=== PATIENT | female | born 1960 | race African-American/Black ===

== ENCOUNTER → 2016-10-26 | Outpatient (CLI) | payer OTHER ==
--- NOTE | 2016-10-26 11:32 | USB ---
Reason for exam: clinical finding. History: Patient is postmenopausal and has history of breast cancer at age 45. Family history of breast cancer in mother at age 60. Benign US biopsy breast VAD RT of the right breast, July 07, 2016. Benign US biopsy breast add'l VAD RT of the right breast, July 07, 2016. Lumpectomy of the right breast, May 2005. Chemotherapy, May 2005. Radiation therapy of the right breast. Took hormonal contraceptives for 2 years beginning at age 15. Took tamoxifen for 5 years beginning at age 45. Indicated problem(s): palpable abnormality in the left breast. Physical Findings: Nurse did not find any significant physical abnormalities on exam. US Breast LT Left breast ultrasound including all four quadrants, the retroareolar region and axilla demonstrates a 1.3 x 1.1 x 1.9cm vascular lymph node at 2 o'clock and a 1.8 x 1.3 x 0.8cm vascular lymph node at the axilla. These results were verbally communicated with the patient and result sheet given to the patient on 10/26/16. ASSESSMENT: Benign, BI-RAD 2 RECOMMENDATION: Routine screening mammogram of both breasts in 9 months. Back on schedule. Manage patient on a clinical basis.
== END | disposition home or self-care (01) ==
LOC: RADUSWWP 09:46
PROVIDERS: ATTEND Surgery
DX: R92.8 Other abnormal and inconclusive findings on diagnostic imaging of breast (principal)

== ENCOUNTER 2016-10-28 07:41 | Emergency (ER) | payer OTHER ==
[2016-10-28] MEDS ORDERED: SODIUM CHLORIDE 0.9% 1,000 ML IV STA ×2 (08:01→09:04)
[2016-10-28] MEDS ORDERED: ACETAMINOPHEN IV (For NPO) 1,000 MG in SALINE 1 100ML.BAG IVPB STA (08:02)
--- NOTE | 2016-10-28 08:05 | ED ---
Abdominal Pain HPI - General Chief Complaint: Abdominal Pain Stated Complaint: LOWER ABDOMEN PAIN Time Seen by Provider: 10/28/16 07:54 Source: patient, RN notes reviewed Mode of arrival: ambulatory Limitations: no limitations - History of Present Illness Initial Comments: This is a 56-year-old female with a history of multiple medical problems who had a lap band removed about 2 weeks ago who states she's had very little stool output since then she's been constipated feels as if her abdomen is getting larger has had decreased oral intake feel he stool she is passing is occasional liquid stool in spite of taking milk of magnesia superior magnesium and other stool softeners. He denies any overt fevers chills or sweats she does states she has 8/10 abdominal pain mostly left upper quadrant she states it tends gets up to 10/10. She currently has no nausea just the pain. She has had some belching. She's had no other surgery besides the lab and she states. There is a family history of diverticulitis with a cousin. MD Complaint: abdominal pain - Related Data Home Medications Medication Instructions Recorded Confirmed Captopril [Capoten] 50 mg PO BID 06/18/14 10/28/16 Hydrochlorothiazide [Hydrodiuril] 12.5 mg PO DAILY PRN 06/18/14 10/28/16 Levothyroxine Sodium [Synthroid] 100 mcg PO DAILY 07/06/15 10/28/16 Topiramate [Topamax] 100 mg PO HS 07/06/15 10/28/16 metFORMIN HCL [Glucophage] 1,000 mg PO TID 07/06/15 10/28/16 Loratadine [Claritin] 10 mg PO DAILY PRN 07/19/15 10/28/16 Albuterol Sulfate [Proair Hfa] 1 puff INHALATION DIRECTED PRN 09/19/16 Simvastatin [Simvastatin] 20 mg PO DAILY 09/22/16 10/28/16 Previous Rx's Medication Instructions Recorded oxyCODONE-APAP 5-325MG [Percocet 1 tab PO Q6HR PRN #15 tab 09/22/16 5-325 mg] Cephalexin [Keflex] 500 mg PO Q6HR #40 cap 10/28/16 Hydrocodone/Acetaminophen [[place] 1 each PO Q6HR PRN #20 tab 10/28/16 5-325] Allergies Allergy/AdvReac Type Severity Reaction Status Date / Time No Known Allergies Allergy Verified 10/28/16 07:51 Review of Systems ROS Statement: Those systems with pertinent positive or pertinent negative responses have been documented in the HPI. ROS Other: All systems not noted in ROS Statement are negative. Past Medical History Past Medical History: Cancer, Diabetes Mellitus, GERD/Reflux, Hyperlipidemia, Hypertension, Osteoarthritis (OA), Thyroid Disorder Additional Past Medical History / Comment(s): heart murmur, hx of breast cancer , gout History of Any Multi-Drug Resistant Organisms: None Reported Past Surgical History: Bariatric Surgery, Breast Surgery, Section, Joint Replacement, Tubal Ligation Additional Past Surgical History / Comment(s): rt breast lumpectomy, lymph nodes removed..saravanan knee replacement, lap band- lap band removal Past Anesthesia/Blood Transfusion Reactions: No Reported Reaction Past Psychological History: No Psychological Hx Reported Additional Psychological History / Comment(s): . Smoking Status: Never smoker Past Alcohol Use History: Occasional Past Drug Use History: None Reported - Past Family History Father Family Medical History: Diabetes Mellitus, Myocardial Infarction ([place]) Additional Family Medical History / Comment(s): father from heart attack Mother Family Medical History: Cancer General Exam - General Exam Comments Initial Comments: This is a well-developed well-nourished awake alert oriented 3 female Limitations: no limitations General appearance: alert, in no apparent distress Head exam: Present: atraumatic, normocephalic, normal inspection Eye exam: Present: normal appearance, PERRL, EOMI. Absent: scleral icterus, conjunctival injection, periorbital swelling ENT exam: Present: mucous membranes dry Neck exam: Present: normal inspection. Absent: tenderness, meningismus, lymphadenopathy Respiratory exam: Present: normal lung sounds bilaterally. Absent: respiratory distress, wheezes, rales, rhonchi, stridor Cardiovascular Exam: Present: normal rhythm, tachycardia, normal heart sounds. Absent: systolic murmur, diastolic murmur, rubs, gallop, clicks GI/Abdominal exam: Present: soft, distended, tenderness (Left upper quadrant tenderness), normal bowel sounds. Absent: guarding, rebound, rigid, bruit, pulsatile mass, hernia Rectal exam: Present: deferred Extremities exam: Present: normal inspection, full ROM, normal capillary refill. Absent: tenderness, pedal edema, joint swelling, calf tenderness Back exam: Present: normal inspection Neurological exam: Present: alert, oriented X3, CN II-XII intact Psychiatric exam: Present: normal affect, normal mood Skin exam: Present: warm, dry, intact, normal color. Absent: rash Course Vital Signs 10/28/16 10/28/16 10/28/16 07:46 09:05 10:34 Temperature 96.9 F L Pulse Rate 101 H 95 96 Respiratory 20 18 18 Rate Blood Pressure 141/97 140/75 137/81 O2 Sat by Pulse 97 99 99 Oximetry - Reevaluation(s) Reevaluation #1: 10/28/16 09:35 X-rays are nonspecific CAT scan the abdomen has been ordered. Reevaluation #2: 10/28/16 09:41 Patient did states she had a large bowel movement does feel somewhat better after the bowel movement. CT is pending Reevaluation #3: 10/28/16 10:45 Scan imaging shows no findings there is some diverticulosis but no diverticulitis there is some evidence of an umbilical hernia patient was not tender over the surgery some evidence of retroperitoneal fluid along the course in the ureters which is nonspecific Medical Decision Making - Medical Decision Making I did discuss the findings with the patient she is feeling improved and does not want to stay in the emergency department longer she will be placed on antibiotics. She is encouraged to increase her oral fluids. - Lab Data Result diagrams: 10/28/16 08:10 10/28/16 08:10 Lab Results 10/28/16 10/28/16 10/28/16 Range/Units 08:10 08:10 08:10 WBC 8.1 (3.8-10.6) k/uL RBC 3.85 (3.80-5.40) m/uL Hgb 11.5 (11.4-16.0) gm/dL Hct 38.6 (34.0-46.0) % MCV 100.3 H (80.0-100.0) fL MCH 29.9 (25.0-35.0) pg MCHC 29.8 L (31.0-37.0) g/dL RDW 15.7 H (11.5-15.5) % Plt Count 274 (150-450) k/uL Neutrophils % 73 % Lymphocytes % 20 % Monocytes % 4 % Eosinophils % 1 % Basophils % 1 % Neutrophils # 5.9 (1.3-7.7) k/uL Lymphocytes # 1.6 (1.0-4.8) k/uL Monocytes # 0.3 (0-1.0) k/uL Eosinophils # 0.1 (0-0.7) k/uL Basophils # 0.1 (0-0.2) k/uL Hypochromasia Slight Macrocytosis Slight PT (9.0-12.0) sec INR (<1.1) APTT (22.0-30.0) sec Sodium 143 (137-145) mmol/L Potassium 3.5 (3.5-5.1) mmol/L Chloride 101 (98-107) mmol/L Carbon Dioxide 31 H (22-30) mmol/L Anion Gap 11 mmol/L BUN 7 (7-17) mg/dL Creatinine 0.90 (0.52-1.04) mg/dL Est GFR (MDRD) Af Amer >60 (>60 ml/min/1.73 sqM) Est GFR (MDRD) Non-Af >60 (>60 ml/min/1.73 sqM) Glucose 207 H (74-99) mg/dL POC Glucose (mg/dL) (75-99) mg/dL POC Glu Pepper Cutter ID Plasma Lactic Acid Nghia (0.7-2.0) mmol/L Calcium 9.0 (8.4-10.2) mg/dL Total Bilirubin 0.4 (0.2-1.3) mg/dL AST 40 H (14-36) U/L ALT 57 H (9-52) U/L Alkaline Phosphatase 157 H (38-126) U/L Total Creatine Kinase 66 (30-135) U/L CK-MB (CK-2) 0.2 (0.0-2.4) ng/mL CK-MB (CK-2) Rel Index 0.3 Troponin I <0.012 (0.000-0.034) ng/mL Total Protein 6.8 (6.3-8.2) g/dL Albumin 3.5 (3.5-5.0) g/dL Amylase 32 (30-110) U/L Lipase 91 (23-300) U/L Urine Color Urine Appearance (Clear) Urine pH (5.0-8.0) Ur Specific [place] (1.001-1.035) Urine Protein (Negative) Urine Glucose (UA) (Negative) Urine Ketones (Negative) Urine Blood (Negative) Urine Nitrate (Negative) Urine Bilirubin (Negative) Urine Urobilinogen (<2.0) mg/dL Ur Leukocyte Esterase (Negative) Urine RBC (0-5) /hpf Urine WBC (0-5) /hpf Urine WBC Clumps (None) /hpf Ur Squamous Epith Cells (0-4) /hpf Urine Bacteria (None) /hpf Urine Mucus (None) /hpf 10/28/16 10/28/16 10/28/16 Range/Units 08:10 08:10 08:15 WBC (3.8-10.6) k/uL RBC (3.80-5.40) m/uL Hgb (11.4-16.0) gm/dL Hct (34.0-46.0) % MCV (80.0-100.0) fL MCH (25.0-35.0) pg MCHC (31.0-37.0) g/dL RDW (11.5-15.5) % Plt Count (150-450) k/uL Neutrophils % % Lymphocytes % % Monocytes % % Eosinophils % % Basophils % % Neutrophils # (1.3-7.7) k/uL Lymphocytes # (1.0-4.8) k/uL Monocytes # (0-1.0) k/uL Eosinophils # (0-0.7) k/uL Basophils # (0-0.2) k/uL Hypochromasia Macrocytosis PT 10.2 (9.0-12.0) sec INR 1.0 (<1.1) APTT 22.5 (22.0-30.0) sec Sodium (137-145) mmol/L Potassium (3.5-5.1) mmol/L Chloride (98-107) mmol/L Carbon Dioxide (22-30) mmol/L Anion Gap mmol/L BUN (7-17) mg/dL Creatinine (0.52-1.04) mg/dL Est GFR (MDRD) Af Amer (>60 ml/min/1.73 sqM) Est GFR (MDRD) Non-Af (>60 ml/min/1.73 sqM) Glucose (74-99) mg/dL POC Glucose (mg/dL) 185 H (75-99) mg/dL POC Glu Pepper Cutter ID Keli Russell Plasma Lactic Acid Nghia 2.7 H* (0.7-2.0) mmol/L Calcium (8.4-10.2) mg/dL Total Bilirubin (0.2-1.3) mg/dL AST (14-36) U/L ALT (9-52) U/L Alkaline Phosphatase (38-126) U/L Total Creatine Kinase (30-135) U/L CK-MB (CK-2) (0.0-2.4) ng/mL CK-MB (CK-2) Rel Index Troponin I (0.000-0.034) ng/mL Total Protein (6.3-8.2) g/dL Albumin (3.5-5.0) g/dL Amylase (30-110) U/L Lipase (23-300) U/L Urine Color Urine Appearance (Clear) Urine pH (5.0-8.0) Ur Specific [place] (1.001-1.035) Urine Protein (Negative) Urine Glucose (UA) (Negative) Urine Ketones (Negative) Urine Blood (Negative) Urine Nitrate (Negative) Urine Bilirubin (Negative) Urine Urobilinogen (<2.0) mg/dL Ur Leukocyte Esterase (Negative) Urine RBC (0-5) /hpf Urine WBC (0-5) /hpf Urine WBC Clumps (None) /hpf Ur Squamous Epith Cells (0-4) /hpf Urine Bacteria (None) /hpf Urine Mucus (None) /hpf 10/28/16 Range/Units 09:35 WBC (3.8-10.6) k/uL RBC (3.80-5.40) m/uL Hgb (11.4-16.0) gm/dL Hct (34.0-46.0) % MCV (80.0-100.0) fL MCH (25.0-35.0) pg MCHC (31.0-37.0) g/dL RDW (11.5-15.5) % Plt Count (150-450) k/uL Neutrophils % % Lymphocytes % % Monocytes % % Eosinophils % % Basophils % % Neutrophils # (1.3-7.7) k/uL Lymphocytes # (1.0-4.8) k/uL Monocytes # (0-1.0) k/uL Eosinophils # (0-0.7) k/uL Basophils # (0-0.2) k/uL Hypochromasia Macrocytosis PT (9.0-12.0) sec INR (<1.1) APTT (22.0-30.0) sec Sodium (137-145) mmol/L Potassium (3.5-5.1) mmol/L Chloride (98-107) mmol/L Carbon Dioxide (22-30) mmol/L Anion Gap mmol/L BUN (7-17) mg/dL Creatinine (0.52-1.04) mg/dL Est GFR (MDRD) Af Amer (>60 ml/min/1.73 sqM) Est GFR (MDRD) Non-Af (>60 ml/min/1.73 sqM) Glucose (74-99) mg/dL POC Glucose (mg/dL) (75-99) mg/dL POC Glu Pepper Cutter ID Plasma Lactic Acid Nghia (0.7-2.0) mmol/L Calcium (8.4-10.2) mg/dL Total Bilirubin (0.2-1.3) mg/dL AST (14-36) U/L ALT (9-52) U/L Alkaline Phosphatase (38-126) U/L Total Creatine Kinase (30-135) U/L CK-MB (CK-2) (0.0-2.4) ng/mL CK-MB (CK-2) Rel Index Troponin I (0.000-0.034) ng/mL Total Protein (6.3-8.2) g/dL Albumin (3.5-5.0) g/dL Amylase (30-110) U/L Lipase (23-300) U/L Urine Color Light Yellow Urine Appearance Clear (Clear) Urine pH 7.5 (5.0-8.0) Ur Specific [place] 1.007 (1.001-1.035) Urine Protein 1+ H (Negative) Urine Glucose (UA) Negative (Negative) Urine Ketones Trace H (Negative) Urine Blood Negative (Negative) Urine Nitrate Negative (Negative) Urine Bilirubin Negative (Negative) Urine Urobilinogen <2.0 (<2.0) mg/dL Ur Leukocyte Esterase Moderate H (Negative) Urine RBC <1 (0-5) /hpf Urine WBC 22 H (0-5) /hpf Urine WBC Clumps Few H (None) /hpf Ur Squamous Epith Cells 2 (0-4) /hpf Urine Bacteria Rare H (None) /hpf Urine Mucus Rare H (None) /hpf - Radiology Data Radiology results: report reviewed (I did review the imaging and report there is nonspecific bowel gas pattern chest x-ray appears be unremarkable.), image reviewed Disposition Clinical Impression: Urinary tract infection, Constipation, Diverticulosis, Abdominal pain Disposition: HOME SELF-CARE Condition: Good Instructions: Urinary Tract Infection in Women (ED), Diverticulosis (ED), Diverticulitis Diet (ED), Abdominal Pain (ED) Additional Instructions: Increase oral fluid consumption Prescriptions: Cephalexin [Keflex] 500 mg PO Q6HR #40 cap Hydrocodone/Acetaminophen [[place] 5-325] 1 each PO Q6HR PRN #20 tab PRN Reason: Pain
[2016-10-28 08:22] LABS: Glucose,Whole Blood 185 mg/dL (75-99)
[2016-10-28 08:22] LABS: Basophils # (A) 0.1 k/uL (0-0.2); Basophils % (A) 1 %; CH 30.9; Eosinophils # (A) 0.1 k/uL (0-0.7); Eosinophils % (A) 1 %; HCT 38.6 % (34.0-46.0); HDW 2.66; HGB 11.5 gm/dL (11.4-16.0); Hypochromasia Slight; Luc # (Auto) 0.12; Luc % (Auto) 2; Lymphocytes # (A) 1.6 k/uL (1.0-4.8); Lymphocytes % (A) 20 %; MCH 29.9 pg (25.0-35.0); MCHC 29.8 g/dL (31.0-37.0); MCV 100.3 fL (80.0-100.0); Macrocytosis Slight; Mean Platelet Volume 8.3; Monocytes # (A) 0.3 k/uL (0-1.0); Monocytes % (A) 4 %; Neutrophils # (A) 5.9 k/uL (1.3-7.7); Neutrophils % (A) 73 %; RBC 3.85 m/uL (3.80-5.40); RDW 15.7 % (11.5-15.5); WBC 8.1 k/uL (3.8-10.6)
[2016-10-28 08:32] LABS: Partial Thromboplastin Time 22.5 sec (22.0-30.0); Prothrombin Time 10.2 sec (9.0-12.0)
[2016-10-28 08:34] LABS: ALT 57 U/L (9-52); AST 40 U/L (14-36); Alkaline Phosphatase 157 U/L (38-126); Amylase 32 U/L (30-110); Anion Gap 11 mmol/L; Blood Urea Nitrogen 7 mg/dL (7-17); Carbon Dioxide 31 mmol/L (22-30); Chloride 101 mmol/L (98-107); Glucose 207 mg/dL (74-99); Non-African American GFR(MDRD) >60 (>60 ml/min/1.73 sqM); Potassium 3.5 mmol/L (3.5-5.1); Sodium 143 mmol/L (137-145); Total Bilirubin 0.4 mg/dL (0.2-1.3); Total Protein 6.8 g/dL (6.3-8.2)
[2016-10-28 08:43] LABS: Creatine Kinase 66 U/L (30-135)
--- NOTE | 2016-10-28 08:53 | XR ---
EXAMINATION TYPE: XR chest 2V DATE OF EXAM: 10/28/2016 8:41 AM COMPARISON: Prior chest x-ray December 21, 2015. Prior chest CT December 22, 2015 HISTORY: Lower chest and upper abdominal pain with diarrhea. TECHNIQUE: Frontal and lateral views of the chest are obtained. FINDINGS: There is no focal air space opacity, pleural effusion, or pneumothorax seen. The cardiac silhouette size is stable and mildly enlarged. The osseous structures are intact. Surgical clips ar e redemonstrated in the right breast. IMPRESSION: Mild cardiomegaly without acute pulmonary process. No significant change from prior.
--- NOTE | 2016-10-28 08:55 | XR ---
EXAMINATION TYPE: XR abdomen 2V DATE OF EXAM: 10/28/2016 8:41 AM CLINICAL HISTORY: Lap band removed in September with upper abdominal pain and watery diarrhea TECHNIQUE: Supine and upright views of the abdomen are obtained COMPARISON: CT chest December 22, 2015 FINDINGS: There is some paucity of small bowel gas. Gas is seen in nondistended colonic loops with so me scattered air-fluid levels. Visualized gas and small bowel loops shows no suspicious dilatation. S urgical sutures epigastric region versus rectum. There is no pneumoperitoneum or suspicious calcifica tion identified. The lung bases are clear and the osseous structures are intact. IMPRESSION: Overall nonspecific favor nonobstructive bowel gas pattern.
[2016-10-28 08:56] LABS: Creatine Kinase MB 0.2 ng/mL (0.0-2.4); Troponin I <0.012 ng/mL (0.000-0.034)
[2016-10-28 09:05] VITALS: RESP 18
[2016-10-28] MEDS ORDERED: RX INFO: IV CONTRAST WAS GIVEN 1 EACH MISC MISCELLANE PRN (09:33)
[2016-10-28 10:03] LABS: Appearance,Urine Clear (Clear); Bacteria,Urine Rare /hpf; Bilirubin,Urine Negative (Negative); Glucose,Urine (UA) Negative (Negative); Ketones,Urine Trace (Negative); Leukocyte Esterase,Urine Moderate (Negative); Mucus,Urine Rare /hpf; Nitrite,Urine Negative (Negative); PH, Urine 7.5 (5.0-8.0); Particle Count 817; Protein,Urine 1+ (Negative); RBC,Urine <1 /hpf (0-5); Specific Gravity,Urine 1.007 (1.001-1.035); Squamous Epithelial Cell,Urine 2 /hpf (0-4); UA Billing (MACRO vs. MICRO) MICRO; Urobilinogen,Urine <2.0 mg/dL (<2.0); WBC,Urine 22 /hpf (0-5)
--- NOTE | 2016-10-28 10:25 | CT ---
EXAMINATION TYPE: CT abdomen pelvis w con DATE OF EXAM: 10/28/2016 10:09 AM COMPARISON: NONE HISTORY: Patient having left sided pain into left lower quadrant. Patient recently had lap band remov ed (Sep 23) and pain started then. CT DLP: 2005.4mGycm Automated Exposure Control for Dose Reduction was Utilized. CONTRAST: CT scan of the abdomen and pelvis is performed without oral but with IV Contrast, patient injected wi th 100 mL of Omnipaque 300. Exam is suboptimal due to IV malfunction. COMPARISON: None. FINDINGS: LUNG BASES: No significant abnormality is appreciated. LIVER/GB: Liver is diffusely low dense consistent with fatty infiltration. PANCREAS: No significant abnormality is seen. SPLEEN: No significant abnormality is seen. ADRENALS: No significant abnormality is seen. KIDNEYS: There is symmetric excretion from both kidneys without evidence of hydronephrosis bilaterall y. There is asymmetric diminished size to right kidney versus left kidney noted. Urinary bladder is p oorly distended midline of the anterior pelvis and is thus suboptimally evaluated. There is some ill- defined fluid in the retroperitoneum along course of the ureters. BOWEL: Surgical clips epigastric region are seen. Evaluation bowel is suboptimal due to lack of enter ic contrast. Stomach is poorly distended and thus suboptimally evaluated. There is no suspicious smal l or large bowel dilatation identified. Fluid-filled right colon raises concern for colitis and/or di arrhea. Diverticula are seen in the sigmoid colon. No acute diverticulitis is present UTERUS/ADNEXA: Uterus is anteverted in shape and within normal limits in size. Scattered pelvic phleb oliths are seen. LYMPH NODES: No greater than 1cm abdominal or pelvic lymph nodes are appreciated. OSSEOUS STRUCTURES: There is multilevel vacuum disc phenomenon and disc space narrowing in the mid to lower lumbar spine. Facet arthropathy contributes to spinal canal stenosis and neural foraminal narr owing at L4-L5 level. Multilevel spurring in the thoracolumbar spine is noted. OTHER: There is moderate sized fat-containing umbilical hernia. Heterogeneous 3.7 cm density left upp er midabdomen anterior abdominal wall likely reflects remnant scar related to place of prior lap band port on axial image 38. Other etiologies such as focal hematoma cannot be excluded on CT image. IMPRESSION: Mild ill-defined retroperitoneal fluid along course of the mid ureters bilaterally is non specific could reflect inflammatory change, urine leak, or infectious process among the possible etio logies.
[2016-10-28 10:35] VITALS: BP 137/81; PULSE 96
[2016-10-28 10:48] VITALS: TEMP 97.4
== END 2016-10-28 10:56 | disposition home or self-care (01) ==
LOC: EC 07:41
DX: N39.0 Urinary tract infection, site not specified (principal); K59.00 Constipation, unspecified; K57.90 Diverticulosis of intestine, part unspecified, without perforation or abscess without bleeding; M10.9 Gout, unspecified; I10 Essential (primary) hypertension; Z79.84 Long term (current) use of oral hypoglycemic drugs; E07.9 Disorder of thyroid, unspecified; K21.9 Gastro-esophageal reflux disease without esophagitis; E78.5 Hyperlipidemia, unspecified; E11.9 Type 2 diabetes mellitus without complications; Z79.899 Other long term (current) drug therapy; Z85.3 Personal history of malignant neoplasm of breast
CPT/HCPCS: 99284; 96361; 96374; 36415; 80053; 82150; 82550; 82553; 83605; 83690; 84484; 85025; 85610; 85730; 81001; 71020; 74020; 74177; Q9967; J0131

== ENCOUNTER → 2017-05-04 | Outpatient (CLI) | payer OTHER ==
--- NOTE | 2017-05-04 10:45 | MM ---
Reason for exam: follow-up at short interval from prior study. Last mammogram was performed 10 months ago. History: Patient is postmenopausal and has history of breast cancer at age 45. Family history of breast cancer in mother at age 60. Benign US biopsy breast VAD RT of the right breast, July 07, 2016. Benign US biopsy breast add'l VAD RT of the right breast, July 07, 2016. Lumpectomy of the right breast, May 2005. Chemotherapy, May 2005. Radiation therapy of the right breast. Took hormonal contraceptives for 2 years beginning at age 15. Took tamoxifen for 5 years beginning at age 45. Physical Findings: Nurse did not find any significant physical abnormalities on exam. MG Diagnostic Mammo RT w CAD CC and MLO view(s) were taken of the right breast. Prior study comparison: July 06, 2016, bilateral MG diagnostic mammo w CAD THALIA. March 17, 2014, bilateral MG diagnostic mammo w CAD THALIA. March 17, 2014, left breast US breast LT. March 19, 2012, CAD bilateral diagnostic mammogram. There are scattered fibroglandular densities. Previous mammotome biopsy in the right breast x 2. Post surgical and post therapy changes in the right breast. Nodular asymmetry far lateral at a middle depth. This was present previously. It appears slightly more prominent but this may be positional. Short interval follow up recommended. These results were verbally communicated with the patient and result sheet given to the patient on 05/04/17. ASSESSMENT: Probably benign, BI-RAD 3 RECOMMENDATION: Follow-up diagnostic mammogram of the right breast in 3 months. Patient will be due for her annual exam of the left breast at that time. (due for annual exam in 3 months) LETY
== END | disposition home or self-care (01) ==
LOC: RADMAMWWP 09:31
PROVIDERS: ATTEND Surgery
DX: R92.8 Other abnormal and inconclusive findings on diagnostic imaging of breast (principal)

== ENCOUNTER → 2017-08-13 | Outpatient (CLI) | payer MEDICARE, OTHER ==
--- NOTE | 2017-08-13 11:11 | MM ---
Reason for exam: additional evaluation requested from prior study. Last mammogram was performed 3 months ago. History: Patient is postmenopausal and has history of breast cancer at age 45. Family history of breast cancer in mother at age 60. Benign US biopsy breast VAD RT of the right breast, July 07, 2016. Benign US biopsy breast add'l VAD RT of the right breast, July 07, 2016. Lumpectomy of the right breast, May 2005. Chemotherapy, May 2005. Radiation therapy of the right breast. Took hormonal contraceptives for 2 years beginning at age 15. Took tamoxifen for 5 years beginning at age 45. Physical Findings: Nurse did not find any significant physical abnormalities on exam. MG Diagnostic Mammo w CAD THALIA Bilateral CC and MLO view(s) were taken. Prior study comparison: May 04, 2017, right breast MG diagnostic mammo RT w CAD. July 06, 2016, bilateral MG diagnostic mammo w CAD THALIA. There are scattered fibroglandular densities. No suspicious abnormality. Post therapy changes in the upper outer quadrant. These results were verbally communicated with the patient and result sheet given to the patient on 08/13/17. ASSESSMENT: Benign, BI-RAD 2 RECOMMENDATION: Routine screening mammogram of both breasts in 1 year.
== END | disposition home or self-care (01) ==
LOC: RADMAMWWP 10:08
PROVIDERS: ATTEND Surgery
DX: R92.8 Other abnormal and inconclusive findings on diagnostic imaging of breast (principal)

== ENCOUNTER 2017-11-05 08:12 | Emergency (ER) | payer MEDICARE, OTHER ==
[2017-11-05] MEDS ORDERED: IPRATROPIUM-ALBUTEROL 3 ML NEB INHALATION STA ×2 (08:44→10:28)
[2017-11-05] MEDS ORDERED: methylPREDNISolone SOD SUCCI 125 MG/2 ML VIAL IM STA (08:44)
--- NOTE | 2017-11-05 08:46 | ED ---
General Adult HPI - General Chief complaint: Upper Respiratory Infection Stated complaint: FLU LIKE SYMPTOMS Time Seen by Provider: 11/05/17 08:41 Source: patient, RN notes reviewed Mode of arrival: wheelchair Limitations: no limitations - History of Present Illness Initial comments: Patient's a 57-year-old female who presents emergency room today with a chief complaint of cough congestion over the last 2 weeks. Patient does admit to spin production. States that she is unsure of the color does not look at it. She does admit that she's been trying breathing treatments at home with little relief the symptoms. States feels it is getting worse. Denies any other complaints or associated symptoms. Patient denies any recent shortness of breath , chest pain, back pain, abdominal pain, nausea or vomiting, numbness or tingling, dysuria or hematuria, constipation or diarrhea, headaches or visual changes, or any other complaints. - Related Data Home Medications Medication Instructions Recorded Confirmed Captopril [Capoten] 50 mg PO BID 06/18/14 11/05/17 Levothyroxine Sodium [Synthroid] 100 mcg PO DAILY 07/06/15 11/05/17 Topiramate [Topamax] 100 mg PO HS 07/06/15 11/05/17 metFORMIN HCL [Glucophage] 500 mg PO TID 07/06/15 11/05/17 Loratadine [Claritin] 10 mg PO DAILY 07/19/15 11/05/17 Albuterol Sulfate [Proair Hfa] 1 puff INHALATION RT-Q4H PRN 09/19/16 11/05/17 Simvastatin [Simvastatin] 20 mg PO DAILY 09/22/16 11/05/17 ALPRAZolam [Xanax] 1 mg PO TID PRN 11/05/17 11/05/17 Bumetanide [Bumex] 1 mg PO DAILY PRN 11/05/17 11/05/17 HYDROcodone/APAP 10-325MG [[place] 1 tab PO Q8H PRN 11/05/17 11/05/17 10-325] Hydrochlorothiazide [Hydrodiuril] 25 mg PO DAILY 11/05/17 11/05/17 Ibuprofen [Motrin] 800 mg PO QID PRN 11/05/17 11/05/17 Omeprazole [PriLOSEC] 20 mg PO DAILY 11/05/17 11/05/17 Phentermine HCl 37.5 mg PO AC-BRKFST 11/05/17 11/05/17 Temazepam [Restoril] 15 mg PO HS PRN 11/05/17 11/05/17 Previous Rx's Medication Instructions Recorded Albuterol Inhaler [Ventolin Hfa 1 - 2 puff INHALATION Q4-6H PRN #1 11/05/17 Inhaler] inhaler Albuterol Nebulized [Ventolin 2.5 mg INHALATION Q4H PRN 10 Days 11/05/17 Nebulized] nebu Azithromycin [Zithromax Z-pack] 0 mg PO DIRECTED #6 tab 11/05/17 predniSONE 40 mg PO DAILY 5 Days tab 11/05/17 Allergies Allergy/AdvReac Type Severity Reaction Status Date / Time No Known Allergies Allergy Verified 11/05/17 08:36 Review of Systems ROS Statement: Those systems with pertinent positive or pertinent negative responses have been documented in the HPI. ROS Other: All systems not noted in ROS Statement are negative. Past Medical History Past Medical History: Cancer, Diabetes Mellitus, GERD/Reflux, Hyperlipidemia, Hypertension, Osteoarthritis (OA), Thyroid Disorder Additional Past Medical History / Comment(s): heart murmur, hx of breast cancer , gout History of Any Multi-Drug Resistant Organisms: None Reported Past Surgical History: Bariatric Surgery, Breast Surgery, Section, Joint Replacement, Tubal Ligation Additional Past Surgical History / Comment(s): rt breast lumpectomy, lymph nodes removed..saravanan knee replacement, lap band Past Anesthesia/Blood Transfusion Reactions: No Reported Reaction Past Psychological History: Anxiety Smoking Status: Never smoker Past Alcohol Use History: Occasional Past Drug Use History: None Reported - Past Family History Father Family Medical History: Diabetes Mellitus, Myocardial Infarction ([place]) Additional Family Medical History / Comment(s): father from heart attack Mother Family Medical History: Cancer General Exam - General Exam Comments Initial Comments: General: The patient is awake and alert, in no distress, and does not appear acutely ill. Eye: Pupils are equal, round and reactive to light, extra-ocular movements are intact. No nystagmus. There is normal conjunctiva bilaterally. No signs of icterus. Ears, nose, mouth and throat: There are moist mucous membranes and no oral lesions. Neck: The neck is supple, there is no tenderness or JVD. Cardiovascular: There is a regular rate and rhythm. No murmur, rub or gallop is appreciated. Respiratory: Bilateral expiratory wheeze. respirations are non-labored, breath sounds are equal. No stridor, rales, or rhonchi. Musculoskeletal: Normal ROM, no tenderness. Strength 5/5. Sensation intact. Pulses equal bilaterally 2+. Neurological: A&O x 3. CN II-XII intact, There are no obvious motor or sensory deficits. Coordination appears grossly intact. Speech is normal. Skin: Skin is warm and dry and no rashes or lesions are noted. Psychiatric: Cooperative, appropriate mood & affect, normal judgment. Limitations: no limitations Course Vital Signs 11/05/17 11/05/17 11/05/17 08:16 09:13 09:20 Temperature 98.7 F Pulse Rate 115 H 108 H 108 H Respiratory 20 Rate Blood Pressure 132/83 O2 Sat by Pulse 98 Oximetry 11/05/17 09:23 Temperature 99.1 F Pulse Rate 102 H Respiratory 16 Rate Blood Pressure 151/89 O2 Sat by Pulse 98 Oximetry Medical Decision Making - Medical Decision Making Patient reexamined at this time shows no signs of distress. Doesn't improvement after breathing treatments. Did have some wheezing in the posterior lung sounds. Chest x-rays reviewed negative. She does move to cough congestion over the last 2 weeks. Patient will be treated for bronchitis placed on azithromycin also steroids. She is diabetic and advised that this will cause some fluctuations of her blood sugar. Patient advised follow family doctor next days return here to the emergency room symptoms increase or for any other concerns. She states understanding and is in agreement. Disposition Clinical Impression: Acute bronchitis Disposition: HOME SELF-CARE Condition: Good Instructions: Acute Bronchitis (ED) Additional Instructions: Please use medication as discussed. Please follow-up with family doctor in the next 2 days of symptoms have not improved. Please return to emergency room if the symptoms increase or worsen or for any other concerns. Prescriptions: Albuterol Inhaler [Ventolin Hfa Inhaler] 1 - 2 puff INHALATION Q4-6H PRN #1 inhaler PRN Reason: Cough Albuterol Nebulized [Ventolin Nebulized] 2.5 mg INHALATION Q4H PRN 10 Days nebu PRN Reason: Cough Azithromycin [Zithromax Z-pack] 0 mg PO DIRECTED #6 tab predniSONE 40 mg PO DAILY 5 Days tab Referrals: Bart Monge MD [Primary Care Provider] - 1-2 days Time of Disposition: 10:14
--- NOTE | 2017-11-05 09:42 | XR ---
EXAMINATION TYPE: XR chest 2V DATE OF EXAM: 11/05/2017 COMPARISON: 10/28/2016 HISTORY: Shortness of breath TECHNIQUE: Frontal and lateral views of the chest are obtained. FINDINGS: Scattered senescent parenchymal changes noted. Hyperinflation compatible with COPD. No evidence for infiltrate. No evidence for atelectasis. Heart size is stable. Mediastinal structures are stable and grossly unremarkable. No evidence for hilar prominence. Degenerative changes dorsal spine. IMPRESSION: 1. No evidence for acute pulmonary disease.
[2017-11-05 11:09] VITALS: BP 131/75; PULSE 102; RESP 18; TEMP 99
== END 2017-11-05 10:55 | disposition home or self-care (01) ==
LOC: EC 08:12
DX: J20.9 Acute bronchitis, unspecified (principal); E78.5 Hyperlipidemia, unspecified; I10 Essential (primary) hypertension; E11.9 Type 2 diabetes mellitus without complications; K21.9 Gastro-esophageal reflux disease without esophagitis; E07.9 Disorder of thyroid, unspecified; Z79.84 Long term (current) use of oral hypoglycemic drugs; Z79.899 Other long term (current) drug therapy; Z85.3 Personal history of malignant neoplasm of breast; Z98.890 Other specified postprocedural states
CPT/HCPCS: 94640 ×2; 71046; 99283; 96372; J2930

== ENCOUNTER → 2019-12-17 | Outpatient (CLI) | payer MEDICARE ==
--- NOTE | 2019-12-17 10:36 | USB ---
Reason for exam: clinical finding. History: Patient is postmenopausal and has history of breast cancer at age 45. Family history of breast cancer in mother at age 60. Benign US biopsy breast VAD RT of the right breast, July 07, 2016. Benign US biopsy breast add'l VAD RT of the right breast, July 07, 2016. Lumpectomy of the right breast, May 2005. Chemotherapy, May 2005. Radiation therapy of the right breast. Took hormonal contraceptives for 2 years beginning at age 15. Took tamoxifen for 5 years beginning at age 45. Indicated problem(s): lump or thickening in the right breast. Physical Findings: Nurse Summary: right lump x 3 weeks palpated by patient (nurse jj). US Breast BILAT Right complete breast ultrasound includes all four quadrants, the retroareolar region and axilla. Finding demonstrates a 0.7 x 0.5 x 0.3cm solid, hypoechoic lesion at 10 o'clock for which a biopsy is recommended. Left complete breast ultrasound includes all four quadrants, the retroareolar region and axilla. Finding demonstrates no cystic or solid lesion seen. These results were verbally communicated with the patient and result sheet given to the patient on 12/17/19. ASSESSMENT: Suspicious, BI-RAD 4 RECOMMENDATION: Ultrasound core biopsy of the right breast. Called Dr. King's office with mammographic findings and has scheduled an appointment for the patient for 01/29/20 at 10:[address] Ervin. Biopsy scheduled for 01/05/20 at 8:00. PRELIMINARY REPORT CALLED AND FAXED TO DR. ERVIN ON 12/17/19.
== END | disposition home or self-care (01) ==
LOC: RADUSWWP 09:17
PROVIDERS: ATTEND Family Medicine
DX: N63.10 Unspecified lump in the right breast, unspecified quadrant (principal); N63.20 Unspecified lump in the left breast, unspecified quadrant

== ENCOUNTER → 2020-01-05 | Day surgery (SDC) | payer MEDICARE ==
[2020-01-05 07:25] VITALS: RESP 16; TEMP 97.7
--- NOTE | 2020-01-05 08:56 | USB ---
EXAMINATION TYPE: US biopsy breast VAD RT, MG diagnostic mammo RT wo CAD DATE OF EXAM: 01/05/2020 CLINICAL HISTORY: N63 breast lump/mass. TECHNIQUE: Ultrasound guided core biopsy of right breast. COMPARISON: Bilateral breast ultrasound dated 12/17/2019 FINDINGS: The procedure of ultrasound guided core biopsy was explained to the patient. Benefits, alternatives, and risks were discussed. An informed consent was then obtained. Preprocedural timeout was performed. The patient was placed in supine positioning for imaging and for the procedure. The overlying skin was prepped and draped in usual sterile fashion. 10 cc of 1% lidocaine was used as anesthetic into the skin and subcutaneous tissue up to a 0.7 x 0.5 x 0.3 cm mass at the 10:00 position in the right breast. Under ultrasound guidance, a 12-gauge vacuum assisted biopsy gun device was used to obtain 5 core samples. Following this, a ribbon-shaped biopsy marker was left at the site of biopsy. Postprocedure mammogram demonstrates appropriate biopsy marker placement. The patient tolerated the procedure well without any immediate complication. The patient was kept in the radiology department for short stay after the procedure and then discharged home in stable condition. IMPRESSION: Successful, uncomplicated ultrasound guided core biopsy of area of a 0.7 x 0.5 x 0.3 cm mass at the 10:00 position in the right breast, full pathology results to follow. Pathology Results: Benign RIGHT BREAST, ULTRASOUND GUIDED CORE BIOPSY: Fibrocystic changes including fibrosis, small cysts, and apocrine metaplasia. Rare microcalcifications are identified. Recommendation Follow up ultrasound of the right breast in months. LETY
[2020-01-05 09:13] VITALS: BP 128/87; PULSE 98
== END ==
LOC: RADMAMWWP 07:07
PROVIDERS: ATTEND Surgery
DX: N60.31 Fibrosclerosis of right breast (principal); N60.81 Other benign mammary dysplasias of right breast; R92.8 Other abnormal and inconclusive findings on diagnostic imaging of breast
CPT/HCPCS: 88305; 77065; 19083; A4648; J2001

== ENCOUNTER → 2020-02-24 | Outpatient (CLI) | payer MEDICARE ==
--- NOTE | 2020-02-24 08:46 | XR ---
EXAMINATION TYPE: XR chest 2V DATE OF EXAM: 02/24/2020 COMPARISON: 11/05/2017 HISTORY: Shortness of breath TECHNIQUE: Frontal and lateral views of the chest are obtained. FINDINGS: Scattered senescent parenchymal changes noted. Hyperinflation compatible with COPD. No evidence for infiltrate. No evidence for atelectasis. Heart size is stable. Mediastinal structures are stable and grossly unremarkable. No evidence for hilar prominence. Degenerative changes dorsal spine. IMPRESSION: 1. No evidence for acute pulmonary disease.
== END | disposition home or self-care (01) ==
LOC: RADXRMAIN 08:04
PROVIDERS: ATTEND Internal Medicine
DX: R04.2 Hemoptysis (principal)
CPT/HCPCS: 71046

== ENCOUNTER 2020-05-22 11:05 | Emergency (ER) | payer MEDICARE ==
[2020-05-22 11:15] VITALS: RESP 18; TEMP 98.6
--- NOTE | 2020-05-22 11:42 | ED ---
Extremity Problem HPI - General Chief complaint: Extremity Problem,Nontraumatic Stated complaint: right arm weakness Time Seen by Provider: 05/22/20 11:21 Source: patient Mode of arrival: wheelchair Limitations: no limitations - History of Present Illness Initial comments: Patient is 60-year-old female presenting to the emergency department with a chief complaint of right arm pain and numbness. Patient states her symptoms began approximately 4 days ago with gradual onset. Patient states the infant was initially began in her wrists of the neck/trap region and have not moved distally to her right elbow. Patient states she developed pain in the right shoulder with decreased range of motion especially with abduction above 90. Patient states she also has a numbing/tingling sensation radiating from the right trap to the right elbow. States she has normal sensation and strength in her forearm and hand. Patient denies headaches, visual changes, weakness in either lower extremities or left arm.. Denies any difficulties with speech or any facial droop. Denies any difficulty walking. Patient does use a cane to ambulate at baseline. Denies prior history of strokes. Denies chest pain shortness of breath. She denies any trauma to the right upper extremity. - Related Data Home Medications Medication Instructions Recorded Confirmed captopriL [Capoten] 50 mg PO BID 06/18/14 01/05/20 Levothyroxine Sodium [Synthroid] 100 mcg PO DAILY 07/06/15 01/05/20 metFORMIN HCL [Glucophage] 1,000 mg PO BID 07/06/15 01/05/20 Simvastatin 20 mg PO DAILY 09/22/16 01/05/20 ALPRAZolam [Xanax] 1 mg PO TID PRN 11/05/17 01/05/20 Omeprazole [PriLOSEC] 20 mg PO DAILY 11/05/17 01/05/20 Allergies Allergy/AdvReac Type Severity Reaction Status Date / Time No Known Allergies Allergy Verified 05/22/20 11:12 Review of Systems ROS Statement: Those systems with pertinent positive or pertinent negative responses have been documented in the HPI. ROS Other: All systems not noted in ROS Statement are negative. Past Medical History Past Medical History: Cancer, Diabetes Mellitus, GERD/Reflux, Hyperlipidemia, Hypertension, Osteoarthritis (OA), Thyroid Disorder Additional Past Medical History / Comment(s): heart murmur. hx of right breast cancer 2004. gout History of Any Multi-Drug Resistant Organisms: None Reported Past Surgical History: Bariatric Surgery, Breast Surgery, Section, Joint Replacement, Tubal Ligation Additional Past Surgical History / Comment(s): rt breast lumpectomy 2004 with chemo and radiation. lymph nodes removed. saravanan knee replacement. lap band Past Anesthesia/Blood Transfusion Reactions: No Reported Reaction Past Psychological History: Anxiety Smoking Status: Never smoker Past Alcohol Use History: Occasional Past Drug Use History: None Reported - Past Family History Father Additional Family Medical History / Comment(s): father from heart attack Mother Family Medical History: Cancer General Exam Limitations: no limitations General appearance: alert, in no apparent distress Head exam: Present: atraumatic, normocephalic, normal inspection Eye exam: Present: normal appearance, PERRL, EOMI Pupils: Present: normal accommodation ENT exam: Present: normal exam, normal oropharynx, mucous membranes moist, TM's normal bilaterally, normal external ear exam Neck exam: Present: normal inspection, tenderness (Mild tenderness along the right paraspinal region and the right trapezius.), full ROM Respiratory exam: Present: normal lung sounds bilaterally. Absent: respiratory distress, wheezes, rales Cardiovascular Exam: Present: regular rate, normal rhythm, normal heart sounds Extremities exam: Present: normal inspection, tenderness (Tenderness along the right trapezius, anterior deltoid.), normal capillary refill, other (+2 ulnar and radial pulses laterally. Sensation intact.). Absent: full ROM (Limited range of motion with abduction in the right upper extremity especially above 90. Positive Bonner. Positive empty can test.), pedal edema, joint swelling, calf tenderness Back exam: Present: normal inspection, full ROM. Absent: tenderness, CVA tenderness (R), CVA tenderness (L) Neurological exam: Present: alert, oriented X3, CN II-XII intact, normal gait Psychiatric exam: Present: normal affect, normal mood Skin exam: Present: warm, dry, intact, normal color Course Vital Signs 05/22/20 05/22/20 11:12 13:28 Temperature 98.6 F Pulse Rate 104 H 103 H Respiratory 18 18 Rate Blood Pressure 124/73 124/80 O2 Sat by Pulse 98 96 Oximetry Medical Decision Making - Medical Decision Making Patient is 60-year-old female presenting to the emergency room with a chief complaint of right arm pain. Exam patient has tenderness along the right trapezius, anterior deltoid. There is history some paresthesias going from the right side of the neck/trapezius region to the elbow. No weakness or paresthesias going to the forearm or hands bilaterally. No lower extremity weakness. Limited range of motion with abduction above 90. Positive empty can and [place]'s test in the right upper extremity. No trauma. X-ray of the cervical spine reveals degenerative disc disease in the lower cervical spine. I suspect her symptoms are secondary to a cervical radiculopathy. Strict return parameters were thoroughly discussed patient was understanding and agreeable. She was advised to follow-up with data integrity specialist. Case discussed with physician. Disposition Clinical Impression: Right cervical radiculopathy, Right arm weakness Disposition: HOME SELF-CARE Condition: Stable Instructions (If sedation given, give patient instructions): Cervical Radiculopathy (ED) Additional Instructions: Follow with her primary care physician. Alternate between Tylenol and Motrin for pain control. Return to emergency department if symptoms worsen. Is patient prescribed a controlled substance at d/c from ED?: No Referrals: Bart Monge MD [Primary Care Provider] - 1-2 days Time of Disposition: 12:44
--- NOTE | 2020-05-22 12:24 | XR ---
EXAMINATION TYPE: XR cervical spine comp DATE OF EXAM: 05/22/2020 CLINICAL HISTORY: pain COMPARISON: NONE TECHNIQUE: Frontal, lateral, oblique, swimmers, and open mouth view of the cervical spine are obtaine d. FINDINGS: The cervical spine is visualized in its entirety from C1 thru the top of T1 level. It is s atisfactory in alignment without evidence of acute fracture or dislocation. The pre-vertebral soft t issue appears within normal limits. Moderate degenerative disc space narrowing at C4-5 C5-6 and C6-7. Ventral spondylosis identified. The C1-C2 articulation is unremarkable on the open mouth view. The oblique images are within normal limits. IMPRESSION: No acute fracture or dislocation is seen in the cervical spine.ICD 10 NO FRACTURE, INITI AL EVALUATION
[2020-05-22] MEDS ORDERED: ACETAMINOPHEN TAB 325 MG TAB PO STA (12:43)
[2020-05-22 13:29] VITALS: BP 124/80; PULSE 103
== END 2020-05-22 13:29 | disposition home or self-care (01) ==
LOC: EC 11:05
DX: M62.81 Muscle weakness (generalized) (principal); M54.12 Radiculopathy, cervical region; E11.9 Type 2 diabetes mellitus without complications; K21.9 Gastro-esophageal reflux disease without esophagitis; E78.5 Hyperlipidemia, unspecified; I10 Essential (primary) hypertension; M19.90 Unspecified osteoarthritis, unspecified site; E07.9 Disorder of thyroid, unspecified; F41.9 Anxiety disorder, unspecified; Z79.890 Hormone replacement therapy; Z79.84 Long term (current) use of oral hypoglycemic drugs; Z96.653 Presence of artificial knee joint, bilateral; Z85.3 Personal history of malignant neoplasm of breast; Z92.21 Personal history of antineoplastic chemotherapy; Z92.3 Personal history of irradiation; Z90.11 Acquired absence of right breast and nipple
CPT/HCPCS: 72050; 99283

== ENCOUNTER → 2020-07-29 | Outpatient (CLI) | payer MEDICARE ==
--- NOTE | 2020-07-29 08:49 | MM ---
Reason for exam: additional evaluation requested from prior study. Last mammogram was performed 7 months ago. History: Patient is postmenopausal and has history of breast cancer at age 45. Family history of breast cancer in mother at age 60. Benign US biopsy breast VAD RT of the right breast, January 05, 2020. Benign US biopsy breast VAD RT of the right breast, July 07, 2016. Benign US biopsy breast add'l VAD RT of the right breast, July 07, 2016. Lumpectomy of the right breast, May 2005. Chemotherapy, May 2005. Radiation therapy of the right breast. Took hormonal contraceptives for 2 years beginning at age 15. Took tamoxifen for 5 years beginning at age 45. Physical Findings: Nurse did not find any significant physical abnormalities on exam. MG Diagnostic Mammo w CAD THALIA Bilateral CC and MLO view(s) were taken. Prior study comparison: January 05, 2020, right breast MG diagnostic mammo RT wo CAD. August 13, 2017, bilateral MG diagnostic mammo w CAD THALIA. There are scattered fibroglandular densities. Previous mammotome biopsy in the right breast. Asymmetric breast tissue greater in the left breast. Post surgical changes in the right breast. These results were verbally communicated with the patient and result sheet given to the patient on 07/29/20. ASSESSMENT: Benign, BI-RAD 2 RECOMMENDATION: Follow-up diagnostic mammogram of both breasts in 1 year.
--- NOTE | 2020-07-29 08:50 | USB ---
Reason for exam: follow-up at short interval from prior study. History: Patient is postmenopausal and has history of breast cancer at age 45. Family history of breast cancer in mother at age 60. Benign US biopsy breast VAD RT of the right breast, January 05, 2020. Benign US biopsy breast VAD RT of the right breast, July 07, 2016. Benign US biopsy breast add'l VAD RT of the right breast, July 07, 2016. Lumpectomy of the right breast, May 2005. Chemotherapy, May 2005. Radiation therapy of the right breast. Took hormonal contraceptives for 2 years beginning at age 15. Took tamoxifen for 5 years beginning at age 45. US Breast Limited RT Right limited breast ultrasound including focal area of concern, retroareolar and axilla demonstrates a 0.6 x 0.7 x 0.3cm solid, hypoechoic lesion at 10 o'clock, previously biopsy. These results were verbally communicated with the patient and result sheet given to the patient on 07/29/20. ASSESSMENT: Benign, BI-RAD 2 RECOMMENDATION: Follow-up diagnostic mammogram of both breasts in 1 year.
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
== END | disposition home or self-care (01) ==
LOC: RADMAMWWP 07:15
PROVIDERS: ATTEND Family Medicine
DX: Z08 Encounter for follow-up examination after completed treatment for malignant neoplasm (principal); M85.842 Other specified disorders of bone density and structure, left hand; Z85.3 Personal history of malignant neoplasm of breast
CPT/HCPCS: 77066

== ENCOUNTER → 2021-01-27 | Outpatient (CLI) | payer MEDICARE, OTHER ==
--- NOTE | 2021-01-28 09:49 | USB ---
Reason for exam: clinical finding. History: Patient is postmenopausal and has history of breast cancer at age 45. Family history of breast cancer in mother at age 60. Benign US biopsy breast VAD RT of the right breast, January 05, 2020. Benign US biopsy breast VAD RT of the right breast, July 07, 2016. Benign US biopsy breast add'l VAD RT of the right breast, July 07, 2016. Lumpectomy of the right breast, May 2005. Chemotherapy, May 2005. Radiation therapy of the right breast. Took hormonal contraceptives for 2 years beginning at age 15. Took tamoxifen for 5 years beginning at age 45. Indicated problem(s): palpable abnormality and lump or thickening in the right breast. Physical Findings: Nurse Summary: 1cm nodule at 11 o'clock, moves (nurse dw). US Breast Limited RT Right limited breast ultrasound including focal area of concern, retroareolar and axilla demonstrates a 6 x 3 x 8mm oval, mixed, hypoechoic lesion at 10 o'clock, stable and a 10 x 10 x 11mm irregular, solid, hypoechoic lesion at 11 o'clock BB, biopsy recommended. These results were verbally communicated with the patient and result sheet given to the patient on 01/27/21. ASSESSMENT: Suspicious, BI-RAD 4 RECOMMENDATION: Ultrasound core biopsy of the right breast. Called Dr. oMnge's office with mammographic findings and has scheduled an appointment for the patient for 03/03/21 at 8:[address] Ervin. Biopsy scheduled for 02/10/21 at 9:30. PRELIMINARY REPORT CALLED AND FAXED TO DR. ERVIN ON 01/28/21.
== END | disposition home or self-care (01) ==
LOC: RADUSWWP 15:00
PROVIDERS: ATTEND Family Medicine
DX: Z78.0 Asymptomatic menopausal state (principal); Z85.3 Personal history of malignant neoplasm of breast

== ENCOUNTER → 2021-02-10 | Day surgery (SDC) | payer MEDICARE, OTHER ==
[2021-02-10 09:50] VITALS: RESP 16
[2021-02-10 11:40] VITALS: BP 124/83; PULSE 105; TEMP 98.1
--- NOTE | 2021-02-10 12:00 | USB ---
EXAMINATION TYPE: US biopsy breast VAD RT, MG diagnostic mammo RT wo CAD DATE OF EXAM: 02/10/2021 CLINICAL HISTORY: N63. Lump/mass. Abnormal ultrasound. History of right-sided breast cancer 2005. TECHNIQUE: Ultrasound guided core biopsy of right breast with clip placement follow-up two-view mammogram. COMPARISON: Prior right breast ultrasound January 27, 2021 and older studies. FINDINGS: The procedure of ultrasound guided core biopsy was explained to the patient. Benefits, alternatives, and risks were discussed. An informed consent was then obtained. The patient was placed in supine positioning for imaging and for the procedure. Preprocedure ultrasound redemonstrates vague irregular avascular roughly 1.0 cm hypoechoic lesion 1:00 position Zone-A right breast. The overlying skin was prepped and draped in usual sterile fashion. Lidocaine lidocaine is used as anesthetic into the skin and subcutaneous tissue up to area of concern in the right breast. Under ultrasound guidance, a vacuum assisted biopsy gun device was used to obtain 2 core samples. Following this, a biopsy clip was left in lesion. The patient tolerated the procedure well without any immediate complication. The patient was kept in the radiology department for short stay after the procedure and then discharged home in stable condition. Post procedure mammogram shows successful deployment of new clip in the right breast anterior upper aspect. IMPRESSION: Successful, uncomplicated ultrasound guided core biopsy of area of concern in the right breast, full pathology results to follow. Low to intermediate index of suspicion noted at time of procedure. Pathology Results: Malignant RIGHT BREAST, ELEVEN O'CLOCK, ULTRASOUND GUIDED CORE BIOPSY: Invasive moderately differentiated ductal carcinoma (Grade 2). See Surgical Pathology Cancer Case Summary. Recommendation Surgical consult of the right breast. LETY
== END ==
LOC: RADUSWWP 09:32
PROVIDERS: ATTEND Surgery
DX: C50.911 Malignant neoplasm of unspecified site of right female breast (principal); Z17.0 Estrogen receptor positive status [ER+]
CPT/HCPCS: 88305; 88342; 88341; 77065; 19083; A4648; J2001

== ENCOUNTER → 2021-02-28 | Outpatient (CLI) | payer MEDICARE, OTHER ==
--- NOTE | 2021-02-28 12:34 | NM ---
EXAMINATION TYPE: NM sentinel node imaging DATE OF EXAM: 02/28/2021 COMPARISON: NONE HISTORY: Abnormal right breast biopsy TECHNIQUE AND FINDINGS: The procedure of sentinel lymph node injection was explained to the patient. The benefits, alternatives, and risks were discussed. An informed consent was then obtained. Overlying skin is cleaned with sterile alcohol. Lidocaine buffered with bicarbonate was used as anes thetic into the skin and subcutaneous tissue surrounding the nipple. Following this, 505 uCi Tc99m T ilmanocept was injected surrounding the outer aspect of the right nipple intradermally. The injection sites were massaged by nuclear process engineer for 10 minutes after injection. T he patient tolerated the procedure well without any immediate complication. The patient was kept in the radiology department for short stay after the procedure and then taken to surgery for surgical pr ocedure what is presumed intraoperative gamma probe will be used for sentinel lymph node detection. IMPRESSION: Right breast radiotracer injection for sentinel node localization as above.
== END | disposition home or self-care (01) ==
LOC: RADNMMAIN 08:02
PROVIDERS: ATTEND Surgery
DX: C50.911 Malignant neoplasm of unspecified site of right female breast (principal)
CPT/HCPCS: 78195; A9520

== ENCOUNTER 2021-04-08 10:24 | Observation (INO) | payer MEDICARE, OTHER ==
[2021-04-07 10:01] VITALS: BMI 46.7
[~2021-04-08 10:24] MED LIST: ACETAMINOPHEN TAB 500 MG TAB PO PRN; DEXAMETHASONE SOD PHOSPHATE 4 MG/ML 1 ML VIAL IV ONE; HEPARIN SODIUM,PORCINE/PF 5,000 UNIT/0.5 ML SYRINGE SQ PRN; HYDROmorphone 0.5 MG/0.5 ML SYRINGE IVP PRN; MIDAZOLAM 2 MG/2 ML VIAL IV PRN; ONDANSETRON 4 MG/2 ML VIAL IVP ONE; Pre Op ABX Message 1 EACH MISC MISCELLANE ONE; SCOPOLAMINE 1.5MG/72HR PATCH TRANSDERM ONE
--- NOTE | 2021-04-08 10:45 | P.HPADDEND ---
H&P Addendum H&P Addendum Date: 04/08/21 since her last visit with the patient in February the patient has decided not to pursue breast reconstruction. She remains interested in right-sided mastectomy only. We will proceed today with right modified radical mastectomy also known as right simple mastectomy with axillary node dissection. Risks previously reviewed. Patient is agreeable.
[2021-04-08] MEDS ORDERED: LACTATED RINGERS 1,000 ML IV ONE (11:21)
[2021-04-08 11:41] LABS: Glucose,Whole Blood 170 mg/dL (75-99)
[2021-04-08] MEDS ORDERED: KETOROLAC 15 MG/ML 1 ML VIAL ONE (14:21)
[2021-04-08] MEDS ORDERED: LIDOCAINE 1% INJ 10MG/ML (20 ML MDV) ONE (14:21)
[2021-04-08] MEDS ORDERED: HYDROmorphone (PF) 1 MG/ML ONE (14:21)
[2021-04-08] MEDS ORDERED: PROPOFOL 10 MG/ML 20 ML VIAL IV ONE (14:21)
[2021-04-08] MEDS ORDERED: METOPROLOL TARTRATE 5 MG/5 ML VIAL IVP ONE (14:21)
[2021-04-08] MEDS ORDERED: fentaNYL (PF) 50 MCG/ML 2 ML AMP ONE (14:21)
[2021-04-08] MEDS ORDERED: MIDAZOLAM 2 MG/2 ML VIAL ONE (14:21)
[2021-04-08] MEDS ORDERED: SUCCINYLCHOLINE CHLORIDE VIAL 200 MG/10 ML VIAL IV ONE (14:21)
[2021-04-08] MEDS ORDERED: SODIUM CHLORIDE 0.9% 100 ML with ceFAZolin 2,000 MG IV ONE ×2 (14:24)
[2021-04-08] MEDS ORDERED: BACITRACIN 50,000 UNIT VIAL TOPICAL ONE (16:20)
[2021-04-08] MEDS ORDERED: NALOXONE 0.4 MG/ML 1 ML VIAL IV PRN (16:38)
[2021-04-08] MEDS ORDERED: ONDANSETRON 4 MG/2 ML VIAL IVP PRN (16:39)
[2021-04-08] MEDS ORDERED: ACETAMINOPHEN TAB 325 MG TAB PO PRN (16:40)
[2021-04-08] MEDS ORDERED: D5-0.45% NACL WITH KCL 20MEQ/L 1,000 ML IV SCH (16:45)
--- NOTE | 2021-04-08 16:48 | P.OP ---
Date of Procedure: 04/08/21 Procedure(s) Performed: PREOPERATIVE DIAGNOSIS: Right breast cancer POSTOPERATIVE DIAGNOSIS: Same PROCEDURE: Left breast modified radical mastectomy SURGEON: Arcadio EBL: 75 mL ANESTHESIA: General COMPLICATIONS: None OPERATIVE PROCEDURE: Patient was placed on the operating room table in the supine position. Using the skin marker the proposed incision sites were drawn out on the chest wall. The superior incision was first created. The incision was elliptical in nature encompassing the nipple areolar complex. Flaps were raised superiorly until the chest wall was reached. The patient had significant scarring superiorly at the 10 to 11 o'clock position. We then reached the axilla. Again scarring was noted from previous radiation and lumpectomy with sentinel lymph node biopsy. I was able to visualize the course of the right subclavian vein. The axillary contents were swept inferiorly from that point. Dissection took place using a clip mathematical sciences professor, electrocautery, sharp dissection, and the LigaSure device. The thoracodorsal nerve was easily identified and spared. The long thoracic nerve likewise was identified and spared. Axillary contents were sent with the mastectomy specimen but separate in the container. There were 2-3 palpable nodes there that were somewhat suspicious. The inferior breast flap was then created. The breast was removed from the chest wall using electrocautery. Multiple vessels were divided using either electrocautery or the clip mathematical sciences professor. The area was irrigated. No bleeding was seen. 2 drains were placed beneath the flaps of the mastectomy incision. The subcutaneous tissues were then closed using 3-0 Vicryl sutures and the skin was closed using skin s taples. Davon were used because of the slightly taut nature of the incision. The drains were sutured in place using 3-0 silk sutures. Sterile dressings were then applied. DISPOSITION: Stable to recovery room
[2021-04-08] MEDS ORDERED: LABETALOL SYRINGE 5 MG/ML IVP ONE (16:51)
[2021-04-08 16:59] LABS: Glucose,Whole Blood 261 mg/dL (75-99)
[2021-04-08] MEDS ORDERED: INSULIN ASPART (NovoLOG) 100 UNIT/ML VIAL SQ ONE (17:00)
[2021-04-08] MEDS: LACTATED RINGERS 1,000 ML IV SCH (17:57)
[2021-04-08] MEDS: HYDROmorphone 1 MG/ML 1 ML SYRINGE IVP PRN (19:31)
[2021-04-08 20:23] LABS: Glucose,Whole Blood 287 mg/dL (75-99)
[2021-04-08] MEDS: FAMOTIDINE 20 MG TAB PO SCH (21:10)
[2021-04-08] MEDS: metFORMIN 500 MG TAB PO SCH (21:10)
[2021-04-08] MEDS: DOCUSATE 100 MG CAP PO SCH (21:10)
[2021-04-08] MEDS: INSULIN ASPART (NovoLOG) 100 UNIT/ML VIAL SQ SCH (21:12)
[2021-04-08] MEDS: SODIUM CHLORIDE 0.9% 1,000 ML IV SCH (21:29)
[2021-04-08] MEDS: ALPRAZolam 1 MG TAB PO PRN (21:37)
[2021-04-08] MEDS ORDERED: INSULIN DETEMIR (LEVEMIR) 100 UNIT/ML SYR SQ SCH (22:15)
[2021-04-08 22:28] LABS: Glucose,Whole Blood 297 mg/dL (75-99)
[2021-04-09] MEDS: HYDROmorphone 1 MG/ML 1 ML SYRINGE IVP PRN ×5 (00:12→23:31)
[2021-04-09] MEDS: HEPARIN SODIUM,PORCINE/PF 5,000 UNIT/0.5 ML SYRINGE SQ SCH ×4 (00:15→23:30)
[2021-04-09] MEDS: LACTATED RINGERS 1,000 ML IV SCH (03:19)
[2021-04-09 03:29] LABS: Glucose,Whole Blood 235 mg/dL (75-99)
--- NOTE | 2021-04-09 06:25 | CONS ---
CONSULTATION DATE OF CONSULTATION: 04/08/2021 I am covering for Dr. Monge. REASON FOR CONSULTATION: Advice regarding diabetes mellitus and other medical issues, requested by Dr. Ervin. HISTORY OF PRESENT ILLNESS: This 61-year-old woman with a past medical history of diabetes mellitus, GERD, hypertension, hyperlipidemia, being followed by Dr. Monge in the outpatient setting, underwent right breast modified radical mastectomy for breast cancer. The patient is slightly drowsy after surgery. The patient was taking Trulicity with excellent control of blood sugars between 140 and 175 at home, according to her. The patient was taking Trulicity on Tuesdays. The blood sugar was found to be elevated 170, 261, 287. Patient closely monitored. There is no history of fever, rigors, chills. No headache, loss of consciousness, seizures. PAST MEDICAL HISTORY: History of diabetes mellitus, GERD, hyperlipidemia hypertension, history of DJD, hypothyroidism, right breast cancer, bariatric surgery. MEDICATIONS: Home medications are Trulicity, Glucophage, Capoten, simvastatin, Prilosec, Synthroid, Xanax. ALLERGIES: None. FAMILY HISTORY: History of breast cancer in the family. SOCIAL HISTORY: No history of smoking. No alcohol intake. REVIEW OF SYSTEMS: ENT: No diminished vision or hearing. CARDIOVASCULAR: No angina. RESPIRATORY: No cough or hemoptysis. GI: No nausea or vomiting. : No dysuria. NERVOUS SYSTEM: No numbness or weakness. ALLERGY/IMMUNOLOGY: No asthma or hayfever. MUSCULOSKELETAL: As mentioned earlier. HEMATOLOGY: As mentioned earlier. ENDOCRINE: As mentioned earlier. CONSTITUTIONAL: As mentioned earlier. DERMATOLOGY: Negative. RHEUMATOLOGY: Negative. PSYCHIATRY: As mentioned earlier. PHYSICAL EXAMINATION: GENERAL: Patient is alert and oriented times three. VITAL SIGNS: Pulse 107, blood pressure 142/82, respirations 18, temperature 97, pulse ox 94% on room air. HEENT: Conjunctivae normal. Oral mucosa moist. NECK: No jugular venous distention. No carotid bruits. No lymph node enlargement. RESPIRATORY: Breath sounds diminished at the bases. No rhonchi, no crackles. HEART: S1 and S2, muffled. ABDOMEN: Soft, no tenderness. No masses palpable. EXTREMITIES: No edema, no swelling. NERVOUS: Higher functions as mentioned earlier. Patient is slightly drowsy. Moves all four limbs. No focal deficits. SKIN: No rashes. JOINTS: No active deforming arthropathy. CHEST: Status post modified radical mastectomy. LABS: Accu-Cheks 172, 261, 287. The preoperative labs are reviewed. Hemoglobin 11.5 and coags are normal. The previous labs available in the computer are within normal limits. ASSESSMENT: 1. Status post right breast modified radical mastectomy for breast cancer. 2. Diabetes mellitus type 2. 3. Gastroesophageal reflux disease. 4. Hypertension. 5. Hyperlipidemia. 6. History of degenerative joint disease. 7. Hypothyroidism. 8. History of bariatric surgery. 9. History of section. 10.History of tubal ligation. 11.History of anxiety. 12.Obesity with body mass index of 50. 13.FULL CODE. RECOMMENDATION AND DISCUSSION: In this 61-year-old woman who presented with multiple medical issues, we will monitor the patient closely. Continue the current management and symptomatic treatment. I recommend resume the home medications and monitor blood sugars closely. I would also recommend to add a small dose of Lantus to better control the blood sugars and monitor blood pressure closely. Prognosis guarded because of multiple complex medical issues. Further recommendations to follow. MMODL / IJN: [id number] /
[2021-04-09 06:46] LABS: Glucose,Whole Blood 246 mg/dL (75-99)
[2021-04-09] MEDS: LEVOTHYROXINE 100 MCG TAB PO SCH (06:48)
[2021-04-09] MEDS: INSULIN ASPART (NovoLOG) 100 UNIT/ML VIAL SQ SCH ×4 (06:50→21:14)
[2021-04-09] MEDS: DOCUSATE 100 MG CAP PO SCH ×2 (08:24→20:33)
[2021-04-09] MEDS: SODIUM CHLORIDE 0.9% 1,000 ML IV SCH (08:24)
[2021-04-09] MEDS: ATORVASTATIN 10 MG TAB PO SCH (08:24)
[2021-04-09] MEDS: FAMOTIDINE 20 MG TAB PO SCH ×2 (08:24→20:33)
[2021-04-09] MEDS: metFORMIN 500 MG TAB PO SCH ×2 (08:24→20:31)
[2021-04-09] MEDS: PANTOPRAZOLE 40 MG TABLET PO SCH (08:24)
[2021-04-09 09:51] LABS: Glucose,Whole Blood 226 mg/dL (75-99)
[2021-04-09 12:48] LABS: Glucose,Whole Blood 222 mg/dL (75-99)
--- NOTE | 2021-04-09 12:51 | P.PN ---
Subjective Progress Note Date: 04/09/21 CHIEF COMPLAINT: Breast cancer HISTORY OF PRESENT ILLNESS: The patient is a 61-year-old female status post right mastectomy for recurrent breast cancer. She reports pulling underneath her right arm pit from her dressing. She reports pain. ROS: No reports of nausea and vomiting. No bowel movements. No fevers or chills. No new chest pain. No productive sputum. Has morbid obesity PHYSICAL EXAM: VITAL SIGNS: Reviewed CONSTITUTIONAL: Well developed and in no acute distress. EYES: Conjuctivae without sclera icterus. Extraocular movements grossly intact. HEAD, EARS, NOSE, THROAT: Moist buccal mucosa. Head is atraumatic, normocephalic. Hears conversational speech. No nasal drainage. NECK: Supple. No thyroidomegaly. RESPIRATORY: Non-labored respirations and equal bilateral excursions. CARDIOVASCULAR: Palpable 2+ radial pulses. Regular rate. Regular rhythm. ABDOMEN: Soft nontender. MUSCULOSKELETAL: No gross deformity of the lower extremities noted. No clubbing. No cyanosis. SKIN: Dressing along right mastectomy site intact. NATALY sanguinous. NEUROLOGIC: Cranial nerves II through XII grossly intact. No focal or lateralizing signs. PSYCH: Appropriate affect. Alert and oriented to person, place and time. ASSESSMENT: 1. Recurrent right breast cancer PLAN: 1. Nursing care with home healthcare described 2. Continue hospitalization for pain management. Objective - Vital Signs Vital signs: Vital Signs Temp 97.8 F 04/09/21 08:23 Pulse 101 H 04/09/21 08:23 Resp 16 04/09/21 08:23 BP 131/81 04/09/21 08:23 Pulse Ox 94 L 04/09/21 08:23 Intake & Output 04/08/21 04/09/21 04/09/21 18:59 06:59 18:59 Intake Total 900 540 Output Total 100 420 60 Balance 800 120 -60 Weight 141.8 kg Intake: IV 900 Oral 540 Output: Drainage 0 20 60 Lower 0 20 Upper 0 0 60 Urine 400 Estimated Blood Loss 100 Other: Voiding Method Toilet - Labs Labs: Abnormal Lab Results - Last 24 Hours (Table) 04/08/21 04/08/21 04/08/21 Range/Units 16:57 20:22 22:26 POC Glucose (mg/dL) 261 H 287 H 297 H (75-99) mg/dL 04/09/21 04/09/21 04/09/21 Range/Units 03:26 06:44 09:49 POC Glucose (mg/dL) 235 H 246 H 226 H (75-99) mg/dL Assessment and Plan (1) Morbid obesity due to excess calories Current Visit: Yes Status: Acute Code(s): E66.01 - MORBID (SEVERE) OBESITY DUE TO EXCESS CALORIES SNOMED Code(s): 253592336 (2) BMI 50.0-59.9, adult Current Visit: Yes Status: Acute Code(s): Z68.43 - BODY MASS INDEX [BMI] 50.0-59.9, ADULT SNOMED Code(s): 577178738 (3) Recurrent adenocarcinoma of right breast Current Visit: Yes Status: Acute Code(s): C50.911 - MALIGNANT NEOPLASM OF UNSP SITE OF RIGHT FEMALE BREAST SNOMED Code(s): 678970820
[2021-04-09] MEDS: ALPRAZolam 1 MG TAB PO PRN ×2 (13:56→21:18)
--- NOTE | 2021-04-09 16:16 | PN ---
PROGRESS NOTE DATE OF SERVICE: 04/09/2021 I am covering for Dr. Monge. INTERVAL HISTORY: This is a 61-year-old woman who underwent a modified radical mastectomy, had elevated blood sugars. No chest pain. No palpitations. No fever. Surgery is following the patient closely. PHYSICAL EXAMINATION: GENERAL: Patient is alert and oriented times three. VITAL SIGNS: Pulse 101, blood pressure 131/81, respirations 16, temperature 97.8, pulse ox 94% on room air. HEENT: Conjunctivae normal. Oral mucosa moist. NECK: No jugular venous distention. No carotid bruits. No lymph node enlargement. RESPIRATORY: Breath sounds diminished at the bases. A few scattered rhonchi and crackles. HEART: S1 and S2, muffled. ABDOMEN: Soft, no tenderness. No masses palpable. EXTREMITIES: No edema, no swelling. NERVOUS: No focal deficits. LABS: Accu-Cheks 226 and 222. ASSESSMENT: 1. Status post right breast modified radical mastectomy for breast cancer. 2. Diabetes mellitus type 2. 3. Gastroesophageal reflux disease. 4. Hypertension. 5. Hyperlipidemia. 6. History of degenerative joint disease. 7. History of hypothyroidism. 8. History of bariatric surgery. 9. History of section. 10.History of tubal ligation. 11.History of anxiety. 12.Obesity with body mass index of 50. 13.FULL CODE. RECOMMENDATION AND DISCUSSION: Recommend to continue current management and continue with symptomatic treatment. Otherwise, I would recommend increase the dose of Lantus to 30 units q.h.s. and we will continue to monitor. Otherwise, the patient may have to be discharged on a short course of Lantus for blood sugar control. We will continue to monitor. Recommend close followup with Dr. Monge in the outpatient setting. MMODL / IJN: [id number] /
[2021-04-09 17:37] LABS: Glucose,Whole Blood 245 mg/dL (75-99)
[2021-04-09 20:32] LABS: Hemoglobin A1C 8.7 % (4.0-6.0)
[2021-04-09] MEDS ORDERED: INSULIN DETEMIR (LEVEMIR) 100 UNIT/ML SYR SQ SCH (21:00)
[2021-04-09 21:09] LABS: Glucose,Whole Blood 266 mg/dL (75-99)
[2021-04-10] MEDS: ALPRAZolam 1 MG TAB PO PRN ×3 (03:10→20:55)
[2021-04-10 06:25] LABS: Glucose,Whole Blood 227 mg/dL (75-99)
[2021-04-10] MEDS: SODIUM CHLORIDE 0.9% 1,000 ML IV SCH ×2 (06:28→12:39)
[2021-04-10] MEDS: INSULIN ASPART (NovoLOG) 100 UNIT/ML VIAL SQ SCH ×6 (06:29→20:55)
[2021-04-10] MEDS: HYDROmorphone 1 MG/ML 1 ML SYRINGE IVP PRN ×2 (06:29→19:55)
[2021-04-10] MEDS: LEVOTHYROXINE 100 MCG TAB PO SCH (06:29)
[2021-04-10] MEDS: LACTATED RINGERS 1,000 ML IV SCH (07:18)
[2021-04-10] MEDS: FAMOTIDINE 20 MG TAB PO SCH ×2 (08:38→20:54)
[2021-04-10] MEDS: HEPARIN SODIUM,PORCINE/PF 5,000 UNIT/0.5 ML SYRINGE SQ SCH ×3 (08:38→23:05)
[2021-04-10] MEDS: DOCUSATE 100 MG CAP PO SCH ×3 (08:39→20:54)
[2021-04-10] MEDS: ATORVASTATIN 10 MG TAB PO SCH (08:39)
[2021-04-10] MEDS: PANTOPRAZOLE 40 MG TABLET PO SCH (08:39)
[2021-04-10] MEDS: metFORMIN 500 MG TAB PO SCH ×2 (08:39→20:54)
[2021-04-10] MEDS: BENZOCAINE/MENTHOL LOZENG 1 EACH LOZENGE MUCOUS MEM PRN ×2 (12:29→21:25)
[2021-04-10 12:33] LABS: Glucose,Whole Blood 214 mg/dL (75-99)
--- NOTE | 2021-04-10 13:16 | XR ---
EXAMINATION TYPE: XR chest 1V portable DATE OF EXAM: 04/10/2021 CLINICAL HISTORY: Difficulty breathing diminished breath sounds. TECHNIQUE: Single AP portable frontal view of the chest is obtained. COMPARISON: Chest x-ray from February 24, 2020 FINDINGS: There is new right-sided pleural drainage catheter. Overlying regina are present. Diminis hed inspiration and background chronic parenchymal change without suspicious focal airspace opacity, pleural effusion, or pneumothorax seen bilaterally. Mild cardiomegaly. Osseous structures are intact. IMPRESSION: No pneumothorax with right-sided pleural drainage catheter. Diminished inspiration and ca rdiomegaly without focal infiltrate.
--- NOTE | 2021-04-10 13:44 | P.PN ---
Subjective Progress Note Date: 04/10/21 CHIEF COMPLAINT: Breast cancer HISTORY OF PRESENT ILLNESS: The patient is a 61-year-old female status post right mastectomy for recurrent breast cancer. Her pain is under better control. Blood sugars remain elevated over 200 to 250s. ROS: No reports of nausea and vomiting. No fevers or chills. No new chest pain. No productive sputum. Has morbid obesity, BMI over 50 PHYSICAL EXAM: VITAL SIGNS: Reviewed CONSTITUTIONAL: Well developed and in no acute distress. EYES: Conjuctivae without sclera icterus. Extraocular movements grossly intact. HEAD, EARS, NOSE, THROAT: Moist buccal mucosa. Head is atraumatic, normocephalic. Hears conversational speech. No nasal drainage. RESPIRATORY: Non-labored respirations and equal bilateral excursions. CARDIOVASCULAR: Palpable 2+ radial pulses. Regular rate. Regular rhythm. ABDOMEN: Soft nontender. MUSCULOSKELETAL: No gross deformity of the lower extremities noted. No clubbing. No cyanosis. SKIN: Dressing changed at bedside. Skin flaps viable. NATALY now serous sanguinous, envelope addresser in color. NEUROLOGIC: Cranial nerves II through XII grossly intact. No focal or lateralizing signs. PSYCH: Appropriate affect. Alert and oriented to person, place and time. LABS: Hemoglobin A1c 8.5. ASSESSMENT: 1. Recurrent right breast cancer PLAN: 1. Per medicine, continue hospitalization for hyperglycemia, poorly controlled diabetes. 2. Dressing changed at bedside with chloraprep. Objective - Vital Signs Vital signs: Vital Signs Temp 98.7 F 04/10/21 08:30 Pulse 102 H 04/10/21 08:30 Resp 18 04/10/21 08:30 BP 119/79 04/10/21 08:30 Pulse Ox 95 04/10/21 08:30 Intake & Output 04/09/21 04/10/21 04/10/21 18:59 06:59 18:59 Intake Total 1905 360 540 Output Total 165 120 20 Balance 1740 240 520 Intake: Intake, IV Titration 825 Amount Sodium Chloride 0.9% 1, 825 000 ml @ 75 mls/hr IV . [id number] AYAKA Rx#:[id number] Oral 1080 360 540 Output: Drainage 165 120 20 Lower 10 20 Upper 165 110 Other: # Voids 2 1 2 # Bowel Movements 1 - Labs Labs: Abnormal Lab Results - Last 24 Hours (Table) 04/09/21 04/09/21 04/09/21 Range/Units 10:28 17:35 21:07 POC Glucose (mg/dL) 245 H 266 H (75-99) mg/dL Hemoglobin A1c 8.7 H (4.0-6.0) % 04/10/21 04/10/21 Range/Units 06:24 12:31 POC Glucose (mg/dL) 227 H 214 H (75-99) mg/dL Hemoglobin A1c (4.0-6.0) % Assessment and Plan (1) Morbid obesity due to excess calories Current Visit: Yes Status: Acute Code(s): E66.01 - MORBID (SEVERE) OBESITY DUE TO EXCESS CALORIES SNOMED Code(s): 882757395 (2) BMI 50.0-59.9, adult Current Visit: Yes Status: Acute Code(s): Z68.43 - BODY MASS INDEX [BMI] 50.0-59.9, ADULT SNOMED Code(s): 240995006 (3) Recurrent adenocarcinoma of right breast Current Visit: Yes Status: Acute Code(s): C50.911 - MALIGNANT NEOPLASM OF UNSP SITE OF RIGHT FEMALE BREAST SNOMED Code(s): 484752855 (4) Hyperglycemia due to diabetes mellitus Current Visit: Yes Status: Acute Code(s): E11.65 - TYPE 2 DIABETES MELLITUS WITH HYPERGLYCEMIA SNOMED Code(s): 803586597
[2021-04-10 17:35] LABS: Glucose,Whole Blood 213 mg/dL (75-99)
--- NOTE | 2021-04-10 18:16 | PN ---
PROGRESS NOTE DATE OF SERVICE: 04/10/2021 I am covering for Dr. Monge. INTERVAL HISTORY: This 60-year-old woman who was admitted after right modified radical mastectomy, also had elevated blood sugars. The patient was started on Lantus insulin yesterday which was increased to 30 units. Despite that blood sugars elevated up to 245, 268, 227, 214. I have recommended increased Lantus and as well as add mealtime minimum 2 units with a plus scale also. Hold insulin if Accu-Cheks less than 120. The patient is being closely monitored. Surgery is also following the patient closely. PAST MEDICAL HISTORY: Reviewed. REVIEW OF SYSTEMS: CARDIOVASCULAR: No angina. RESPIRATORY: As mentioned earlier. GI: As mentioned earlier. : No dysuria. NERVOUS SYSTEM: No numbness or weakness. CURRENT MEDICATIONS: Reviewed include Tylenol, Xanax, Cepacol, Capoten, Colace, insulin. Doses reviewed. Levemir. PHYSICAL EXAMINATION: GENERAL: Patient is alert and oriented times three. VITAL SIGNS: Pulse 102, blood pressure 119/79, respirations 18, temperature 98.7, pulse ox 94% on room air. HEENT: Conjunctivae normal. NECK: No jugular venous distention. No carotid bruits. RESPIRATORY: Breath sounds diminished at the bases. No rhonchi, no crackles. HEART: S1 and S2, muffled. ABDOMEN: Soft, no tenderness. No masses palpable. EXTREMITIES: No edema, no swelling. NERVOUS: No focal deficits. LABS: Accu-Cheks 222, 245, 266, 227, 214. ASSESSMENT: 1. Status post right breast modified radical mastectomy for breast cancer. 2. Diabetes mellitus type 2. 3. Gastroesophageal reflux disease. 4. Hypertension. 5. Hyperlipidemia. 6. History of degenerative joint disease. 7. History of hypothyroidism. 8. History of bariatric surgery. 9. History of section. 10.History of tubal ligation. 11.History of anxiety. 12.Obesity with body mass index of 50. 13.FULL CODE. RECOMMENDATION AND DISCUSSION: Recommend to continue current medications, continue symptomatic treatment. Increase the dose of Lantus and add mealtime dose. Otherwise, continue to monitor. Dr. Monge will follow. The patient might need to go home on adjusted dose of Levemir or Lantus long-acting and short-acting combination for better control of diabetes mellitus because of surgery. We will continue to monitor. Further recommendations to follow. MMODL / IJN: [id number] /
[2021-04-10 19:54] LABS: Glucose,Whole Blood 208 mg/dL (75-99)
[2021-04-10] MEDS ORDERED: INSULIN DETEMIR (LEVEMIR) 100 UNIT/ML SYR SQ SCH (21:00)
[2021-04-10] MEDS: IBUPROFEN 400 MG TAB PO PRN (23:06)
[2021-04-11] MEDS: HYDROmorphone 1 MG/ML 1 ML SYRINGE IVP PRN (00:21)
[2021-04-11] MEDS: BENZOCAINE/MENTHOL LOZENG 1 EACH LOZENGE MUCOUS MEM PRN ×2 (03:59→08:30)
[2021-04-11] MEDS: ALPRAZolam 1 MG TAB PO PRN (05:37)
[2021-04-11] MEDS: LEVOTHYROXINE 100 MCG TAB PO SCH (05:37)
[2021-04-11 06:41] LABS: Glucose,Whole Blood 178 mg/dL (75-99)
[2021-04-11 07:44] LABS: Glucose,Whole Blood 154 mg/dL (75-99)
[2021-04-11] MEDS: HEPARIN SODIUM,PORCINE/PF 5,000 UNIT/0.5 ML SYRINGE SQ SCH (07:50)
[2021-04-11] MEDS: INSULIN ASPART (NovoLOG) 100 UNIT/ML VIAL SQ SCH ×4 (07:50→13:03)
[2021-04-11] MEDS: LACTATED RINGERS 1,000 ML IV SCH (08:09)
[2021-04-11] MEDS: DOCUSATE 100 MG CAP PO SCH (08:18)
[2021-04-11] MEDS: metFORMIN 500 MG TAB PO SCH (08:19)
[2021-04-11] MEDS: PANTOPRAZOLE 40 MG TABLET PO SCH (08:20)
[2021-04-11] MEDS: ATORVASTATIN 10 MG TAB PO SCH (08:20)
[2021-04-11] MEDS: FAMOTIDINE 20 MG TAB PO SCH (08:20)
[2021-04-11] MEDS: IBUPROFEN 400 MG TAB PO PRN (08:25)
[2021-04-11 08:36] VITALS: BP 129/78; PULSE 94; RESP 16; TEMP 98.4
--- NOTE | 2021-04-11 11:39 | P.DS ---
<Nancy Su - Last Filed: 04/11/21 11:36> Providers Expected date of discharge: 04/11/21 Hospital Course: Discharge diagnosis 1. Right breast cancer status post right breast modified radical mastectomy Hospital course This is a 61-year-old female with a known history of recurrent right breast cancer she is status post right breast modified radical mastectomy. She tolerated surgery well. Her pain is controlled. She is tolerating diet. She is up and ambulating. She is afebrile. Her incision is clean dry and intact. Patient is stable for discharge. Please refer to chart for any further details. Physician Animal Assistant note has been reviewed by physician. Signing provider agrees with the documented findings, assessment, and plan of care. Patient Condition at Discharge: Stable Plan - Discharge Summary Discharge Rx Participant: Yes New Discharge Prescriptions: New Ibuprofen [Motrin] 600 mg PO Q8HR PRN #30 tab PRN Reason: Pain No Action captopriL [Capoten] 50 mg PO BID metFORMIN HCL [Glucophage] 1,000 mg PO BID Levothyroxine Sodium [Synthroid] 100 mcg PO QAM Simvastatin 20 mg PO DAILY ALPRAZolam [Xanax] 1 mg PO TID PRN PRN Reason: Anxiety Omeprazole [PriLOSEC] 20 mg PO QAM Dulaglutide [Trulicity] 1.5 mg SQ Q7D Discharge Medication List captopriL [Capoten] 50 mg PO BID 06/18/14 [History] Levothyroxine Sodium [Synthroid] 100 mcg PO QAM 07/06/15 [History] metFORMIN HCL [Glucophage] 1,000 mg PO BID 07/06/15 [History] Simvastatin 20 mg PO DAILY 09/22/16 [History] ALPRAZolam [Xanax] 1 mg PO TID PRN 11/05/17 [History] Omeprazole [PriLOSEC] 20 mg PO QAM 11/05/17 [History] Dulaglutide [Trulicity] 1.5 mg SQ Q7D 04/07/21 [History] Ibuprofen [Motrin] 600 mg PO Q8HR PRN #30 tab 04/11/21 [Rx] Follow up Appointment(s)/Referral(s): Stalin Ervin MD [Medical Doctor] - 04/21/21 11:00 am [facility],Equipment [NON-STAFF] - As Needed (Supplier of 4 wheeled walker) Bart Monge MD [Primary Care Provider] - 1 Week [facility] Visiting Nurse, [NON-STAFF] - 1-2 Days Activity/Diet/Wound Care/Special Instructions: [address] while taking [place] No lifting over 10 pounds You may shower. No soaking or tub baths for 2 weeks Very light activity until you are reevaluated at your follow up appointment with your surgeon Keep a log of NATALY drain output and bring with you to your follow-up appointment Milk/strip drains 2-[address] times a day Call Dr Ervin with any fever, chills, increased pain not covered with pain meds, increased redness or discolored drainage from your incision, sudden increase or concerning drainage from your drains or any concerns., continue to use your incentive spirometery at home Regular consistent carb diet at home. drink fluids. Last received motrin at 0830 Discharge Disposition: HOME WITH HOME HEALTH SERVICES <Alice Victoria - Last Filed: 04/12/21 07:04> Providers Date of admission: 04/09/21 10:42 Attending physician: Stalin Ervin Consults: 04/08/21 16:39 Consult Physician Routine Consulting Provider: Bart Monge Consult Reason/Comments: Medical management Do you want consulting provider notified?: Yes Primary care physician: Bart Monge - Discharge Diagnosis(es) (1) Morbid obesity due to excess calories Status: Acute (2) BMI 50.0-59.9, adult Status: Acute (3) Recurrent adenocarcinoma of right breast Status: Acute (4) Hyperglycemia due to diabetes mellitus Status: Acute Hospital Course: Patient seen and evaluated with above CHIEF COMPLAINT: Breast cancer HISTORY OF PRESENT ILLNESS: The patient is a 61-year-old female status post right mastectomy for recurrent breast cancer. Her pain is well controlled. Blood sugars are now under 200s. ROS: No reports of nausea and vomiting. No fevers or chills. No new chest pain. No productive sputum. Has morbid obesity, BMI over 50 PHYSICAL EXAM: VITAL SIGNS: Reviewed CONSTITUTIONAL: Well developed and in no acute distress. EYES: Conjuctivae without sclera icterus. Extraocular movements grossly intact. HEAD, EARS, NOSE, THROAT: Moist buccal mucosa. Head is atraumatic, normocephalic. Hears conversational speech. No nasal drainage. RESPIRATORY: Non-labored respirations and equal bilateral excursions. CARDIOVASCULAR: Palpable 2+ radial pulses. Regular rate. Regular rhythm. ABDOMEN: Soft nontender. MUSCULOSKELETAL: No gross deformity of the lower extremities noted. No clubbing. No cyanosis. SKIN: NATALY serous sanguinous. Dressing clean dry and intact NEUROLOGIC: Cranial nerves II through XII grossly intact. No focal or lateralizing signs. PSYCH: Appropriate affect. Alert and oriented to person, place and time. LABS: Glucose 185 ASSESSMENT: 1. Recurrent right breast cancer 2. Diabetes mellitus type 2, uncontrolled with hyperglycemia PLAN: 1. Her blood sugars have improved. 2. Patient stable for discharge with follow-up as outpatient 3. Home healthcare arranged
[2021-04-11 12:32] LABS: Glucose,Whole Blood 186 mg/dL (75-99)
== END 2021-04-11 13:50 | disposition home health service (06) ==
LOC: OR 10:24 → 6PED 16:29 → OR 04-09 10:42
PROVIDERS: ADMIT Surgery; ATTEND Surgery
DX: C50.911 Malignant neoplasm of unspecified site of right female breast (principal); E66.01 Morbid (severe) obesity due to excess calories; Z68.43 Body mass index [BMI] 50.0-59.9, adult; E11.65 Type 2 diabetes mellitus with hyperglycemia; E78.5 Hyperlipidemia, unspecified; E03.9 Hypothyroidism, unspecified; I10 Essential (primary) hypertension; K21.9 Gastro-esophageal reflux disease without esophagitis; M19.90 Unspecified osteoarthritis, unspecified site; Z79.4 Long term (current) use of insulin; Z98.51 Tubal ligation status; F41.9 Anxiety disorder, unspecified; Z98.84 Bariatric surgery status
CPT/HCPCS: 19307; 88309; 83036; 71045; G0378 ×3; J2250; J0330; J1100; J2405; J0690; J2001; J3010; J1170 ×4; J1885; J2704; J1644 ×4

== ENCOUNTER 2021-07-25 08:42 | Day surgery (SDC) | payer MEDICARE, OTHER ==
[2021-07-25 09:33] VITALS: RESP 16; TEMP 98.6
[2021-07-25] MEDS ORDERED: ALPRAZolam 0.5 MG TAB PO STA (09:36)
[2021-07-25 11:14] VITALS: BP 125/84; PULSE 88
--- NOTE | 2021-07-25 11:37 | US ---
EXAMINATION TYPE: US guided soft tissue drainage DATE OF EXAM: 07/25/2021 HISTORY: Seroma post right mastectomy FINDINGS: Maximal barrier technique was utilized. The skin overlying a suitable path to the fluid in the right anterior chest wall at the site of the patient's mastectomy was localized with ultrasound and the overlying skin prepped and draped. Lidocaine was used for local anesthesia. A skin yasmany mad e with a scalpel. Access was gained under direct ultrasound guidance to the fluid with a 21-gauge ne edle. Ultrasound was utilized using sterile technique. A 0.018 inch wire was advanced. Access site was dilated and an 8-Surinamese catheter advanced into the seroma serosanguineous fluid returned. Cathet er fixed to the skin. Hemostasis achieved. No immediate complication and the patient remained in st able condition. IMPRESSION: STATUS POST ULTRASOUND GUIDED SEROMA DRAINAGE, THIS PROCEDURE WAS PERFORMED BY THE UNDERS IGNED.
== END 2021-07-25 11:13 | disposition home or self-care (01) ==
LOC: RADPROMAIN 08:42
PROVIDERS: ATTEND Surgery
DX: N64.89 Other specified disorders of breast (principal); Z90.11 Acquired absence of right breast and nipple
CPT/HCPCS: 10030; 76942

== ENCOUNTER → 2021-12-02 | Outpatient (CLI) | payer MEDICARE, OTHER ==
--- NOTE | 2021-12-02 11:10 | MM ---
Reason for exam: additional evaluation requested from prior study. Last mammogram was performed 10 months ago. History: Patient is postmenopausal and has history of breast cancer at age 60. Family history of breast cancer in mother at age 60. Mastectomy of the right breast, April 08, 2021. Malignant US biopsy breast VAD RT of the right breast, February 10, 2021. Benign US biopsy breast VAD RT of the right breast, January 05, 2020. Benign US biopsy breast VAD RT of the right breast, July 07, 2016. Benign US biopsy breast add'l VAD RT of the right breast, July 07, 2016. Lumpectomy of the right breast, May 2005. Chemotherapy, May 2005. Radiation therapy of the right breast. Took hormonal contraceptives for 2 years beginning at age 15. Took tamoxifen for 5 years beginning at age 45. Physical Findings: Nurse did not find any significant physical abnormalities on exam. MG 3D Diag Mammo W/Cad LT CC, MLO, and XCCL view(s) were taken of the left breast. Prior study comparison: July 29, 2020, bilateral MG diagnostic mammo w CAD THALIA. August 13, 2017, bilateral MG diagnostic mammo w CAD THALIA. There are scattered fibroglandular densities. There is chronic nodularity in the left breast. No significant new findings when compared with previous films. These results were verbally communicated with the patient and result sheet given to the patient on 12/02/21. ASSESSMENT: Benign, BI-RAD 2 RECOMMENDATION: Follow-up diagnostic mammogram of the left breast in 1 year.
== END | disposition home or self-care (01) ==
LOC: RADMAMWWP 08:42
PROVIDERS: ATTEND Internal Medicine Hematology & Oncology
DX: R92.8 Other abnormal and inconclusive findings on diagnostic imaging of breast (principal); Z78.0 Asymptomatic menopausal state; Z85.3 Personal history of malignant neoplasm of breast; Z80.3 Family history of malignant neoplasm of breast
CPT/HCPCS: 77065; G0279; 77061

== ENCOUNTER 2022-01-06 11:32 | Observation (INO) | payer MEDICARE, OTHER ==
[2022-01-04 15:44] VITALS: BMI 45.1
[~2022-01-06 11:32] MED LIST changes: -HYDROmorphone 0.5 MG/0.5 ML SYRINGE IVP PRN; -Pre Op ABX Message 1 EACH MISC MISCELLANE ONE; +SCOPOLAMINE 1 MG/72 HR PATCH TRANSDERM ONE; -SCOPOLAMINE 1.5MG/72HR PATCH TRANSDERM ONE; +ceFAZolin 3 GM in SODIUM CHLORIDE 0.9% 100 ML IVPB PRN
[2022-01-06] MEDS: LACTATED RINGERS 1,000 ML IV SCH (12:02)
[2022-01-06 12:33] LABS: Glucose,Whole Blood 156 mg/dL (75-99)
[2022-01-06] MEDS ORDERED: LIDOCAINE 1% INJ 10MG/ML (20 ML MDV) ONE (12:40)
[2022-01-06] MEDS ORDERED: SUCCINYLCHOLINE CHLORIDE 100 MG/5 ML SYR IV ONE (12:40)
[2022-01-06] MEDS ORDERED: PROPOFOL 10 MG/ML 20 ML VIAL IV ONE (12:40)
[2022-01-06] MEDS ORDERED: PHENYLEPHRINE-0.9% NACL SYG 1,000 MCG/10 ML SYRINGE ONE (12:40)
[2022-01-06] MEDS ORDERED: MIDAZOLAM 2 MG/2 ML VIAL ONE (12:40)
[2022-01-06] MEDS ORDERED: fentaNYL (PF) 50 MCG/ML 2 ML AMP ONE (12:40)
[2022-01-06] MEDS ORDERED: NALOXONE 0.4 MG/ML 1 ML VIAL IV PRN (13:16)
[2022-01-06] MEDS ORDERED: ONDANSETRON 4 MG/2 ML VIAL IVP PRN (13:16)
--- NOTE | 2022-01-06 13:23 | P.OP ---
Date of Procedure: 01/06/22 Procedure(s) Performed: PREOPERATIVE DIAGNOSIS: Right chest wall abscess POSTOPERATIVE DIAGNOSIS: Same PROCEDURE: Incision and drainage with debridement right chest wall abscess SURGEON: Arcadio EBL: Minimal ANESTHESIA: General COMPLICATIONS: None OPERATIVE PROCEDURE: Patient placed on the operative table in the supine position. The patient was placed under general anesthesia. An elliptical incision was made around the medial aspect of the mastectomy scar site encompassing the 2 blisters that were present. Entrance into an abscess cavity that contained mostly serous fluid took place. The fluid was cultured. Skin was excised and sent to pathology. The wound bed was inspected. There was a fibrinous peel. Debridement took place in an excisional manner with the tip of a Macanese's forceps down to the level of the subcutaneous tissues and muscle. Bleeding was controlled using electrocautery. Area was irrigated. Wound bed was then packed with iodoform gauze. Sterile dressings applied. DISPOSITION: Stable to recovery room
[2022-01-06] MEDS ORDERED: ONDANSETRON 4 MG/2 ML VIAL IVP ONE (13:34)
[2022-01-06] MEDS: HYDROmorphone 0.5 MG/0.5 ML SYRINGE IVP PRN ×4 (13:36→23:02)
[2022-01-06] MEDS ORDERED: KETOROLAC 15 MG/ML 1 ML VIAL IVP ONE (13:38)
[2022-01-06 14:20] LABS: Glucose,Whole Blood 115 mg/dL (75-99)
[2022-01-06] MEDS ORDERED: LACTATED RINGERS 1,000 ML IV ONE (14:42)
[2022-01-06] MEDS: HEPARIN SODIUM,PORCINE/PF 5,000 UNIT/0.5 ML SYRINGE SQ SCH ×2 (16:50→23:56)
[2022-01-06] MEDS: KETOROLAC 15 MG/ML 1 ML VIAL IVP SCH (19:39)
[2022-01-06] MEDS: DOCUSATE 100 MG CAP PO SCH (19:47)
[2022-01-06] MEDS: FAMOTIDINE 20 MG TAB PO SCH (19:50)
[2022-01-07] MEDS: HYDROmorphone 0.5 MG/0.5 ML SYRINGE IVP PRN ×4 (04:55→22:18)
[2022-01-07 05:28] LABS: Basophils % (A) 0 %; Eosinophils # (A) 0.1 k/uL (0-0.7); Eosinophils % (A) 1 %; HCT 39.4 % (34.0-46.0); HGB 11.5 gm/dL (11.4-16.0); Hypochromasia Moderate; Lymphocytes # (A) 3.1 k/uL (1.0-4.8); Lymphocytes % (A) 43 %; MCH 30.8 pg (25.0-35.0); MCHC 29.3 g/dL (31.0-37.0); MCV 105.2 fL (80.0-100.0); Macrocytosis Moderate; Mean Platelet Volume 8.9; Monocytes # (A) 0.3 k/uL (0-1.0); Monocytes % (A) 4 %; Neutrophils # (A) 3.6 k/uL (1.3-7.7); Neutrophils % (A) 51 %; Platelet Count 208 k/uL (150-450); RBC 3.74 m/uL (3.80-5.40); WBC 7.1 k/uL (3.8-10.6)
[2022-01-07 06:05] LABS: Calcium 8.6 mg/dL (8.4-10.2); Potassium 4.1 mmol/L (3.5-5.1)
[2022-01-07] MEDS: FAMOTIDINE 20 MG TAB PO SCH ×2 (08:07→22:18)
[2022-01-07] MEDS: DOCUSATE 100 MG CAP PO SCH ×2 (08:07→22:36)
[2022-01-07] MEDS: KETOROLAC 15 MG/ML 1 ML VIAL IVP SCH ×4 (08:12→20:05)
[2022-01-07] MEDS: LACTATED RINGERS 1,000 ML IV SCH (09:13)
[2022-01-07] MEDS: HEPARIN SODIUM,PORCINE/PF 5,000 UNIT/0.5 ML SYRINGE SQ SCH ×2 (09:35→16:46)
--- NOTE | 2022-01-07 11:02 | P.PN ---
Progress Note - Text Progress Note Date: 01/07/22 The patient is complaining some chest wall pain related to her debridement site. On exam vital signs are stable. Right chest wall dressing is clean. Patient will continue receive local wound care. She will also continue receive IV antibiotics. We'll plan for discharge next 48 hours.
[2022-01-07] MEDS: metFORMIN 500 MG TAB PO SCH (18:07)
[2022-01-07] MEDS: ATORVASTATIN 20 MG TAB PO SCH (18:07)
--- NOTE | 2022-01-07 21:25 | P.CONS ---
History of Present Illness - Reason for Consult Consult date: 01/07/22 Medical management Requesting physician: Stalin Ervin - Chief Complaint Right chest wall abscess - History of Present Illness Patient is a 61-year-old female with a known history of right breast cancer in 2004 status post mastectomy currently on anastrozole, hypertension, hyperlipidemia, diabetes type 2 [id number]-[id number], osteoarthritis, hypothyroidism, anxiety and recent history of COVID-19 infection September 2021 was admitted to the hospital due to right chest wall abscess. Patient underwent incision and drainage with debridement of the abscess. Patient is currently sitting on the bed. Awake alert and oriented x3. No complaints of shortness breath. Pain at the surgical site is controlled with medications. No nausea vomiting abdominal pain or diarrhea. Denies any dysuria or hematuria. Laboratory data showed WBC 7.1 hemoglobin 11.5 and platelets 208 MCV 105.2 Sodium 135 potassium 4.1 chloride 103 bicarb is 25 BUN 10 and creatinine 0.82 and blood sugar is 169 and calcium level is 8.6. Review of Systems Constitutional: Patient denies any fever or chills . No generalized weakness or weight loss. Abdomen: Patient denied nausea vomiting and diarrhea and abdominal pain. Cardiovascular: Patient denies any chest pain or short of breath no palpitations. Respiratory: patient denied any cough or sputum production. No shortness of breath Neurologic: Patient denied any numbness or tingling headache. Musculoskeletal: Patient denies any complaints of joint swelling or deformity. Skin: Negative Psychiatric: Negative Endocrine: No heat or cold intolerance. No recent weight gain. Genitourinary: No dysuria or hematuria. All other 14 point ROS negative except the above Past Medical History Past Medical History: Cancer, Diabetes Mellitus, GERD/Reflux, Hyperlipidemia, Hypertension, Osteoarthritis (OA), Thyroid Disorder Additional Past Medical History / Comment(s): Hx Asymptomatic Covid 09/23/21. Heart murmur. Hx right breast cancer in 2004. Gout. History of Any Multi-Drug Resistant Organisms: None Reported Past Surgical History: Bariatric Surgery, Breast Surgery, Section, Joint Replacement, Tubal Ligation Additional Past Surgical History / Comment(s): Right breast lumpectomy 2004 with chemo and radiation, lymph nodes removed, bilateral knee replacements, Lap Band. Past Anesthesia/Blood Transfusion Reactions: No Reported Reaction Past Psychological History: Anxiety Additional Psychological History / Comment(s): . Smoking Status: Never smoker Past Alcohol Use History: Occasional Past Drug Use History: None Reported - Past Family History Mother Family Medical History: Cancer Additional Family Medical History / Comment(s): Breast cancer. Medications and Allergies Home Medications Medication Instructions Recorded Confirmed Type captopriL [Capoten] 50 mg PO BID 06/18/14 01/06/22 History Levothyroxine Sodium [Synthroid] 100 mcg PO QAM 07/06/15 01/06/22 History metFORMIN HCL [Glucophage] 1,000 mg PO BID 07/06/15 01/06/22 History Simvastatin 20 mg PO DAILY 09/22/16 01/06/22 History ALPRAZolam [Xanax] 1 mg PO TID PRN 11/05/17 01/06/22 History Omeprazole [PriLOSEC] 20 mg PO QAM 11/05/17 01/06/22 History Anastrozole [Arimidex] 1 mg PO DAILY 01/04/22 01/06/22 History Cholecalciferol [Vitamin D3 (25 50 mcg PO DAILY 01/04/22 01/06/22 History Mcg = 1000 Iu)] Dulaglutide [Trulicity] 4.5 mg SQ TU 01/04/22 01/06/22 History HYDROcodone/APAP 5-325MG [[place] 1 tab PO Q6HR PRN 3 Days #6 tab 01/06/22 Rx 5-325] Allergies Allergy/AdvReac Type Severity Reaction Status Date / Time No Known Allergies Allergy Verified 01/06/22 12:24 Physical Exam Vitals: Vital Signs Temp Pulse Pulse Resp BP Pulse Ox 01/07/22 12:00 97.3 F L 83 18 129/86 99 01/07/22 07:40 98.0 F 88 18 137/87 97 01/07/22 04:00 98.0 F 82 16 132/84 99 01/07/22 00:15 98.2 F 88 16 123/81 01/06/22 19:00 97.4 F L 93 16 126/82 99 01/06/22 16:50 98.2 F 84 16 124/62 98 01/06/22 15:54 97.7 F 93 16 115/76 01/06/22 15:00 98.3 F 88 16 136/82 97 01/06/22 14:30 78 16 140/70 96 01/06/22 14:05 88 16 140/62 97 03/18/22 13:50 84 16 138/64 97 Intake and Output 01/06/22 01/07/22 01/07/22 22:59 06:59 14:59 Intake Total 510 Balance 510 Intake: Intake, IV Titration 210 Amount Lactated Ringers 1,000 ml 160 @ 0 mls/hr IV .[facility] Rx#:[id number] ceFAZolin 3 gm In Sodium 50 Chloride 0.9% 100 ml @ 200 mls/hr IVPB ONCE PRN Rx#:[id number] Oral 300 Other: Voiding Method Toilet # Voids 1 2 1 Weight 128.6 kg PHYSICAL EXAMINATION: Patient is lying in the bed comfortably, no acute distress, awake alert and oriented.. HEENT: Normocephalic. Neck is supple. Pupils reactive. Nostrils clear. Oral cavity is moist. Neck reveals no JVD, carotid bruits, or thyromegaly. CHEST EXAMINATION: Trachea is central. Symmetrical expansion. Lung perez clear to auscultation and percussion. Right chest wall wound is packed and bandaged. CARDIAC: Normal S1, S2 with no gallops. No murmurs ABDOMEN: Soft. Bowel sounds normal. No organomegaly. No abdominal bruits. Extremities: reveal no edema. No clubbing or cyanosis Neurologically awake, alert, oriented x3 with well-coordinated movements. No focal deficits noted Skin: No rash or skin lesions. Psychiatric: Cooperative. Nonsuicidal Musculoskeletal: No joint swelling or deformity. Normal range of motion. Results CBC & Chem 7: 01/07/22 05:09 01/07/22 05:09 Labs: Abnormal Lab Results - Last 24 Hours (Table) 01/06/22 01/07/22 01/07/22 Range/Units 14:18 05:09 05:09 RBC 3.74 L (3.80-5.40) m/uL MCV 105.2 H (80.0-100.0) fL MCHC 29.3 L (31.0-37.0) g/dL Sodium 135 L (137-145) mmol/L Glucose 169 H (74-99) mg/dL POC Glucose (mg/dL) 115 H (75-99) mg/dL Microbiology - Last 24 Hours (Table) 01/06/22 13:05 Gram Stain - Preliminary Breast - Right Wound Culture - Preliminary 01/06/22 13:47 Gram Stain - Preliminary Breast - Right Wound Culture - Preliminary 01/06/22 13:47 Anaerobic Culture - Preliminary Breast - Right 01/06/22 13:05 Anaerobic Culture - Preliminary Breast - Right Assessment and Plan Assessment: Right anterior chest wall abscess status post I&D. Postoperative day 1 History of right breast cancer status postmastectomy and currently Arimidex Hypertension Diabetes type 2 [id number]-[id number] Hyperlipidemia Hypothyroidism Osteoarthritis Anxiety Morbid obesity BMI 45.8 DVT prophylaxis on heparin subcu Plan: Patient is being continued on antibiotics in the form of cefazolin and follow-up wound culture report. Patient will be continued on Metformin and insulin sliding scale as needed. Continue with home blood pressure medications and titrate dose as needed. Continue with pain management and encourage ambulation and incentive spirometry. We will continue to follow closely and further recommendations based on clinical course. Thank you for consulting internal medicine service.
[2022-01-08] MEDS: HEPARIN SODIUM,PORCINE/PF 5,000 UNIT/0.5 ML SYRINGE SQ SCH ×4 (00:17→23:24)
[2022-01-08] MEDS: KETOROLAC 15 MG/ML 1 ML VIAL IVP SCH ×3 (03:39→17:15)
[2022-01-08] MEDS: ALPRAZolam 1 MG TAB PO PRN ×3 (03:59→23:41)
[2022-01-08] MEDS: LEVOTHYROXINE 100 MCG TAB PO SCH (06:42)
[2022-01-08] MEDS: LACTATED RINGERS 1,000 ML IV SCH (08:12)
[2022-01-08] MEDS: FAMOTIDINE 20 MG TAB PO SCH ×2 (08:13→20:10)
[2022-01-08] MEDS: ANASTROZOLE 1 MG TAB PO SCH (08:14)
[2022-01-08] MEDS: metFORMIN 500 MG TAB PO SCH ×2 (08:14→17:17)
[2022-01-08] MEDS: DOCUSATE 100 MG CAP PO SCH ×2 (08:15→20:10)
[2022-01-08] MEDS: CHOLECALCIFEROL 25 MCG (1000 IU) TABLET PO SCH (08:15)
[2022-01-08] MEDS: ATORVASTATIN 20 MG TAB PO SCH (08:15)
[2022-01-08] MEDS: PANTOPRAZOLE 40 MG TABLET PO SCH (08:16)
[2022-01-08] MEDS: HYDROcodone/APAP 5-325MG 1 EACH TAB PO PRN ×3 (08:17→23:22)
--- NOTE | 2022-01-08 10:34 | P.PN ---
Progress Note - Text Progress Note Date: 01/08/22 Patient remained stable. She'll continue receive local wound care to her right chest wall wound.
[2022-01-08] MEDS: HYDROmorphone 0.5 MG/0.5 ML SYRINGE IVP PRN (20:10)
--- NOTE | 2022-01-08 22:25 | P.PN ---
Subjective Progress Note Date: 01/08/22 Patient is a 61-year-old female with a known history of right breast cancer in 2004 status post mastectomy currently on anastrozole, hypertension, hyperlipidemia, diabetes type 2 [id number]-grwfusitw, osteoarthritis, hypothyroidism, anxiety and recent history of COVID-19 infection September 2021 was admitted to the hospital due to right chest wall abscess. Patient underwent incision and drainage with debridement of the abscess. Patient is currently sitting on the bed. Awake alert and oriented x3. No complaints of shortness breath. Pain at the surgical site is controlled with medications. No nausea vomiting abdominal pain or diarrhea. Denies any dysuria or hematuria. Laboratory data showed WBC 7.1 hemoglobin 11.5 and platelets 208 MCV 105.2 Sodium 135 potassium 4.1 chloride 103 bicarb is 25 BUN 10 and creatinine 0.82 and blood sugar is 169 and calcium level is 8.6. 01/08/2022 Patient is currently resting in bed comfortably. Awake alert and oriented x3. No complaints of chest pain. Right chest wall pain is controlled with medications. No fever no chills. No cough or sputum production. No headache or dizziness or lightheadedness. No complaints of nausea vomiting or diarrhea or abdominal pain. Patient is tolerating oral diet. Wound culture report is pending. Patient is being continued on antibiotics in the form of cefazolin. Laboratory data reviewed. Current medications reviewed. Objective - Vital Signs Vital signs: Vital Signs Temp 97.3 F L 01/08/22 08:00 Pulse 84 01/08/22 08:00 Resp 18 01/08/22 08:00 BP 140/95 01/08/22 08:00 Pulse Ox 99 01/08/22 08:00 Intake & Output 01/07/22 01/08/22 01/08/22 18:59 06:59 18:59 Output Total 1 Balance -1 Output: Urine 1 Other: Voiding Method Toilet # Voids 1 3 1 - Exam PHYSICAL EXAMINATION: Patient is lying in the bed comfortably, no acute distress, awake alert and oriented.. HEENT: Normocephalic. Neck is supple. Pupils reactive. Nostrils clear. Oral cavity is moist. Neck reveals no JVD, carotid bruits, or thyromegaly. CHEST EXAMINATION: Trachea is central. Symmetrical expansion. Lung perez clear to auscultation and percussion. Right chest wall wound is packed and bandaged. CARDIAC: Normal S1, S2 with no gallops. No murmurs ABDOMEN: Soft. Bowel sounds normal. No organomegaly. No abdominal bruits. Extremities: reveal no edema. No clubbing or cyanosis Neurologically awake, alert, oriented x3 with well-coordinated movements. No focal deficits noted Skin: No rash or skin lesions. Psychiatric: Cooperative. Nonsuicidal Musculoskeletal: No joint swelling or deformity. Normal range of motion. - Labs CBC & Chem 7: 01/07/22 05:09 01/07/22 05:09 Labs: Microbiology - Last 24 Hours (Table) 01/06/22 13:05 Gram Stain - Final Breast - Right Wound Culture - Final 01/06/22 13:47 Gram Stain - Final Breast - Right Wound Culture - Final Assessment and Plan Assessment: Right anterior chest wall abscess status post I&D. Postoperative day 2 History of right breast cancer status postmastectomy and currently Arimidex Hypertension Diabetes type 2 fsp-xbeyrch-sxmchcmqu Hyperlipidemia Hypothyroidism Osteoarthritis Anxiety Morbid obesity BMI 45.8 DVT prophylaxis on heparin subcu Plan: Patient is being continued on antibiotics in the form of cefazolin and follow-up wound culture report. Patient will be continued on Metformin and insulin sliding scale as needed. Continue with home blood pressure medications and titrate dose as needed. Continue with pain management and encourage ambulation and incentive spirometry. We will continue to follow closely and further recommendations based on clinical course.
[2022-01-08 23:50] VITALS: RESP 16
[2022-01-09] MEDS: HYDROcodone/APAP 5-325MG 1 EACH TAB PO PRN ×3 (03:15→12:05)
[2022-01-09] MEDS: LEVOTHYROXINE 100 MCG TAB PO SCH (06:50)
[2022-01-09 08:25] LABS: Glucose,Whole Blood 126 mg/dL (75-99)
[2022-01-09] MEDS: DOCUSATE 100 MG CAP PO SCH (08:25)
[2022-01-09] MEDS: HEPARIN SODIUM,PORCINE/PF 5,000 UNIT/0.5 ML SYRINGE SQ SCH (08:25)
[2022-01-09] MEDS: ANASTROZOLE 1 MG TAB PO SCH (08:25)
[2022-01-09] MEDS: FAMOTIDINE 20 MG TAB PO SCH (08:25)
[2022-01-09] MEDS: PANTOPRAZOLE 40 MG TABLET PO SCH (08:25)
[2022-01-09] MEDS: metFORMIN 500 MG TAB PO SCH (08:25)
[2022-01-09] MEDS: ATORVASTATIN 20 MG TAB PO SCH (08:25)
[2022-01-09] MEDS: LACTATED RINGERS 1,000 ML IV SCH (08:32)
[2022-01-09] MEDS: CHOLECALCIFEROL 25 MCG (1000 IU) TABLET PO SCH (08:35)
[2022-01-09 09:07] VITALS: BP 144/92; PULSE 91; TEMP 97.3
--- NOTE | 2022-01-09 11:14 | P.DS ---
Providers Date of admission: 01/09/22 08:18 Expected date of discharge: 01/09/22 Attending physician: Stalin Ervin Consults: 01/06/22 13:16 Consult Physician Routine Consulting Provider: Bart Monge Consult Reason/Comments: Medical management Do you want consulting provider notified?: Yes 01/07/22 10:32 Consult Physician Stat Consulting Provider: Bart Monge Consult Reason/Comments: per surgical physician. Do you want consulting provider notified?: Yes Primary care physician: Bart Monge Hospital Course: Discharge diagnosis: Right chest wall abscess status post incision and drainage with debridement Hospital course: This 61-year-old -[place] female who had presented for a right chest wall abscess incision and debridement for infected seroma status post right mastectomy site. She is postop day #3. She has been on IV Kefzol. Her pain has been well managed. Incision with dressing clean dry and intact. Incision is packed with iodoform, no surrounding redness. She has been afebrile. 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 Based on total visit time, I have performed more than 50% of the visit. As above: Patient doing well today. Pain is improved. Dressings removed. She was showering earlier today. February discharge. Continue local wound care with wet-to-dry Kerlix lightly moistened with saline daily. Follow-up 2 weeks. Patient Condition at Discharge: Stable Plan - Discharge Summary Discharge Rx Participant: Yes New Discharge Prescriptions: New HYDROcodone/APAP 5-325MG [[place] 5-325] 1 tab PO Q6HR PRN 3 Days #6 tab PRN Reason: Analgesia Continue captopriL [Capoten] 50 mg PO BID metFORMIN HCL [Glucophage] 1,000 mg PO BID Levothyroxine Sodium [Synthroid] 100 mcg PO QAM Simvastatin 20 mg PO DAILY ALPRAZolam [Xanax] 1 mg PO TID PRN PRN Reason: Anxiety Omeprazole [PriLOSEC] 20 mg PO QAM Cholecalciferol [Vitamin D3 (25 Mcg = 1000 Iu)] 50 mcg PO DAILY Anastrozole [Arimidex] 1 mg PO DAILY Dulaglutide [Trulicity] 4.5 mg SQ TU Discharge Medication List captopriL [Capoten] 50 mg PO BID 06/18/14 [History] Levothyroxine Sodium [Synthroid] 100 mcg PO QAM 07/06/15 [History] metFORMIN HCL [Glucophage] 1,000 mg PO BID 07/06/15 [History] Simvastatin 20 mg PO DAILY 09/22/16 [History] ALPRAZolam [Xanax] 1 mg PO TID PRN 11/05/17 [History] Omeprazole [PriLOSEC] 20 mg PO QAM 11/05/17 [History] Anastrozole [Arimidex] 1 mg PO DAILY 01/04/22 [History] Cholecalciferol [Vitamin D3 (25 Mcg = 1000 Iu)] 50 mcg PO DAILY 01/04/22 [History] Dulaglutide [Trulicity] 4.5 mg SQ TU 01/04/22 [History] HYDROcodone/APAP 5-325MG [[place] 5-325] 1 tab PO Q6HR PRN 3 Days #6 tab 01/06/22 [Rx] Follow up Appointment(s)/Referral(s): Stalin Ervin MD [Medical Doctor] - 01/12/22 9:00 am [facility], [NON-STAFF] - 1-2 Days Activity/Diet/Wound Care/Special Instructions: Daily wet-to-dry dressing change. Patient may shower no tub bathing or soaking. No heavy lifting greater than 5 pounds. Finish any oral antibiotics previously prescribed Discharge Disposition: HOME WITH HOME HEALTH SERVICES
--- NOTE | 2022-02-08 18:32 | CDI ---
Outpatient Documentation Clarification Form Date: 02/08/22 CDS/Wrapper Operator Name: Karrie Talley Phone: If you have question, contact Radha Vital, Magnetic Resonance Imaging Coordinator at [phone] M-F 8:30 am to 6pm. Patient Name: Usha Multani Admit Date: 01/06/22 Discharge Date: 01/09/22 ATTENTION: HIM Coding Staff appreciate your assistance in clarifying documentation. Please respond to the clarification below the line at the bottom and electronically sign. HIM Coding staff will review the response and follow-up if needed. Please note: Queries are made part of the Legal Health Record. If you have any questions, please contact the author of this message via ITS or call the Magnetic Resonance Imaging Coordinator. Dear Dr Ervin, In order to capture the correct procedure code for this account, please clarify the following via addendum to the discharge summary. Please clarify the total surface area that was debrided down to the muscle. I appreciate your time! Thank you! Karrie Talley, [facility]INGFIELDAshwini
== END 2022-01-09 13:15 | disposition home health service (06) ==
LOC: OR 11:32 → 4FBP 13:22 → OR 23:51 → INTOOBSV 01-09 08:18 → OBSVTOIN 01-09 08:18 → UNDODISIN 01-09 13:15
PROVIDERS: ADMIT Surgery; ATTEND Surgery
PROC: 0JB60ZZ Excision of Chest Subcutaneous Tissue and Fascia, Open Approach (ICD-10-PCS; principal; 2022-01-06 13:00)
DX: M96.843 Postprocedural seroma of a musculoskeletal structure following other procedure (principal); L02.213 Cutaneous abscess of chest wall; Z68.42 Body mass index [BMI] 45.0-49.9, adult; E03.9 Hypothyroidism, unspecified; E11.9 Type 2 diabetes mellitus without complications; E78.5 Hyperlipidemia, unspecified; I10 Essential (primary) hypertension; M19.90 Unspecified osteoarthritis, unspecified site; F41.9 Anxiety disorder, unspecified; M10.9 Gout, unspecified; E66.01 Morbid (severe) obesity due to excess calories; Y83.9 Surgical procedure, unspecified as the cause of abnormal reaction of the patient, or of later complication, without mention of misadventure at the time of the procedure; Z98.84 Bariatric surgery status; Z86.16 Personal history of COVID-19; Z85.3 Personal history of malignant neoplasm of breast; Z90.11 Acquired absence of right breast and nipple; Z98.51 Tubal ligation status; Z92.3 Personal history of irradiation; Z98.891 History of uterine scar from previous surgery; Z92.21 Personal history of antineoplastic chemotherapy; Z79.84 Long term (current) use of oral hypoglycemic drugs; Z79.811 Long term (current) use of aromatase inhibitors; Z79.890 Hormone replacement therapy; Z79.899 Other long term (current) drug therapy; Z80.3 Family history of malignant neoplasm of breast; Z98.890 Other specified postprocedural states; Z83.3 Family history of diabetes mellitus; Z82.49 Family history of ischemic heart disease and other diseases of the circulatory system
CPT/HCPCS: 11043; 11046; 88305; 80048; 85025; 87070; 87205; 87075; G0378 ×3; J2250; J0690 ×4; J2405; J2001; J3010; S0170 ×2; J1885 ×3; J2370; J0330; J2704; J1170 ×3; J1644 ×4

== ENCOUNTER → 2022-04-14 | Outpatient (CLI) | payer MEDICARE, OTHER ==
--- NOTE | 2022-04-14 10:04 | USB ---
Reason for Exam: Clinical finding. Patient History: Menarche at age 13. First Full-Term at age 19. Postmenopausal. Breast cancer, age 60. Hormonal Contraceptives for 2 years from age 15 until age 17. Tamoxifen for 5 years from age 45 until age 50. 04/08/2021, Mastectomy on the Right side. 05/2005, Lumpectomy on the Right side. 02/10/2021, Malignant Core Biopsy on the right side. 01/05/2020, Benign Core Biopsy on the right side. 07/07/2016, Benign Core Biopsy on the right side. 07/07/2016, Benign Core Biopsy on the right side. 05/2005, Chemotherapy. Radiation Therapy, right. Mother had breast cancer, age 60. Technique: Method: Whole Breast Handheld. Prior Study Comparison: 07/29/2020 Bilateral Diagnostic Mammogram, [facility]. 02/10/2021 Right Diagnostic Mammogram, [facility]. 12/02/2021 Left Diagnostic Mammogram, [facility]. Findings: At the left 1:00 position there is a mass seen with the fatty hilum which is felt to reflect a lymph node measuring 1.2 x 0.6 cm. This was present on mammography dating back 2006. No suspicious masses evident at this time. Overall Assessment: Benign, BI-RAD 2 Management: Diagnostic Mammogram of the left breast in 8 months. A clinical breast exam by your physician is recommended on an annual basis and results should be correlated with mammographic findings. Electronically signed and approved by: Juan Estevez M.D. Radiologis
== END | disposition home or self-care (01) ==
LOC: RADUSWWP 09:26
PROVIDERS: ATTEND Surgery
DX: R92.8 Other abnormal and inconclusive findings on diagnostic imaging of breast (principal); Z78.0 Asymptomatic menopausal state; Z80.3 Family history of malignant neoplasm of breast

== ENCOUNTER 2022-08-18 10:57 | Emergency (ER) | payer MEDICARE, OTHER ==
[2022-08-18 11:02] VITALS: BP 134/84; PULSE 96; RESP 16; TEMP 98.1
[2022-08-18] MEDS ORDERED: ORPHENADRINE 30 MG/ML 2 ML VIAL IM STA (11:22)
[2022-08-18] MEDS ORDERED: HYDROcodone/APAP 5-325MG 1 EACH TAB PO STA (11:22)
--- NOTE | 2022-08-18 11:27 | ED ---
Fall HPI - General Chief Complaint: Fall Stated Complaint: Fall,head and back pain Time Seen by Provider: 08/18/22 11:18 Source: patient, RN notes reviewed, old records reviewed Mode of arrival: wheelchair - History of Present Illness Initial Comments: This is a obese 62-year-old female that presents to the emergency room ambulatory with a cane complaining of slipping on the mat in the bathtub yesterday falling backward hurting her back and hitting the back of her head. No loss of consciousness. States complaining of head pain and right sided thoracic and lumbar back pain MD Complaint: fall -: days(s) (1) Fall From: standing, other (slipped in tub) When Fall Occurred: 24 hours [employer] Fall Witnessed: no Place Fall Occurred: home Loss of Consciousness: none Prolonged Down Time?: no Symptoms Prior to Fall: none Location: head, back Severity scale (1-10): 10 - Related Data Home Medications Medication Instructions Recorded Confirmed captopriL [Capoten] 50 mg PO BID 06/18/14 01/06/22 Levothyroxine Sodium [Synthroid] 100 mcg PO QAM 07/06/15 01/06/22 metFORMIN HCL [Glucophage] 1,000 mg PO BID 07/06/15 01/06/22 Simvastatin 20 mg PO DAILY 09/22/16 01/06/22 ALPRAZolam [Xanax] 1 mg PO TID PRN 11/05/17 01/06/22 Omeprazole [PriLOSEC] 20 mg PO QAM 11/05/17 01/06/22 Anastrozole [Arimidex] 1 mg PO DAILY 01/04/22 01/06/22 Cholecalciferol [Vitamin D3 (25 50 mcg PO DAILY 01/04/22 01/06/22 Mcg = 1000 Iu)] Dulaglutide [Trulicity] 4.5 mg SQ TU 01/04/22 01/06/22 Previous Rx's Medication Instructions Recorded HYDROcodone/APAP 5-325MG [Lorraine 1 tab PO Q6HR PRN 3 Days #6 tab 01/06/22 5-325] Cyclobenzaprine [Flexeril] 10 mg PO TID PRN #15 tab 08/18/22 Allergies Allergy/AdvReac Type Severity Reaction Status Date / Time No Known Allergies Allergy Verified 08/18/22 11:02 Review of Systems ROS Statement: Those systems with pertinent positive or pertinent negative responses have been documented in the HPI. ROS Other: All systems not noted in ROS Statement are negative. Past Medical History Past Medical History: Cancer, Diabetes Mellitus, GERD/Reflux, Hyperlipidemia, Hypertension, Osteoarthritis (OA), Thyroid Disorder Additional Past Medical History / Comment(s): Hx Asymptomatic Covid 09/23/21. Heart murmur. Hx right breast cancer in 2004. Gout. History of Any Multi-Drug Resistant Organisms: None Reported Past Surgical History: Bariatric Surgery, Breast Surgery, Section, J oint Replacement, Tubal Ligation Additional Past Surgical History / Comment(s): Right breast lumpectomy 2004 with chemo and radiation, lymph nodes removed, bilateral knee replacements, Lap Band. Past Anesthesia/Blood Transfusion Reactions: No Reported Reaction Past Psychological History: Anxiety Smoking Status: Never smoker Past Alcohol Use History: Occasional Past Drug Use History: None Reported - Past Family History Mother Family Medical History: Cancer Additional Family Medical History / Comment(s): Breast cancer. General Exam Limitations: no limitations General appearance: alert, in no apparent distress Head exam: Present: normocephalic, normal inspection Expanded Head exam: Absent: laceration, abrasion, contusion, hematoma Eye exam: Absent: conjunctival injection, periorbital swelling Neck exam: Present: full ROM. Absent: tenderness, meningismus Respiratory exam: Absent: respiratory distress, accessory muscle use Cardiovascular Exam: Present: regular rate Back exam: Present: tenderness, paraspinal tenderness (Right thoracic and lumbar). Absent: CVA tenderness (R), CVA tenderness (L), vertebral tenderness, rash noted Neurological exam: Present: alert, oriented X3, other (Antalgic with a cane) Psychiatric exam: Present: normal affect, normal mood Skin exam: Present: warm, dry. Absent: cyanosis, diaphoretic Course Vital Signs 08/18/22 10:59 Temperature 98.1 F Pulse Rate 96 Respiratory 16 Rate Blood Pressure 134/84 O2 Sat by Pulse 98 Oximetry Medical Decision Making - Medical Decision Making 62-year-old obese female presents ambulatory with cane complaining of a fall in her bathtub yesterday hitting her head and back. Increase right sided back pain today. CT brain shows age-related chronic small vessel ischemic change without acute intracranial process. CT C-spine shows normal alignment. No evidence of acute cervical fracture or subluxation. X-ray of the thoracic spine shows no fracture, satisfactory alignment with vertebral body height preserved. Moderate multilevel degenerative disc space narrowing and spondylosis. X-ray of the lumbar spine shows no acute fracture, moderate multilevel disc degeneration with grade 1 anterolisthesis of L4-L5 No bruising or lacerations noted. She is ambulatory. No bowel or bladder incontinence. No loss of consciousness. Vital signs stable. She was given Lorraine and Norflex in the emergency room. She'll be discharged home to follow up with her primary care doctor next week. Flexeril, Tylenol and/or Motrin as needed for any pain or discomfort. Increase her fluid intake. She states that she does live with her daughter. She is agreeable to this plan of care. Case discussed with Dr. Bolden. Disposition Clinical Impression: Fall, Musculoskeletal back pain Disposition: HOME SELF-CARE Condition: Good Instructions (If sedation given, give patient instructions): Musculoskeletal Pain (ED), Back Pain (ED), Fall Prevention (ED) Additional Instructions: Tylenol and Motrin as needed for pain. Do not take Motrin longer than 7 days. Take the Flexeril as prescribed for a muscle relaxer. Do not drink alcohol or operate heavy machinery when taking this medication. Follow-up with your primary care doctor next week Prescriptions: Cyclobenzaprine [Flexeril] 10 mg PO TID PRN #15 tab PRN Reason: Muscle Spasm Is patient prescribed a controlled substance at d/c from ED?: No Referrals: Bart Monge MD [Primary Care Provider] - 1-2 days Time of Disposition: 12:49
--- NOTE | 2022-08-18 12:21 | CT ---
EXAMINATION TYPE: CT brain harsha omer DATE OF EXAM: 08/18/2022 COMPARISON: none HISTORY: Fall CT DLP: 1558.[address] of the brain was performed. The ventricles, basal cisterns and sulci overlying the cerebral convexities demonstrate enlargement. There is no evidence for intracranial hemorrhage or sulcal effacement. There is decreased attenuatio n about the periventricular white matter and deep white matter of both cerebral hemispheres, compatib le with chronic small vessel ischemia. No mass effects are seen. If symptoms persist consider MRI. Osseous calvarium is intact. IMPRESSION: 1. Age related atrophic and chronic small vessel ischemic change without acute intracranial process seen at this time. CT Cervical Spine: Unenhanced CT of the cervical spine was performed with bone and soft tissue window settings submitted . Coronal and sagittal reconstruction is obtained. There is normal alignment and prevertebral soft tissues. No evidence for acute cervical fracture . S cattered degenerative disc disease and spondylosis. Biapical scarring. IMPRESSION: 1. No evidence for acute fracture or subluxation of the cervical spine.
--- NOTE | 2022-08-18 12:31 | XR ---
EXAMINATION TYPE: XR thoracic spine 2V DATE OF EXAM: 08/18/2022 CLINICAL HISTORY: pain TECHNIQUE: Frontal, lateral, and swimmer's view of thoracic spine are obtained. COMPARISON: None. FINDINGS: Thoracic spine show satisfactory alignment without evidence of acute fracture or dislocatio n. Vertebral body heights are preserved. Moderate multilevel degenerative disc space narrowing and s pondylosis. Visualized ribs are unremarkable. IMPRESSION: No acute fracture or dislocation is seen in the thoracic spine. ICD 10 NO FRACTURE, INIT IAL EVALUATION
--- NOTE | 2022-08-18 12:32 | XR ---
EXAMINATION TYPE: XR lumbar spine 2 or 3V DATE OF EXAM: 08/18/2022 12:27 PM INDICATION: Patient age:Female; 62 years old; Reason for study: fall in tub; PHH. COMPARISON: None TECHNIQUE: Frontal, lateral and coned in L5-S1 lateral views of the spine. FINDINGS: No evidence of any acute osseous pathology. No evidence of loss of vertebral body height i s seen. There is there is grade 1 anterolisthesis of L4 and L5. Mild scattered disc space narrowing. Multilevel marginal osteophyte formation throughout the visualized spine. There is facet joint arthro tomeka throughout the spine. Scattered at least mild neural foraminal stenosis. IMPRESSION: 1. No acute fracture. 2. Moderate multilevel disc degeneration. 3. Grade 1 anterolisthesis of L4 and L5.
== END 2022-08-18 13:13 | disposition home or self-care (01) ==
LOC: EC 10:57
DX: M79.18 Myalgia, other site (principal); I10 Essential (primary) hypertension; E11.9 Type 2 diabetes mellitus without complications; K21.9 Gastro-esophageal reflux disease without esophagitis; E78.5 Hyperlipidemia, unspecified; M19.90 Unspecified osteoarthritis, unspecified site; F41.9 Anxiety disorder, unspecified; E03.9 Hypothyroidism, unspecified; Z79.83 Long term (current) use of bisphosphonates; Z79.84 Long term (current) use of oral hypoglycemic drugs; Z79.890 Hormone replacement therapy; Z79.899 Other long term (current) drug therapy; W19.XXXA Unspecified fall, initial encounter
CPT/HCPCS: 72070; 72100; 72125; 70450; 99284; 96372; J2360

== ENCOUNTER → 2022-11-20 | Outpatient (CLI) | payer MEDICARE, OTHER ==
--- NOTE | 2022-11-20 11:17 | BD ---
EXAMINATION TYPE: Axial Bone Density DATE OF EXAM: 11/20/2022 COMPARISON: FIRST DEXA AT [facility] CLINICAL HISTORY: 62 years year old Female. ICD-10 CODE: C50.411 Breast Ca Height: 64.5 IN Weight: 275LB FRAX RISK QUESTIONS: History of Fracture in Adulthood: YES Secondary Osteoporosis: 2. Hyperthyroidism: PT UNSURE RISK FACTORS HISTORY OF: Active: NO Postmenopausal woman: YES Poor Health: FAIR MEDICATIONS: Thyroid Medications: Which medication: PT UNSURE How Long: SINCE 2013, NOT CURRENTLY TAKING Additional Medications: BP MED, METFORMIN, TRULICITY, VITAMIN D, ANESTROZOLE Additional History: RT BREAST CA WITH MASTECTOMY EXAM MEASUREMENTS: Bone mineral densitometry was performed using the [facility]. Bone mineral density as measured about the Lumbar spine is: ----- L1-L4(G/cm2): 1.273 T Score Values are as follows: ----- L1: 0.4 ----- L2: 0.0 ----- L3: 0.9 ----- L4: 1.8 ----- L1-L4: 0.8 FIRST DEXA AT [facility] Bone mineral density about the R hip (g/cm2): 1.018 Bone mineral density about the L hip (g/cm2): 1.075 T Score values are as follows: -----R Neck: -1.3 -----L Neck: -0.6 -----R Total: 0.1 -----L Total: 0.5 FRAX%s: The graph provided illustrates a 5.2% chance for a major osteoporotic fx and a 0.4% chance fo r the hips probability for fx in 10 years time. IMPRESSION: Osteopenia (T Score between -2.5 and -1). There is slightly increased risk of fracture and the patient may be considered for treatment. Re-Screen 2-5 years. NOTE: T-SCORE=SD OF THE YOUNG ADULT MEAN.
== END | disposition home or self-care (01) ==
LOC: RADBDWWP 07:57
PROVIDERS: ATTEND Internal Medicine Hematology & Oncology
DX: C50.411 Malignant neoplasm of upper-outer quadrant of right female breast (principal); Z03.89 Encounter for observation for other suspected diseases and conditions ruled out; M85.851 Other specified disorders of bone density and structure, right thigh; Z78.0 Asymptomatic menopausal state
CPT/HCPCS: 77080

== ENCOUNTER → 2023-01-03 | Outpatient (CLI) | payer MEDICARE, OTHER ==
--- NOTE | 2023-01-03 15:16 | USB ---
Reason for Exam: Clinical finding. Patient History: Menarche at age 13. First Full-Term at age 19. Postmenopausal. Breast cancer, right, age 60. Hormonal Contraceptives for 2 years from age 15 until age 17. Tamoxifen for 5 years from age 45 until age 50. 12/13/2022, Benign US biopsy breast VAD LT on the left side. 04/08/2021, Mastectomy on the Right side. 05/2005, Lumpectomy on the Right side. 02/10/2021, Malignant Core Biopsy on the right side. 01/05/2020, Benign Core Biopsy on the right side. 07/07/2016, Benign Core Biopsy on the right side. 07/07/2016, Benign Core Biopsy on the right side. 05/2005, Chemotherapy. Radiation Therapy, right. Mother had breast cancer, age 60. Prior Study Comparison: 12/02/2021 Left Diagnostic Mammogram, [facility]. 12/04/2022 Left MG 3D diag mammo w/cad LT, [facility]. 12/13/2022 Left MG diagnostic mammo LT wo CAD., [facility]. Findings: The axilla of the right breast was scanned. Targeted ultrasound right axilla at the patient's palpable site. This is located just below the patient's scar. Some prominent fatty tissue is noted at the patient directed palpable site. No suspicious solid or cystic lesion. A couple benign-appearing nonenlarged lymph nodes are noted in the right axilla. One of these may contain a biopsy/surgical clip. Overall Assessment: Benign, BI-RAD 2 Management: Diagnostic Mammogram of the left breast in 5 months. Postbiopsy follow-up mammogram. Patient should continue monthly self breast exams. Further clinical management of patient's palpable area in the right axilla. Results were given to the patient verbally at the time of exam. Electronically signed and approved by: Catalina Boyer M.D. Radiologist
== END | disposition home or self-care (01) ==
LOC: RADUSWWP 14:02
PROVIDERS: ATTEND Surgery
DX: N63.10 Unspecified lump in the right breast, unspecified quadrant (principal); Z78.0 Asymptomatic menopausal state; Z80.3 Family history of malignant neoplasm of breast

== ENCOUNTER 2023-01-26 11:55 | Emergency (ER) | payer MEDICARE, OTHER ==
[2023-01-26 12:13] VITALS: TEMP 97.8
[2023-01-26] MEDS ORDERED: HYDROmorphone 0.5 MG/0.5 ML SYRINGE IVP STA (12:52)
[2023-01-26 13:20] LABS: Anisocytosis Slight; Basophils % (A) 0 %; Eosinophils # (A) 0.1 k/uL (0-0.7); Eosinophils % (A) 2 %; HCT 34.2 % (34.0-46.0); HGB 10.6 gm/dL (11.4-16.0); Lymphocytes # (A) 3.2 k/uL (1.0-4.8); Lymphocytes % (A) 41 %; MCH 30.5 pg (25.0-35.0); MCHC 30.9 g/dL (31.0-37.0); MCV 98.7 fL (80.0-100.0); Macrocytosis Slight; Mean Platelet Volume 9.2; Monocytes # (A) 0.4 k/uL (0-1.0); Monocytes % (A) 5 %; Neutrophils # (A) 3.9 k/uL (1.3-7.7); Neutrophils % (A) 50 %; Platelet Count 107 k/uL (150-450); RBC 3.47 m/uL (3.80-5.40); RDW 16.8 % (11.5-15.5); WBC 7.8 k/uL (3.8-10.6)
[2023-01-26 13:28] LABS: Appearance,Urine Clear (Clear); Bilirubin,Urine Negative (Negative); Blood,Urine Negative (Negative); Color,Urine Light Yellow; Glucose,Urine (UA) Negative (Negative); Ketones,Urine Negative (Negative); Leukocyte Esterase,Urine Negative (Negative); Nitrite,Urine Negative (Negative); PH, Urine 6.5 (5.0-8.0); Protein,Urine Negative (Negative); Specific Gravity,Urine 1.003 (1.001-1.035); Urobilinogen,Urine <2.0 mg/dL (<2.0)
--- NOTE | 2023-01-26 13:36 | XR ---
EXAMINATION TYPE: XR chest 2V DATE OF EXAM: 01/26/2023 COMPARISON: 04/10/2021 TECHNIQUE: PA and lateral views submitted. HISTORY: Shortness of breath FINDINGS: Basilar subsegmental changes noted. there is no pneumothorax, pleural effusion, or focal pneumonia. Heart size normal and no overt failure. Osseous structures demonstrate hypertrophic and degenerative changes of the spine. Surgical clips in the right axilla. Arthropathy of the shoulders. Heart size pr ominent. IMPRESSION: 1. Basilar subsegmental atelectasis favored over pneumonia correlate clinically..
[2023-01-26 13:37] LABS: ALT 25 U/L (4-34); AST 59 U/L (14-36); African American GFR (CKD) >90 (>60 ml/min/1.73 sqM); Albumin 2.8 g/dL (3.5-5.0); Alkaline Phosphatase 165 U/L (38-126); Anion Gap 10 mmol/L; Blood Urea Nitrogen 5 mg/dL (7-17); Carbon Dioxide 30 mmol/L (22-30); Chloride 101 mmol/L (98-107); Glucose 95 mg/dL (74-99); Lipase 121 U/L (23-300); Non-African American GFR(CKD) 82 (>60 ml/min/1.73 sqM); Potassium 3.6 mmol/L (3.5-5.1); Sodium 141 mmol/L (137-145); Total Bilirubin 1.4 mg/dL (0.2-1.3); Total Protein 8.1 g/dL (6.3-8.2)
[2023-01-26 13:44] LABS: INR 1.3 (<1.2); Partial Thromboplastin Time 25.7 sec (22.0-30.0); Prothrombin Time 13.2 sec (9.0-12.0)
[2023-01-26] MEDS ORDERED: SODIUM CHLORIDE 0.9% 2,000 ML IV STA (14:11)
--- NOTE | 2023-01-26 14:21 | CT ---
EXAMINATION TYPE: CT chest angio for PE DATE OF EXAM: 01/26/2023 COMPARISON: NONE HISTORY: Elevated d-dimer. Shortness of breath. CT DLP: 663.4 mGycm. Automated Exposure Control for Dose Reduction was Utilized. CONTRAST: CTA scan of the thorax is performed with IV Contrast, patient injected with 100ml mL of Isovue 370, p ulmonary embolism protocol. MIP Images are created on CT scanner and reviewed. FINDINGS: LUNGS: Low lung volumes are present. There is mild bibasilar linear scarring and/or atelectasis. No p leural effusion or pneumothorax seen bilaterally. MEDIASTINUM: There is a suboptimal study but no convincing CT evidence for acute pulmonary embolism. Satisfactory enhancement of the thoracic aorta without aneurysm or dissection. There is bovine type a rch which is normal variant. Mild cardiomegaly. No pericardial effusion. OTHER: Right breast is surgically absent with calcifications in the remnant skin and surgical clips t owards the right axilla. Please refer to same day CT abdomen and pelvis report for complete details o n the upper abdomen. Underlying scoliosis. IMPRESSION: No CT evidence for acute pulmonary embolism. Low lung volumes without suspicious acute pu lmonary process.
--- NOTE | 2023-01-26 14:25 | CT ---
EXAMINATION TYPE: CT abdomen pelvis w con DATE OF EXAM: 01/26/2023 HISTORY: Elevated d-dimer and abdominal pain. CT DLP: 2700mGycm Automated Exposure Control for Dose Reduction was Utilized. CONTRAST: CT scan of the abdomen and pelvis is performed without oral but with IV Contrast, patient injected wi th 100ml mL of Isovue 370. COMPARISON: Prior CT abdomen and pelvis October 28, 2016. FINDINGS: LUNG BASES: Please refer to same day CTA chest report for complete details on the lung bases LIVER/GB: Liver is somewhat small in size with lobulated contour suggesting cirrhosis. Surrounding as cites. PANCREAS: No significant abnormality is seen. SPLEEN: Surrounding ascites. ADRENALS: No significant abnormality is seen. KIDNEYS: No significant abnormality is seen. BOWEL: Stomach poorly distended and is thus suboptimally evaluated. No suspicious small or large paty l dilatation. UTERUS/ADNEXA: Anteverted uterus with tiny calcified fibroids. LYMPH NODES: No greater than 1cm abdominal or pelvic lymph nodes are appreciated. OSSEOUS STRUCTURES: Multilevel vacuum disc phenomenon and disc space narrowing in the lumbar spine. M ultilevel spurring in the thoracolumbar spine. OTHER: Small to moderate amount of intra-abdominal intraperitoneal ascites. Moderate diffuse soft tis kierra anasarca greatest over the pelvis IMPRESSION: There is new [id number] amount of intraperitoneal ascites and moderate diffuse sof t tissue anasarca. Correlate for possible underlying cirrhosis. No bowel obstruction.
[2023-01-26] MEDS ORDERED: CALCIUM CARBONATE 500 MG CHEWABLE PO STA (14:53)
[2023-01-26] MEDS ORDERED: FUROSEMIDE 10 MG/ML 4 ML VIAL IV STA (14:54)
[2023-01-26] MEDS ORDERED: CALCIUM CHLORIDE 100 MG/ML 10 ML SYRINGE IVP STA (15:04)
[2023-01-26] MEDS ORDERED: DILTIAZEM DRIP BOLUS FROM BAG 1 MG SOLN IV ONE (15:44)
[2023-01-26] MEDS ORDERED: DILTIAZEM 125 MG in SODIUM CHLORIDE 0.9% 100 ML IV SCH (15:45)
--- NOTE | 2023-01-26 15:49 | ED ---
GI Bleed HPI - General Source: patient Mode of arrival: ambulatory Limitations: no limitations <Maddie Dumont - Last Filed: 01/26/23 17:06> <Jamison Gillespie - Last Filed: 01/26/23 18:38> - General Chief complaint: GI Bleed Stated complaint: leg swelling, stomach pain Time Seen by Provider: 01/26/23 12:31 - History of Present Illness Initial comments: Patient is a 62-year-old female who presents to the emergency department with a chief complaint of abdominal pain and blood in stool. It started last night. Patient reports an aching in her lower abdomen on both sides. She also reports 2 episodes of blood in stool which she describes as bright red streaking throughout the stool. She does not use of blood thinners. She denies history of GI bleed. She denies fever, chills, nausea, vomiting, diarrhea, burning with urination, blood in the urine, vaginal bleeding. vaginal discharge. Patient fe els that her abdomen is distended. She also feels short of breath. She denies chest pain, weakness, cough. No cold-like symptoms. Patient has history of breast cancer in 2004. Patient relapsed in 2020 with right mastectomy. Her oncologist is Dr. Dumont. Patient is currently on Arimidex. She is not undergoing chemotherapy and radiation. (Maddie Dumont) - Related Data Home Medications Medication Instructions Recorded Confirmed Levothyroxine Sodium [Synthroid] 100 mcg PO DAILY 07/06/15 01/26/23 ALPRAZolam [Xanax] 1 mg PO TID 11/05/17 01/26/23 Anastrozole [Arimidex] 1 mg PO DAILY 01/04/22 01/26/23 Cholecalciferol [Vitamin D3 (25 50 mcg PO DAILY 01/04/22 01/26/23 Mcg = 1000 Iu)] Dulaglutide [Trulicity] 4.5 mg SQ MO 01/04/22 01/26/23 Amitriptyline HCl [Elavil] 25 mg PO BID 12/06/22 01/26/23 Furosemide [Lasix] 40 mg PO BID 12/06/22 01/26/23 Pantoprazole [Protonix] 40 mg PO DAILY 12/06/22 01/26/23 Colchicine 0.6 mg PO BID 01/26/23 01/26/23 HYDROcodone/APAP 10-325MG [Rueter 1 tab PO Q5H PRN 01/26/23 01/26/23 10-325] Loratadine 10 mg PO DAILY 01/26/23 01/26/23 Spironolactone 50 mg PO DAILY 01/26/23 01/26/23 allopurinoL [Zyloprim] 300 mg PO DAILY 01/26/23 01/26/23 captopriL [Capoten] 50 mg PO BID 01/26/23 01/26/23 metFORMIN HCL [Glucophage] 500 mg PO BID 01/26/23 01/26/23 Allergies Allergy/AdvReac Type Severity Reaction Status Date / Time pineapple Allergy Rash on Verified 01/26/23 14:28 mouth Review of Systems ROS Other: All systems not noted in ROS Statement are negative. <Maddie Dumont - Last Filed: 01/26/23 17:06> ROS Other: All systems not noted in ROS Statement are negative. <Jamison Gillespie - Last Filed: 01/26/23 18:38> ROS Statement: Those systems with pertinent positive or pertinent negative responses have been documented in the HPI. Past Medical History Past Medical History: Cancer, Diabetes Mellitus, GERD/Reflux, Hyperlipidemia, Hypertension, Osteoarthritis (OA), Thyroid Disorder Additional Past Medical History / Comment(s): Hx Asymptomatic Covid 09/23/21. Heart murmur. Hx right breast cancer in 2004. Gout. History of Any Multi-Drug Resistant Organisms: None Reported Past Surgical History: Bariatric Surgery, Breast Surgery, Section, Joint Replacement, Tubal Ligation Additional Past Surgical History / Comment(s): Right breast lumpectomy 2004 with chemo and radiation, lymph nodes removed, bilateral knee replacements, Lap Band. Past Anesthesia/Blood Transfusion Reactions: No Reported Reaction Past Psychological History: Anxiety Smoking Status: Never smoker Past Alcohol Use History: Occasional Past Drug Use History: None Reported - Past Family History Mother Family Medical History: Cancer Additional Family Medical History / Comment(s): Breast cancer. <Maddie Dumont - Last Filed: 01/26/23 17:06> General Exam Limitations: no limitations General appearance: alert, in no apparent distress Head exam: Present: atraumatic, normocephalic, normal inspection Eye exam: Present: normal appearance, PERRL, EOMI. Absent: scleral icterus, conjunctival injection, periorbital swelling Respiratory exam: Present: normal lung sounds bilaterally. Absent: respiratory distress, wheezes, rales, rhonchi, stridor Cardiovascular Exam: Present: regular rate, normal rhythm, normal heart sounds. Absent: systolic murmur, diastolic murmur, rubs, gallop, clicks GI/Abdominal exam: Present: soft, distended (moderate), normal bowel sounds. Absent: tenderness, guarding, rebound, rigid Extremities exam: Present: normal inspection, full ROM, normal capillary refill, pedal edema (non pitting ) Neurological exam: Present: alert, oriented X3, CN II-XII intact Psychiatric exam: Present: normal affect Skin exam: Present: warm, dry, intact, normal color. Absent: rash <Maddie Dumont - Last Filed: 01/26/23 17:06> Course <Jamison Gillespie - Last Filed: 01/26/23 18:38> Vital Signs 01/26/23 01/26/23 01/26/23 12:11 13:46 14:30 Temperature 97.8 F Pulse Rate 96 107 H Respiratory 18 18 19 Rate Blood Pressure 130/83 140/90 140/90 O2 Sat by Pulse 97 98 100 Oximetry 01/26/23 01/26/23 01/26/23 15:00 15:56 16:18 Temperature Pulse Rate 105 H 165 H 105 H Respiratory 20 18 Rate Blood Pressure 138/90 151/94 O2 Sat by Pulse 96 97 Oximetry 01/26/23 01/26/23 17:00 18:26 Temperature Pulse Rate 106 H 105 H Respiratory 18 18 Rate Blood Pressure 146/94 140/78 O2 Sat by Pulse 99 100 Oximetry - Reevaluation(s) Reevaluation #1: 01/26/23 1539 EKG: SVT rate of 164, QRS duration 95, QTC 374 Repeat EKG after adenosine at 1611 showing sinus tachycardia with a rate of 109 low voltage, narrow QRS at 77, QTC [address] segment elevation. (Jamison Gillespie) Reevaluation #2: 01/26/23 She developed SVT while the emergency department and was converted with adenosine 6 mg without issue. (Jamison Gillespie) Procedures - [place] Protocol (Time Out) Nurse: Chitra Aden <Maddie Dumont - Last Filed: 01/26/23 17:06> Medical Decision Making - Lab Data Result diagrams: 01/26/23 12:34 01/26/23 12:34 <Maddie Dumont - Last Filed: 01/26/23 17:06> - Lab Data Result diagrams: 01/26/23 12:34 01/26/23 12:34 <Jamison Gillespie [place] - Last Filed: 01/26/23 18:38> - Medical Decision Making EKG taken at 15:39, interpreted by me SVT Ventricular rate 164, QRS duration 95, QTC 374 Was pt. sent in by a medical professional or institution (, [facility], CUSTOMER SOLUTIONS REPRESENTATIVE, urgent care, hospital, or residential...) When possible be specific @ -[No] Did you speak to anyone other than the patient for history (EMS, parent, family, police, friend...)? What history was obtained from this source @ -[No] Did you review nursing and triage notes (agree or disagree)? Why? @ -[I reviewed and agree with nursing and triage notes] Were old charts reviewed (outside hosp., previous admission, EMS record, old EKG, old radiological studies, urgent care reports/EKG's, residential records)? Report findings @ -[No old charts were reviewed] Differential Diagnosis (chest pain, altered mental status, abdominal pain women, abdominal pain men, vaginal bleeding, weakness, fever, dyspnea, syncope, headache, dizziness, GI bleed, back pain, seizure, CVA, palpatations, mental health)? @ -[not applicable] EKG interpreted by me (3pts min.). @ -[As above] X-rays interpreted by me (1pt min.). @ -[None done] CT interpreted by me (1pt min.). @ -[None done] U/S interpreted by me (1pt. min.). @ -[None done] What testing was considered but not performed or refused? (CT, X-rays, U/S, labs)? Why? @ -[None] What meds were considered but not given or refused? Why? @ -[None] Did you discuss the management of the patient with other professionals (professionals i.e. , [facility], CUSTOMER SOLUTIONS REPRESENTATIVE, lab, RT, psych nurse, social work manager, cementer helper, teacher, liaison officer, pillowcase folder)? Give summary @ -[No] Was smoking cessation discussed for >3mins.? @ -[No] Was critical care preformed (if so, how long)? @ -[No] Were there social determinants of health that impacted care today? How? (Homelessness, low income, unemployed, alcoholism, drug addiction, transportation, low edu. Level, literacy, decrease access to med. care, penitentiary, rehab)? @ -[No] Was there de-escalation of care discussed even if they declined (Discuss DNR or withdrawal of care, Hospice)? DNR status @ -[No] What co-morbidities impacted this encounter? (DM, HTN, Smoking, COPD, CAD, Cancer, CVA, ARF, Chemo, Hep., AIDS, mental health diagnosis, sleep apnea, morbid obesity)? @ -[None] Was patient admitted / discharged? Hospital course, mention meds given and route, prescriptions, significant lab abnormalities, going to OR and other pertinent info. @ -Patient presenting for abdominal pain, blood in stool, SOB. Patient is well-appearing is no evidence of respiratory distress. No hypoxia. There is mild tachycardia at 107. Blood pressure is within acceptable limits. There is ansarca and mild ascites. No abdominal tenderness. Laboratory studies obtained. Hemoglobin is stable at 10.6 decreased from previous visit at 11.5. Occult blood is negative. D-dimer is elevated at 9.50. Troponin and BNP are within normal limits. Lactic acid is elevated at 5.7. There is hypocalcemia at 7.0. There is no ALINE. CT of the abdomen and pelvis with contrast shows new small to moderate amount of ascites and moderate diffuse soft tissue anasarca, possibly relating to underlying cirrhosis. I suspect elevated lactic secondary to cirrhosis which patient admits to history of despite no evidence of documentation. CT of the chest with angiogram was negative for PE. Results discussed the patient. Patient states she takes oral Lasix 4 QID. She was given IV Lasix and calcium. Shortly after medication patient did go into SVT. She denies prior history. Patient felt well during this time she did not have any chest pain or any increased shortness of breath. Vagal maneuvers attempted without success. Patient given adenosine with conversion to normal sinus rhythm. Undiagnosed new problem with uncertain prognosis? @ -[No] Drug Therapy requiring intensive monitoring for toxicity (Heparin, Nitro, Insulin, Cardizem)? @ -[No] Were any procedures done? @ -[No] Diagnosis/symptom? @ -[default] Acute, or Chronic, or Acute on Chronic? @ -[default] Uncomplicated (without systemic symptoms) or Complicated (systemic symptoms)? @ -[default] Side effects of treatment? @ -[No] Exacerbation, Progression, or Severe Exacerbation? @ -[No] Poses a threat to life or bodily function? How? (Chest pain, [place], [place], pneumonia, PE, COPD, DKA, ARF, appy, cholecystitis, CVA, Diverticulitis, Homicidal, Suicidal, threat to staff... and all critical care pts) @ -[No] (Maddie Dumont) This is a 62-year-old female whose care I took over the emergency department during her stay. She had presented initially for GI bleed, she had bright red rectal bleeding just prior to arrival. Rectal exam was negative for bright red blood in a call was negative. The patient states this was blood-streaked stool. She has significant abdominal distention without focal pain on exam. She had mild tachycardia at onset with stable blood pressure. Laboratory testing revealed anemia at 10.6 with a history of anemia. She had a significantly elevated d-dimer at 9.5 which was addressed with CT imaging of the chest. This was negative for PE. Abdominal CT was also performed which showed ascites and liver cirrhosis without other acute findings. She had an elevated lactic acid of 5.7 which I suspect is predominantly from liver dysfunction secondary to cirrhosis. She also had a calcium of 7 which corrects to 8. GEN negative troponin and albumin of 2.8. She had an episode of SVT while in the emergency department which was treated with adenosine and she converted to sinus rhythm without any hypotension or changes in mental status. Given the liver cirrhosis and suspected lower GI bleed I did plan to admit this patient to this institution however there is no gastroenterology available. I discussed transfer with the patient but she preferred to be discharged with return parameters and outpatient follow-up. Her entire stay in the emergency department was 6-1/2 hours in which time she had no further rectal bleeding. I did discuss the risks with the patient and with multiple family members regarding the fact that we had not identified a source of her rectal bleeding that she was at risk for further bleeding. She was informed of this and referred discharged with family and strict return parameters. She was aware of the risks and able to make her own decisions. (Jamison Gillespie) - Lab Data Lab Results 01/26/23 01/26/23 01/26/23 Range/Units 12:34 12:34 12:34 WBC 7.8 (3.8-10.6) k/uL RBC 3.47 L (3.80-5.40) m/uL Hgb 10.6 L (11.4-16.0) gm/dL Hct 34.2 (34.0-46.0) % MCV 98.7 (80.0-100.0) fL MCH 30.5 (25.0-35.0) pg MCHC 30.9 L (31.0-37.0) g/dL RDW 16.8 H (11.5-15.5) % Plt Count 107 L (150-450) k/uL MPV 9.2 Neutrophils % 50 % Lymphocytes % 41 % Monocytes % 5 % Eosinophils % 2 % Basophils % 0 % Neutrophils # 3.9 (1.3-7.7) k/uL Lymphocytes # 3.2 (1.0-4.8) k/uL Monocytes # 0.4 (0-1.0) k/uL Eosinophils # 0.1 (0-0.7) k/uL Basophils # 0.0 (0-0.2) k/uL Anisocytosis Slight Macrocytosis Slight PT 13.2 H (9.0-12.0) sec INR 1.3 H (<1.2) APTT 25.7 (22.0-30.0) sec D-Dimer 9.50 H (<0.60) mg/L FEU Sodium (137-145) mmol/L Potassium (3.5-5.1) mmol/L Chloride (98-107) mmol/L Carbon Dioxide (22-30) mmol/L Anion Gap mmol/L BUN (7-17) mg/dL Creatinine (0.52-1.04) mg/dL Est GFR (CKD-EPI)AfAm (>60 ml/min/1.73 sqM) Est GFR (CKD-EPI)NonAf (>60 ml/min/1.73 sqM) Glucose (74-99) mg/dL Lactic Ac Sepsis Rflx Plasma Lactic Acid Nghia (0.7-2.0) mmol/L Calcium (8.4-10.2) mg/dL Total Bilirubin (0.2-1.3) mg/dL AST (14-36) U/L ALT (4-34) U/L Alkaline Phosphatase (38-126) U/L Troponin I (0.000-0.034) ng/mL NT-Pro-B Natriuret Pep pg/mL Total Protein (6.3-8.2) g/dL Albumin (3.5-5.0) g/dL Lipase (23-300) U/L Urine Color Urine Appearance (Clear) Urine pH (5.0-8.0) Ur Specific [place] (1.001-1.035) Urine Protein (Negative) Urine Glucose (UA) (Negative) Urine Ketones (Negative) Urine Blood (Negative) Urine Nitrite (Negative) Urine Bilirubin (Negative) Urine Urobilinogen (<2.0) mg/dL Ur Leukocyte Esterase (Negative) Stool Occult Blood Negative (Negative) 01/26/23 01/26/23 01/26/23 Range/Units 12:34 12:34 12:59 WBC (3.8-10.6) k/uL RBC (3.80-5.40) m/uL Hgb (11.4-16.0) gm/dL Hct (34.0-46.0) % MCV (80.0-100.0) fL MCH (25.0-35.0) pg MCHC (31.0-37.0) g/dL RDW (11.5-15.5) % Plt Count (150-450) k/uL MPV Neutrophils % % Lymphocytes % % Monocytes % % Eosinophils % % Basophils % % Neutrophils # (1.3-7.7) k/uL Lymphocytes # (1.0-4.8) k/uL Monocytes # (0-1.0) k/uL Eosinophils # (0-0.7) k/uL Basophils # (0-0.2) k/uL Anisocytosis Macrocytosis PT (9.0-12.0) sec INR (<1.2) APTT (22.0-30.0) sec D-Dimer (<0.60) mg/L FEU Sodium 141 (137-145) mmol/L Potassium 3.6 (3.5-5.1) mmol/L Chloride 101 (98-107) mmol/L Carbon Dioxide 30 (22-30) mmol/L Anion Gap 10 mmol/L BUN 5 L (7-17) mg/dL Creatinine 0.77 (0.52-1.04) mg/dL Est GFR (CKD-EPI)AfAm >90 (>60 ml/min/1.73 sqM) Est GFR (CKD-EPI)NonAf 82 (>60 ml/min/1.73 sqM) Glucose 95 (74-99) mg/dL Lactic Ac Sepsis Rflx Plasma Lactic Acid Nghia 5.7 H* (0.7-2.0) mmol/L Calcium 7.0 L (8.4-10.2) mg/dL Total Bilirubin 1.4 H (0.2-1.3) mg/dL AST 59 H (14-36) U/L ALT 25 (4-34) U/L Alkaline Phosphatase 165 H (38-126) U/L Troponin I (0.000-0.034) ng/mL NT-Pro-B Natriuret Pep 310 pg/mL Total Protein 8.1 (6.3-8.2) g/dL Albumin 2.8 L (3.5-5.0) g/dL Lipase 121 (23-300) U/L Urine Color Urine Appearance (Clear) Urine pH (5.0-8.0) Ur Specific [place] (1.001-1.035) Urine Protein (Negative) Urine Glucose (UA) (Negative) Urine Ketones (Negative) Urine Blood (Negative) Urine Nitrite (Negative) Urine Bilirubin (Negative) Urine Urobilinogen (<2.0) mg/dL Ur Leukocyte Esterase (Negative) Stool Occult Blood (Negative) 01/26/23 01/26/23 01/26/23 Range/Units 12:59 12:59 13:40 WBC (3.8-10.6) k/uL RBC (3.80-5.40) m/uL Hgb (11.4-16.0) gm/dL Hct (34.0-46.0) % MCV (80.0-100.0) fL MCH (25.0-35.0) pg MCHC (31.0-37.0) g/dL RDW (11.5-15.5) % Plt Count (150-450) k/uL MPV Neutrophils % % Lymphocytes % % Monocytes % % Eosinophils % % Basophils % % Neutrophils # (1.3-7.7) k/uL Lymphocytes # (1.0-4.8) k/uL Monocytes # (0-1.0) k/uL Eosinophils # (0-0.7) k/uL Basophils # (0-0.2) k/uL Anisocytosis Macrocytosis PT (9.0-12.0) sec INR (<1.2) APTT (22.0-30.0) sec D-Dimer (<0.60) mg/L FEU Sodium (137-145) mmol/L Potassium (3.5-5.1) mmol/L Chloride (98-107) mmol/L Carbon Dioxide (22-30) mmol/L Anion Gap mmol/L BUN (7-17) mg/dL Creatinine (0.52-1.04) mg/dL Est GFR (CKD-EPI)AfAm (>60 ml/min/1.73 sqM) Est GFR (CKD-EPI)NonAf (>60 ml/min/1.73 sqM) Glucose (74-99) mg/dL Lactic Ac Sepsis Rflx Y Plasma Lactic Acid Nghia (0.7-2.0) mmol/L Calcium (8.4-10.2) mg/dL Total Bilirubin (0.2-1.3) mg/dL AST (14-36) U/L ALT (4-34) U/L Alkaline Phosphatase (38-126) U/L Troponin I <0.012 (0.000-0.034) ng/mL NT-Pro-B Natriuret Pep pg/mL Total Protein (6.3-8.2) g/dL Albumin (3.5-5.0) g/dL Lipase (23-300) U/L Urine Color Light Yellow Urine Appearance Clear (Clear) Urine pH 6.5 (5.0-8.0) Ur Specific [place] 1.003 (1.001-1.035) Urine Protein Negative (Negative) Urine Glucose (UA) Negative (Negative) Urine Ketones Negative (Negative) Urine Blood Negative (Negative) Urine Nitrite Negative (Negative) Urine Bilirubin Negative (Negative) Urine Urobilinogen <2.0 (<2.0) mg/dL Ur Leukocyte Esterase Negative (Negative) Stool Occult Blood (Negative) Disposition <Maddie Dumont - Last Filed: 01/26/23 17:06> Is patient prescribed a controlled substance at d/c from ED?: No Time of Disposition: 18:12 <Jamison Gillespie - Last Filed: 01/26/23 18:38> Clinical Impression: Hematochezia, Liver cirrhosis Disposition: HOME SELF-CARE Condition: Fair Instructions (If sedation given, give patient instructions): Supraventricular Tachycardia (ED), Gastrointestinal Bleeding (ED) Referrals: Bart Monge MD [Primary Care Provider] - 1-2 days Mir Augustin MD [STAFF PHYSICIAN] - 1-2 days Keri Pack MD [STAFF PHYSICIAN] - 1-2 days
[2023-01-26] MEDS ORDERED: ADENOSINE 3 MG/ML 2 ML VIAL IVP STA (16:10)
[2023-01-26 16:19] VITALS: RESP 18
[2023-01-26 18:27] VITALS: BP 140/78; PULSE 105
== END 2023-01-26 18:26 | disposition home or self-care (01) ==
LOC: EC 11:55
DX: K92.1 Melena (principal); K74.60 Unspecified cirrhosis of liver; E11.9 Type 2 diabetes mellitus without complications; I10 Essential (primary) hypertension; E78.5 Hyperlipidemia, unspecified; K21.9 Gastro-esophageal reflux disease without esophagitis; M10.9 Gout, unspecified; M19.90 Unspecified osteoarthritis, unspecified site; E07.9 Disorder of thyroid, unspecified; F41.9 Anxiety disorder, unspecified; Z79.84 Long term (current) use of oral hypoglycemic drugs; Z79.85 Long-term (current) use of injectable non-insulin antidiabetic drugs; Z79.890 Hormone replacement therapy; Z79.899 Other long term (current) drug therapy; Z86.16 Personal history of COVID-19; Z91.018 Allergy to other foods
CPT/HCPCS: 36415; 93005; 85379; 83880; 80053; 83605; 83690; 84484; 85025; 85610; 85730; 82272; 81003; 71046; 71275; 74177; 99285; 96374; 96375 ×3; J1940; J0153; J1170; Q9967

== ENCOUNTER 2023-02-05 09:11 | Inpatient (IN) | payer MEDICARE, OTHER ==
--- NOTE | 2023-02-05 10:33 | ED ---
General Adult HPI - General Chief complaint: Recheck/Abnormal Lab/Rx Stated complaint: pain, stomach swelling Time Seen by Provider: 02/05/23 10:15 Source: patient, RN notes reviewed Mode of arrival: wheelchair Limitations: no limitations - History of Present Illness Initial comments: 62-year-old -Armenian female in severe emergency department with a chief complaint of abdominal pain. Patient reports that last night she fell she had to crawl to her phone to call her daughter. She presents today with abdominal distention and bilateral leg swelling. She is also complaining of accompanying symptoms of chest pain and shortness of breath. She denies hitting her head,, loss of consciousness, she denies any anticoagulant use at this time. She denies any known fevers, chills, headache, congestion, cough. She denies receiving peritoneal dialysis. - Related Data Home Medications Medication Instructions Recorded Confirmed Levothyroxine Sodium [Synthroid] 100 mcg PO DAILY 07/06/15 02/05/23 ALPRAZolam [Xanax] 1 mg PO TID PRN 11/05/17 02/05/23 Anastrozole [Arimidex] 1 mg PO DAILY 01/04/22 02/05/23 Cholecalciferol [Vitamin D3 (25 50 mcg PO DAILY 01/04/22 02/05/23 Mcg = 1000 Iu)] Dulaglutide [Trulicity] 4.5 mg SQ MO 01/04/22 02/05/23 Amitriptyline HCl [Elavil] 25 mg PO BID 12/06/22 02/05/23 Furosemide [Lasix] 40 mg PO BID 12/06/22 02/05/23 Pantoprazole [Protonix] 40 mg PO DAILY 12/06/22 02/05/23 Colchicine 0.6 mg PO BID 01/26/23 02/05/23 HYDROcodone/APAP 10-325MG [[place] 1 tab PO Q5H PRN 01/26/23 02/05/23 10-325] Loratadine 10 mg PO DAILY 01/26/23 02/05/23 Spironolactone 50 mg PO DAILY 01/26/23 02/05/23 allopurinoL [Zyloprim] 300 mg PO DAILY 01/26/23 02/05/23 captopriL [Capoten] 50 mg PO BID 01/26/23 02/05/23 metFORMIN HCL [Glucophage] 500 mg PO BID 01/26/23 02/05/23 Empagliflozin [Jardiance] 25 mg PO DAILY 02/05/23 02/05/23 Montelukast [Singulair] 10 mg PO DAILY 02/05/23 02/05/23 Allergies Allergy/AdvReac Type Severity Reaction Status Date / Time pineapple Allergy Rash on Verified 02/05/23 11:26 mouth Review of Systems ROS Statement: Those systems with pertinent positive or pertinent negative responses have been documented in the HPI. ROS Other: All systems not noted in ROS Statement are negative. Past Medical History Past Medical History: Cancer, Diabetes Mellitus, GERD/Reflux, Hyperlipidemia, Hypertension, Osteoarthritis (OA), Thyroid Disorder Additional Past Medical History / Comment(s): Hx Asymptomatic Covid 09/23/21. Heart murmur. Hx right breast cancer in 2004. Gout. History of Any Multi-Drug Resistant Organisms: None Reported Past Surgical History: Bariatric Surgery, Breast Surgery, Section, [place] int Replacement, Tubal Ligation Additional Past Surgical History / Comment(s): Right breast lumpectomy 2004 with chemo and radiation, lymph nodes removed, bilateral knee replacements, Lap Band. Past Anesthesia/Blood Transfusion Reactions: No Reported Reaction Past Psychological History: Anxiety Smoking Status: Never smoker Past Alcohol Use History: Occasional Past Drug Use History: None Reported - Past Family History Mother Family Medical History: Cancer Additional Family Medical History / Comment(s): Breast cancer. General Exam Limitations: no limitations General appearance: alert, in no apparent distress Head exam: Present: atraumatic, normocephalic, normal inspection Eye exam: Present: normal appearance, PERRL, EOMI. Absent: scleral icterus, conjunctival injection, periorbital swelling ENT exam: Present: normal exam, mucous membranes moist Neck exam: Present: normal inspection. Absent: tenderness, meningismus, lymphadenopathy Respiratory exam: Present: normal lung sounds bilaterally. Absent: respiratory distress, wheezes, rales, rhonchi, stridor Cardiovascular Exam: Present: regular rate, normal rhythm, normal heart sounds. Absent: systolic murmur, diastolic murmur, rubs, gallop, clicks GI/Abdominal exam: Present: soft, distended (Marked generalized abdominal distention however there is no tenderness), normal bowel sounds. Absent: tenderness, guarding, rebound, rigid Extremities exam: Present: normal inspection, full ROM, normal capillary refill, other (Bilateral lower extremities with 2+ pitting edema). Absent: tenderness, pedal edema, joint swelling, calf tenderness Back exam: Present: normal inspection Neurological exam: Present: alert, oriented X3, CN II-XII intact Psychiatric exam: Present: normal affect, normal mood Skin exam: Present: warm, dry, intact, normal color. Absent: rash Course Vital Signs 02/05/23 02/05/23 02/05/23 09:25 11:30 15:00 Temperature 97.9 F Pulse Rate 114 H 112 H Respiratory 22 22 Rate Blood Pressure 124/84 127/90 125/95 O2 Sat by Pulse 94 L 97 Oximetry 02/05/23 18:50 Temperature Pulse Rate 109 H Respiratory 20 Rate Blood Pressure 132/88 O2 Sat by Pulse 97 Oximetry - Reevaluation(s) Reevaluation #1: 02/05/23 12:40 Patient reevaluated and updated on laboratory results. She is agreeable with the plan for admission Reevaluation #2: 02/05/23 12:[address] Monge who agrees and accepts the patient for admission. EKG Findings - EKG Comments: EKG Findings:: I interpreted the following: EKG performed at 09:41. Rate 1 37 bpm and sinus tachycardia. NC interval 179, QRS duration 74, QT/QTC 342/422 Medical Decision Making - Medical Decision Making Was pt. sent in by a medical professional or institution (, PA, [employer], urgent care, hospital, or senior living...) When possible be specific @ -[No] Did you speak to anyone other than the patient for history (EMS, parent, family, police, friend...)? What history was obtained from this source @ -[No] Did you review nursing and triage notes (agree or disagree)? Why? @ -[I reviewed and agree with nursing and triage notes] Were old charts reviewed (outside hosp., previous admission, EMS record, old EKG, old radiological studies, urgent care reports/EKG's, senior living records)? Report findings @ -[No old charts were reviewed] Differential Diagnosis (chest pain, altered mental status, abdominal pain women, abdominal pain men, vaginal bleeding, weakness, fever, dyspnea, syncope, headache, dizziness, GI bleed, back pain, seizure, CVA, palpatations, mental health, musculoskeletal)? @ -[not applicable] EKG interpreted by me (3pts min.). @ -[As above] X-rays interpreted by me (1pt min.). @ -[None done] CT interpreted by me (1pt min.). @ -[None done] U/S interpreted by me (1pt. min.). @ -[None done] What testing was considered but not performed or refused? (CT, X-rays, U/S, labs)? Why? @ -[None] What meds were considered but not given or refused? Why? @ -[None] Did you discuss the management of the patient with other professionals (professionals i.e. , PA, [employer], lab, RT, psych nurse, social work coordinator, marketing database coordinator, teacher, state highway police officer, child support case officer)? Give summary @ -[No] Was smoking cessation discussed for >3mins.? @ -[No] Was critical care preformed (if so, how long)? @ -[No] Were there social determinants of health that impacted care today? How? (Homelessness, low income, unemployed, alcoholism, drug addiction, transportation, low edu. Level, literacy, decrease access to med. care, detention, rehab)? @ -[No] Was there de-escalation of care discussed even if they declined (Discuss DNR or withdrawal of care, Hospice)? DNR status @ -[No] What co-morbidities impacted this encounter? (DM, HTN, Smoking, COPD, CAD, Cancer, CVA, ARF, Chemo, Hep., AIDS, mental health diagnosis, sleep apnea, morbid obesity)? @ -[None] Was patient admitted / discharged? Hospital course, mention meds given and route, prescriptions, significant lab abnormalities, going to OR and other pertinent info. @ -Admission. This is a 62 year old female who presents to the emergency department with abdominal distension. Patient had a thorough history and physical exam performed while in the ED. heart rate regular rate and rhythm lungs clear to auscultation bilaterally abdomen is markedly distended. Case discussed with Dr. Monge who agrees and accepts the patient for admission. Ca se discussed with Dr. Powell [facility] who agrees with plan of care. Undiagnosed new problem with uncertain prognosis? @ -[No] Drug Therapy requiring intensive monitoring for toxicity (Heparin, Nitro, Insulin, Cardizem)? @ -[No] Were any procedures done? @ -[No] Diagnosis/symptom? @ -ascites Acute, or Chronic, or Acute on Chronic? @ -acute Uncomplicated (without systemic symptoms) or Complicated (systemic symptoms)? @ -complicated Side effects of treatment? @ -[No] Exacerbation, Progression, or Severe Exacerbation? @ -[No] Poses a threat to life or bodily function? How? (Chest pain, [place], [place], pneumonia, PE, COPD, DKA, ARF, appy, cholecystitis, CVA, Diverticulitis, Homicidal, Suicidal, threat to staff... and all critical care pts) @ -low likelihood - Lab Data Result diagrams: 02/05/23 11:25 02/05/23 11:25 Lab Results 02/05/23 02/05/23 02/05/23 Range/Units 11:25 11:25 11:25 WBC 7.6 (3.8-10.6) k/uL RBC 3.42 L (3.80-5.40) m/uL Hgb 10.7 L (11.4-16.0) gm/dL Hct 33.0 L (34.0-46.0) % MCV 96.5 (80.0-100.0) fL MCH 31.3 (25.0-35.0) pg MCHC 32.5 (31.0-37.0) g/dL RDW 17.3 H (11.5-15.5) % Plt Count 115 L (150-450) k/uL MPV 9.4 Neutrophils % 56 % Lymphocytes % 38 % Monocytes % 3 % Eosinophils % 1 % Basophils % 0 % Neutrophils # 4.2 (1.3-7.7) k/uL Lymphocytes # 2.9 (1.0-4.8) k/uL Monocytes # 0.2 (0-1.0) k/uL Eosinophils # 0.1 (0-0.7) k/uL Basophils # 0.0 (0-0.2) k/uL Anisocytosis Slight Macrocytosis Slight PT 13.8 H (9.0-12.0) sec INR 1.4 H (<1.2) APTT 26.6 (22.0-30.0) sec Sodium 138 (137-145) mmol/L Potassium 3.3 L (3.5-5.1) mmol/L Chloride 96 L (98-107) mmol/L Carbon Dioxide 32 H (22-30) mmol/L Anion Gap 10 mmol/L BUN 7 (7-17) mg/dL Creatinine 0.92 (0.52-1.04) mg/dL Est GFR (CKD-EPI)AfAm 76 (>60 ml/min/1.73 sqM) Est GFR (CKD-EPI)NonAf 66 (>60 ml/min/1.73 sqM) Glucose 100 H (74-99) mg/dL Calcium 7.2 L (8.4-10.2) mg/dL Total Bilirubin 1.9 H (0.2-1.3) mg/dL Conjugated Bilirubin 0.0 (0.0-0.3) mg/dL Unconjugated Bilirubin 1.0 (0.0-1.1) mg/dL Delta Bilirubin 0.9 H (0.0-0.2) mg/dL AST 60 H (14-36) U/L ALT 29 (4-34) U/L Alkaline Phosphatase 169 H (38-126) U/L Troponin I (0.000-0.034) ng/mL NT-Pro-B Natriuret Pep pg/mL Total Protein 8.0 (6.3-8.2) g/dL Albumin 2.7 L (3.5-5.0) g/dL 02/05/23 02/05/23 Range/Units 11:25 11:25 WBC (3.8-10.6) k/uL RBC (3.80-5.40) m/uL Hgb (11.4-16.0) gm/dL Hct (34.0-46.0) % MCV (80.0-100.0) fL MCH (25.0-35.0) pg MCHC (31.0-37.0) g/dL RDW (11.5-15.5) % Plt Count (150-450) k/uL MPV Neutrophils % % Lymphocytes % % Monocytes % % Eosinophils % % Basophils % % Neutrophils # (1.3-7.7) k/uL Lymphocytes # (1.0-4.8) k/uL Monocytes # (0-1.0) k/uL Eosinophils # (0-0.7) k/uL Basophils # (0-0.2) k/uL Anisocytosis Macrocytosis PT (9.0-12.0) sec INR (<1.2) APTT (22.0-30.0) sec Sodium (137-145) mmol/L Potassium (3.5-5.1) mmol/L Chloride (98-107) mmol/L Carbon Dioxide (22-30) mmol/L Anion Gap mmol/L BUN (7-17) mg/dL Creatinine (0.52-1.04) mg/dL Est GFR (CKD-EPI)AfAm (>60 ml/min/1.73 sqM) Est GFR (CKD-EPI)NonAf (>60 ml/min/1.73 sqM) Glucose (74-99) mg/dL Calcium (8.4-10.2) mg/dL Total Bilirubin (0.2-1.3) mg/dL Conjugated Bilirubin (0.0-0.3) mg/dL Unconjugated Bilirubin (0.0-1.1) mg/dL Delta Bilirubin (0.0-0.2) mg/dL AST (14-36) U/L ALT (4-34) U/L Alkaline Phosphatase (38-126) U/L Troponin I <0.012 (0.000-0.034) ng/mL NT-Pro-B Natriuret Pep 427 pg/mL Total Protein (6.3-8.2) g/dL Albumin (3.5-5.0) g/dL Disposition Clinical Impression: Ascites Disposition: ADMITTED IP TO THIS HOSP Condition: Fair Time of Disposition: 12:45
--- NOTE | 2023-02-05 11:17 | XR ---
EXAMINATION TYPE: XR chest 2V DATE OF EXAM: 02/05/2023 COMPARISON: 01/26/2023 HISTORY: Abdominal pain, near umbilicus status post fall. TECHNIQUE: Frontal and lateral views of the chest are obtained. FINDINGS: The heart size is normal. The cardiomediastinal silhouette and pulmonary vasculature are within radha l limits. There is no focal consolidation, significant pleural effusion, or pneumothorax. There are a few linear opacities at the left lung base. There are a few surgical clips in the right axillary region. IMPRESSION: Findings suggestive of left basilar atelectasis without acute cardiopulmonary process identified.
--- NOTE | 2023-02-05 11:38 | XR ---
Exam: X-ray abdomen 2 view Date: 02/05/2023 Comparison: CT 01/26/2023 History: Abdominal distention. Technique: Supine and upright views of the abdomen were obtained. Findings: There is no obvious free air. There are no dilated loops of bowel. There is a small to moderate stool burden. There are no obvious suspicious calcific or osseous abnormalities. The visualized lung bases are clear. Impression: Nonobstructive bowel gas pattern with small to moderate stool burden.
[2023-02-05 11:40] LABS: Anisocytosis Slight; Basophils % (A) 0 %; Eosinophils # (A) 0.1 k/uL (0-0.7); Eosinophils % (A) 1 %; HGB 10.7 gm/dL (11.4-16.0); Lymphocytes # (A) 2.9 k/uL (1.0-4.8); Lymphocytes % (A) 38 %; MCH 31.3 pg (25.0-35.0); MCHC 32.5 g/dL (31.0-37.0); MCV 96.5 fL (80.0-100.0); Macrocytosis Slight; Mean Platelet Volume 9.4; Monocytes # (A) 0.2 k/uL (0-1.0); Monocytes % (A) 3 %; Neutrophils # (A) 4.2 k/uL (1.3-7.7); Neutrophils % (A) 56 %; Platelet Count 115 k/uL (150-450); RBC 3.42 m/uL (3.80-5.40); RDW 17.3 % (11.5-15.5); WBC 7.6 k/uL (3.8-10.6)
[2023-02-05 11:51] LABS: INR 1.4 (<1.2); Partial Thromboplastin Time 26.6 sec (22.0-30.0); Prothrombin Time 13.8 sec (9.0-12.0)
[2023-02-05 12:12] LABS: Albumin 2.7 g/dL (3.5-5.0); Bilirubin, Delta 0.9 mg/dL (0.0-0.2); Calcium 7.2 mg/dL (8.4-10.2); Potassium 3.3 mmol/L (3.5-5.1); Total Bilirubin 1.9 mg/dL (0.2-1.3)
[2023-02-05] MEDS ORDERED: NALOXONE 0.4 MG/ML 1 ML VIAL IV PRN (12:47)
[2023-02-05] MEDS ORDERED: HYDROcodone/APAP 10-325MG 1 EACH TAB PO ONE (15:27)
[2023-02-05] MEDS ORDERED: ALPRAZolam 1 MG TAB PO PRN (19:04)
[2023-02-05] MEDS ORDERED: DEXTROSE 50% SYRINGE 50 ML IVP PRN ×2 (19:06)
[2023-02-05] MEDS: PANTOPRAZOLE 40 MG TABLET PO SCH (19:37)
[2023-02-05] MEDS: MONTELUKAST 10 MG TAB PO SCH (19:37)
[2023-02-05] MEDS ORDERED: Dulaglutide [Trulicity] 4.5 MG/0.5 ML Each SQ SCH (20:00)
[2023-02-05] MEDS: FUROSEMIDE 10 MG/ML 4 ML VIAL IV SCH (21:13)
[2023-02-05] MEDS: SPIRONOLACTONE 25 MG TAB PO SCH (21:13)
[2023-02-05] MEDS: AMITRIPTYLINE HCL 25 MG TAB PO SCH (21:13)
[2023-02-06] MEDS: LEVOTHYROXINE 100 MCG TAB PO SCH (06:02)
[2023-02-06 07:11] LABS: Anisocytosis Slight; Basophils % (A) 1 %; Eosinophils # (A) 0.1 k/uL (0-0.7); Eosinophils % (A) 1 %; HCT 30.3 % (34.0-46.0); HGB 9.8 gm/dL (11.4-16.0); Lymphocytes # (A) 2.8 k/uL (1.0-4.8); Lymphocytes % (A) 42 %; MCH 31.9 pg (25.0-35.0); MCHC 32.5 g/dL (31.0-37.0); MCV 98.1 fL (80.0-100.0); Macrocytosis Slight; Mean Platelet Volume 9.1; Monocytes # (A) 0.3 k/uL (0-1.0); Monocytes % (A) 5 %; Neutrophils # (A) 3.4 k/uL (1.3-7.7); Neutrophils % (A) 51 %; RBC 3.09 m/uL (3.80-5.40); RDW 17.2 % (11.5-15.5); WBC 6.7 k/uL (3.8-10.6)
[2023-02-06 07:44] LABS: Glucose,Whole Blood 95 mg/dL (70-110)
[2023-02-06 07:47] LABS: African American GFR (CKD) 74 (>60 ml/min/1.73 sqM); Anion Gap 6 mmol/L; Blood Urea Nitrogen 8 mg/dL (7-17); Calcium 6.9 mg/dL (8.4-10.2); Carbon Dioxide 33 mmol/L (22-30); Chloride 98 mmol/L (98-107); Glucose 87 mg/dL (74-99); Non-African American GFR(CKD) 64 (>60 ml/min/1.73 sqM); Potassium 3.2 mmol/L (3.5-5.1); Sodium 137 mmol/L (137-145)
[2023-02-06] MEDS ORDERED: Potassium Replacement Protocol 1 EACH MISC MISCELLANE PRN (07:58)
--- NOTE | 2023-02-06 08:47 | P.HPIM ---
History of Present Illness H&P Date: 02/06/23 Chief Complaint: Abdominal pain, abdominal swelling This is a 62-year-old female who presented to the emergency department with a complaint of abdominal pain and swelling. Patient reports she had a recent fall and had to crawl on her stomach to her phone to call her daughter and soon after that developed abdominal distention and abdominal pain. She does have a past medical history of breast cancer, diabetes, GERD, hyperlipidemia, hypertension, and osteoarthritis. She is seen laying in bed this morning very uncomfortable with abdominal swelling. Review of Systems Constitutional: Denies chills, Denies lethargy Cardiovascular: Reports edema, Denies chest pain, Denies dyspnea on exertion Gastrointestinal: Reports abdominal pain, Denies constipation, Denies diarrhea Neurological: Denies headaches, Denies weakness Past Medical History Past Medical History: Cancer, Diabetes Mellitus, GERD/Reflux, Hyperlipidemia, Hypertension, Osteoarthritis (OA), Thyroid Disorder Additional Past Medical History / Comment(s): Covid 09/23/21. Heart murmur. Hx right breast cancer in 2004, 2020. Gout. History of Any Multi-Drug Resistant Organisms: None Reported Past Surgical History: Bariatric Surgery, Breast Surgery, Section, Joint Replacement, Tubal Ligation Additional Past Surgical History / Comment(s): Right breast lumpectomy 2004 with chemo and radiation, lymph nodes removed, R mastectomy 2020, bilateral knee replacements, Lap Band/removal. Past Anesthesia/Blood Transfusion Reactions: No Reported Reaction Past Psychological History: Anxiety Additional Psychological History / Comment(s): . Smoking Status: Never smoker Past Alcohol Use History: Occasional Past Drug Use History: None Reported - Past Family History Mother Family Medical History: Cancer Additional Family Medical History / Comment(s): Breast cancer. Medications and Allergies Home Medications Medication Instructions Recorded Confirmed Type Levothyroxine Sodium [Synthroid] 100 mcg PO DAILY 07/06/15 02/05/23 History ALPRAZolam [Xanax] 1 mg PO TID PRN 11/05/17 02/05/23 History Anastrozole [Arimidex] 1 mg PO DAILY 01/04/22 02/05/23 History Cholecalciferol [Vitamin D3 (25 50 mcg PO DAILY 01/04/22 02/05/23 History Mcg = 1000 Iu)] Dulaglutide [Trulicity] 4.5 mg SQ MO 01/04/22 02/05/23 History Amitriptyline HCl [Elavil] 25 mg PO BID 12/06/22 02/05/23 History Furosemide [Lasix] 40 mg PO BID 12/06/22 02/05/23 History Pantoprazole [Protonix] 40 mg PO DAILY 12/06/22 02/05/23 History Colchicine 0.6 mg PO BID 01/26/23 02/05/23 History HYDROcodone/APAP 10-325MG [[place] 1 tab PO Q5H PRN 01/26/23 02/05/23 History 10-325] Loratadine 10 mg PO DAILY 01/26/23 02/05/23 History Spironolactone 50 mg PO DAILY 01/26/23 02/05/23 History allopurinoL [Zyloprim] 300 mg PO DAILY 01/26/23 02/05/23 History captopriL [Capoten] 50 mg PO BID 01/26/23 02/05/23 History metFORMIN HCL [Glucophage] 500 mg PO BID 01/26/23 02/05/23 History Empagliflozin [Jardiance] 25 mg PO DAILY 02/05/23 02/05/23 History Montelukast [Singulair] 10 mg PO DAILY 02/05/23 02/05/23 History Allergies Allergy/AdvReac Type Severity Reaction Status Date / Time pineapple Allergy Rash on Verified 02/05/23 11:26 mouth Physical Exam Vitals: Vital Signs Temp Pulse Pulse Resp BP BP Pulse Ox 02/06/23 07:35 97.5 F L 114 H 19 112/73 94 L 02/06/23 02:00 97.4 F L 107 H 20 135/85 98 02/05/23 20:25 105 H 02/05/23 20:00 97.8 F 105 H 16 168/101 98 02/05/23 18:50 109 H 20 132/88 97 02/05/23 15:00 125/95 02/05/23 11:30 112 H 22 127/90 97 02/05/23 09:25 97.9 F 114 H 22 124/84 94 L Intake and Output 02/05/23 02/06/23 02/06/23 22:59 06:59 14:59 Intake Total 240 120 Balance 240 120 Intake: Oral 240 120 Other: # Voids 2 Weight 136.078 kg - Constitutional General appearance: cooperative, no acute distress - EENT Eyes: EOMI, PERRLA - Neck Neck: no lymphadenopathy, normal ROM, no rigidity - Respiratory Respiratory: bilateral: CTA - Cardiovascular Rhythm: regular Heart sounds: normal: S1, S2 leg Peripheral Edema: bilateral: 2+, Pitting - Gastrointestinal Generalized abdominal distention General gastrointestinal: distended, no tenderness - Integumentary Integumentary: normal, normal turgor - Psychiatric Psychiatric: A&O x's 3, appropriate affect, intact judgment & insight Results CBC & Chem 7: 02/06/23 06:02 02/06/23 06:02 Labs: Abnormal Lab Results - Last 24 Hours (Table) 02/05/23 02/05/23 02/05/23 Range/Units 11:25 11:25 11:25 RBC 3.42 L (3.80-5.40) m/uL Hgb 10.7 L (11.4-16.0) gm/dL Hct 33.0 L (34.0-46.0) % RDW 17.3 H (11.5-15.5) % Plt Count 115 L (150-450) k/uL PT 13.8 H (9.0-12.0) sec INR 1.4 H (<1.2) Potassium 3.3 L (3.5-5.1) mmol/L Chloride 96 L (98-107) mmol/L Carbon Dioxide 32 H (22-30) mmol/L Glucose 100 H (74-99) mg/dL Calcium 7.2 L (8.4-10.2) mg/dL Total Bilirubin 1.9 H (0.2-1.3) mg/dL Delta Bilirubin 0.9 H (0.0-0.2) mg/dL AST 60 H (14-36) U/L Alkaline Phosphatase 169 H (38-126) U/L Albumin 2.7 L (3.5-5.0) g/dL 02/06/23 02/06/23 Range/Units 06:02 06:02 RBC 3.09 L (3.80-5.40) m/uL Hgb 9.8 L (11.4-16.0) gm/dL Hct 30.3 L (34.0-46.0) % RDW 17.2 H (11.5-15.5) % Plt Count (150-450) k/uL PT (9.0-12.0) sec INR (<1.2) Potassium 3.2 L (3.5-5.1) mmol/L Chloride (98-107) mmol/L Carbon Dioxide 33 H (22-30) mmol/L Glucose (74-99) mg/dL Calcium 6.9 L (8.4-10.2) mg/dL Total Bilirubin (0.2-1.3) mg/dL Delta Bilirubin (0.0-0.2) mg/dL AST (14-36) U/L Alkaline Phosphatase (38-126) U/L Albumin (3.5-5.0) g/dL Thrombosis Risk Factor Assmnt - Choose All That Apply Each Factor Represents 1 point: Obesity (BMI >25), Swollen legs (current) Other Risk Factors: Yes Each Risk Factor Represents 2 Points: Age 61-74 years Other congenital or acquired thrombophilia - If yes, enter type in comment: No Thrombosis Risk Factor Assessment Total Risk Factor Score: 4 Thrombosis Risk Factor Assessment Level: Moderate Risk Assessment and Plan (1) Ascites Current Visit: Yes Status: Acute Code(s): R18.8 - OTHER ASCITES SNOMED Code(s): 870182376 (2) Diabetes Current Visit: No Status: Acute Code(s): E11.9 - TYPE 2 DIABETES MELLITUS WITHOUT COMPLICATIONS SNOMED Code(s): 70704082 (3) GERD (gastroesophageal reflux disease) Current Visit: Yes Status: Acute Code(s): K21.9 - GASTRO-ESOPHAGEAL REFLUX DISEASE WITHOUT ESOPHAGITIS SNOMED Code(s): 630995419 (4) Hypertension Current Visit: Yes Status: Acute Code(s): I10 - ESSENTIAL (PRIMARY) HYPERTENSION SNOMED Code(s): 75724045 (5) Hyperlipidemia Current Visit: Yes Status: Acute Code(s): E78.5 - HYPERLIPIDEMIA, UNSPECIFIED SNOMED Code(s): 92490985 (6) History of breast cancer Current Visit: Yes Status: Acute Code(s): Z85.3 - PERSONAL HISTORY OF MALIGNANT NEOPLASM OF BREAST SNOMED Code(s): 956726012 Plan: Home medications reconciled. Replace potassium per protocol. GI has been consulted, patient will likely need paracentesis. Patient seen and evaluated by nurse practitioner, physician in agreement with plan
[2023-02-06] MEDS: FUROSEMIDE 10 MG/ML 4 ML VIAL IV SCH ×2 (09:50→19:47)
[2023-02-06] MEDS: LORATADINE 10 MG TAB PO SCH (09:50)
[2023-02-06] MEDS: ANASTROZOLE 1 MG TAB PO SCH (09:51)
[2023-02-06] MEDS: CHOLECALCIFEROL 25 MCG (1000 IU) TABLET PO SCH (09:51)
[2023-02-06] MEDS: AMITRIPTYLINE HCL 25 MG TAB PO SCH ×2 (09:51→19:47)
[2023-02-06] MEDS: MONTELUKAST 10 MG TAB PO SCH (09:51)
[2023-02-06] MEDS: PANTOPRAZOLE 40 MG TABLET PO SCH (09:51)
[2023-02-06] MEDS: allopurinoL 300 MG TAB PO SCH (09:51)
[2023-02-06] MEDS: SPIRONOLACTONE 25 MG TAB PO SCH ×2 (09:51→19:47)
[2023-02-06 11:44] LABS: Glucose,Whole Blood 108 mg/dL (70-110)
[2023-02-06 11:51] LABS: Platelet Count 89 k/uL (150-450)
--- NOTE | 2023-02-06 15:07 | P.GSCN ---
History of Present Illness Consult date: 02/06/23 Reason for Consult: Abdominal pain History of present illness: 62-year-old female known to our service from previous breast cancer intervention . Patient with increasing abdominal swelling and shortness of breath. She says she has been weaker and has fallen at home. She had a CAT scan showing large volume ascites. Consult for paracentesis has been placed. Patient denies any liver disease. She does have a history of morbid obesity. Minimal alcohol use over the years. Review of Systems The patient denies any acute changes in vision or hearing, no dysphagia or odynophagia, no chest pain no dysuria or hematuria, no headache, no runny nose, no rectal bleeding or melena, no unexplained weight loss Past Medical History Past Medical History: Cancer, Diabetes Mellitus, GERD/Reflux, Hyperlipidemia, Hypertension, Osteoarthritis (OA), Thyroid Disorder Additional Past Medical History / Comment(s): Covid 09/23/21. Heart murmur. Hx right breast cancer in 2004, 2020. Gout. History of Any Multi-Drug Resistant Organisms: None Reported Past Surgical History: Bariatric Surgery, Breast Surgery, Section, Joint Replacement, Tubal Ligation Additional Past Surgical History / Comment(s): Right breast lumpectomy 2004 with chemo and radiation, lymph nodes removed, R mastectomy 2020, bilateral knee replacements, Lap Band/removal. Past Anesthesia/Blood Transfusion Reactions: No Reported Reaction Past Psychological History: Anxiety Additional Psychological History / Comment(s): . Smoking Status: Never smoker Past Alcohol Use History: Occasional Past Drug Use History: None Reported - Past Family History Mother Family Medical History: Cancer Additional Family Medical History / Comment(s): Breast cancer. Medications and Allergies Home Medications Medication Instructions Recorded Confirmed Type Levothyroxine Sodium [Synthroid] 100 mcg PO DAILY 07/06/15 02/05/23 History ALPRAZolam [Xanax] 1 mg PO TID PRN 11/05/17 02/05/23 History Anastrozole [Arimidex] 1 mg PO DAILY 01/04/22 02/05/23 History Cholecalciferol [Vitamin D3 (25 50 mcg PO DAILY 01/04/22 02/05/23 History Mcg = 1000 Iu)] Dulaglutide [Trulicity] 4.5 mg SQ MO 01/04/22 02/05/23 History Amitriptyline HCl [Elavil] 25 mg PO BID 12/06/22 02/05/23 History Furosemide [Lasix] 40 mg PO BID 12/06/22 02/05/23 History Pantoprazole [Protonix] 40 mg PO DAILY 12/06/22 02/05/23 History Colchicine 0.6 mg PO BID 01/26/23 02/05/23 History HYDROcodone/APAP 10-325MG [[place] 1 tab PO Q5H PRN 01/26/23 02/05/23 History 10-325] Loratadine 10 mg PO DAILY 01/26/23 02/05/23 History Spironolactone 50 mg PO DAILY 01/26/23 02/05/23 History allopurinoL [Zyloprim] 300 mg PO DAILY 01/26/23 02/05/23 History captopriL [Capoten] 50 mg PO BID 01/26/23 02/05/23 History metFORMIN HCL [Glucophage] 500 mg PO BID 01/26/23 02/05/23 History Empagliflozin [Jardiance] 25 mg PO DAILY 02/05/23 02/05/23 History Montelukast [Singulair] 10 mg PO DAILY 02/05/23 02/05/23 History Allergies Allergy/AdvReac Type Severity Reaction Status Date / Time pineapple Allergy Rash on Verified 02/05/23 11:26 mouth Surgical - Exam Vital Signs Temp Pulse Resp BP Pulse Ox 97.9 F 114 H 22 124/84 94 L 02/05/23 09:25 02/05/23 09:25 02/05/23 09:25 02/05/23 09:25 02/05/23 09:25 Physical exam: General: Well-developed, well-nourished HEENT: Normocephalic, sclerae nonicteric Abdomen: Distention, reducible umbilical hernia, abdomen tight, mild diffuse tenderness Extremities: Mild lower extremity edema Neuro: Alert and oriented Results - Labs 02/06/23 06:02 02/06/23 06:02 Abnormal Lab Results - Last 24 Hours (Table) 02/06/23 02/06/23 Range/Units 06:02 06:02 RBC 3.09 L (3.80-5.40) m/uL Hgb 9.8 L (11.4-16.0) gm/dL Hct 30.3 L (34.0-46.0) % RDW 17.2 H (11.5-15.5) % Plt Count 89 L (150-450) k/uL Potassium 3.2 L (3.5-5.1) mmol/L Carbon Dioxide 33 H (22-30) mmol/L Calcium 6.9 L (8.4-10.2) mg/dL Diabetes panel 02/06/23 Range/Units 06:02 Sodium 137 (137-145) mmol/L Potassium 3.2 L (3.5-5.1) mmol/L Chloride 98 (98-107) mmol/L Carbon Dioxide 33 H (22-30) mmol/L BUN 8 (7-17) mg/dL Creatinine 0.95 (0.52-1.04) mg/dL Glucose 87 (74-99) mg/dL Calcium 6.9 L (8.4-10.2) mg/dL Calcium panel 02/06/23 Range/Units 06:02 Calcium 6.9 L (8.4-10.2) mg/dL Pituitary panel 02/06/23 Range/Units 06:02 Sodium 137 (137-145) mmol/L Potassium 3.2 L (3.5-5.1) mmol/L Chloride 98 (98-107) mmol/L Carbon Dioxide 33 H (22-30) mmol/L BUN 8 (7-17) mg/dL Creatinine 0.95 (0.52-1.04) mg/dL Glucose 87 (74-99) mg/dL Calcium 6.9 L (8.4-10.2) mg/dL Adrenal panel 02/06/23 Range/Units 06:02 Sodium 137 (137-145) mmol/L Potassium 3.2 L (3.5-5.1) mmol/L Chloride 98 (98-107) mmol/L Carbon Dioxide 33 H (22-30) mmol/L BUN 8 (7-17) mg/dL Creatinine 0.95 (0.52-1.04) mg/dL Glucose 87 (74-99) mg/dL Calcium 6.9 L (8.4-10.2) mg/dL Assessment and Plan Assessment: 62-year-old female with new onset ascites. Patient symptomatic. Requires diagnostic and therapeutic paracentesis. Await that procedure by interventional radiology. Remain on standby.
--- NOTE | 2023-02-06 15:11 | P.CONS ---
History of Present Illness - Reason for Consult Consult date: 02/06/23 Ascites Requesting physician: Bart Monge - Chief Complaint Abdominal distention, fall - History of Present Illness This a pleasant 62-year-old -[place] female who presented to the emergency department with complaints of abdominal pain distention and recent fall. Patient has a past medical history including diabetes mellitus, cancer, GERD, hyperlipidemia, hypertension and hypothyroidism. Patient states she started noticing abdominal distention which she states began on Sunday along with lower extremity swelling. She denies any previous history of liver disease and no history of cirrhosis of the liver. She was recently seen in the emergency department on 01/26/2023 at that time for abdominal pain. During that visit she had a CT of the abdomen and pelvis with contrast that reported small to moderate amount of intraperitoneal ascites and moderate diffuse soft tissue anasarca. Correlate for possible underlying cirrhosis. No bowel obstruction. No imaging done on this admission other than abdominal x-ray which reported nonobstructive bowel gas pattern a small to moderate stool burden. Patient denies any nausea vomiting, she denies any shortness of breath or chest pain. She does state that she has a history of alcohol abuse for likely greater than 20 years and drank beer usually daily. Labs WBC 6.7 hemoglobin 9.8 hematocrit 30 platelet count 89,019 or 1.4 sodium 137 potassium 3.2 BUN 8 creatinine 0.9 total bilirubin 1.9 AST 60 ALT 29 alkaline phosphatase 169 albumin 2.7 Review of Systems REVIEW OF SYSTEMS: CARDIOPULMONARY: No chest pain or shortness of breath. Lower extremity swelling bilaterally. Gastrointestinal: Abdominal pain and abdominal distention. No nausea or vomiting. No hematemesis, coffee-ground emesis. No rectal bleeding, or melena. GENITOURINARY: No dysuria or hematuria. MUSCULOSKELETAL: Reports normal range of motion., Joint pain. SKIN: No rashes. No jaundice. ENDOCRINE: No chills, fevers. No excessive weight gain or loss. No polydipsia or polyuria. PSYCHIATRIC: Unremarkable. NEUROLOGY: No change in mental status. Denies dizziness, headache. ENT: Vision unremarkable. CONSTITUTIONAL: No recent weight loss. No fever, chills, night sweats. Past Medical History Past Medical History: Cancer, Diabetes Mellitus, GERD/Reflux, Hyperlipidemia, Hypertension, Osteoarthritis (OA), Thyroid Disorder Additional Past Medical History / Comment(s): Covid 09/23/21. Heart murmur. Hx right breast cancer in 2004, 2020. Gout. History of Any Multi-Drug Resistant Organisms: None Reported Past Surgical History: Bariatric Surgery, Breast Surgery, Section, Alcira nt Replacement, Tubal Ligation Additional Past Surgical History / Comment(s): Right breast lumpectomy 2004 with chemo and radiation, lymph nodes removed, R mastectomy 2020, bilateral knee replacements, Lap Band/removal. Past Anesthesia/Blood Transfusion Reactions: No Reported Reaction Past Psychological History: Anxiety Additional Psychological History / Comment(s): . Smoking Status: Never smoker Past Alcohol Use History: Occasional Past Drug Use History: None Reported - Past Family History Mother Family Medical History: Cancer Additional Family Medical History / Comment(s): Breast cancer. Medications and Allergies Home Medications Medication Instructions Recorded Confirmed Type Levothyroxine Sodium [Synthroid] 100 mcg PO DAILY 07/06/15 02/05/23 History ALPRAZolam [Xanax] 1 mg PO TID PRN 11/05/17 02/05/23 History Anastrozole [Arimidex] 1 mg PO DAILY 01/04/22 02/05/23 History Cholecalciferol [Vitamin D3 (25 50 mcg PO DAILY 01/04/22 02/05/23 History Mcg = 1000 Iu)] Dulaglutide [Trulicity] 4.5 mg SQ MO 01/04/22 02/05/23 History Amitriptyline HCl [Elavil] 25 mg PO BID 12/06/22 02/05/23 History Furosemide [Lasix] 40 mg PO BID 12/06/22 02/05/23 History Pantoprazole [Protonix] 40 mg PO DAILY 12/06/22 02/05/23 History Colchicine 0.6 mg PO BID 01/26/23 02/05/23 History HYDROcodone/APAP 10-325MG [[place] 1 tab PO Q5H PRN 01/26/23 02/05/23 History 10-325] Loratadine 10 mg PO DAILY 01/26/23 02/05/23 History Spironolactone 50 mg PO DAILY 01/26/23 02/05/23 History allopurinoL [Zyloprim] 300 mg PO DAILY 01/26/23 02/05/23 History captopriL [Capoten] 50 mg PO BID 01/26/23 02/05/23 History metFORMIN HCL [Glucophage] 500 mg PO BID 01/26/23 02/05/23 History Empagliflozin [Jardiance] 25 mg PO DAILY 02/05/23 02/05/23 History Montelukast [Singulair] 10 mg PO DAILY 02/05/23 02/05/23 History Allergies Allergy/AdvReac Type Severity Reaction Status Date / Time pineapple Allergy Rash on Verified 02/05/23 11:26 mouth Physical Exam Vitals: Vital Signs Temp Pulse Pulse Resp BP BP Pulse Ox 02/06/23 07:35 97.5 F L 114 H 19 112/73 94 L 02/06/23 02:00 97.4 F L 107 H 20 135/85 98 02/05/23 20:25 105 H 02/05/23 20:00 97.8 F 105 H 16 168/101 98 02/05/23 18:50 109 H 20 132/88 97 02/05/23 15:00 125/95 02/05/23 11:30 112 H 22 127/90 97 Intake and Output 02/05/23 02/06/23 02/06/23 22:59 06:59 14:59 Intake Total 240 120 Balance 240 120 Intake: Oral 240 120 Other: # Voids 2 Weight 136.078 kg General appearance: The patient is alert, oriented, appears in no acute distress. HET: Head is normocephalic and atraumatic. Conjunctiva pink. Sclera anicteric. Neck: Supple without lymphadenopathy. Trachea midline. Heart: S1 S2. Regular rate and rhythm. Lungs: Clear to auscultation. Abdomen: Soft, mild diffuse tenderness, anasarca, distended with ascites.o guarding or rigidity. Skin: No rashes. No jaundice. Extremities: Normal skin color and turgor. bilateral lower extremity +2 pitting edema. Neurological: No focal deficits. Alert and oriented x3. Results CBC & Chem 7: 02/06/23 06:02 02/06/23 06:02 Labs: Abnormal Lab Results - Last 24 Hours (Table) 02/05/23 02/05/23 02/05/23 Range/Units 11:25 11:25 11:25 RBC 3.42 L (3.80-5.40) m/uL Hgb 10.7 L (11.4-16.0) gm/dL Hct 33.0 L (34.0-46.0) % RDW 17.3 H (11.5-15.5) % Plt Count 115 L (150-450) k/uL PT 13.8 H (9.0-12.0) sec INR 1.4 H (<1.2) Potassium 3.3 L (3.5-5.1) mmol/L Chloride 96 L (98-107) mmol/L Carbon Dioxide 32 H (22-30) mmol/L Glucose 100 H (74-99) mg/dL Calcium 7.2 L (8.4-10.2) mg/dL Total Bilirubin 1.9 H (0.2-1.3) mg/dL Delta Bilirubin 0.9 H (0.0-0.2) mg/dL AST 60 H (14-36) U/L Alkaline Phosphatase 169 H (38-126) U/L Albumin 2.7 L (3.5-5.0) g/dL 02/06/23 02/06/23 Range/Units 06:02 06:02 RBC 3.09 L (3.80-5.40) m/uL Hgb 9.8 L (11.4-16.0) gm/dL Hct 30.3 L (34.0-46.0) % RDW 17.2 H (11.5-15.5) % Plt Count (150-450) k/uL PT (9.0-12.0) sec INR (<1.2) Potassium 3.2 L (3.5-5.1) mmol/L Chloride (98-107) mmol/L Carbon Dioxide 33 H (22-30) mmol/L Glucose (74-99) mg/dL Calcium 6.9 L (8.4-10.2) mg/dL Total Bilirubin (0.2-1.3) mg/dL Delta Bilirubin (0.0-0.2) mg/dL AST (14-36) U/L Alkaline Phosphatase (38-126) U/L Albumin (3.5-5.0) g/dL Assessment and Plan (1) Ascites Narrative/Plan: 22-year-old female who presented with abdominal distention and pain and had been seen in the emergency department a few days prior undergoing CT of the abdomen and pelvis showing small to moderate amount of ascites generalized anasarca and liver consistent with possible cirrhosis. Patient has long-standing history of alcohol abuse greater than 20 years. No longer drinking. Denies any previous history of known liver disease or cirrhosis. No previous paracentesis or abdominal distention. Likely dealing with decompensated cirrhosis of liver related to alcohol abuse. 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 Liver ultrasound ordered, consult to interventional radiology for paracentesis. Current Visit: Yes Status: Acute Code(s): R18.8 - OTHER ASCITES SNOMED Code(s): 381597782 (2) Hypokalemia Current Visit: Yes Status: Acute Code(s): E87.6 - HYPOKALEMIA SNOMED Code(s): 30833236 (3) History of alcohol abuse Current Visit: Yes Status: Acute Code(s): F10.11 - ALCOHOL ABUSE, IN REMISSION SNOMED Code(s): 008217012 (4) History of breast cancer Current Visit: Yes Status: Acute Code(s): Z85.3 - PERSONAL HISTORY OF MALIGNANT NEOPLASM OF BREAST SNOMED Code(s): 958940335 (5) Hyperlipidemia Current Visit: Yes Status: Acute Code(s): E78.5 - HYPERLIPIDEMIA, UNSPECIFIED SNOMED Code(s): 04419104 (6) Hypertension Current Visit: Yes Status: Acute Code(s): I10 - ESSENTIAL (PRIMARY) HY PERTENSION SNOMED Code(s): 51737589 (7) Morbid obesity Current Visit: No Status: Acute Code(s): E66.01 - MORBID (SEVERE) OBESITY DUE TO EXCESS CALORIES SNOMED Code(s): 986833483 Plan: 1. Continue symptomatic and supportive care 2. Continued alcohol abstinence 3. Continue Lasix 40 mg twice a day for now 4. Continue spironolactone 25 mg twice a day 5. Repeat CBC, CMP, INR tomorrow 6. Liver ultrasound ordered 7. Interventional radiology consulted for paracentesis with fluid studies 8. Low-sodium diet Thank you for this consultation, we will continue to follow. Dr. Millie Pack I agree with the dictator's note, documented as a scribe by Jessica Bradley.
[2023-02-06] MEDS: ALBUTEROL NEBULIZED 2.5 MG/3 ML INHALATION SCH ×2 (15:35→18:36)
--- NOTE | 2023-02-06 15:48 | US ---
EXAMINATION TYPE: US abdomen limited DATE OF EXAM: 02/06/2023 COMPARISON: CT abdomen and pelvis earlier today CLINICAL INDICATION: Female, 62 years old with history of Ascites; Pain, abnormal labs TECHNIQUE: Multiple sonographic images of the right upper quadrant are obtained. FINDINGS: EXAM MEASUREMENTS: Liver Length: 17.9 cm Gallbladder Wall: 0.4 cm Right Kidney: 10.5 x 5.9 x 4.9 cm [employer]FT[employer] TEACHER NOTES:Extremely limited due to patient body habitus and unable to change positions Pancreas: Not well visualized Liver: Coarse, nodular and enlarged in size. Limited visualization of vessels. Suboptimal visualiz ation. Gallbladder: Wall thickening Evidence for sonographic Tapia's sign: neg CBD: Obscured by overlying bowel gas Right Kidney: No hydronephrosis or masses seen with portions visualized. Lower pole obscured by bow el gas. Ascites visualized in all four abdomen quadrants Suboptimal study due to patient's limited mobility and large body habitus. Suboptimal evaluation of t he pancreas on ultrasound. Visualized liver heterogeneously hyperechoic with course contour consisten t with hepatocellular disease. Adjacent ascites demonstrated no shadowing mobile intraluminal gallsto isaías. Gallbladder wall mildly thickened concentrically. No right-sided hydronephrosis. Small to modera te amount of intraperitoneal ascites redemonstrated. IMPRESSION: As above.
[2023-02-06] MEDS ORDERED: ALBUTEROL HFA INHALER INHALATION SCH (16:00)
[2023-02-06 17:41] LABS: Glucose,Whole Blood 141 mg/dL (70-110)
[2023-02-06] MEDS: ALBUMIN HUMAN 25% 50 ML in EMPTY BAG 1 BAG IVPB SCH ×4 (19:47→20:21)
[2023-02-06 20:42] LABS: Glucose,Whole Blood 127 mg/dL (70-110)
[2023-02-06] MEDS: HYDROcodone/APAP 10-325MG 1 EACH TAB PO PRN (22:51)
[2023-02-07 02:48] LABS: Albumin, Fluid Source Ascites; T. Protein, Body Fluid Source Ascites; Total Protein, Body Fluid 1200 mg/dL
[2023-02-07 02:58] LABS: Appearance,BF Slightly Hazy
[2023-02-07] MEDS: LEVOTHYROXINE 100 MCG TAB PO SCH (05:23)
[2023-02-07 07:17] LABS: Glucose,Whole Blood 110 mg/dL (70-110)
--- NOTE | 2023-02-07 08:32 | P.PN ---
Subjective Progress Note Date: 02/07/23 Principal diagnosis: The patient is a 62-year-old black female essentially meant for ascites/anasarca. The patient had significant paracentesis subtherapeutic and diagnostic yesterday. She states he feels much better. When queried today about alcohol use, she states when she was quite young she had 13 or 14 years where she drank heavily mainly vodka. She moved to [place] was not drinking for about 8 years but then has intermittently had ethanol use. She states she drinks wine intermittently. I told her given that she is had heavy ethanol use in the past, she could have, given her overall treatment of breast cancer and general health, cirrhosis. She feels much better after having paracentesis. No voiding symptoms she is tolerating diet. Objective - Vital Signs Vital signs: Vital Signs Temp 98.5 F 02/07/23 07:15 Pulse 124 H 02/07/23 07:15 Resp 18 02/07/23 07:15 BP 99/56 02/07/23 07:15 Pulse Ox 92 L 02/07/23 07:15 FiO2 Intake & Output 02/06/23 02/07/23 02/07/23 18:59 06:59 18:59 Intake Total 800 Output Total 8500 Balance -8500 800 Intake: Intake, IV Titration 200 Amount Albumin Human 25% 50 ml 200 In Empty Bag 1 bag @ 200 mls/hr IVPB Q15M [facility] Rx#: [id number] Oral 600 Output: Other 8500 Other: Voiding Method Toilet Toilet # Voids 4 3 1 # Bowel Movements 2 - Constitutional General appearance: Present: morbidly obese - EENT Eyes: Absent: abnormal pupil - Neck Neck: Absent: lymphadenopathy - Respiratory Respiratory: bilateral: diminished - Cardiovascular Rhythm: regular Heart sounds: normal: S1, S2 Abnormal Heart Sounds: Absent: S3 Gallop - Gastrointestinal General gastrointestinal: Present: distended. Absent: tenderness - Integumentary Integumentary: Absent: cellulitis - Psychiatric Psychiatric: Present: A&O x's 3, appropriate affect - Labs CBC & Chem 7: 02/06/23 06:02 02/06/23 06:02 Labs: Abnormal Lab Results - Last 24 Hours (Table) 02/06/23 02/06/23 02/06/23 Range/Units 06:02 17:38 20:40 Plt Count 89 L (150-450) k/uL POC Glucose (mg/dL) 141 H 127 H (70-110) mg/dL Microbiology - Last 24 Hours (Table) 02/06/23 17:20 Gram Stain - Preliminary Ascites Fluid Body Fluid Culture - Preliminary 02/06/23 17:20 Anaerobic Culture - Preliminary Ascites Fluid Assessment and Plan (1) Ascites Current Visit: Yes Status: Acute Code(s): R18.8 - OTHER ASCITES SNOMED Code(s): 022741818 (2) History of alcohol abuse Current Visit: Yes Status: Acute Code(s): F10.11 - ALCOHOL ABUSE, IN REMISSION SNOMED Code(s): 978047239 (3) History of breast cancer Current Visit: Yes Status: Acute Code(s): Z85.3 - PERSONAL HISTORY OF MALIGNANT NEOPLASM OF BREAST SNOMED Code(s): 707367118 (4) Hyperlipidemia Current Visit: Yes Status: Acute Code(s): E78.5 - HYPERLIPIDEMIA, UNSPECIFIE D SNOMED Code(s): 16948539 (5) Hypertension Current Visit: Yes Status: Acute Code(s): I10 - ESSENTIAL (PRIMARY) HYPERTENSION SNOMED Code(s): 52360884 Plan: Continue current regimen or treatment. Check CBC and CMP in a.m. Appreciate multiple consultants input. She orders otherwise.
[2023-02-07] MEDS: ALBUTEROL NEBULIZED 2.5 MG/3 ML INHALATION SCH ×4 (08:41→18:23)
[2023-02-07 08:47] LABS: HCT 30.1 % (37.2-46.3); HGB 9.6 g/dL (12.0-15.0); MCH 30.2 pg (27.0-32.0); MCHC 31.9 g/dL (32.0-37.0); MCV 94.7 fL (80.0-97.0); Mean Platelet Volume 12.6 fL (9.5-12.2); NRBC Per 100 WBC 0 /100 WBCS (0.0-0.0); Platelet Count 101 X 10*3/uL (140-440); RBC 3.18 X 10*6/uL (4.10-5.20); RDW 18.7 % (11.5-14.5); WBC 6.71 X 10*3/uL (4.50-10.00)
[2023-02-07 09:09] LABS: African American GFR (CKD) 60.1 (60.0-200.0); Albumin 2.2 g/dL (3.8-4.9); Albumin/Globulin Ratio 0.5 (1.60-3.17); Anion Gap 11.6 mmol/L (10.00-18.00); BUN/Creat Ratio 5.58 Ratio (12.00-20.00); Blood Urea Nitrogen 6.3 mg/dL (9.0-27.0); Calcium 7.2 mg/dL (8.7-10.3); Carbon Dioxide 29.7 mmol/L (20.0-27.5); Globulin 4.4 g/dL (1.6-3.3); Non-African American GFR(CKD) 51.9 (60.0-200.0); Potassium 3.8 mmol/L (3.5-5.5); Total Bilirubin 1.3 mg/dL (0.30-1.20); Total Protein 6.6 g/dL (6.2-8.2)
--- NOTE | 2023-02-07 09:35 | US ---
Ultrasound-guided paracentesis. DATE OF EXAM: 02/06/2023 CLINICAL HISTORY: Ascites The procedure was discussed with the patient. The risks, complications, benefits, and alternatives we re discussed and any questions were answered. Informed consent was obtained. The patient was placed s upine on the ultrasound table and prepped and draped in the usual sterile fashion. All elements of maximal barrier technique were utilized. Under ultrasound guidance, access into the left lower quadrant was obtained, via the paracentesis catheter system and direct ultrasound guidance . Approximately 8516 mL of straw-colored fluid was removed. The patient was stable throughout the proce dure and remained stable upon discharge from Department of Radiology. IMPRESSION: Successful paracentesis under ultrasound guidance.
[2023-02-07] MEDS: PANTOPRAZOLE 40 MG TABLET PO SCH (09:47)
[2023-02-07] MEDS: allopurinoL 300 MG TAB PO SCH (09:48)
[2023-02-07] MEDS: AMITRIPTYLINE HCL 25 MG TAB PO SCH ×2 (09:48→20:39)
[2023-02-07] MEDS: FUROSEMIDE 10 MG/ML 4 ML VIAL IV SCH ×2 (09:49→20:38)
[2023-02-07] MEDS: CHOLECALCIFEROL 25 MCG (1000 IU) TABLET PO SCH (09:49)
[2023-02-07] MEDS: LORATADINE 10 MG TAB PO SCH (09:49)
[2023-02-07] MEDS: ANASTROZOLE 1 MG TAB PO SCH (09:49)
[2023-02-07] MEDS: MONTELUKAST 10 MG TAB PO SCH (09:50)
[2023-02-07] MEDS: SPIRONOLACTONE 25 MG TAB PO SCH (09:50)
[2023-02-07 11:16] LABS: Glucose,Whole Blood 164 mg/dL (70-110)
[2023-02-07 12:20] LABS: INR 1.27 (0.90-1.11); Prothrombin Time 14.2 sec (9.9-11.9)
[2023-02-07] MEDS: HYDROcodone/APAP 10-325MG 1 EACH TAB PO PRN (12:23)
--- NOTE | 2023-02-07 16:55 | P.PN ---
Subjective Progress Note Date: 02/07/23 Principal diagnosis: Ascites This a pleasant 62-year-old -Filipino female who presented to the emergency department with complaints of abdominal pain distention and recent fall. Patient has a past medical history including diabetes mellitus, cancer, GERD, hyperlipidemia, hypertension and hypothyroidism. Patient states she started noticing abdominal distention which she states began on Sunday along with lower extremity swelling. She denies any previous history of liver disease and no history of cirrhosis of the liver. She was recently seen in the emergency department on 01/26/2023 at that time for abdominal pain. During that visit she had a CT of the abdomen and pelvis with contrast that reported small to moderate amount of intraperitoneal ascites and moderate diffuse soft tissue anasarca. Correlate for possible underlying cirrhosis. No bowel obstruction. No imaging done on this admission other than abdominal x-ray which reported nonobstructive bowel gas pattern a small to moderate stool burden. Patient denies any nausea vomiting, she denies any shortness of breath or chest pain. She does state that she has a history of alcohol abuse for likely greater than 20 years and drank beer usually daily, states that she stopped drinking about 2 months ago. Labs WBC 6.7 hemoglobin 9.8 hematocrit 30 platelet count 89,019 or 1.4 sodium 137 potassium 3.2 BUN 8 creatinine 0.9 total bilirubin 1.9 AST 60 ALT 29 alkaline phosphatase 169 albumin 2.7 02/07/2023: Patient seen and examined today as a follow-up for abdominal ascites. Patient underwent ultrasound of the liver yesterday that showed moderate amount of ascites, coarse nodular enlarged liver. Patient states that she feels better today, abdominal distention improved. She has no nausea or vomiting. She's been afebrile. Total bilirubin 1.3 AST 63 ALT 16 alkaline phosphatase 125. Paracentesis was completed yesterday with a 0.5 L removed, albumin was given. Objective - Vital Signs Vital signs: Vital Signs Temp 98.1 F 02/07/23 12:20 Pulse 112 H 02/07/23 15:18 Resp 18 02/07/23 12:20 BP 113/65 02/07/23 12:20 Pulse Ox 96 02/07/23 12:20 FiO2 Intake & Output 02/06/23 02/07/23 02/07/23 18:59 06:59 18:59 Intake Total 800 Output Total 8500 Balance -8500 800 Intake: Intake, IV Titration 200 Amount Albumin Human 25% 50 ml 200 In Empty Bag 1 bag @ 200 mls/hr IVPB Q15M [facility] Rx#: [id number] Oral 600 Output: Other 8500 Other: Voiding Method Toilet Toilet Toilet # Voids 4 3 1 # Bowel Movements 2 - Exam General appearance: The patient is alert, oriented, appears in no acute distress. HET: Head is normocephalic and atraumatic. Conjunctiva pink. Sclera anicteric. Neck: Supple without lymphadenopathy. Abdomen: Soft, nontender, nondistended with bowel sounds. No guarding or rigidity. Extremities: Normal skin color and turgor. No pedal edema Skin: No rashes, no jaundice Neurological: No focal deficits. Alert and oriented. - Labs CBC & Chem 7: 02/07/23 05:33 02/07/23 11:11 Labs: Abnormal Lab Results - Last 24 Hours (Table) 02/06/23 02/06/23 02/07/23 Range/Units 17:38 20:40 05:33 RBC (4.10-5.20) X 10*6/uL Hgb (12.0-15.0) g/dL Hct (37.2-46.3) % MCHC (32.0-37.0) g/dL RDW (11.5-14.5) % Plt Count (140-440) X 10*3/uL MPV (9.5-12.2) fL PT 14.2 H (9.9-11.9) sec INR 1.27 H (0.90-1.11) Potassium (3.5-5.1) mmol/L Carbon Dioxide (20.0-27.5) mmol/L BUN (9.0-27.0) mg/dL Est GFR (CKD-EPI)NonAf (60.0-200.0) BUN/Creatinine Ratio (12.00-20.00) Ratio POC Glucose (mg/dL) 141 H 127 H (70-110) mg/dL Calcium (8.7-10.3) mg/dL Total Bilirubin (0.30-1.20) mg/dL AST (13-35) U/L Albumin (3.8-4.9) g/dL Globulin (1.6-3.3) g/dL Albumin/Globulin Ratio (1.60-3.17) g/dL 02/07/23 02/07/23 02/07/23 Range/Units 05:33 05:33 11:11 RBC 3.18 L (4.10-5.20) X 10*6/uL Hgb 9.6 L (12.0-15.0) g/dL Hct 30.1 L (37.2-46.3) % MCHC 31.9 L (32.0-37.0) g/dL RDW 18.7 H (11.5-14.5) % Plt Count 101 L (140-440) X 10*3/uL MPV 12.6 H (9.5-12.2) fL PT (9.9-11.9) sec INR (0.90-1.11) Potassium 3.4 L (3.5-5.1) mmol/L Carbon Dioxide 29.7 H (20.0-27.5) mmol/L BUN 6.3 L (9.0-27.0) mg/dL Est GFR (CKD-EPI)NonAf 51.9 L (60.0-200.0) BUN/Creatinine Ratio 5.58 L (12.00-20.00) Ratio POC Glucose (mg/dL) (70-110) mg/dL Calcium 7.2 L (8.7-10.3) mg/dL Total Bilirubin 1.30 H (0.30-1.20) mg/dL AST 63 H (13-35) U/L Albumin 2.2 L (3.8-4.9) g/dL Globulin 4.4 H (1.6-3.3) g/dL Albumin/Globulin Ratio 0.50 L (1.60-3.17) g/dL 02/07/23 Range/Units 11:14 RBC (4.10-5.20) X 10*6/uL Hgb (12.0-15.0) g/dL Hct (37.2-46.3) % MCHC (32.0-37.0) g/dL RDW (11.5-14.5) % Plt Count (140-440) X 10*3/uL MPV (9.5-12.2) fL PT (9.9-11.9) sec INR (0.90-1.11) Potassium (3.5-5.1) mmol/L Carbon Dioxide (20.0-27.5) mmol/L BUN (9.0-27.0) mg/dL Est GFR (CKD-EPI)NonAf (60.0-200.0) BUN/Creatinine Ratio (12.00-20.00) Ratio POC Glucose (mg/dL) 164 H (70-110) mg/dL Calcium (8.7-10.3) mg/dL Total Bilirubin (0.30-1.20) mg/dL AST (13-35) U/L Albumin (3.8-4.9) g/dL Globulin (1.6-3.3) g/dL Albumin/Globulin Ratio (1.60-3.17) g/dL Microbiology - Last 24 Hours (Table) 02/06/23 17:20 Gram Stain - Preliminary Ascites Fluid Body Fluid Culture - Preliminary 02/06/23 17:20 Anaerobic Culture - Preliminary Ascites Fluid Assessment and Plan (1) Ascites Narrative/Plan: 22-year-old female who presented with abdominal distention and pain and had been seen in the emergency department a few days prior undergoing CT of the abdomen and pelvis showing small to moderate amount of ascites generalized anasarca and liver consistent with possible cirrhosis. Patient has long-standing history of alcohol abuse greater than 20 years. No longer drinking. Denies any previous history of known liver disease or cirrhosis. No previous paracentesis or abdominal distention. Likely dealing with decompensated cirrhosis of liver related to alcohol abuse. 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 Liver ultrasound ordered, consult to interventional radiology for paracentesis. The patient underwent paracentesis with 8.5 L of fluid removed. Fluid studies consistent with underlying liver disease and portal hypertension Current Visit: Yes Status: Acute Code(s): R18.8 - OTHER ASCITES SNOMED Code(s): 287287539 (2) Hypokalemia Current Visit: Yes Status: Acute Code(s): E87.6 - HYPOKALEMIA SNOMED Code(s): 80577174 (3) History of alcohol abuse Current Visit: Yes Status: Acute Code(s): F10.11 - ALCOHOL ABUSE, IN REMISSION SNOMED Code(s): 198773887 (4) History of breast cancer Current Visit: Yes Status: Acute Code(s): Z85.3 - PERSONAL HISTORY OF MALIGNANT NEOPLASM OF BREAST SNOMED Code(s): 681108507 (5) Hyperlipidemia Current Visit: Yes Status: Acute Code(s): E78.5 - HYPERLIPIDEMIA, UNSPECIFIED SNOMED Code(s): 85816113 (6) Hypertension Current Visit: Yes Status: Acute Code(s): I10 - ESSENTIAL (PRIMARY) HYPERTENSION SNOMED Code(s): 62325777 (7) Morbid obesity Current Visit: No Status: Acute Code(s): E66.01 - MORBID (SEVERE) OBESITY DUE TO EXCESS CALORIES SNOMED Code(s): 808422360 Plan: 1. Continue symptomatic and supportive care 2. Continued alcohol abstinence 3. Continue Lasix 40 mg twice a day 4. Increase Prinivil lactone to 100 mg daily 5. Liver ultrasound reviewed 6. Patient status post paracentesis 7. Alcohol abstinence 8. Low-sodium diet 9. Patient to follow with gastroenterology upon discharge. Thank you for this consultation, we will continue to follow. Dr. Millie Pack I agree with the dictator's note, documented as a scribe by Jessica Bradley.
[2023-02-07 17:17] LABS: Glucose,Whole Blood 140 mg/dL (70-110)
[2023-02-07 20:24] LABS: Glucose,Whole Blood 147 mg/dL (70-110)
--- NOTE | 2023-02-07 20:27 | P.PN ---
Subjective Progress Note Date: 02/07/23 Principal diagnosis: Abdominal pain Patient says her pain is improved after paracentesis yesterday. She thinks the fluid may have reaccumulated somewhat. Mild soreness at the umbilical hernia site. Objective - Vital Signs Vital signs: Vital Signs Temp 97.9 F 02/07/23 17:45 Pulse 100 02/07/23 18:32 Resp 18 02/07/23 17:45 BP 118/78 02/07/23 17:45 Pulse Ox 95 02/07/23 17:45 FiO2 Intake & Output 02/07/23 02/07/23 02/08/23 06:59 18:59 06:59 Intake Total 800 Balance 800 Intake: Intake, IV Titration 200 Amount Albumin Human 25% 50 ml 200 In Empty Bag 1 bag @ 200 mls/hr IVPB Q15M [facility] Rx#: [id number] Oral 600 Other: Voiding Method Toilet Toilet # Voids 3 1 - Exam Abdomen: Soft, distended, hernia smaller, less tense - Labs CBC & Chem 7: 02/07/23 05:33 02/07/23 11:11 Labs: Abnormal Lab Results - Last 24 Hours (Table) 02/06/23 02/07/23 02/07/23 Range/Units 20:40 05:33 05:33 RBC 3.18 L (4.10-5.20) X 10*6/uL Hgb 9.6 L (12.0-15.0) g/dL Hct 30.1 L (37.2-46.3) % MCHC 31.9 L (32.0-37.0) g/dL RDW 18.7 H (11.5-14.5) % Plt Count 101 L (140-440) X 10*3/uL MPV 12.6 H (9.5-12.2) fL PT 14.2 H (9.9-11.9) sec INR 1.27 H (0.90-1.11) Potassium (3.5-5.1) mmol/L Carbon Dioxide (20.0-27.5) mmol/L BUN (9.0-27.0) mg/dL Est GFR (CKD-EPI)NonAf (60.0-200.0) BUN/Creatinine Ratio (12.00-20.00) Ratio POC Glucose (mg/dL) 127 H (70-110) mg/dL Calcium (8.7-10.3) mg/dL Total Bilirubin (0.30-1.20) mg/dL AST (13-35) U/L Albumin (3.8-4.9) g/dL Globulin (1.6-3.3) g/dL Albumin/Globulin Ratio (1.60-3.17) g/dL 02/07/23 02/07/23 02/07/23 Range/Units 05:33 11:11 11:14 RBC (4.10-5.20) X 10*6/uL Hgb (12.0-15.0) g/dL Hct (37.2-46.3) % MCHC (32.0-37.0) g/dL RDW (11.5-14.5) % Plt Count (140-440) X 10*3/uL MPV (9.5-12.2) fL PT (9.9-11.9) sec INR (0.90-1.11) Potassium 3.4 L (3.5-5.1) mmol/L Carbon Dioxide 29.7 H (20.0-27.5) mmol/L BUN 6.3 L (9.0-27.0) mg/dL Est GFR (CKD-EPI)NonAf 51.9 L (60.0-200.0) BUN/Creatinine Ratio 5.58 L (12.00-20.00) Ratio POC Glucose (mg/dL) 164 H (70-110) mg/dL Calcium 7.2 L (8.7-10.3) mg/dL Total Bilirubin 1.30 H (0.30-1.20) mg/dL AST 63 H (13-35) U/L Albumin 2.2 L (3.8-4.9) g/dL Globulin 4.4 H (1.6-3.3) g/dL Albumin/Globulin Ratio 0.50 L (1.60-3.17) g/dL 02/07/23 02/07/23 Range/Units 17:16 20:22 RBC (4.10-5.20) X 10*6/uL Hgb (12.0-15.0) g/dL Hct (37.2-46.3) % MCHC (32.0-37.0) g/dL RDW (11.5-14.5) % Plt Count (140-440) X 10*3/uL MPV (9.5-12.2) fL PT (9.9-11.9) sec INR (0.90-1.11) Potassium (3.5-5.1) mmol/L Carbon Dioxide (20.0-27.5) mmol/L BUN (9.0-27.0) mg/dL Est GFR (CKD-EPI)NonAf (60.0-200.0) BUN/Creatinine Ratio (12.00-20.00) Ratio POC Glucose (mg/dL) 140 H 147 H (70-110) mg/dL Calcium (8.7-10.3) mg/dL Total Bilirubin (0.30-1.20) mg/dL AST (13-35) U/L Albumin (3.8-4.9) g/dL Globulin (1.6-3.3) g/dL Albumin/Globulin Ratio (1.60-3.17) g/dL Microbiology - Last 24 Hours (Table) 02/06/23 17:20 Gram Stain - Preliminary Ascites Fluid Body Fluid Culture - Preliminary 02/06/23 17:20 Anaerobic Culture - Preliminary Ascites Fluid Assessment and Plan (1) Ascites Narrative/Plan: Patient doing better today. Await fluid studies from ascites. Await cytology. Agree with GI recommendations. We will sign off. Please call if needed. Current Visit: Yes Status: Acute Code(s): R18.8 - OTHER ASCITES SNOMED Code(s): 487020549
[2023-02-08] MEDS: HYDROcodone/APAP 10-325MG 1 EACH TAB PO PRN (00:42)
[2023-02-08] MEDS: LEVOTHYROXINE 100 MCG TAB PO SCH (06:23)
[2023-02-08 07:22] LABS: Glucose,Whole Blood 98 mg/dL (70-110)
[2023-02-08] MEDS: ALBUTEROL NEBULIZED 2.5 MG/3 ML INHALATION SCH ×4 (07:30→18:24)
--- NOTE | 2023-02-08 08:32 | P.PN ---
Subjective Progress Note Date: 02/08/23 Principal diagnosis: Abdominal pain, abdominal swelling This is a 62-year-old female who was admitted for abdominal pain and abdominal swelling. She had a recent fall at home and noticed increased swelling in the abdomen and lower extremities after fall. She does have a past history of moderate alcohol intake. She underwent paracentesis with 8.5 L removed. She has felt better after paracentesis. She is seen this morning sitting on the side of the bed. She is tolerating diet getting up to use the bathroom. Abdominal edema has improved, lower extremities still with some edema. Objective - Vital Signs Vital signs: Vital Signs Temp 98.4 F 02/08/23 07:24 Pulse 100 02/08/23 07:44 Resp 18 02/08/23 07:24 BP 98/62 02/08/23 07:24 Pulse Ox 96 02/08/23 07:24 FiO2 Intake & Output 02/07/23 02/08/23 02/08/23 18:59 06:59 18:59 Other: Voiding Method Toilet Toilet # Voids 1 1 - Constitutional General appearance: Present: cooperative, no acute distress - EENT Eyes: Present: EOMI, PERRLA - Neck Neck: Present: normal ROM. Absent: lymphadenopathy, rigidity - Respiratory Respiratory: bilateral: CTA - Cardiovascular Rhythm: regular Heart sounds: normal: S1, S2 - Peripheral edema leg Peripheral Edema: bilateral: 2+, Pitting - Gastrointestinal General gastrointestinal: Present: soft. Absent: tenderness - Integumentary Integumentary: Present: normal, normal turgor - Psychiatric Psychiatric: Present: A&O x's 3, appropriate affect, intact judgment & insight - Labs CBC & Chem 7: 02/07/23 05:33 02/07/23 11:11 Labs: Abnormal Lab Results - Last 24 Hours (Table) 02/07/23 02/07/23 02/07/23 Range/Units 05:33 05:33 05:33 RBC 3.18 L (4.10-5.20) X 10*6/uL Hgb 9.6 L (12.0-15.0) g/dL Hct 30.1 L (37.2-46.3) % MCHC 31.9 L (32.0-37.0) g/dL RDW 18.7 H (11.5-14.5) % Plt Count 101 L (140-440) X 10*3/uL MPV 12.6 H (9.5-12.2) fL PT 14.2 H (9.9-11.9) sec INR 1.27 H (0.90-1.11) Potassium (3.5-5.1) mmol/L Carbon Dioxide 29.7 H (20.0-27.5) mmol/L BUN 6.3 L (9.0-27.0) mg/dL Est GFR (CKD-EPI)NonAf 51.9 L (60.0-200.0) BUN/Creatinine Ratio 5.58 L (12.00-20.00) Ratio POC Glucose (mg/dL) (70-110) mg/dL Calcium 7.2 L (8.7-10.3) mg/dL Total Bilirubin 1.30 H (0.30-1.20) mg/dL AST 63 H (13-35) U/L Albumin 2.2 L (3.8-4.9) g/dL Globulin 4.4 H (1.6-3.3) g/dL Albumin/Globulin Ratio 0.50 L (1.60-3.17) g/dL 02/07/23 02/07/23 02/07/23 Range/Units 11:11 11:14 17:16 RBC (4.10-5.20) X 10*6/uL Hgb (12.0-15.0) g/dL Hct (37.2-46.3) % MCHC (32.0-37.0) g/dL RDW (11.5-14.5) % Plt Count (140-440) X 10*3/uL MPV (9.5-12.2) fL PT (9.9-11.9) sec INR (0.90-1.11) Potassium 3.4 L (3.5-5.1) mmol/L Carbon Dioxide (20.0-27.5) mmol/L BUN (9.0-27.0) mg/dL Est GFR (CKD-EPI)NonAf (60.0-200.0) BUN/Creatinine Ratio (12.00-20.00) Ratio POC Glucose (mg/dL) 164 H 140 H (70-110) mg/dL Calcium (8.7-10.3) mg/dL Total Bilirubin (0.30-1.20) mg/dL AST (13-35) U/L Albumin (3.8-4.9) g/dL Globulin (1.6-3.3) g/dL Albumin/Globulin Ratio (1.60-3.17) g/dL 02/07/23 Range/Units 20:22 RBC (4.10-5.20) X 10*6/uL Hgb (12.0-15.0) g/dL Hct (37.2-46.3) % MCHC (32.0-37.0) g/dL RDW (11.5-14.5) % Plt Count (140-440) X 10*3/uL MPV (9.5-12.2) fL PT (9.9-11.9) sec INR (0.90-1.11) Potassium (3.5-5.1) mmol/L Carbon Dioxide (20.0-27.5) mmol/L BUN (9.0-27.0) mg/dL Est GFR (CKD-EPI)NonAf (60.0-200.0) BUN/Creatinine Ratio (12.00-20.00) Ratio POC Glucose (mg/dL) 147 H (70-110) mg/dL Calcium (8.7-10.3) mg/dL Total Bilirubin (0.30-1.20) mg/dL AST (13-35) U/L Albumin (3.8-4.9) g/dL Globulin (1.6-3.3) g/dL Albumin/Globulin Ratio (1.60-3.17) g/dL Microbiology - Last 24 Hours (Table) 02/06/23 17:20 Gram Stain - Preliminary Ascites Fluid Body Fluid Culture - Preliminary Assessment and Plan (1) Ascites Current Visit: Yes Status: Acute Code(s): R18.8 - OTHER ASCITES SNOMED Code(s): 228614169 (2) Diabetes Current Visit: No Status: Acute Code(s): E11.9 - TYPE 2 DIABETES MELLITUS WITHOUT COMPLICATIONS SNOMED Code(s): 26955662 (3) GERD (gastroesophageal reflux disease) Current Visit: Yes Status: Acute Code(s): K21.9 - GASTRO-ESOPHAGEAL REFLUX DISEASE WITHOUT ESOPHAGITIS SNOMED Code(s): 540007997 (4) Hypertension Current Visit: Yes Status: Acute Code(s): I10 - ESSENTIAL (PRIMARY) HYPERTENSION SNOMED Code(s): 93898327 (5) Hyperlipidemia Current Visit: Yes Status: Acute Code(s): E78.5 - HYPERLIPIDEMIA, UNSPECIFIED SNOMED Code(s): 51980588 (6) History of breast cancer Current Visit: Yes Status: Acute Code(s): Z85.3 - PERSONAL HISTORY OF MALIGNANT NEOPLASM OF BREAST SNOMED Code(s): 473597588 (7) History of alcohol abuse Current Visit: Yes Status: Acute Code(s): F10.11 - ALCOHOL ABUSE, IN REMISSION SNOMED Code(s): 909577123 Plan: Check CMP this morning. Check CBC and CMP tomorrow morning. Daily weight. Switch to oral Lasix today 40 mg twice a day Patient seen and evaluated by nurse practitioner, physician in agreement with plan
[2023-02-08] MEDS: MONTELUKAST 10 MG TAB PO SCH (09:29)
[2023-02-08] MEDS: AMITRIPTYLINE HCL 25 MG TAB PO SCH (09:29)
[2023-02-08] MEDS: allopurinoL 300 MG TAB PO SCH (09:30)
[2023-02-08] MEDS: FUROSEMIDE 40 MG TAB PO SCH ×2 (09:30→16:27)
[2023-02-08] MEDS: PANTOPRAZOLE 40 MG TABLET PO SCH (09:30)
[2023-02-08] MEDS: SPIRONOLACTONE 25 MG TAB PO SCH (09:30)
[2023-02-08] MEDS: ANASTROZOLE 1 MG TAB PO SCH (09:31)
[2023-02-08] MEDS: LORATADINE 10 MG TAB PO SCH (09:31)
[2023-02-08] MEDS: CHOLECALCIFEROL 25 MCG (1000 IU) TABLET PO SCH (09:31)
[2023-02-08 11:15] LABS: Glucose,Whole Blood 119 mg/dL (70-110)
--- NOTE | 2023-02-08 12:32 | P.PN ---
Subjective Progress Note Date: 02/08/23 Principal diagnosis: Ascites This a pleasant 62-year-old -[place] female who presented to the emergency department with complaints of abdominal pain distention and recent fall. Patient has a past medical history including diabetes mellitus, cancer, GERD, hyperlipidemia, hypertension and hypothyroidism. Patient states she started noticing abdominal distention which she states began on Sunday along with lower extremity swelling. She denies any previous history of liver disease and no history of cirrhosis of the liver. She was recently seen in the emergency department on 01/26/2023 at that time for abdominal pain. During that visit she had a CT of the abdomen and pelvis with contrast that reported small to moderate amount of intraperitoneal ascites and moderate diffuse soft tissue anasarca. Correlate for possible underlying cirrhosis. No bowel obstruction. No imaging done on this admission other than abdominal x-ray which reported nonobstructive bowel gas pattern a small to moderate stool burden. Patient denies any nausea vomiting, she denies any shortness of breath or chest pain. She does state that she has a history of alcohol abuse for likely greater than 20 years and drank beer usually daily, states that she stopped drinking about 2 months ago. Labs WBC 6.7 hemoglobin 9.8 hematocrit 30 platelet count 89,019 or 1.4 sodium 137 potassium 3.2 BUN 8 creatinine 0.9 total bilirubin 1.9 AST 60 ALT 29 alkaline phosphatase 169 albumin 2.7 02/07/2023: Patient seen and examined today as a follow-up for abdominal ascites. Patient underwent ultrasound of the liver yesterday that showed moderate amount of ascites, coarse nodular enlarged liver. Patient states that she feels better today, abdominal distention improved. She has no nausea or vomiting. She's been afebrile. Total bilirubin 1.3 AST 63 ALT 16 alkaline phosphatase 125. Paracentesis was completed yesterday with a 0.5 L removed, albumin was given. 02/08/2023: Patient was seen and examined today sitting up at the bedside. Some of her lower extremity swelling is improving. She is eating breakfast. She denies any abdominal pain, no nausea or vomiting. States abdominal distention this feels better. Objective - Vital Signs Vital signs: Vital Signs Temp 98.4 F 02/08/23 07:24 Pulse 100 02/08/23 07:44 Resp 18 02/08/23 07:24 BP 98/62 02/08/23 07:24 Pulse Ox 96 02/08/23 07:24 FiO2 Intake & Output 02/07/23 02/08/23 02/08/23 18:59 06:59 18:59 Other: Voiding Method Toilet Toilet # Voids 1 1 - Exam General appearance: The patient is alert, oriented, appears in no acute distress. HET: Head is normocephalic and atraumatic. Conjunctiva pink. Sclera anicteric. Neck: Supple without lymphadenopathy. Abdomen: Soft, nontender, anasarca, nondistended with bowel sounds. No guarding or rigidity. Extremities: Normal skin color and turgor. Bilateral lower extremity edema. Skin: No rashes, no jaundice Neurological: No focal deficits. Alert and oriented. - Labs CBC & Chem 7: 02/07/23 05:33 02/07/23 11:11 Labs: Abnormal Lab Results - Last 24 Hours (Table) 02/07/23 02/07/23 02/07/23 Range/Units 05:33 05:33 05:33 RBC 3.18 L (4.10-5.20) X 10*6/uL Hgb 9.6 L (12.0-15.0) g/dL Hct 30.1 L (37.2-46.3) % MCHC 31.9 L (32.0-37.0) g/dL RDW 18.7 H (11.5-14.5) % Plt Count 101 L (140-440) X 10*3/uL MPV 12.6 H (9.5-12.2) fL PT 14.2 H (9.9-11.9) sec INR 1.27 H (0.90-1.11) Potassium (3.5-5.1) mmol/L Carbon Dioxide 29.7 H (20.0-27.5) mmol/L BUN 6.3 L (9.0-27.0) mg/dL Est GFR (CKD-EPI)NonAf 51.9 L (60.0-200.0) BUN/Creatinine Ratio 5.58 L (12.00-20.00) Ratio POC Glucose (mg/dL) (70-110) mg/dL Calcium 7.2 L (8.7-10.3) mg/dL Total Bilirubin 1.30 H (0.30-1.20) mg/dL AST 63 H (13-35) U/L Albumin 2.2 L (3.8-4.9) g/dL Globulin 4.4 H (1.6-3.3) g/dL Albumin/Globulin Ratio 0.50 L (1.60-3.17) g/dL 02/07/23 02/07/23 02/07/23 Range/Units 11:11 11:14 17:16 RBC (4.10-5.20) X 10*6/uL Hgb (12.0-15.0) g/dL Hct (37.2-46.3) % MCHC (32.0-37.0) g/dL RDW (11.5-14.5) % Plt Count (140-440) X 10*3/uL MPV (9.5-12.2) fL PT (9.9-11.9) sec INR (0.90-1.11) Potassium 3.4 L (3.5-5.1) mmol/L Carbon Dioxide (20.0-27.5) mmol/L BUN (9.0-27.0) mg/dL Est GFR (CKD-EPI)NonAf (60.0-200.0) BUN/Creatinine Ratio (12.00-20.00) Ratio POC Glucose (mg/dL) 164 H 140 H (70-110) mg/dL Calcium (8.7-10.3) mg/dL Total Bilirubin (0.30-1.20) mg/dL AST (13-35) U/L Albumin (3.8-4.9) g/dL Globulin (1.6-3.3) g/dL Albumin/Globulin Ratio (1.60-3.17) g/dL 02/07/23 Range/Units 20:22 RBC (4.10-5.20) X 10*6/uL Hgb (12.0-15.0) g/dL Hct (37.2-46.3) % MCHC (32.0-37.0) g/dL RDW (11.5-14.5) % Plt Count (140-440) X 10*3/uL MPV (9.5-12.2) fL PT (9.9-11.9) sec INR (0.90-1.11) Potassium (3.5-5.1) mmol/L Carbon Dioxide (20.0-27.5) mmol/L BUN (9.0-27.0) mg/dL Est GFR (CKD-EPI)NonAf (60.0-200.0) BUN/Creatinine Ratio (12.00-20.00) Ratio POC Glucose (mg/dL) 147 H (70-110) mg/dL Calcium (8.7-10.3) mg/dL Total Bilirubin (0.30-1.20) mg/dL AST (13-35) U/L Albumin (3.8-4.9) g/dL Globulin (1.6-3.3) g/dL Albumin/Globulin Ratio (1.60-3.17) g/dL Microbiology - Last 24 Hours (Table) 02/06/23 17:20 Gram Stain - Preliminary Ascites Fluid Body Fluid Culture - Preliminary Assessment and Plan (1) Ascites Narrative/Plan: 22-year-old female who presented with abdominal distention and pain and had been seen in the emergency department a few days prior undergoing CT of the abdomen and pelvis showing small to moderate amount of ascites generalized anasarca and liver consistent with possible cirrhosis. Patient has long-standing history of alcohol abuse greater than 20 years. No longer drinking. Denies any previous history of known liver disease or cirrhosis. No previous paracentesis or abdominal distention. Likely dealing with decompensated cirrhosis of liver related to alcohol abuse. 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 Liver ultrasound ordered, consult to interventional radiology for paracentesis. The patient underwent paracentesis with 8.5 L of fluid removed. Fluid studies consistent with underlying liver disease and portal hypertension Current Visit: Yes Status: Acute Code(s): R18.8 - OTHER ASCITES SNOMED Code(s): 561680943 (2) Hypokalemia Current Visit: Yes Status: Acute Code(s): E87.6 - HYPOKALEMIA SNOMED Code(s): 09226844 (3) History of alcohol abuse Current Visit: Yes Status: Acute Code(s): F10.11 - ALCOHOL ABUSE, IN REMISSION SNOMED Code(s): 000998274 (4) History of breast cancer Current Visit: Yes Status: Acute Code(s): Z85.3 - PERSONAL HISTORY OF MALIGNANT NEOPLASM OF BREAST SNOMED Code(s): 545418355 (5) Hyperlipidemia Current Visit: Yes Status: Acute Code(s): E78.5 - HYPERLIPIDEMIA, UNSPECIFIED SNOMED Code(s): 37921438 (6) Hypertension Current Visit: Yes Status: Acute Code(s): I10 - ESSENTIAL (PRIMARY) HYPERTENSION SNOMED Code(s): 32028267 (7) Morbid obesity Current Visit: No Status: Acute Code(s): E66.01 - MORBID (SEVERE) OBESITY DUE TO EXCESS CALORIES SNOMED Code(s): 913258120 Plan: 1. Continue symptomatic and supportive care 2. Continued alcohol abstinence 3. Continue Lasix 40 mg twice a day 4. Increase spironolactone to 100 mg daily 5. Liver ultrasound reviewed 6. Patient status post paracentesis 7. Alcohol abstinence 8. Low-sodium diet 9. Patient to follow with gastroenterology upon discharge. Thank you for this consultation, the patient is cleared for discharge from gastroenterology. Dr. Millie Pack I agree with the dictator's note, documented as a scribe by Jessica Bradley.
[2023-02-08 12:33] VITALS: BP 118/79; RESP 20; TEMP 97.6
[2023-02-08 12:34] LABS: ALT 23 U/L (4-34); African American GFR (CKD) >90 (>60 ml/min/1.73 sqM); Albumin 2.6 g/dL (3.5-5.0); Albumin/Globulin Ratio 0.6; Anion Gap 9 mmol/L; Blood Urea Nitrogen 4 mg/dL (7-17); Calcium 6.7 mg/dL (8.4-10.2); Carbon Dioxide 31 mmol/L (22-30); Chloride 99 mmol/L (98-107); Globulin 4.6 g/dL; Glucose 125 mg/dL (74-99); Non-African American GFR(CKD) 81 (>60 ml/min/1.73 sqM); Sodium 139 mmol/L (137-145); Total Bilirubin 1.7 mg/dL (0.2-1.3); Total Protein 7.2 g/dL (6.3-8.2)
[2023-02-08 12:49] LABS: AST 77 U/L (14-36); Alkaline Phosphatase 136 U/L (38-126); Potassium 3.5 mmol/L (3.5-5.1)
[2023-02-08 15:30] VITALS: PULSE 100
[2023-02-08 17:08] LABS: Glucose,Whole Blood 134 mg/dL (70-110)
--- NOTE | 2023-02-13 22:57 | P.DS ---
Providers Date of admission: 02/05/23 13:58 Attending physician: Bart Monge Consults: 02/05/23 12:47 Consult Physician Routine Consulting Provider: Keri Pack Consult Reason/Comments: ascites Do you want consulting provider notified?: Yes 02/07/23 12:24 Consult Physician Routine Consulting Provider: Stalin Ervin Consult Reason/Comments: ascites Do you want consulting provider notified?: Already Contacted Primary care physician: Bart Monge - Discharge Diagnosis(es) (1) Ascites Status: Acute (2) History of alcohol abuse Status: Acute (3) History of breast cancer Status: Acute (4) Hyperlipidemia Status: Acute (5) Hypertension Status: Acute Patient Condition at Discharge: Fair Plan - Discharge Summary New Discharge Prescriptions: New RX: Spironolactone [Aldactone] 100 mg PO DAILY #30 tab Continue RX: Levothyroxine Sodium [Synthroid] 100 mcg PO DAILY RX: ALPRAZolam [Xanax] 1 mg PO TID PRN PRN Reason: Anxiety RX: Cholecalciferol [Vitamin D3 (25 Mcg = 1000 Iu)] 50 mcg PO DAILY RX: Amitriptyline HCl [Elavil] 25 mg PO BID RX: Furosemide [Lasix] 40 mg PO BID RX: metFORMIN HCL [Glucophage] 500 mg PO BID RX: Loratadine 10 mg PO DAILY RX: HYDROcodone/APAP 10-325MG [[place] 10-325] 1 tab PO Q5H PRN PRN Reason: Pain RX: Colchicine 0.6 mg PO BID RX: captopriL [Capoten] 50 mg PO BID RX: allopurinoL [Zyloprim] 300 mg PO DAILY RX: Montelukast [Singulair] 10 mg PO DAILY RX: Empagliflozin [Jardiance] 25 mg PO DAILY RX: Anastrozole [Arimidex] 1 mg PO DAILY RX: Dulaglutide [Trulicity] 4.5 mg SQ MO RX: Pantoprazole [Protonix] 40 mg PO DAILY Discontinued RX: Spironolactone 50 mg PO DAILY Discharge Medication List RX: Levothyroxine Sodium [Synthroid] 100 mcg PO DAILY 07/06/15 [History] RX: ALPRAZolam [Xanax] 1 mg PO TID PRN 11/05/17 [History] RX: Anastrozole [Arimidex] 1 mg PO DAILY 01/04/22 [History] RX: Cholecalciferol [Vitamin D3 (25 Mcg = 1000 Iu)] 50 mcg PO DAILY 01/04/22 [History] RX: Dulaglutide [Trulicity] 4.5 mg SQ MO 01/04/22 [History] RX: Amitriptyline HCl [Elavil] 25 mg PO BID 12/06/22 [History] RX: Furosemide [Lasix] 40 mg PO BID 12/06/22 [History] RX: Pantoprazole [Protonix] 40 mg PO DAILY 12/06/22 [History] RX: Colchicine 0.6 mg PO BID 01/26/23 [History] RX: HYDROcodone/APAP 10-325MG [[place] 10-325] 1 tab PO Q5H PRN 01/26/23 [History] RX: Loratadine 10 mg PO DAILY 01/26/23 [History] RX: allopurinoL [Zyloprim] 300 mg PO DAILY 01/26/23 [History] RX: captopriL [Capoten] 50 mg PO BID 01/26/23 [History] RX: metFORMIN HCL [Glucophage] 500 mg PO BID 01/26/23 [History] RX: Empagliflozin [Jardiance] 25 mg PO DAILY 02/05/23 [History] RX: Montelukast [Singulair] 10 mg PO DAILY 02/05/23 [History] RX: Spironolactone [Aldactone] 100 mg PO DAILY #30 tab 02/08/23 [Rx] Follow up Appointment(s)/Referral(s): [facility] [NON-STAFF] - 1 Week Bart Monge MD [Primary Care Provider] - 3 Days Britany Younger FNPBC [REFERRING] - 2 Weeks Patient Instructions/Handouts: Ascites (DC), Hypocalcemia (DC) Discharge Disposition: HOME SELF-CARE
--- NOTE | 2023-02-13 22:58 | P.DS ---
Providers Date of admission: 02/05/23 13:58 Attending physician: Bart Monge Consults: 02/05/23 12:47 Consult Physician Routine Consulting Provider: Keri Pack Consult Reason/Comments: ascites Do you want consulting provider notified?: Yes 02/07/23 12:24 Consult Physician Routine Consulting Provider: Stalin Ervin Consult Reason/Comments: ascites Do you want consulting provider notified?: Already Contacted Primary care physician: Bart Monge - Discharge Diagnosis(es) (1) Ascites Status: Acute (2) History of alcohol abuse Status: Acute (3) History of breast cancer Status: Acute (4) Hyperlipidemia Status: Acute (5) Hypertension Status: Acute Hospital Course: The patient was admitted with alcholic ascities and was treated with diuresis and paracentesis. After 9000 ml removal the patient was stabilized and improved. Tolerating diet and new medications. She will followup in 7 days at the latest Patient Condition at Discharge: Fair Plan - Discharge Summary New Discharge Prescriptions: New RX: Spironolactone [Aldactone] 100 mg PO DAILY #30 tab Continue RX: Levothyroxine Sodium [Synthroid] 100 mcg PO DAILY RX: ALPRAZolam [Xanax] 1 mg PO TID PRN PRN Reason: Anxiety RX: Cholecalciferol [Vitamin D3 (25 Mcg = 1000 Iu)] 50 mcg PO DAILY RX: Amitriptyline HCl [Elavil] 25 mg PO BID RX: Furosemide [Lasix] 40 mg PO BID RX: metFORMIN HCL [Glucophage] 500 mg PO BID RX: Loratadine 10 mg PO DAILY RX: HYDROcodone/APAP 10-325MG [[place] 10-325] 1 tab PO Q5H PRN PRN Reason: Pain RX: Colchicine 0.6 mg PO BID RX: captopriL [Capoten] 50 mg PO BID RX: allopurinoL [Zyloprim] 300 mg PO DAILY RX: Montelukast [Singulair] 10 mg PO DAILY RX: Empagliflozin [Jardiance] 25 mg PO DAILY RX: Anastrozole [Arimidex] 1 mg PO DAILY RX: Dulaglutide [Trulicity] 4.5 mg SQ MO RX: Pantoprazole [Protonix] 40 mg PO DAILY Discontinued RX: Spironolactone 50 mg PO DAILY Discharge Medication List RX: Levothyroxine Sodium [Synthroid] 100 mcg PO DAILY 07/06/15 [History] RX: ALPRAZolam [Xanax] 1 mg PO TID PRN 11/05/17 [History] RX: Anastrozole [Arimidex] 1 mg PO DAILY 01/04/22 [History] RX: Cholecalciferol [Vitamin D3 (25 Mcg = 1000 Iu)] 50 mcg PO DAILY 01/04/22 [History] RX: Dulaglutide [Trulicity] 4.5 mg SQ MO 01/04/22 [History] RX: Amitriptyline HCl [Elavil] 25 mg PO BID 12/06/22 [History] RX: Furosemide [Lasix] 40 mg PO BID 12/06/22 [History] RX: Pantoprazole [Protonix] 40 mg PO DAILY 12/06/22 [History] RX: Colchicine 0.6 mg PO BID 01/26/23 [History] RX: HYDROcodone/APAP 10-325MG [[place] 10-325] 1 tab PO Q5H PRN 01/26/23 [History] RX: Loratadine 10 mg PO DAILY 01/26/23 [History] RX: allopurinoL [Zyloprim] 300 mg PO DAILY 01/26/23 [History] RX: captopriL [Capoten] 50 mg PO BID 01/26/23 [History] RX: metFORMIN HCL [Glucophage] 500 mg PO BID 01/26/23 [History] RX: Empagliflozin [Jardiance] 25 mg PO DAILY 02/05/23 [History] RX: Montelukast [Singulair] 10 mg PO DAILY 02/05/23 [History] RX: Spironolactone [Aldactone] 100 mg PO DAILY #30 tab 02/08/23 [Rx] Follow up Appointment(s)/Referral(s): [facility] [NON-STAFF] - 1 Week Bart Monge MD [Primary Care Provider] - 3 Days Britany Younger FNPBC [REFERRING] - 2 Weeks Patient Instructions/Handouts: Ascites (DC), Hypocalcemia (DC) Discharge Disposition: HOME SELF-CARE
== END 2023-02-08 20:12 | disposition home or self-care (01) | DRG 434 ==
LOC: EC 09:11 → 5NMEDONC 13:58
PROVIDERS: ADMIT Family Medicine; ATTEND Family Medicine
PROC: 0W9G3ZZ Drainage of Peritoneal Cavity, Percutaneous Approach (ICD-10-PCS; principal; 2023-02-07)
DX: K70.31 Alcoholic cirrhosis of liver with ascites (principal); Z85.3 Personal history of malignant neoplasm of breast; Z92.3 Personal history of irradiation; Z92.21 Personal history of antineoplastic chemotherapy; F10.11 Alcohol abuse, in remission; M10.9 Gout, unspecified; K21.9 Gastro-esophageal reflux disease without esophagitis; E78.5 Hyperlipidemia, unspecified; E03.9 Hypothyroidism, unspecified; Z96.653 Presence of artificial knee joint, bilateral; F41.9 Anxiety disorder, unspecified; Z98.84 Bariatric surgery status; E66.01 Morbid (severe) obesity due to excess calories; E87.6 Hypokalemia; I10 Essential (primary) hypertension; K21.00 Gastro-esophageal reflux disease with esophagitis, without bleeding; K42.9 Umbilical hernia without obstruction or gangrene; Z91.81 History of falling; M19.90 Unspecified osteoarthritis, unspecified site; Z79.84 Long term (current) use of oral hypoglycemic drugs; Z79.890 Hormone replacement therapy; Z79.899 Other long term (current) drug therapy; Z86.16 Personal history of COVID-19; Z80.3 Family history of malignant neoplasm of breast
CPT/HCPCS: 36415; 49083; 71046; 74019; 76705; 80048; 80053; 82042; 82248; 83036; 83880; 84132; 84157; 84484; 85025; 85027; 85610; 85730; 87070; 87075; 87205; 88108; 88305; 88341; 88342; 89050; 93005; 94640; 99285

== ENCOUNTER → 2023-02-21 | Outpatient (CLI) | payer MEDICARE, OTHER ==
[2023-02-22 02:58] LABS: Anion Gap 15.7 mmol/L (10.00-18.00); BUN/Creat Ratio 5.99 Ratio (12.00-20.00); Blood Urea Nitrogen 5.5 mg/dL (9.0-27.0); Carbon Dioxide 26.6 mmol/L (20.0-27.5); Potassium 3.5 mmol/L (3.5-5.5)
[2023-02-22 02:59] LABS: Albumin 2.4 g/dL (3.8-4.9); Albumin/Globulin Ratio 0.45 (1.60-3.17); Calcium 7.6 mg/dL (8.7-10.3); Globulin 5.3 g/dL (1.6-3.3); Non-African American GFR(CKD) 66.4 (60.0-200.0); Total Bilirubin 1.2 mg/dL (0.30-1.20); Total Protein 7.7 g/dL (6.2-8.2)
== END | disposition home or self-care (01) ==
LOC: LABWHC1 15:28
PROVIDERS: ATTEND Internal Medicine Gastroenterology
DX: K70.31 Alcoholic cirrhosis of liver with ascites (principal)
CPT/HCPCS: 36415; 80053; 82105

== ENCOUNTER 2023-02-22 08:14 | Inpatient (IN) | payer MEDICARE, OTHER ==
--- NOTE | 2023-02-22 08:43 | ED ---
General Adult HPI - General Chief complaint: Abdominal Pain Stated complaint: bloated Time Seen by Provider: 02/22/23 08:25 Source: patient, RN notes reviewed, old records reviewed Mode of arrival: wheelchair Limitations: no limitations - History of Present Illness Initial comments: This is a 62-year-old female who presents emergency Department complaining that her belly is getting so big patient's ascites and she is finding it difficult to move around and brief. Patient states also she feels her heart rate is racing. Patient denies drinking any alcohol for the last 2 weeks. Patient states she saw Dr. Pack yesterday and they were supposed to set up a time for her to be tapped but they never called back she came to the emergency department today. Patient denies any chest pain. Patient denies shortness of breath but states it is more difficult to breathe because her belly is an awake. Patient denies any recent fever chills or cough. Patient denies any vomiting or diarrhea. - Related Data Home Medications Medication Instructions Recorded Confirmed Levothyroxine Sodium [Synthroid] 100 mcg PO DAILY 07/06/15 02/22/23 ALPRAZolam [Xanax] 1 mg PO TID PRN 11/05/17 02/22/23 Anastrozole [Arimidex] 1 mg PO DAILY 01/04/22 02/22/23 Cholecalciferol [Vitamin D3 (25 50 mcg PO DAILY 01/04/22 02/22/23 Mcg = 1000 Iu)] Dulaglutide [Trulicity] 4.5 mg SQ MO 01/04/22 02/22/23 Amitriptyline HCl [Elavil] 25 mg PO BID 12/06/22 02/22/23 Furosemide [Lasix] 40 mg PO BID 12/06/22 02/22/23 Pantoprazole [Protonix] 40 mg PO DAILY 12/06/22 02/22/23 Colchicine 0.6 mg PO BID 01/26/23 02/22/23 HYDROcodone/APAP 10-325MG [[place] 1 tab PO Q5H PRN 01/26/23 02/22/23 10-325] Loratadine 10 mg PO DAILY 01/26/23 02/22/23 allopurinoL [Zyloprim] 300 mg PO DAILY 01/26/23 02/22/23 captopriL [Capoten] 50 mg PO BID 01/26/23 02/22/23 metFORMIN HCL [Glucophage] 500 mg PO BID 01/26/23 02/22/23 Empagliflozin [Jardiance] 25 mg PO DAILY 02/05/23 02/22/23 Montelukast [Singulair] 10 mg PO DAILY 02/05/23 02/22/23 Spironolactone 100 mg PO DAILY 02/22/23 02/22/23 Allergies Allergy/AdvReac Type Severity Reaction Status Date / Time pineapple Allergy Rash on Verified 02/22/23 10:06 mouth Review of Systems ROS Statement: Those systems with pertinent positive or pertinent negative responses have been documented in the HPI. ROS Other: All systems not noted in ROS Statement are negative. Past Medical History Past Medical History: Cancer, Diabetes Mellitus, GERD/Reflux, Hyperlipidemia, Hypertension, Osteoarthritis (OA), Thyroid Disorder Additional Past Medical History / Comment(s): Covid 09/23/21. Heart murmur. Hx right breast cancer in 2004, 2020. Gout. History of Any Multi-Drug Resistant Organisms: None Reported Past Surgical History: Bariatric Surgery, Breast Surgery, Section, Joint Replacement, Tubal Ligation Additional Past Surgical History / Comment(s): Right breast lumpectomy 2004 with chemo and radiation, lymph nodes removed, R mastectomy 2020, bilateral knee replacements, Lap Band/removal. Past Anesthesia/Blood Transfusion Reactions: No Reported Reaction Past Psychological History: Anxiety Smoking Status: Never smoker Past Alcohol Use History: Occasional Past Drug Use History: None Reported - Past Family History Mother Family Medical History: Cancer Additional Family Medical History / Comment(s): Breast cancer. General Exam Limitations: no limitations Course Vital Signs 02/22/23 02/22/23 08:22 09:48 Temperature 98.1 F Pulse Rate 167 H 163 H Respiratory 18 20 Rate Blood Pressure 117/91 127/77 O2 Sat by Pulse 98 96 Oximetry Medical Decision Making - Medical Decision Making EKG was interpreted by myself. EKG shows a supraventricular tachycardia at 167 bpm QRS is 94 QT interval 31 QTC is 372 per patient's EKG shows no T-wave no ST segment elevation Repeat EKG was interpreted by myself shows a sinus tachycardia 106 bpm NC interval 166 dresses 92 QT interval 371 QTC is 433. Patient's EKG shows no ST segment elevation or depression. Was pt. sent in by a medical professional or institution (TIMO Jorge, [employer]ANCH OPERATIONS MANAGER, urgent care, hospital, or intermediate...) When possible be specific @ -No Did you speak to anyone other than the patient for history (EMS, parent, family, police, friend...)? What history was obtained from this source @ -No Did you review nursing and triage notes (agree or disagree)? Why? @ -I reviewed and agree with nursing and triage notes Were old charts reviewed (outside hosp., previous admission, EMS record, old EKG, old radiological studies, urgent care reports/EKG's, intermediate records)? Report findings @ -2 prior lab work as well as prior charts on this patient Differential Diagnosis (chest pain, altered mental status, abdominal pain women, abdominal pain men, vaginal bleeding, weakness, fever, dyspnea, syncope, headache, dizziness, GI bleed, back pain, seizure, CVA, palpatations, mental health, musculoskeletal)? @ -Differential Abdominal Pain Women: Appendicitis, Cholecystitis, diverticulosis, ischemic bowel, pancreatitis, hepatitis, UTI, gastroenteritis, AAA, incarcerated hernia, bowel obstruction, constipation, inflammatory bowel, hepatitis, peptic ulcer disease, splenic infarction, perforated viscus, vulvitis, ovarian torsion, PID, kidney stone, placenta abruption, this is not meant to be an all-inclusive list EKG interpreted by me (3pts min.). @ -As above X-rays interpreted by me (1pt min.). @ -None done CT interpreted by me (1pt min.). @ -None done U/S interpreted by me (1pt. min.). @ -None done What testing was considered but not performed or refused? (CT, X-rays, U/S, labs)? Why? @ -Consider doing a CAT scan but patient had previous history of similar so I did not think it was beneficial at this time What meds were considered but not given or refused? Why? @ -None Did you discuss the management of the patient with other professionals (dami chowdhury i.e. TIMO Jorge, [employer] OPERATIONS MANAGER, lab, RT, psych nurse, public health social worker, natural resources specialist, teacher, disability hearing officer, caser)? Give summary @ -I spoke with Dr. hanna he agreed to admit the patient admitted the patient wrote admitting orders. I also spoke with Dr. Cuello about the SVT and he stated it was okay to go ahead and give adenosine however patient converted before adenosine was given Was smoking cessation discussed for >3mins.? @ -No Was critical care preformed (if so, how long)? @ -35 minutes Were there social determinants of health that impacted care today? How? (Homelessness, low income, unemployed, alcoholism, drug addiction, transportation, low edu. Level, literacy, decrease access to med. care, detention, rehab)? @ -No Was there de-escalation of care discussed even if they declined (Discuss DNR or withdrawal of care, Hospice)? DNR status @ -No What co-morbidities impacted this encounter? (DM, HTN, Smoking, COPD, CAD, Cancer, CVA, ARF, Chemo, Hep., AIDS, mental health diagnosis, sleep apnea, morbid obesity)? @ -None Was patient admitted / discharged? Hospital course, mention meds given and route, prescriptions, significant lab abnormalities, going to OR and other pertinent info. @ -Patient was given magnesium 2 g and monitored to make sure she was stabilized she was in SVT we were preparing to give adenosine but patient converted on her own so we did not give adenosine. Undiagnosed new problem with uncertain prognosis? @ -No Drug Therapy requiring intensive monitoring for toxicity (Heparin, Nitro, Insulin, Cardizem)? @ -No Were any procedures done? @ -No Diagnosis/symptom? @ -Ascites Acute, or Chronic, or Acute on Chronic? @ -Acute on chronic Uncomplicated (without systemic symptoms) or Complicated (systemic symptoms)? @ -Complicated Side effects of treatment? @ -No Exacerbation, Progression, or Severe Exacerbation? @ -No Poses a threat to life or bodily function? How? (Chest pain, USA, IA, pneumonia, PE, COPD, DKA, ARF, appy, cholecystitis, CVA, Diverticulitis, Homicidal, Suicidal, threat to staff... and all critical care pts) @ -No Diagnosis/symptom? @ -Hypomagnesemia Acute, or Chronic, or Acute on Chronic? @ -Acute Uncomplicated (without systemic symptoms) or Complicated (systemic symptoms)? @ -Complicated Side effects of treatment? @ -none Exacerbation, Progression, or Severe Exacerbation] @ -no Poses a threat to life or bodily function? @ -no Diagnosis/symptom? @ -SVT Acute, or Chronic, or Acute on Chronic? @ -Acute Uncomplicated (without systemic symptoms) or Complicated (systemic symptoms)? @ -Complicated Side effects of treatment? @ -none Exacerbation, Progression, or Severe Exacerbation] @ -no Poses a threat to life or bodily function? @ -Yes this could lead to hyperperfusion and end organ dysfunction - Lab Data Result diagrams: 02/22/23 08:54 02/22/23 08:54 Lab Results 02/22/23 02/22/23 02/22/23 Range/Units 08:54 08:54 08:54 WBC 7.6 (3.8-10.6) k/uL RBC 3.48 L (3.80-5.40) m/uL Hgb 10.7 L (11.4-16.0) gm/dL Hct 34.0 (34.0-46.0) % MCV 97.6 (80.0-100.0) fL MCH 30.6 (25.0-35.0) pg MCHC 31.3 (31.0-37.0) g/dL RDW 18.2 H (11.5-15.5) % Plt Count 108 L (150-450) k/uL MPV 9.1 Neutrophils % 54 % Lymphocytes % 39 % Monocytes % 3 % Eosinophils % 1 % Basophils % 0 % Neutrophils # 4.1 (1.3-7.7) k/uL Lymphocytes # 3.0 (1.0-4.8) k/uL Monocytes # 0.3 (0-1.0) k/uL Eosinophils # 0.1 (0-0.7) k/uL Basophils # 0.0 (0-0.2) k/uL Hypochromasia Slight Anisocytosis Slight Macrocytosis Slight PT 13.2 H (9.0-12.0) sec INR 1.3 H (<1.2) APTT 25.8 (22.0-30.0) sec Sodium 138 (137-145) mmol/L Potassium 3.5 (3.5-5.1) mmol/L Chloride 99 (98-107) mmol/L Carbon Dioxide 31 H (22-30) mmol/L Anion Gap 8 mmol/L BUN 6 L (7-17) mg/dL Creatinine 0.66 (0.52-1.04) mg/dL Est GFR (CKD-EPI)AfAm >90 (>60 ml/min/1.73 sqM) Est GFR (CKD-EPI)NonAf >90 (>60 ml/min/1.73 sqM) Glucose 99 (74-99) mg/dL Calcium 7.1 L (8.4-10.2) mg/dL Magnesium 0.8 L* (1.6-2.3) mg/dL Total Bilirubin 1.7 H (0.2-1.3) mg/dL AST 65 H (14-36) U/L ALT 23 (4-34) U/L Alkaline Phosphatase 153 H (38-126) U/L Troponin I (0.000-0.034) ng/mL Total Protein 7.9 (6.3-8.2) g/dL Albumin 2.7 L (3.5-5.0) g/dL Lipase 70 (23-300) U/L Serum Alcohol <10 mg/dL 02/22/23 Range/Units 08:54 WBC (3.8-10.6) k/uL RBC (3.80-5.40) m/uL Hgb (11.4-16.0) gm/dL Hct (34.0-46.0) % MCV (80.0-100.0) fL MCH (25.0-35.0) pg MCHC (31.0-37.0) g/dL RDW (11.5-15.5) % Plt Count (150-450) k/uL MPV Neutrophils % % Lymphocytes % % Monocytes % % Eosinophils % % Basophils % % Neutrophils # (1.3-7.7) k/uL Lymphocytes # (1.0-4.8) k/uL Monocytes # (0-1.0) k/uL Eosinophils # (0-0.7) k/uL Basophils # (0-0.2) k/uL Hypochromasia Anisocytosis Macrocytosis PT (9.0-12.0) sec INR (<1.2) APTT (22.0-30.0) sec Sodium (137-145) mmol/L Potassium (3.5-5.1) mmol/L Chloride (98-107) mmol/L Carbon Dioxide (22-30) mmol/L Anion Gap mmol/L BUN (7-17) mg/dL Creatinine (0.52-1.04) mg/dL Est GFR (CKD-EPI)AfAm (>60 ml/min/1.73 sqM) Est GFR (CKD-EPI)NonAf (>60 ml/min/1.73 sqM) Glucose (74-99) mg/dL Calcium (8.4-10.2) mg/dL Magnesium (1.6-2.3) mg/dL Total Bilirubin (0.2-1.3) mg/dL AST (14-36) U/L ALT (4-34) U/L Alkaline Phosphatase (38-126) U/L Troponin I <0.012 (0.000-0.034) ng/mL Total Protein (6.3-8.2) g/dL Albumin (3.5-5.0) g/dL Lipase (23-300) U/L Serum Alcohol mg/dL Disposition Clinical Impression: SVT (supraventricular tachycardia), Hypomagnesemia, Ascites Disposition: ADMITTED IP TO THIS HOSP Referrals: Bart Monge MD [Primary Care Provider] - 1-2 days Keri Pack MD [STAFF PHYSICIAN] - 03/14/23 3:45 pm & Kirsty Woodard Procedures [REFERRING] - 03/07/23 1:00 pm (You are on a cancelation list also but this is the Paracentesis appointment, call with any questions. ) Time of Disposition: 10:33
[2023-02-22 09:00] LABS: Anisocytosis Slight; Basophils % (A) 0 %; Eosinophils # (A) 0.1 k/uL (0-0.7); Eosinophils % (A) 1 %; HGB 10.7 gm/dL (11.4-16.0); Hypochromasia Slight; Lymphocytes % (A) 39 %; MCH 30.6 pg (25.0-35.0); MCHC 31.3 g/dL (31.0-37.0); MCV 97.6 fL (80.0-100.0); Macrocytosis Slight; Mean Platelet Volume 9.1; Monocytes # (A) 0.3 k/uL (0-1.0); Monocytes % (A) 3 %; Neutrophils # (A) 4.1 k/uL (1.3-7.7); Neutrophils % (A) 54 %; Platelet Count 108 k/uL (150-450); RBC 3.48 m/uL (3.80-5.40); RDW 18.2 % (11.5-15.5); WBC 7.6 k/uL (3.8-10.6)
[2023-02-22 09:08] LABS: INR 1.3 (<1.2); Partial Thromboplastin Time 25.8 sec (22.0-30.0); Prothrombin Time 13.2 sec (9.0-12.0)
[2023-02-22 09:13] LABS: ALT 23 U/L (4-34); AST 65 U/L (14-36); African American GFR (CKD) >90 (>60 ml/min/1.73 sqM); Albumin 2.7 g/dL (3.5-5.0); Alcohol <10 mg/dL; Alkaline Phosphatase 153 U/L (38-126); Anion Gap 8 mmol/L; Blood Urea Nitrogen 6 mg/dL (7-17); Calcium 7.1 mg/dL (8.4-10.2); Carbon Dioxide 31 mmol/L (22-30); Chloride 99 mmol/L (98-107); Glucose 99 mg/dL (74-99); Lipase 70 U/L (23-300); Non-African American GFR(CKD) >90 (>60 ml/min/1.73 sqM); Potassium 3.5 mmol/L (3.5-5.1); Sodium 138 mmol/L (137-145); Total Bilirubin 1.7 mg/dL (0.2-1.3); Total Protein 7.9 g/dL (6.3-8.2)
[2023-02-22 09:20] LABS: Magnesium 0.8 mg/dL (1.6-2.3)
[2023-02-22] MEDS: MAGNESIUM SULFATE-D5W PMX 1 GM in DEXTROSE/WATER 1 100ML.BAG IVPB SCH ×4 (10:23→17:39)
[2023-02-22] MEDS ORDERED: Magnesium Replacement Protocol 1 EACH MISC MISCELLANE PRN (10:42)
[2023-02-22] MEDS ORDERED: Potassium Replacement Protocol 1 EACH MISC MISCELLANE PRN ×2 (10:43→18:53)
[2023-02-22] MEDS ORDERED: DEXTROSE 50% SYRINGE 50 ML IVP PRN ×2 (11:04)
--- NOTE | 2023-02-22 11:07 | P.HPIM ---
History of Present Illness This is a pleasant 62 years old -Cypriot female with past medical history of alcoholic liver cirrhosis, and other medical problems as diabetes mellitus hypertension hyperlipidemia, osteoarthritis and hypothyroidism status post bariatric surgery. Patient presents because complaining of from abdominal bloating, she is a known history of liver cirrhosis and she is following up with GI Dr. Pack, she states she supposed to get paracentesis on and there is no spot sooner however she got bloated and this was affecting her breathing with dyspnea so she came to the emergency room She denies any chest pain or significant abdominal pain, no diarrhea and nausea normal bowel movement this morning. No vomiting. No coughing. No urinary complaints, no headache dizziness weakness or numbness She denies smoking. She quit drinking alcohol but she relapsed last Sunday when she drank a 1 time of beer with the current it about 16 ounce as she states. No illicit drugs area Also patient is a known case of right breast cancer status post mastectomy. She follow up with Dr. Dumont, her oncologist and last visit was about 2 weeks ago and she is on pills for treatment for now. Her surgeon is Dr. Stalin biggs. Patient is mildly tachycardic. CBC is reviewed showing mild normocytic anemia with hemoglobin 10.7 and platele ts 108 INR is 1.3 BMP is unremarkable. Magnesium is low 0.8 Bilirubin is elevated at 1.7 with AST 65 slightly abnormal ALT at 33. Troponin is negative. Lipase 17. Serum alcohol less than 10. EKG: Supraventricular tachycardia at 167. Normal sinus rhythm and sinus tachycardia at [address]-T changes. Review of Systems Review of systems CONSTITUTIONAL: No fever, no malaise, no fatigue. HEENT: No recent visual problems or hearing problems. Denied any sore throat. CARDIOVASCULAR: No orthopnea, PND, no palpitations, no syncope. PULMONARY: No shortness of breath, no cough, no hemoptysis. GASTROINTESTINAL: No diarrhea, no nausea, no vomiting, no abdominal pain. Normoactive bowel sounds. NEUROLOGICAL: No headaches, no weakness, no numbness. HEMATOLOGICAL: Denies any bleeding or petechiae. GENITOURINARY: Denies any burning micturition, frequency, or urgency. MUSCULOSKELETAL/RHEUMATOLOGICAL: Denies any joint pain, swelling, or any muscle pain. ENDOCRINE: Denies any polyuria or polydipsia. Past Medical History Past Medical History: Cancer, Diabetes Mellitus, GERD/Reflux, Hyperlipidemia, Hypertension, Osteoarthritis (OA), Thyroid Disorder Additional Past Medical History / Comment(s): Covid 09/23/21. Heart murmur. Hx right breast cancer in 2004, 2020. Gout. History of Any Multi-Drug Resistant Organisms: None Reported Past Surgical History: Bariatric Surgery, Breast Surgery, Section, J oint Replacement, Tubal Ligation Additional Past Surgical History / Comment(s): Right breast lumpectomy 2004 with chemo and radiation, lymph nodes removed, R mastectomy 2020, bilateral knee replacements, Lap Band/removal. Past Anesthesia/Blood Transfusion Reactions: No Reported Reaction Past Psychological History: Anxiety Smoking Status: Never smoker Past Alcohol Use History: Occasional Past Drug Use History: None Reported - Past Family History Mother Family Medical History: Cancer Additional Family Medical History / Comment(s): Breast cancer. Medications and Allergies Home Medications Medication Instructions Recorded Confirmed Type Levothyroxine Sodium [Synthroid] 100 mcg PO DAILY 07/06/15 02/22/23 History ALPRAZolam [Xanax] 1 mg PO TID PRN 11/05/17 02/22/23 History Anastrozole [Arimidex] 1 mg PO DAILY 01/04/22 02/22/23 History Cholecalciferol [Vitamin D3 (25 50 mcg PO DAILY 01/04/22 02/22/23 History Mcg = 1000 Iu)] Dulaglutide [Trulicity] 4.5 mg SQ MO 01/04/22 02/22/23 History Amitriptyline HCl [Elavil] 25 mg PO BID 12/06/22 02/22/23 History Furosemide [Lasix] 40 mg PO BID 12/06/22 02/22/23 History Pantoprazole [Protonix] 40 mg PO DAILY 12/06/22 02/22/23 History Colchicine 0.6 mg PO BID 01/26/23 02/22/23 History HYDROcodone/APAP 10-325MG [[place] 1 tab PO Q5H PRN 01/26/23 02/22/23 History 10-325] Loratadine 10 mg PO DAILY 01/26/23 02/22/23 History allopurinoL [Zyloprim] 300 mg PO DAILY 01/26/23 02/22/23 History captopriL [Capoten] 50 mg PO BID 01/26/23 02/22/23 History metFORMIN HCL [Glucophage] 500 mg PO BID 01/26/23 02/22/23 History Empagliflozin [Jardiance] 25 mg PO DAILY 02/05/23 02/22/23 History Montelukast [Singulair] 10 mg PO DAILY 02/05/23 02/22/23 History Spironolactone 100 mg PO DAILY 02/22/23 02/22/23 History Allergies Allergy/AdvReac Type Severity Reaction Status Date / Time pineapple Allergy Rash on Verified 02/22/23 10:06 mouth Physical Exam Vitals: Vital Signs Temp Pulse Resp BP Pulse Ox 02/22/23 10:23 106 H 18 129/90 98 02/22/23 09:48 163 H 20 127/77 96 02/22/23 08:22 98.1 F 167 H 18 117/91 98 Intake and Output 02/21/23 02/22/23 02/22/23 22:59 06:59 14:59 Other: Weight 136.078 kg GENERAL: The patient is alert and oriented x3, not in any acute distress. Well developed, well nourished. HEENT: Pupils are round and equally reacting to light. EOMI. No scleral icterus. No conjunctival pallor. Normocephalic, atraumatic. No pharyngeal erythema. No thyromegaly. CARDIOVASCULAR: S1 and S2 present. No murmurs, rubs, or gallops. PULMONARY: Chest is clear to auscultation, no wheezing or crackles. -ABDOMEN: Soft, nontender, distended, normoactive bowel sounds. No palpable organomegaly. MUSCULOSKELETAL: No joint swelling or deformity. EXTREMITIES: No cyanosis, clubbing, or pedal edema. NEUROLOGICAL: Gross neurological examination did not reveal any focal deficits. SKIN: No rashes. no petechiae. Results CBC & Chem 7: 02/22/23 08:54 02/22/23 08:54 Labs: Abnormal Lab Results - Last 24 Hours (Table) 02/22/23 02/22/23 02/22/23 Range/Units 08:54 08:54 08:54 RBC 3.48 L (3.80-5.40) m/uL Hgb 10.7 L (11.4-16.0) gm/dL RDW 18.2 H (11.5-15.5) % Plt Count 108 L (150-450) k/uL PT 13.2 H (9.0-12.0) sec INR 1.3 H (<1.2) Carbon Dioxide 31 H (22-30) mmol/L BUN 6 L (7-17) mg/dL Calcium 7.1 L (8.4-10.2) mg/dL Magnesium 0.8 L* (1.6-2.3) mg/dL Total Bilirubin 1.7 H (0.2-1.3) mg/dL AST 65 H (14-36) U/L Alkaline Phosphatase 153 H (38-126) U/L Albumin 2.7 L (3.5-5.0) g/dL Assessment and Plan Assessment: decompensated alcoholic liver cirrhosis with ascites Severe hypomagnesemia Supraventricular tachycardia, resolved History of right breast cancer status post mastectomy and therapy and follow-up with Dr. Matias as an outpatient Diabetes mellitus Mild bicytopenia with anemia and thrombocytopenia Hypertension Hyperlipidemia History of osteoarthritis Hyperthyroidism Plan: Replacement magnesium per protocol Telemetry Consult cardiology service Consult interventional radiology for paracentesis Patient counseled to quit drinking and she agrees, patient is thinking about going to rehab upon discharge. drafting layout worker consulted to provide resources Labs and medication were reviewed.. Continue same treatment. Continue with symptomatic treatment. Resume home medication. Monitor labs and vitals. DVT and GI prophylaxis. Further recommendations as per clinical course of the patient DVT prophylaxis: Subcutaneous heparin GI Prophylaxis: Ppi Prognosis is guarded
[2023-02-22] MEDS ORDERED: HYDROmorphone 0.5 MG/0.5 ML SYRINGE IVP STA (11:36)
--- NOTE | 2023-02-22 12:32 | P.CRDCN ---
History of Present Illness History of present illness: HISTORY OF PRESENT ILLNESS: This is a 62-year-old female with a past medical history significant for alcohol abuse, liver cirrhosis, ascites, breast cancer, hypertension, and hyperlipidemia. Patient does not follow with a field sales agent. We have been asked to see the patient in consultation for SVT. Patient examined at the bedside. Patient presented to the hospital with complaints of increasing abdominal distention and palpitations. Patient states that she saw Dr. Pack in the office to days ago and was set up to have a paracentesis performed on 03/07/2023. The patient states that she could not wait until then so she came to the ER. She reports that she feels short of breath secondary to the extra fluid on her abdomen. She denies any chest pain or pressure. The patient was found to be in SVT upon arrival to the emergency room. Adenosine was ordered by the ER physician with the patient converted to sinus mechanism spontaneously. Bedside telemetry reveals sinus mechanism at the time of examination. The patient denies any history of coronary artery disease. She denies a history of congestive heart failure or irregular heart rhythm. She states that she has not had palpitations like this in the past. She reports having a stress test greater than 10 years ago that was normal to her knowledge. The patient is status post paracentesis with 7.4 L of straw-colored fluid removed. EKG was reviewed with Dr. Rivas revealing SVT versus atrial fibrillation * EKG reveals SVT versus atrial fibrillation. Repeat EKG reveals sinus tachycardia with heart rate of 106 * Laboratory data: WBC 7.6. Hemoglobin 10.7. Platelet count 108. Sodium 138. Potassium 3.5. BUN 6. Creatinine 0.66. Magnesium 0.8. Troponin negative 1. Serum alcohol less than 10. * Current home cardiac medications include captopril 50 mg twice a day, spironolactone 100 mg daily, Lasix 40 mg twice a day REVIEW OF SYSTEMS: At the time of my exam: CONSTITUTIONAL: Denies fever or chills. HEENT: Denies blurred vision, vision changes, or eye pain. Denies hemoptysis CARDIOVASCULAR: Denies chest pain. Denies orthopnea. Denies PND. Denies palpi tations RESPIRATORY: Denies shortness of breath. GASTROINTESTINAL: Denies abdominal pain. Denies nausea or vomiting. HEMATOLOGIC: Denies bleeding disorders. GENITOURINARY: Denies any blood in urine. SKIN: Denies pruitis. Denies rash. PHYSICAL EXAM: VITAL SIGNS: Reviewed. GENERAL: Well-developed in no acute distress. HEENT: Head is normocephalic. Pupils are equal, round. Sclerae anicteric. Mucous membranes of the mouth are moist. Neck supple. No JVD or thyromegaly LUNGS: Respirations even and unlabored. Lungs essentially clear to auscultation bilaterally. HEART: Regular rate and rhythm. S1 and S2 heard. ABDOMEN: Firm. Distended. Ascites present. EXTREMITIES: Normal range of motion. No clubbing or cyanosis. Peripheral pulses intact. No lower extremity edema NEUROLOGIC: Awake and alert. Oriented x 3. ASSESSMENT: SVT versus atrial fibrillation, converted to sinus mechanism spontaneously Hypertension Hyperlipidemia Liver cirrhosis History of alcohol abuse Ascites, status post paracentesis with 7.4 L removed History of breast cancer with mastectomy Diabetes Hypomagnesemia PLAN: Continue home cardiac medications Begin verapamil 40 mg 3 times a day No anticoagulation per Dr. Akbar secondary to liver disease and frequent paracentesis Obtain 2-D echo to assess cardiac structure and function Continue telemetry monitoring Stable from a cardiac standpoint Further recommendations pending patient's course Nurse practitioner note has been reviewed by physician. Signing provider agrees with the documented findings, assessment, and plan of care. Past Medical History Past Medical History: Cancer, Diabetes Mellitus, GERD/Reflux, Hyperlipidemia, Hypertension, Osteoarthritis (OA), Thyroid Disorder Additional Past Medical History / Comment(s): Covid 09/23/21. Heart murmur. Hx right breast cancer in 2004, 2020. Gout. History of Any Multi-Drug Resistant Organisms: None Reported Past Surgical History: Bariatric Surgery, Breast Surgery, Section, Joint Replacement, Tubal Ligation Additional Past Surgical History / Comment(s): Right breast lumpectomy 2004 with chemo and radiation, lymph nodes removed, R mastectomy 2020, bilateral knee repl acements, Lap Band/removal. Past Anesthesia/Blood Transfusion Reactions: No Reported Reaction Past Psychological History: Anxiety Smoking Status: Never smoker Past Alcohol Use History: Occasional Past Drug Use History: None Reported - Past Family History Mother Family Medical History: Cancer Additional Family Medical History / Comment(s): Breast cancer. Medications and Allergies Home Medications Medication Instructions Recorded Confirmed Type Levothyroxine Sodium [Synthroid] 100 mcg PO DAILY 07/06/15 02/23/23 History ALPRAZolam [Xanax] 1 mg PO TID PRN 11/05/17 02/23/23 History Anastrozole [Arimidex] 1 mg PO DAILY 01/04/22 02/23/23 History Cholecalciferol [Vitamin D3 (25 50 mcg PO DAILY 01/04/22 02/23/23 History Mcg = 1000 Iu)] Dulaglutide [Trulicity] 4.5 mg SQ MO 01/04/22 02/23/23 History Amitriptyline HCl [Elavil] 25 mg PO BID 12/06/22 02/23/23 History Furosemide [Lasix] 40 mg PO BID 12/06/22 02/23/23 History Pantoprazole [Protonix] 40 mg PO DAILY 12/06/22 02/23/23 History Colchicine 0.6 mg PO BID 01/26/23 02/23/23 History HYDROcodone/APAP 10-325MG [[place] 1 tab PO Q5H PRN 01/26/23 02/23/23 History 10-325] Loratadine 10 mg PO DAILY 01/26/23 02/23/23 History allopurinoL [Zyloprim] 300 mg PO DAILY 01/26/23 02/23/23 History captopriL [Capoten] 50 mg PO BID 01/26/23 02/23/23 History metFORMIN HCL [Glucophage] 500 mg PO BID 01/26/23 02/23/23 History Empagliflozin [Jardiance] 25 mg PO DAILY 02/05/23 02/23/23 History Montelukast [Singulair] 10 mg PO DAILY 02/05/23 02/23/23 History Spironolactone 100 mg PO DAILY 02/22/23 02/23/23 History Allergies Allergy/AdvReac Type Severity Reaction Status Date / Time pineapple Allergy Rash on Verified 02/22/23 10:06 mouth Physical Exam Vitals: Vital Signs Temp Pulse Resp BP Pulse Ox 02/22/23 10:23 106 H 18 129/90 98 02/22/23 09:48 163 H 20 127/77 96 02/22/23 08:22 98.1 F 167 H 18 117/91 98 Intake and Output 02/21/23 02/22/23 02/22/23 22:59 06:59 14:59 Other: Weight 136.078 kg Results 02/23/23 08:23 02/23/23 08:23 Cardiac Enzymes 02/22/23 02/22/23 Range/Units 08:54 08:54 AST 65 H (14-36) U/L Troponin I <0.012 (0.000-0.034) ng/mL Coagulation 02/22/23 Range/Units 08:54 PT 13.2 H (9.0-12.0) sec APTT 25.8 (22.0-30.0) sec CBC 02/22/23 Range/Units 08:54 WBC 7.6 (3.8-10.6) k/uL RBC 3.48 L (3.80-5.40) m/uL Hgb 10.7 L (11.4-16.0) gm/dL Hct 34.0 (34.0-46.0) % Plt Count 108 L (150-450) k/uL Comprehensive Metabolic Panel 02/22/23 Range/Units 08:54 Sodium 138 (137-145) mmol/L Potassium 3.5 (3.5-5.1) mmol/L Chloride 99 (98-107) mmol/L Carbon Dioxide 31 H (22-30) mmol/L BUN 6 L (7-17) mg/dL Creatinine 0.66 (0.52-1.04) mg/dL Glucose 99 (74-99) mg/dL Calcium 7.1 L (8.4-10.2) mg/dL AST 65 H (14-36) U/L ALT 23 (4-34) U/L Alkaline Phosphatase 153 H (38-126) U/L Total Protein 7.9 (6.3-8.2) g/dL Albumin 2.7 L (3.5-5.0) g/dL Current Medications Generic Name Dose Route Start Last Admin Trade Name Freq PRN Reason Stop Dose Admin Allopurinol 300 mg 02/23/23 09:00 Allopurinol 300 Mg Tab PO DAILY [facility] Amitriptyline HCl 25 mg 02/22/23 21:00 Amitriptyline Hcl 25 Mg Tab PO BID [facility] Anastrozole 1 mg 02/23/23 09:00 Anastrozole 1 Mg Tab PO DAILY [facility] Captopril 50 mg 02/22/23 17:30 Captopril 50 Mg Tab PO AC-BID [facility]YAKA Colchicine 0.6 mg 02/22/23 21:00 Colchicine 0.6 Mg Each PO BID [facility] Dextrose/Water 25 ml 02/22/23 11:04 Dextrose 50% Syringe 50 Ml IVP PER PROTOCOL PRN Hypoglycemia Protocol Dextrose/Water 50 ml 02/22/23 11:04 Dextrose 50% Syringe 50 Ml IVP PER PROTOCOL PRN Hypoglycemia Protocol Furosemide 40 mg 02/22/23 16:00 Furosemide 40 Mg Tab PO 0900,1600 [facility] Heparin Sodium (Porcine) 5,000 unit 02/22/23 21:00 Heparin Sodium,Porcine/Pf 5,000 Unit/0.5 Ml Syringe SQ Q12HR [facility] Magnesium Sulfate/Dextrose 1 100 mls @ 100 mls/hr 02/22/23 12:00 gm/ IV Solution IVPB 02/22/23 13:59 Q1H [facility] Insulin Aspart 0 unit 02/22/23 12:30 Insulin Aspart (Novolog) 100 Unit/Ml Vial SQ ACHS [facility] Protocol Levothyroxine Sodium 100 mcg 02/23/23 06:30 Levothyroxine 100 Mcg Tab PO DAILY@0630 [facility] Metformin HCl 500 mg 02/22/23 17:30 Metformin 500 Mg Tab PO AC-BID [facility] Miscellaneous Information 1 each 02/22/23 10:42 Magnesium Replacement Protocol 1 Each Misc MISCELLANE DAILY PRN Per Protocol Protocol Miscellaneous Information 1 each 02/22/23 10:43 Potassium Replacement Protocol 1 Each Misc MISCELLANE DAILY PRN Per Protocol Protocol Montelukast Sodium 10 mg 02/23/23 09:00 Montelukast 10 Mg Tab PO DAILY [facility] Pantoprazole Sodium 40 mg 02/23/23 07:30 Pantoprazole 40 Mg Tablet PO AC-BRKFST [facility] Spironolactone 100 mg 02/23/23 09:00 Spironolactone 25 Mg Tab PO DAILY [facility] Verapamil HCl 40 mg 02/22/23 16:00 Verapamil 40 Mg Tab PO TID [facility] Intake and Output 02/21/23 02/22/23 02/22/23 22:59 06:59 14:59 Other: Weight 136.078 kg Patient Weight 02/23/23 06:59 Weight 136.078 kg 02/22/23 08:54 02/22/23 08:54
[2023-02-22] MEDS: INSULIN ASPART (NovoLOG) 100 UNIT/ML VIAL SQ SCH ×3 (13:14→20:12)
[2023-02-22 16:49] LABS: Glucose,Whole Blood 96 mg/dL (70-110)
[2023-02-22] MEDS ORDERED: ALBUMIN HUMAN 25% 50 ML in EMPTY BAG 1 BAG IVPB ONE (16:55)
[2023-02-22] MEDS: FUROSEMIDE 40 MG TAB PO SCH (17:38)
[2023-02-22] MEDS: metFORMIN 500 MG TAB PO SCH (17:38)
[2023-02-22] MEDS: VERAPAMIL 40 MG TAB PO SCH ×2 (17:39→19:58)
[2023-02-22] MEDS: AMITRIPTYLINE HCL 25 MG TAB PO SCH (19:58)
[2023-02-22] MEDS: COLCHICINE 0.6 MG EACH PO SCH (19:58)
[2023-02-22] MEDS: POTASSIUM CHLORIDE ER 20 MEQ TAB.ER PO SCH (19:58)
[2023-02-22] MEDS: HEPARIN SODIUM,PORCINE/PF 5,000 UNIT/0.5 ML SYRINGE SQ SCH (19:58)
[2023-02-22 20:07] LABS: Glucose,Whole Blood 148 mg/dL (70-110)
[2023-02-22] MEDS ORDERED: SIMETHICONE 80 MG CHEWABLE PO PRN (21:21)
[2023-02-23 06:15] LABS: Glucose,Whole Blood 107 mg/dL (70-110)
[2023-02-23] MEDS: metFORMIN 500 MG TAB PO SCH ×2 (06:16→16:56)
[2023-02-23] MEDS: INSULIN ASPART (NovoLOG) 100 UNIT/ML VIAL SQ SCH ×3 (06:18→16:57)
[2023-02-23] MEDS ORDERED: LEVOTHYROXINE 100 MCG TAB PO SCH (06:30)
[2023-02-23] MEDS ORDERED: PANTOPRAZOLE 40 MG TABLET PO SCH (07:30)
--- NOTE | 2023-02-23 08:33 | US ---
Ultrasound-guided paracentesis. DATE OF EXAM: 02/22/2023 CLINICAL HISTORY: Ascites The procedure was discussed with the patient. The risks, complications, benefits, and alternatives we re discussed and any questions were answered. Informed consent was obtained. The patient was placed s upine on the ultrasound table and prepped and draped in the usual sterile fashion. All elements of maximal barrier technique were utilized. Under ultrasound guidance, access into the right lower quadrant was obtained, via the paracentesis catheter system and direct ultrasound guidanc e. Approximately 7.4 liters of straw-colored fluid was removed. The patient was stable throughout the pr ocedure and remained stable upon discharge from Department of Radiology. IMPRESSION: Successful paracentesis under ultrasound guidance.
[2023-02-23] MEDS: COLCHICINE 0.6 MG EACH PO SCH (08:52)
[2023-02-23] MEDS: AMITRIPTYLINE HCL 25 MG TAB PO SCH (08:52)
[2023-02-23] MEDS: HEPARIN SODIUM,PORCINE/PF 5,000 UNIT/0.5 ML SYRINGE SQ SCH (08:53)
[2023-02-23 09:00] VITALS: RESP 18
[2023-02-23] MEDS ORDERED: MONTELUKAST 10 MG TAB PO SCH (09:00)
[2023-02-23] MEDS ORDERED: ANASTROZOLE 1 MG TAB PO SCH (09:00)
[2023-02-23] MEDS ORDERED: SPIRONOLACTONE 25 MG TAB PO SCH (09:00)
[2023-02-23] MEDS ORDERED: allopurinoL 300 MG TAB PO SCH (09:00)
[2023-02-23 09:18] LABS: Anisocytosis Slight; Basophils % (A) 0 %; Eosinophils % (A) 1 %; HCT 34.3 % (34.0-46.0); HGB 10.5 gm/dL (11.4-16.0); Hypochromasia Slight; Lymphocytes # (A) 3.4 k/uL (1.0-4.8); Lymphocytes % (A) 44 %; MCH 30.3 pg (25.0-35.0); MCHC 30.4 g/dL (31.0-37.0); MCV 99.7 fL (80.0-100.0); Macrocytosis Slight; Mean Platelet Volume 9.6; Monocytes # (A) 0.3 k/uL (0-1.0); Monocytes % (A) 4 %; Neutrophils # (A) 3.9 k/uL (1.3-7.7); Neutrophils % (A) 50 %; Platelet Count 110 k/uL (150-450); RBC 3.44 m/uL (3.80-5.40); RDW 17.9 % (11.5-15.5); WBC 7.9 k/uL (3.8-10.6)
[2023-02-23 09:43] LABS: ALT 23 U/L (4-34); AST 57 U/L (14-36); African American GFR (CKD) >90 (>60 ml/min/1.73 sqM); Albumin 2.7 g/dL (3.5-5.0); Alkaline Phosphatase 165 U/L (38-126); Anion Gap 13 mmol/L; Bilirubin, Delta 0.8 mg/dL (0.0-0.2); Bilirubin,Unconjugated 0.6 mg/dL (0.0-1.1); Blood Urea Nitrogen 7 mg/dL (7-17); Calcium 7.2 mg/dL (8.4-10.2); Carbon Dioxide 26 mmol/L (22-30); Chloride 98 mmol/L (98-107); Glucose 110 mg/dL (74-99); Magnesium 1.3 mg/dL (1.6-2.3); Non-African American GFR(CKD) 81 (>60 ml/min/1.73 sqM); Sodium 137 mmol/L (137-145); Total Bilirubin 1.4 mg/dL (0.2-1.3); Total Protein 7.4 g/dL (6.3-8.2)
[2023-02-23] MEDS: VERAPAMIL 40 MG TAB PO SCH ×2 (10:21→16:56)
[2023-02-23] MEDS: FUROSEMIDE 40 MG TAB PO SCH ×2 (10:22→16:56)
[2023-02-23] MEDS: MAGNESIUM SULFATE-D5W PMX 1 GM in DEXTROSE/WATER 1 100ML.BAG IVPB SCH ×4 (10:55→15:53)
[2023-02-23] MEDS ORDERED: HYDROcodone/APAP 5-325MG 1 EACH TAB PO STA (11:08)
[2023-02-23 11:55] LABS: Glucose,Whole Blood 108 mg/dL (70-110)
[2023-02-23 16:12] VITALS: BP 119/71; PULSE 83; TEMP 97.8
[2023-02-23 16:28] LABS: Glucose,Whole Blood 105 mg/dL (70-110)
--- NOTE | 2023-02-23 17:58 | CA ---
Transthoracic Echo Report Name: Usha Multani Age: 62 Gender: F : 1960 Exam Date: 02/23/2023 11:31 Exam Location: [facility] Ht (in): 66 Wt (lb): 300 Ordering Physician: Azeb Pisano Attending/Referring Phys: [id number], [employer] Consultant Adelaide Reaves RDCS Procedure CPT: Indications: LV function Cardiac Hx: Technical Quality: Fair Contrast 1: Total Dose (mL): Contrast 2: Total Dose (mL): MEASUREMENTS (Male / Female) Normal Values 2D ECHO LV Diastolic Diameter PLAX 4.6 cm 4.2 - 5.9 / 3.9 - 5.3 cm LV Systolic Diameter PLAX 3.0 cm IVS Diastolic Thickness 1.8 cm 0.6 - 1.0 / 0.6 - 0.9 cm LVPW Diastolic Thickness 1.6 cm 0.6 - 1.0 / 0.6 - 0.9 cm LV Relative Wall Thickness 0.7 RV Internal Dim ED PLAX 3.7 cm LA Volume 93.4 cm??? 18 - 58 / 22 - 52 cm??? M-MODE Aortic Root Diameter MM 2.4 cm LA Systolic Diameter MM 3.7 cm LA Ao Ratio MM 1.5 AV Cusp Separation MM 1.8 cm DOPPLER AV Peak Velocity 218.8 cm/s AV Peak Gradient 19.1 mmHg AV Mean Velocity 170.0 cm/s AV Mean Gradient 12.2 mmHg AV Velocity Time Integral 41.4 cm LVOT Peak Velocity 128.7 cm/s LVOT Peak Gradient 6.6 mmHg LVOT Velocity Time Integral 27.3 cm MV Area PHT 3.8 cm??? Mitral E Point Velocity 83.1 cm/s Mitral A Point Velocity 134.9 cm/s Mitral E to A Ratio 0.6 MV Deceleration Time 201.7 ms MV E' Velocity 6.3 cm/s Mitral E to MV E' Ratio 13.3 TR Peak Velocity 270.2 cm/s TR Peak Gradient 29.2 mmHg Right Ventricular Systolic Press 33.5 mmHg FINDINGS Left Ventricle Severely increased left ventricular wall thickness. Normal left ventricular systolic function with no obvious regional wall motion abnormalities. Left ventricular ejection fraction is estimated at 55-60 %. Right Ventricle Mildly right ventricular dilatation. Right ventricular systolic pressure within normal limits. Right Atrium Normal right atrial size. Left Atrium Severely increased left atrial volume. Mildly increased left atrial area. Mitral Valve Structurally normal mitral valve. Mitral valve thickened. Mild mitral regurgitation. Aortic Valve Thickened aortic valve without stenosis. No aortic regurgitation.aortic valve sclerosis. Tricuspid Valve Structurally normal tricuspid valve. Mild tricuspid regurgitation. Pulmonic Valve Structurally normal pulmonic valve. Pericardium No pericardial effusion. Aorta Normal size aortic root and proximal ascending aorta. CONCLUSIONS 1. Normal left ventricle size and systolic function with left ventricular hypertrophy 2. Dilated right ventricle with normal pressure 3. Mild mitral and tricuspid regurgitation Previewed by: Dr. Mir Augutsin MD (Electronically Signed) Final Date: 23 Feb 2023 17:57
--- NOTE | 2023-02-24 00:20 | P.DS ---
Providers Date of admission: 02/22/23 10:36 Attending physician: Timbo Horne MD Consults: 02/22/23 10:33 Consult Physician Urgent Consulting Provider: [facility] Consult Reason/Comments: SVT Do you want consulting provider notified?: Yes Consult Physician Urgent Consulting Provider: [facility] Consult Reason/Comments: Paracentesis Do you want consulting provider notified?: Yes Primary care physician: Bart Monge [facility] Course: Diagnoses: decompensated alcoholic liver cirrhosis with ascites, status post paracentesis with significant improvement Severe hypomagnesemia. Resolved Supraventricular tachycardia, resolved History of right breast cancer status post mastectomy and therapy and follow-up with Dr. Matias as an outpatient Diabetes mellitus Mild bicytopenia with anemia and thrombocytopenia Hypertension Hyperlipidemia History of osteoarthritis Hyperthyroidism Hospital course: This is a pleasant 62 years old -Sammarinese female with past medical history of alcoholic liver cirrhosis, and other medical problems as diabetes mellitus hypertension hyperlipidemia, osteoarthritis and hypothyroidism status post bariatric surgery. Patient presents because complaining of from abdominal bloating, she is a known history of liver cirrhosis and she is following up with GI Dr. Pakc, she states she supposed to get paracentesis on and there is no spot sooner however she got bloated and this was affecting her breathing with dyspnea so she came to the emergency room. Patient underwent paracentesis Where 7.4 L of ascites fluid was removed. A albumin is provided for the patient thereafter. Patient felt significantly improved, her breathing is easier and she feels ready for discharge and follow-up outpatient On admission also patient was tachycardic and EKG show supraventricular tachycardia responded to treatment. Cardiology start her on verapamil. I talked to the patient on the day of discharge and she thinks she can go home today as she is back to baseline. She denies any other new symptoms. No dyspnea or chest pain or palpitation. No change in urine or bowel habits. No hepatic confusion or weakness. No fever. Patient was cleared for discharge by mechanical engineering professor Problems and management plan were discussed with the patient and he verbalized understanding and acceptance Patient was found stable and can be discharged home in guarded prognosis however he needs follow-up as an outpatient. Patient was instructed to follow up with PCP Dr. Monge within one week and patient agrees Patient was instructed to follow up with her mechanical engineering professor Dr. Rivas in one week and she agrees Patient was instructed to follow up with her GI service Dr. Pack and she agrees with appointment she has on 524 stated she felt follow-up Also patient is aware of her appointment for next paracentesis 03/07 and contact information is provided Physical exam Gen: patient is a AAOx3, no distress CVS: S1-S2, RRR, no murmur Lungs: B/L CTA, no wheezing Abdomen: soft, no distention, no tenderness, positive bowel sounds Extremity: no leg edema or induration Time spent more than 35 minutes Note: Prescription was sent to the pharmacy, particularly pharmacy was checked and it is opened tomorrow Sunday 9 AM - 1 PM, patient informed and she agrees. Also patient states that if she has difficulty obtaining her prescription to call the medical floor in the hospital for further health and she verbalized understanding and acceptance Plan - Discharge Summary Discharge Rx Participant: No New Discharge Prescriptions: New Magnesium Oxide [Mag-Ox] 400 mg PO TID 5 Days #15 tablet Verapamil [Isoptin] 40 mg PO TID #90 tab Continue Levothyroxine Sodium [Synthroid] 100 mcg PO DAILY Cholecalciferol [Vitamin D3 (25 Mcg = 1000 Iu)] 50 mcg PO DAILY Amitriptyline HCl [Elavil] 25 mg PO BID Furosemide [Lasix] 40 mg PO BID metFORMIN HCL [Glucophage] 500 mg PO BID Colchicine 0.6 mg PO BID captopriL [Capoten] 50 mg PO BID allopurinoL [Zyloprim] 300 mg PO DAILY Montelukast [Singulair] 10 mg PO DAILY Empagliflozin [Jardiance] 25 mg PO DAILY Spironolactone 100 mg PO DAILY Anastrozole [Arimidex] 1 mg PO DAILY Dulaglutide [Trulicity] 4.5 mg SQ MO Pantoprazole [Protonix] 40 mg PO DAILY No Action ALPRAZolam [Xanax] 1 mg PO TID PRN PRN Reason: Anxiety Loratadine 10 mg PO DAILY HYDROcodone/APAP 10-325MG [[place] 10-325] 1 tab PO Q5H PRN PRN Reason: Pain Discharge Medication List Levothyroxine Sodium [Synthroid] 100 mcg PO DAILY 07/06/15 [History] ALPRAZolam [Xanax] 1 mg PO TID PRN 11/05/17 [History] Anastrozole [Arimidex] 1 mg PO DAILY 01/04/22 [History] Cholecalciferol [Vitamin D3 (25 Mcg = 1000 Iu)] 50 mcg PO DAILY 01/04/22 [History] Dulaglutide [Trulicity] 4.5 mg SQ MO 01/04/22 [History] Amitriptyline HCl [Elavil] 25 mg PO BID 12/06/22 [History] Furosemide [Lasix] 40 mg PO BID 12/06/22 [History] Pantoprazole [Protonix] 40 mg PO DAILY 12/06/22 [History] Colchicine 0.6 mg PO BID 01/26/23 [History] HYDROcodone/APAP 10-325MG [[place]rick 10-325] 1 tab PO Q5H PRN 01/26/23 [History] Loratadine 10 mg PO DAILY 01/26/23 [History] allopurinoL [Zyloprim] 300 mg PO DAILY 01/26/23 [History] captopriL [Capoten] 50 mg PO BID 01/26/23 [History] metFORMIN HCL [Glucophage] 500 mg PO BID 01/26/23 [History] Empagliflozin [Jardiance] 25 mg PO DAILY 02/05/23 [History] Montelukast [Singulair] 10 mg PO DAILY 02/05/23 [History] Spironolactone 100 mg PO DAILY 02/22/23 [History] Magnesium Oxide [Mag-Ox] 400 mg PO TID 5 Days #15 tablet 02/23/23 [Rx] Verapamil [Isoptin] 40 mg PO TID #90 tab 02/23/23 [Rx] Follow up Appointment(s)/Referral(s): Cesar Akbar MD [STAFF PHYSICIAN] - 1 Week Bart Monge MD [Primary Care Provider] - 1-2 days Keri Pack MD [STAFF PHYSICIAN] - 03/14/23 3:45 pm & [facility] [REFERRING] - 03/07/23 1:00 pm (You are on a cancelation list also but this is the Paracentesis appointment, call with any questions. ) Patient Instructions/Handouts: Ascites (DC) Activity/Diet/Wound Care/Special Instructions: heart healthy diet activity is restricted till you see your doctor Discharge/Stand Alone Forms: AA Meetings Dist 22 & 24 - [facility], Who Do I Call?, Community Resources, Outpatient Counseling, In Substance Abuse Facilities Discharge Disposition: HOME SELF-CARE
== END 2023-02-23 19:17 | disposition home or self-care (01) | DRG 433 ==
LOC: EC 08:14 → 3SCARD 10:36
PROVIDERS: ADMIT Internal Medicine; ATTEND Internal Medicine
PROC: 0W9G30Z Drainage of Peritoneal Cavity with Drainage Device, Percutaneous Approach (ICD-10-PCS; principal; 2023-02-22)
DX: K70.31 Alcoholic cirrhosis of liver with ascites (principal); I47.1 Supraventricular tachycardia; D69.6 Thrombocytopenia, unspecified; E05.90 Thyrotoxicosis, unspecified without thyrotoxic crisis or storm; I10 Essential (primary) hypertension; E11.9 Type 2 diabetes mellitus without complications; F10.10 Alcohol abuse, uncomplicated; E03.9 Hypothyroidism, unspecified; D75.89 Other specified diseases of blood and blood-forming organs; E83.42 Hypomagnesemia; E78.5 Hyperlipidemia, unspecified; R01.1 Cardiac murmur, unspecified; M19.90 Unspecified osteoarthritis, unspecified site; Z20.822 Contact with and (suspected) exposure to COVID-19; Z96.60 Presence of unspecified orthopedic joint implant; Z96.653 Presence of artificial knee joint, bilateral; Z90.11 Acquired absence of right breast and nipple; Z98.84 Bariatric surgery status; Z85.3 Personal history of malignant neoplasm of breast; Z91.018 Allergy to other foods; Z79.899 Other long term (current) drug therapy; Z79.84 Long term (current) use of oral hypoglycemic drugs; Z79.811 Long term (current) use of aromatase inhibitors; Z79.890 Hormone replacement therapy; Z79.85 Long-term (current) use of injectable non-insulin antidiabetic drugs
CPT/HCPCS: 36415; 49083; 80048; 80053; 80076; 80320; 83036; 83690; 83735; 84132; 84484; 85025; 85610; 85730; 93005; 93306; 94760; 96365; 96366; 96367; 96368; 99285

== ENCOUNTER 2023-03-07 11:46 | Day surgery (SDC) | payer MEDICARE, OTHER ==
[2023-03-07 13:13] LABS: Mean Platelet Volume 9.2; Platelet Count 117 k/uL (150-450)
[2023-03-07 13:25] VITALS: TEMP 97.8
[2023-03-07 13:27] LABS: INR 1.2 (<1.2); Prothrombin Time 12.5 sec (9.0-12.0)
[2023-03-07] MEDS: ALBUMIN HUMAN 25% 50 ML in EMPTY BAG 1 BAG IVPB SCH ×3 (15:03→15:22)
[2023-03-07 15:59] VITALS: BP 136/84; PULSE 103; RESP 20
--- NOTE | 2023-03-08 09:03 | US ---
Ultrasound-guided paracentesis. DATE OF EXAM: 03/07/2023 CLINICAL HISTORY: Ascites The procedure was discussed with the patient. The risks, complications, benefits, and alternatives we re discussed and any questions were answered. Informed consent was obtained. The patient was placed s upine on the ultrasound table and prepped and draped in the usual sterile fashion. All elements of maximal barrier technique were utilized. Under ultrasound guidance, access into the right lower quadrant was obtained, via the paracentesis catheter system and direct ultrasound guidanc e. Approximately 7 liters of straw-colored fluid was removed. The patient was stable throughout the proc edure and remained stable upon discharge from Department of Radiology. IMPRESSION: Successful paracentesis under ultrasound guidance.
== END 2023-03-07 15:55 | disposition home or self-care (01) ==
LOC: RADPROMAIN 11:46
PROVIDERS: ATTEND Internal Medicine Gastroenterology
DX: R18.8 Other ascites (principal)
CPT/HCPCS: 82565; 82947; 85049; 85610; 36415; 49083; P9047

== ENCOUNTER 2023-04-08 11:20 | Emergency (ER) | payer MEDICARE, OTHER ==
[2023-04-08 11:41] VITALS: RESP 18
[2023-04-08] MEDS ORDERED: CEPHALEXIN 500 MG CAP PO STA (12:15)
--- NOTE | 2023-04-08 12:17 | ED ---
Extremity Problem HPI - General Chief complaint: Extremity Problem,Nontraumatic Stated complaint: lt leg wound Time Seen by Provider: 04/08/23 12:04 Source: patient Mode of arrival: ambulatory Limitations: no limitations - History of Present Illness Initial comments: Patient is a 63-year-old female who presents to the emergency department for left wound foot wound. Patient states she got a pedicure early March and has had a flareup on the top of her left foot ever since. Patient is concerned the wound is getting bigger. She denies pain. She denies fever, chills, nausea or vomiting. Patient is diabetic. She also has history of cirrhosis with ascites states she has paracentesis procedure planned next week. She denies chest pain, shortness of breath, abdominal pain, nausea, vomiting. - Related Data Home Medications Medication Instructions Recorded Confirmed Levothyroxine Sodium [Synthroid] 100 mcg PO DAILY 07/06/15 04/02/23 ALPRAZolam [Xanax] 1 mg PO TID PRN 11/05/17 04/02/23 Anastrozole [Arimidex] 1 mg PO DAILY 01/04/22 04/02/23 Cholecalciferol [Vitamin D3 (25 50 mcg PO DAILY 01/04/22 04/02/23 Mcg = 1000 Iu)] Dulaglutide [Trulicity] 4.5 mg SQ MO 01/04/22 04/02/23 Amitriptyline HCl [Elavil] 25 mg PO BID 12/06/22 04/02/23 Furosemide [Lasix] 40 mg PO BID 12/06/22 04/02/23 Pantoprazole [Protonix] 40 mg PO DAILY 12/06/22 04/02/23 Colchicine 0.6 mg PO BID 01/26/23 04/02/23 HYDROcodone/APAP 10-325MG [[place] 1 tab PO Q6H PRN 01/26/23 04/02/23 10-325] allopurinoL [Zyloprim] 300 mg PO DAILY 01/26/23 04/02/23 captopriL [Capoten] 50 mg PO BID 01/26/23 04/02/23 metFORMIN HCL [Glucophage] 500 mg PO BID 01/26/23 04/02/23 Empagliflozin [Jardiance] 25 mg PO DAILY 02/05/23 04/02/23 Montelukast [Singulair] 10 mg PO DAILY 02/05/23 04/02/23 Spironolactone 50 mg PO BID 02/22/23 04/02/23 Verapamil [Isoptin] 40 mg PO TID 04/02/23 04/02/23 Previous Rx's Medication Instructions Recorded Cephalexin [Keflex] 500 mg PO Q6HR #20 cap 04/08/23 Allergies Allergy/AdvReac Type Severity Reaction Status Date / Time pineapple Allergy Rash on Verified 04/08/23 11:41 mouth Review of Systems ROS Statement: Those systems with pertinent positive or pertinent negative responses have been documented in the HPI. ROS Other: All systems not noted in ROS Statement are negative. Past Medical History Past Medical History: Cancer, Diabetes Mellitus, GERD/Reflux, Hyperlipidemia, Hypertension, Osteoarthritis (OA), Thyroid Disorder Additional Past Medical History / Comment(s): Covid 09/23/21. Heart murmur. Hx right breast cancer in 2004, 2020. Gout. History of Any Multi-Drug Resistant Organisms: None Reported Past Surgical History: Bariatric Surgery, Breast Surgery, Section, Joint Replacement, Tubal Ligation Additional Past Surgical History / Comment(s): Right breast lumpectomy 2004 with chemo and radiation, lymph nodes removed, R mastectomy 2020, bilateral knee replacements, Lap Band/removal. Paracentesis Past Anesthesia/Blood Transfusion Reactions: No Reported Reaction Past Psychological History: Anxiety Smoking Status: Never smoker Past Alcohol Use History: Occasional Past Drug Use History: None Reported - Past Family History Mother Family Medical History: Cancer Additional Family Medical History / Comment(s): Breast cancer. General Exam Limitations: no limitations General appearance: alert, in no apparent distress Head exam: Present: atraumatic, normocephalic, normal inspection Eye exam: Present: normal appearance, PERRL, EOMI. Absent: scleral icterus, conjunctival injection, periorbital swelling Respiratory exam: Present: normal lung sounds bilaterally. Absent: respiratory distress, wheezes, rales, rhonchi, stridor Cardiovascular Exam: Present: regular rate, normal rhythm, normal heart sounds. Absent: rubs, gallop, clicks GI/Abdominal exam: Present: soft, distended (Ascites), normal bowel sounds. Absent: tenderness, guarding, rebound, rigid Extremities exam: Present: full ROM, normal capillary refill, pedal edema (2+), other (popped blister dorsal left foot no erythema, warmth, blanching, tenderness. No fluctuance or drainable abscess. Bilateral lower extremities are equally edematous. Neurovascularly intact. Full range of motion). Absent: normal inspection, calf tenderness Neurological exam: Present: alert, oriented X3, CN II-XII intact Psychiatric exam: Present: normal affect, normal mood Skin exam: Present: warm, dry, intact, normal color. Absent: rash Course Vital Signs 04/08/23 04/08/23 11:38 13:02 Temperature 98 F 98.2 F Pulse Rate 87 84 Respiratory 18 18 Rate Blood Pressure 107/66 110/70 O2 Sat by Pulse 98 98 Oximetry Medical Decision Making - Medical Decision Making Was pt. sent in by a medical professional or institution (, [facility], [employer], urgent care, hospital, or prison...) When possible be specific @ -No Did you speak to anyone other than the patient for history (EMS, parent, family, police, friend...)? What history was obtained from this source @ -No Did you review nursing and triage notes (agree or disagree)? Why? @ -I reviewed and agree with nursing and triage notes Were old charts reviewed (outside hosp., previous admission, EMS record, old EKG, old radiological studies, urgent care reports/EKG's, prison records)? Report findings @ -No old charts were reviewed Differential Diagnosis (chest pain, altered mental status, abdominal pain women, abdominal pain men, vaginal bleeding, weakness, fever, dyspnea, syncope, headache, dizziness, GI bleed, back pain, seizure, CVA, palpatations, mental health)? @ Abrasion, abscess, cellulitis. This was list is not meant to be all- inclusive EKG interpreted by me (3pts min.). @ -As above X-rays interpreted by me (1pt min.). @ -None done CT interpreted by me (1pt min.). @ -None done U/S interpreted by me (1pt. min.). @ -None done What testing was considered but not performed or refused? (CT, X-rays, U/S, labs)? Why? @ -None What meds were considered but not given or refused? Why? @ -None Did you discuss the management of the patient with other professionals (professionals i.e. , PA, WRAPPER C[employer]IER, lab, RT, psych nurse, social work instructor, hospital superintendent, teacher, evp and chief operating officer, case fitter)? Give summary @ -No Was smoking cessation discussed for >3mins.? @ -No Was critical care preformed (if so, how long)? @ -No Were there social determinants of health that impacted care today? How? (Homelessness, low income, unemployed, alcoholism, drug addiction, transportation, low edu. Level, literacy, decrease access to med. care, alf, rehab)? @ -No Was there de-escalation of care discussed even if they declined (Discuss DNR or withdrawal of care, Hospice)? DNR status @ -No What co-morbidities impacted this encounter? (DM, HTN, Smoking, COPD, CAD, Cancer, CVA, ARF, Chemo, Hep., AIDS, mental health diagnosis, sleep apnea, morbid obesity)? @ -None Was patient admitted or discharged? -Discharged. no evidence of cellulitis however considering underlying diabetes, older age, immunocompromised status, will place patient on Keflex prophylactically. Patient to follow-up with primary care provider we did discuss return parameters. Patient does have ascites with lower extremity edema she does not have abdominal pain or shortness of breath she will follow-up for her procedure as planned. Undiagnosed new problem with uncertain prognosis? @ -No Drug Therapy requiring intensive monitoring for toxicity (Heparin, Nitro, Insulin, Cardizem)? @ -No Were any procedures done? @ -[No] Diagnosis/symptom? @ -abrasion left foot Acute, or Chronic, or Acute on Chronic? @ -Acute Uncomplicated or complicated? -Uncomplicated Side effects of treatment? @ -[No] Exacerbation, Progression, or Severe Exacerbation? @ -[No] Poses a threat to life or bodily function? How? (Chest pain, [place], [place], pneumonia, PE, COPD, DKA, ARF, appy, cholecystitis, CVA, Diverticulitis, Homicidal, Suicidal, threat to staff... and all critical care pts) @ -[No] Dr. Boss is my attending Disposition Clinical Impression: Abrasion of left foot Disposition: HOME SELF-CARE Condition: Good Instructions (If sedation given, give patient instructions): Cellulitis (ED), Ascites (ED) Additional Instructions: Take medication as directed. Follow-up with your doctor for cirrhosis and fluid in your abdomen as planned on Sunday. Return to the emergency department if you experience new, concerning, or worsening symptoms. Prescriptions: Cephalexin [Keflex] 500 mg PO Q6HR #20 cap Is patient prescribed a controlled substance at d/c from ED?: No Referrals: Bart Monge MD [Primary Care Provider] - 1-2 days
[2023-04-08 13:09] VITALS: BP 110/70; PULSE 84; TEMP 98.2
== END 2023-04-08 13:02 | disposition home or self-care (01) ==
LOC: EC 11:20
DX: S90.812A Abrasion, left foot, initial encounter (principal); E11.9 Type 2 diabetes mellitus without complications; E78.5 Hyperlipidemia, unspecified; I10 Essential (primary) hypertension; K21.9 Gastro-esophageal reflux disease without esophagitis; M19.90 Unspecified osteoarthritis, unspecified site; E07.9 Disorder of thyroid, unspecified; Z91.018 Allergy to other foods; Z86.16 Personal history of COVID-19; Z79.84 Long term (current) use of oral hypoglycemic drugs; Z79.890 Hormone replacement therapy; Z79.899 Other long term (current) drug therapy; X58.XXXA Exposure to other specified factors, initial encounter
CPT/HCPCS: 99283

== ENCOUNTER 2023-04-11 07:59 | Day surgery (SDC) | payer MEDICARE, OTHER ==
[2023-04-11 09:06] LABS: African American GFR (CKD) 79 (>60 ml/min/1.73 sqM); Glucose 108 mg/dL (74-99); Non-African American GFR(CKD) 68 (>60 ml/min/1.73 sqM)
[2023-04-11 09:07] VITALS: TEMP 98.2
[2023-04-11 09:13] LABS: INR 1.3 (<1.2); Mean Platelet Volume 8.7; Platelet Count 125 k/uL (150-450); Prothrombin Time 12.8 sec (9.0-12.0)
[2023-04-11] MEDS: ALBUMIN HUMAN 25% 50 ML in EMPTY BAG 1 BAG IVPB SCH ×4 (09:26→10:18)
[2023-04-11 10:00] VITALS: RESP 16
[2023-04-11 10:55] VITALS: BP 121/71; PULSE 106
--- NOTE | 2023-04-11 12:56 | US ---
Ultrasound-guided paracentesis. DATE OF EXAM: 04/11/2023 CLINICAL HISTORY: Ascites The procedure was discussed with the patient. The risks, complications, benefits, and alternatives we re discussed and any questions were answered. Informed consent was obtained. The patient was placed s upine on the ultrasound table and prepped and draped in the usual sterile fashion. All elements of maximal barrier technique were utilized. Under ultrasound guidance, access into the right lower quadrant was obtained, via the paracentesis catheter system and direct ultrasound guidanc e. Approximately 8 liters of straw-colored fluid was removed. The patient was stable throughout the proc edure and remained stable upon discharge from Department of Radiology. IMPRESSION: Successful paracentesis under ultrasound guidance.
== END 2023-04-11 10:50 | disposition home or self-care (01) ==
LOC: RADPROMAIN 07:59
PROVIDERS: ATTEND Family Medicine
DX: R18.8 Other ascites (principal)
CPT/HCPCS: 82565; 82947; 85049; 85610; 36415; 49083; P9047

== ENCOUNTER 2023-05-03 12:03 | Inpatient (IN) | payer MEDICARE, OTHER ==
--- NOTE | 2023-05-03 12:51 | ED ---
General Adult HPI - General Chief complaint: Weakness Stated complaint: Fluid retention Time Seen by Provider: 05/03/23 12:34 Source: patient, family Mode of arrival: wheelchair Limitations: no limitations - History of Present Illness Initial comments: Dictation was produced using [employer] dictation software. please excuse any grammatical, word or spelling errors. Chief Complaint: 63-year-old female with past medical history of cirrhotic liver presents to the ER for altered mental status History of Present Illness: Patient 63-year-old female she has past medical history of cirrhotic liver and ascites. She gets paracentesis once a month. Patient is accompanied by family. They report the patient's been hallucinating. Family reports that patient's been seeing bugs performed well water and corner of the household. Patient states that she feels like those aren't real. Denies any headache. Patient otherwise has no complaints. Occult primary care doctor and was instructed to come to the emergency room for further evaluation. The ROS documented in this emergency department record has been reviewed and confirmed by me. Those systems with pertinent positive or negative responses have been documented in the HPI. All other systems are other negative and/or noncontributory. - Related Data Home Medications Medication Instructions Recorded Confirmed Levothyroxine Sodium [Synthroid] 100 mcg PO DAILY 07/06/15 05/03/23 ALPRAZolam [Xanax] 1 mg PO TID PRN 11/05/17 05/03/23 Anastrozole [Arimidex] 1 mg PO DAILY 01/04/22 05/03/23 Cholecalciferol [Vitamin D3 (25 50 mcg PO DAILY 01/04/22 05/03/23 Mcg = 1000 Iu)] Dulaglutide [Trulicity] 4.5 mg SQ MO 01/04/22 05/03/23 Amitriptyline HCl [Elavil] 25 mg PO BID 12/06/22 05/03/23 Furosemide [Lasix] 40 mg PO BID 12/06/22 05/03/23 Pantoprazole [Protonix] 40 mg PO DAILY 12/06/22 05/03/23 Colchicine 0.6 mg PO BID 01/26/23 05/03/23 HYDROcodone/APAP 10-325MG [[place] 1 tab PO Q6H PRN 01/26/23 05/03/23 10-325] allopurinoL [Zyloprim] 300 mg PO DAILY 01/26/23 05/03/23 captopriL [Capoten] 50 mg PO BID 01/26/23 05/03/23 metFORMIN HCL [Glucophage] 500 mg PO BID 01/26/23 05/03/23 Empagliflozin [Jardiance] 25 mg PO DAILY 02/05/23 05/03/23 Montelukast [Singulair] 10 mg PO DAILY 02/05/23 05/03/23 Albuterol Inhaler [Ventolin Hfa 2 puff INHALATION RT-Q6H PRN 05/03/23 05/03/23 Inhaler] Verapamil [Isoptin] 80 mg PO TID 05/03/23 05/03/23 Previous Rx's Medication Instructions Recorded Folic Acid 1 mg PO DAILY #30 tab 05/08/23 Spironolactone [Aldactone] 100 mg PO DAILY #30 tab 05/08/23 Allergies Allergy/AdvReac Type Severity Reaction Status Date / Time pineapple Allergy Rash on Verified 05/03/23 13:27 mouth Review of Systems ROS Statement: Those systems with pertinent positive or pertinent negative responses have been documented in the HPI. ROS Other: All systems not noted in ROS Statement are negative. Past Medical History Past Medical History: Cancer, Diabetes Mellitus, GERD/Reflux, Hyperlipidemia, Hypertension, Osteoarthritis (OA), Thyroid Disorder Additional Past Medical History / Comment(s): Covid 09/23/21. Heart murmur. Hx right breast cancer in 2004, 2020. Gout. History of Any Multi-Drug Resistant Organisms: None Reported Past Surgical History: Bariatric Surgery, Breast Surgery, Section, Joint Replacement, Tubal Ligation Additional Past Surgical History / Comment(s): Right breast lumpectomy 2004 with chemo and radiation, lymph nodes removed, R mastectomy 2020, bilateral knee replacements, Lap Band/removal. Paracentesis Past Anesthesia/Blood Transfusion Reactions: No Reported Reaction Past Psychological History: Anxiety Smoking Status: Never smoker Past Alcohol Use History: Occasional Past Drug Use History: None Reported - Past Family History Mother Family Medical History: Cancer Additional Family Medical History / Comment(s): Breast cancer. General Exam - General Exam Comments Initial Comments: PHYSICAL EXAM: General Impression: Alert and oriented x3, not in acute distress HEENT: Normocephalic atraumatic, extra-ocular movements intact, pupils equal and reactive to light bilaterally, mucous membranes moist. Cardiovascular: Heart regular rate and rhythm Chest: Able to complete full sentences, no retractions, no tachypnea Abdomen: abdomen soft, non-tender, non-distended, no organomegaly Musculoskeletal: Pulses present and equal in all extremities, no peripheral edema Motor: no focal deficits noted Neurological: CN II-XII grossly intact, no focal motor or sensory deficits noted, no asterixis Skin: Intact with no visualized rashes Psych: Normal affect and mood Limitations: no limitations Course Vital Signs 05/03/23 12:21 Temperature 98.2 F Pulse Rate 88 Respiratory 16 Rate Blood Pressure 113/70 O2 Sat by Pulse 96 Oximetry EKG Findings - EKG Comments: EKG Findings:: My EKG interpretation: Ventricular rate 86, sinus rhythm,. Interval 159, QRS 84, QTC 419. No MI prolongation, no QTC prolongation, no ST or T-wave changes noted. EKG compared to 02/22/2023 showing no changes. Overall, this EKG is unremarkable Medical Decision Making - Medical Decision Making Was pt. sent in by a medical professional or institution (, PA, FLIGHT ATTENDANT/INFLIGHT SUPERVISOR, urgent care, hospital, or shelter...) When possible be specific @ -No Did you speak to anyone other than the patient for history (EMS, parent, family, police, friend...)? What history was obtained from this source @ -No Did you review nursing and triage notes (agree or disagree)? Why? @ -I reviewed and agree with nursing and triage notes Were old charts reviewed (outside hosp., previous admission, EMS record, old EKG, old radiological studies, urgent care reports/EKG's, shelter records)? Report findings @ -No old charts were reviewed Differential Diagnosis (chest pain, altered mental status, abdominal pain women, abdominal pain men, vaginal bleeding, musculoskeletal, weakness, fever, dyspnea, syncope, headache, dizziness, GI bleed, back pain, seizure, CVA, palpatations, mental health)? @ -Differential Altered Mental Status: Hypoglycemia, DKA, hypercapnia, ETOH, overdose, CO poisoning, trauma, myxedema coma, HTN encephalopathy, infection, encephalitis, psychosis, intercranial hemorrhage, hepatic encephalopathy, meningitis, CVA, this is not meant to be an all-inclusive list EKG interpreted by me (3pts min.). @ -As above X-rays interpreted by me (1pt min.). @ -None done CT interpreted by me (1pt min.). @ -Computed tomography scan the brain shows no acute processes U/S interpreted by me (1pt. min.). @ -None done What testing was considered but not performed or refused? (CT, X-rays, U/S, labs)? Why? @ -None What meds were considered but not given or refused? Why? @ -None Did you discuss the management of the patient with other professionals (keshia concepcion i.e. , PA, FLIGHT ATTENDANT/INFLIGHT SUPERVISOR, lab, RT, psych nurse, social service agency director, global sourcing manager, teacher, navy airspace officer, patient case coordinator)? Give summary @ -No Was smoking cessation discussed for >3mins.? @ -No Was critical care preformed (if so, how long)? @ -No Were there social determinants of health that impacted care today? How? (Homelessness, low income, unemployed, alcoholism, drug addiction, transpor tation, low edu. Level, literacy, decrease access to med. care, residential, rehab)? @ -No Was there de-escalation of care discussed even if they declined (Discuss DNR or withdrawal of care, Hospice)? DNR status @ -No What co-morbidities impacted this encounter? (DM, HTN, Smoking, COPD, CAD, Cancer, CVA, ARF, Chemo, Hep., AIDS, mental health diagnosis, sleep apnea, morbid obesity)? @ - liver cirrhosis Was patient admitted / discharged? Hospital course, mention meds given and route, prescriptions, significant lab abnormalities, going to OR and other pertinent info. @ -63-year-old female past medical history of liver cirrhosis presents to the emergency department for altered mental status. Altered mental status is described by family as visual hallucinations. Vital signs upon arrival are within acceptable limits. Patient not actively altered at bedside. CBC is unremarkable for any acute processes. He will 10.1 which is around her baseline. Coag panel is unremarkable. Metabolic panel shows new acute kidney injury. She's also hypomagnesemic of 1.1. Rest blood labs within acceptable limits. Pending ammonia level and lactic acid level Undiagnosed new problem with uncertain prognosis? @ -No Drug Therapy requiring intensive monitoring for toxicity (Heparin, Nitro, Insulin, Cardizem)? @ -No Were any procedures done? @ -No Diagnosis/symptom? Acute, or Chronic, or Acute on Chronic? Uncomplicated (without systemic symptoms) or Complicated (systemic symptoms)? @ -1. Visual hallucinations, 2. Hypomagnesemia, 3. Acute kidney injury Side effects of treatment? @ -No Exacerbation, Progression, or Severe Exacerbation? @ -No Poses a threat to life or bodily function? How? (Chest pain, [place], DE, pneumonia, PE, COPD, DKA, ARF, appy, cholecystitis, CVA, Diverticulitis, Homicidal, Suicidal, threat to staff... and all critical care pts) @ -yes - Lab Data Result diagrams: 05/08/23 04:22 05/08/23 06:50 Lab Results 05/03/23 05/03/23 05/03/23 Range/Units 13:13 13:13 13:13 WBC 7.0 (3.8-10.6) k/uL RBC 3.25 L (3.80-5.40) m/uL Hgb 10.1 L (11.4-16.0) gm/dL Hct 31.8 L (34.0-46.0) % MCV 97.8 (80.0-100.0) fL MCH 31.1 (25.0-35.0) pg MCHC 31.7 (31.0-37.0) g/dL RDW 17.1 H (11.5-15.5) % Plt Count 94 L (150-450) k/uL MPV 9.0 Neutrophils % 49 % Lymphocytes % 41 % Monocytes % 6 % Eosinophils % 1 % Basophils % 0 % Neutrophils # 3.5 (1.3-7.7) k/uL Lymphocytes # 2.9 (1.0-4.8) k/uL Monocytes # 0.4 (0-1.0) k/uL Eosinophils # 0.1 (0-0.7) k/uL Basophils # 0.0 (0-0.2) k/uL Differential Comment Manual Slide Review Performed Anisocytosis Slight Macrocytosis Slight PT 13.9 H (9.0-12.0) sec INR 1.4 H (<1.2) APTT 25.6 (22.0-30.0) sec Sodium 133 L (137-145) mmol/L Potassium 4.9 (3.5-5.1) mmol/L Chloride 100 (98-107) mmol/L Carbon Dioxide 21 L (22-30) mmol/L Anion Gap 12 mmol/L BUN 21 H (7-17) mg/dL Creatinine 1.99 H (0.52-1.04) mg/dL Est GFR (CKD-EPI)AfAm 30 (>60 ml/min/1.73 sqM) Est GFR (CKD-EPI)NonAf 26 (>60 ml/min/1.73 sqM) Glucose 113 H (74-99) mg/dL Estimated Ave Glu mg/dL mg/dL Hemoglobin A1c (<=6.0) % Calcium 7.6 L (8.4-10.2) mg/dL Magnesium 1.1 L (1.6-2.3) mg/dL Total Bilirubin 1.7 H (0.2-1.3) mg/dL AST 113 H (14-36) U/L ALT 37 H (4-34) U/L Alkaline Phosphatase 151 H (38-126) U/L Total Protein 7.9 (6.3-8.2) g/dL Albumin 2.9 L (3.5-5.0) g/dL 05/03/ Range/Units 13:13 WBC (3.8-10.6) k/uL RBC (3.80-5.40) m/uL Hgb (11.4-16.0) gm/dL Hct (34.0-46.0) % MCV (80.0-100.0) fL MCH (25.0-35.0) pg MCHC (31.0-37.0) g/dL RDW (11.5-15.5) % Plt Count (150-450) k/uL MPV Neutrophils % % Lymphocytes % % Monocytes % % Eosinophils % % Basophils % % Neutrophils # (1.3-7.7) k/uL Lymphocytes # (1.0-4.8) k/uL Monocytes # (0-1.0) k/uL Eosinophils # (0-0.7) k/uL Basophils # (0-0.2) k/uL Differential Comment Manual Slide Review Anisocytosis Macrocytosis PT (9.0-12.0) sec INR (<1.2) APTT (22.0-30.0) sec Sodium (137-145) mmol/L Potassium (3.5-5.1) mmol/L Chloride (98-107) mmol/L Carbon Dioxide (22-30) mmol/L Anion Gap mmol/L BUN (7-17) mg/dL Creatinine (0.52-1.04) mg/dL Est GFR (CKD-EPI)AfAm (>60 ml/min/1.73 sqM) Est GFR (CKD-EPI)NonAf (>60 ml/min/1.73 sqM) Glucose (74-99) mg/dL Estimated Ave Glu mg/dL 100 mg/dL Hemoglobin A1c 5.1 (<=6.0) % Calcium (8.4-10.2) mg/dL Magnesium (1.6-2.3) mg/dL Total Bilirubin (0.2-1.3) mg/dL AST (14-36) U/L ALT (4-34) U/L Alkaline Phosphatase (38-126) U/L Total Protein (6.3-8.2) g/dL Albumin (3.5-5.0) g/dL Disposition Clinical Impression: Hyperammonemia Disposition: ADMITTED IP TO THIS HOSP Condition: Fair
[2023-05-03 13:25] LABS: Anisocytosis Slight; Basophils % (A) 0 %; Eosinophils # (A) 0.1 k/uL (0-0.7); Eosinophils % (A) 1 %; HCT 31.8 % (34.0-46.0); HGB 10.1 gm/dL (11.4-16.0); Lymphocytes # (A) 2.9 k/uL (1.0-4.8); Lymphocytes % (A) 41 %; MCH 31.1 pg (25.0-35.0); MCHC 31.7 g/dL (31.0-37.0); MCV 97.8 fL (80.0-100.0); Macrocytosis Slight; Monocytes # (A) 0.4 k/uL (0-1.0); Monocytes % (A) 6 %; Neutrophils # (A) 3.5 k/uL (1.3-7.7); Neutrophils % (A) 49 %; RBC 3.25 m/uL (3.80-5.40); RDW 17.1 % (11.5-15.5)
[2023-05-03 13:32] LABS: INR 1.4 (<1.2); Partial Thromboplastin Time 25.6 sec (22.0-30.0); Prothrombin Time 13.9 sec (9.0-12.0)
[2023-05-03 13:50] LABS: Platelet Count 94 k/uL (150-450)
--- NOTE | 2023-05-03 13:56 | CT ---
EXAMINATION TYPE: CT brain wo con DATE OF EXAM: 05/03/2023 COMPARISON: 08/10/2022 HISTORY: AMS CT DLP: 1123.[address] of the brain was performed. The ventricles, basal cisterns and sulci overlying the cerebral convexities demonstrate mild enlargem ent. There is no evidence for intracranial hemorrhage or sulcal effacement. There is decreased attenuation about the periventricular white matter and deep white matter of both c erebral hemispheres, compatible with chronic small vessel ischemia. Differential diagnosis does inclu de demyelination. No mass effects are seen.No midline shift. Osseous calvarium is intact. If symptoms persist consider MRI. IMPRESSION: 1. Age related atrophic and chronic small vessel ischemic change without acute intracranial process s een at this time.
[2023-05-03 13:58] LABS: ALT 37 U/L (4-34); AST 113 U/L (14-36); African American GFR (CKD) 30 (>60 ml/min/1.73 sqM); Alkaline Phosphatase 151 U/L (38-126); Blood Urea Nitrogen 21 mg/dL (7-17); Calcium 7.6 mg/dL (8.4-10.2); Chloride 100 mmol/L (98-107); Glucose 113 mg/dL (74-99); Magnesium 1.1 mg/dL (1.6-2.3); Non-African American GFR(CKD) 26 (>60 ml/min/1.73 sqM); Sodium 133 mmol/L (137-145); Total Bilirubin 1.7 mg/dL (0.2-1.3); Total Protein 7.9 g/dL (6.3-8.2)
[2023-05-03 13:59] LABS: Anion Gap 12 mmol/L; Carbon Dioxide 21 mmol/L (22-30)
[2023-05-03 14:01] LABS: Albumin 2.9 g/dL (3.5-5.0)
[2023-05-03 14:03] LABS: Potassium 4.9 mmol/L (3.5-5.1)
[2023-05-03] MEDS ORDERED: SODIUM CHLORIDE 0.9% 1,000 ML IV STA (14:08)
[2023-05-03] MEDS: MAGNESIUM SULFATE-D5W PMX 1 GM in DEXTROSE/WATER 1 100ML.BAG IVPB SCH ×2 (14:28→20:40)
[2023-05-03] MEDS ORDERED: NALOXONE 0.4 MG/ML 1 ML VIAL IV PRN (14:45)
[2023-05-03 16:42] LABS: Glucose,Whole Blood 116 mg/dL (70-110)
--- NOTE | 2023-05-03 18:03 | P.CNNES ---
History of Present Illness Consult date: 05/03/23 Requesting physician: Ventura Lopez Reason for Consult: AMS History of Present Illness: Patient is a 63-year-old right-handed female with previous history of breast cancer, alcoholism, who came to the hospital today at 12:03 PM for not feeling well. Patient states that she woke up at 7:30 in the morning, was not feeling well. She called her daughter who brought her to the hospital. She states that she feels her stomach is bloating up. Vital signs on arrival blood pressure 113/70, pulse rate 88 temperature 98.2. Blood test shows normal WBC, hemoglobin 10.1, platelets 94, INR 1.4, PTT is normal, sodium 133 potassium 4.9, BUN 21 creatinine 1.99. Hemoglobin A1c 5.1, calcium 7.6 AST 113, ALT 37, albumin is low 2.9. Ammonia level is pending. EKG shows sinus rhythm. CT head revealed age-related atrophy and chronic small vessel ischemic change without acute intracranial process seen at this time. I personally reviewed CT head, agree with the findings. Patient had a 2-D echo on 02/23/2023 which revealed normal left-ventricular size and systolic function with EF of 55-60%. Severely increased left ventricular wall thickness. Left atrial size is severely increased. Mild MR, TR. Patient's hepatic ultrasound 02/06/2023 revealed liver heterogeneously hyperechoic with coarse contour consistent with hepatocellular disease. Ascites present. Patient has history of breast cancer in 2004, for which she underwent chemo and radiation. Patient has recurrence of breast cancer right breast for which she underwent mastectomy in March 2021. Patient claims it was early stage of cancer. Patient has history of drinking alcohol since 1975 after she graduated. She underwent a divorce, and she used to drink one bottle of vodka between she and her friend. She quit drinking 5 years ago. Patient also reports that she fell on the right leg about 5 years ago. Review of Systems Constitutional: Reports weight gain, Denies chills, Denies fever Eyes: denies blurred vision, denies diplopia, denies pain Ears: deny: decreased hearing, tinnitus Ears, nose, mouth and throat: Denies headache, Denies sore throat Cardiovascular: Reports chest pain, Reports shortness of breath Respiratory: Reports cough (Little bit), Denies excessive sputum Gastrointestinal: Reports bloating, Reports diarrhea, Denies abdominal pain, Denies constipation, Denies hematemesis, Denies hematochezia, Denies nausea, Denies vomiting Genitourinary: Denies dysuria, Denies hematuria Musculoskeletal: Reports low back pain, Denies myalgias, Denies neck pain Integumentary: Reports darkening of skin, Reports lesions (On the top of left foot. States it happened after the fall.), Denies pruritus, Denies rash Neurological: Reports as per HPI, Reports weakness, Denies headaches, Denies numbness Psychiatric: Reports anxiety, Denies depression Endocrine: Reports fatigue, Reports weight change Hematologic/Lymphatic: Denies easy bleeding, Denies easy bruising Past Medical History Past Medical History: Cancer, Diabetes Mellitus, GERD/Reflux, Hyperlipidemia, Hypertension, Osteoarthritis (OA), Thyroid Disorder Additional Past Medical History / Comment(s): Covid 09/23/21. Heart murmur. Hx right breast cancer in 2004, 2020. Gout. History of Any Multi-Drug Resistant Organisms: None Reported Past Surgical History: Bariatric Surgery, Breast Surgery, Section, Joint Replacement, Tubal Ligation Additional Past Surgical History / Comment(s): Right breast lumpectomy 2004 with chemo and radiation, lymph nodes removed, R mastectomy 2020, bilateral knee replacements, Lap Band/removal. Paracentesis Past Anesthesia/Blood Transfusion Reactions: No Reported Reaction Past Psychological History: Anxiety Smoking Status: Never smoker Past Alcohol Use History: Occasional Past Drug Use History: None Reported - Past Family History Mother Family Medical History: Cancer Additional Family Medical History / Comment(s): Breast cancer. Medications and Allergies Home Medications Medication Instructions Recorded Confirmed Type Levothyroxine Sodium [Synthroid] 100 mcg PO DAILY 07/06/15 05/03/23 History ALPRAZolam [Xanax] 1 mg PO TID PRN 11/05/17 05/03/23 History Anastrozole [Arimidex] 1 mg PO DAILY 01/04/22 05/03/23 History Cholecalciferol [Vitamin D3 (25 50 mcg PO DAILY 01/04/22 05/03/23 History Mcg = 1000 Iu)] Dulaglutide [Trulicity] 4.5 mg SQ MO 01/04/22 05/03/23 History Amitriptyline HCl [Elavil] 25 mg PO BID 12/06/22 05/03/23 History Furosemide [Lasix] 40 mg PO BID 12/06/22 05/03/23 History Pantoprazole [Protonix] 40 mg PO DAILY 12/06/22 05/03/23 History Colchicine 0.6 mg PO BID 01/26/23 05/03/23 History HYDROcodone/APAP 10-325MG [[place] 1 tab PO Q6H PRN 01/26/23 05/03/23 History 10-325] allopurinoL [Zyloprim] 300 mg PO DAILY 01/26/23 05/03/23 History captopriL [Capoten] 50 mg PO BID 01/26/23 05/03/23 History metFORMIN HCL [Glucophage] 500 mg PO BID 01/26/23 05/03/23 History Empagliflozin [Jardiance] 25 mg PO DAILY 02/05/23 05/03/23 History Montelukast [Singulair] 10 mg PO DAILY 02/05/23 05/03/23 History Albuterol Inhaler [Ventolin Hfa 2 puff INHALATION RT-Q6H PRN 05/03/23 05/03/23 History Inhaler] Verapamil [Isoptin] 80 mg PO TID 05/03/23 05/03/23 History Allergies Allergy/AdvReac Type Severity Reaction Status Date / Time pineapple Allergy Rash on Verified 05/03/23 13:27 mouth Physical Examination - Vital Signs Vital Signs: Vital Signs Temp Pulse Pulse Resp BP BP Pulse Ox 05/03/23 16:30 97.8 F 78 16 103/72 98 05/03/23 12:21 98.2 F 88 16 113/70 96 Intake and Output 05/03/23 05/03/23 05/03/23 06:59 14:59 22:59 Other: Weight 138.346 kg Patient is an elderly Afro[place]er female, who is somnolent, lethargic. She is in no distress. Patient is mild to moderately encephalopathic, somnolent, difficult to arouse. She does wake up, but then starts snoring. Patient knows it is April 2023 and that she is in [facility] in [place]. She states that she lives by herself, but her granddaughter stays with her most of the time and her daughter checks on her almost daily. Speech and language functions are normal. Patient is slurring speech because of somnolence. Patient can name and repeat very well. No aphasia or dysarthria. Attention, concentration is significantly limited and fund of knowledge is adequate, but detailed testing not performed because of mental status. On cranial nerve examination, pupils are equal, round and reacting to light, visual perez are full on confrontation, with no neglect on double simultaneous stimulation. Extraocular muscles are intact with no nystagmus. Face is symmetric, tongue protrudes to the midline. Palatal elevation and sensation normal, hearing and shoulder shrug normal, facial sensation normal. On muscle strength testing, there is no pronator drift and the strength is normal in arms and legs distally and proximally, except hip flexion, which is about 4 bilaterally. Deep tendon reflexes are symmetric 2 in the upper limbs at biceps and br achioradialis, absent in the lower limbs and plantars are flat. Sensory to touch is equal with no neglect on double simultaneous stimulation. Cerebellar function showed no ataxia for [id number] testing. No dysdiadochokinesia. Tone and bulk of muscles normal. Patient has possible very mild asterixis. Gait deferred.. On general examination, there is no carotid bruit or murmur, S1-S2 audible. Chest is clear on consultation. Abdomen is soft nontender, but is very bloated. Possibility of ascites. No organomegaly, bowel sounds present. Patient has moderate peripheral edema. Results - Laboratory Findings CBC and BMP: 05/05/23 06:23 05/05/23 06:23 Abnormal Lab Findings: Abnormal Labs 05/03/23 05/03/23 05/03/23 13:13 13:13 13:13 RBC 3.25 L Hgb 10.1 L Hct 31.8 L RDW 17.1 H Plt Count 94 L PT 13.9 H INR 1.4 H Sodium 133 L Carbon Dioxide 21 L BUN 21 H Creatinine 1.99 H Glucose 113 H POC Glucose (mg/dL) Calcium 7.6 L Magnesium 1.1 L Total Bilirubin 1.7 H AST 113 H ALT 37 H Alkaline Phosphatase 151 H Albumin 2.9 L 05/03/23 16:40 RBC Hgb Hct RDW Plt Count PT INR Sodium Carbon Dioxide BUN Creatinine Glucose POC Glucose (mg/dL) 116 H Calcium Magnesium Total Bilirubin AST ALT Alkaline Phosphatase Albumin Assessment and Plan Assessment: * Altered mental status, likely due to hepatic encephalopathy * History of cirrhosis due to alcoholism * History of alcoholism, quit 5 years ago * History of breast cancer, in remission * Ascites * Obesity * Anasarca Plan: * Patient is significantly been encephalopathic. Limited examination is nonfocal. * Stat ammonia level * Hemoglobin A1c 5.4 * Management of ascites and hepatic encephalopathy as per IM. * Check B12, folate, TSH. Hemoglobin A1c 5.1 today. * Neurology will follow clinically.
[2023-05-03] MEDS ORDERED: ALBUTEROL NEBULIZED 2.5 MG/3 ML INHALATION PRN (19:16)
[2023-05-03] MEDS ORDERED: ALPRAZolam 1 MG TAB PO PRN (19:16)
[2023-05-03] MEDS ORDERED: DEXTROSE 50% SYRINGE 50 ML IVP PRN ×2 (19:19)
[2023-05-03] MEDS: HYDROcodone/APAP 10-325MG 1 EACH TAB PO PRN (19:56)
[2023-05-03] MEDS: AMITRIPTYLINE HCL 25 MG TAB PO SCH (20:06)
[2023-05-03] MEDS: VERAPAMIL 80 MG TAB PO SCH (20:06)
[2023-05-03] MEDS: COLCHICINE 0.6 MG EACH PO SCH (20:06)
[2023-05-03] MEDS: metFORMIN 500 MG TAB PO SCH (20:07)
[2023-05-03] MEDS: FUROSEMIDE 40 MG TAB PO SCH (20:07)
[2023-05-03 20:18] LABS: Glucose,Whole Blood 223 mg/dL (70-110)
[2023-05-03] MEDS: INSULIN ASPART (NovoLOG) 100 UNIT/ML VIAL SQ SCH (21:08)
[2023-05-04] MEDS: HYDROcodone/APAP 10-325MG 1 EACH TAB PO PRN ×2 (05:04→20:40)
[2023-05-04 05:42] LABS: Glucose,Whole Blood 83 mg/dL (70-110)
[2023-05-04] MEDS: LEVOTHYROXINE 100 MCG TAB PO SCH (05:53)
[2023-05-04] MEDS: metFORMIN 500 MG TAB PO SCH ×2 (05:53→18:13)
[2023-05-04] MEDS: PANTOPRAZOLE 40 MG TABLET PO SCH (05:53)
[2023-05-04] MEDS: INSULIN ASPART (NovoLOG) 100 UNIT/ML VIAL SQ SCH ×3 (06:29→18:06)
[2023-05-04] MEDS: FUROSEMIDE 40 MG TAB PO SCH ×2 (07:52→18:13)
[2023-05-04] MEDS: VERAPAMIL 80 MG TAB PO SCH ×3 (07:52→20:55)
[2023-05-04] MEDS: MONTELUKAST 10 MG TAB PO SCH (07:52)
[2023-05-04] MEDS: AMITRIPTYLINE HCL 25 MG TAB PO SCH ×2 (07:53→20:55)
[2023-05-04] MEDS: DAPAGLIFLOZIN PROPANEDIOL 10 MG TABLET PO SCH (07:53)
[2023-05-04] MEDS: allopurinoL 300 MG TAB PO SCH (07:53)
[2023-05-04] MEDS: ANASTROZOLE 1 MG TAB PO SCH (07:53)
[2023-05-04] MEDS: COLCHICINE 0.6 MG EACH PO SCH ×2 (07:53→20:56)
[2023-05-04] MEDS: CHOLECALCIFEROL 25 MCG (1000 IU) TABLET PO SCH (07:54)
[2023-05-04 11:06] LABS: Glucose,Whole Blood 117 mg/dL (70-110)
--- NOTE | 2023-05-04 13:54 | P.HPIM ---
History of Present Illness H&P Date: 05/04/23 Chief Complaint: Altered mental status. This is a history and physical on a 63-year-old black female with known history of alcoholic cirrhosis with ascites and hasn't underlying history of breast cancer. The patient started hallucinating yesterday as far as the daughters we re concerned. She has not had issues with this in the past. She's been quite lucid. She states that she was witnessing maggots in her apartment. She tried showman image on her cell phone and I do not see any obvious infestation. She ended up pouring hot water and vinegar and her carpet which made the daughters quite concerned. She supposedly has been compliant with her medication but magnesium level has been quite low. She's been sober for about 5 years but drank heavily in her 30s and 40s. No fever or chills. No chest pain. No other voiding difficulties. She is alert in the bed when discussing. Review of Systems Constitutional: Reports as per HPI Eyes: denies blurred vision, denies pain Ears, nose, mouth and throat: Denies headache, Denies sore throat Cardiovascular: Denies chest pain, Denies shortness of breath Respiratory: Denies cough Gastrointestinal: Reports bloating Genitourinary: Denies dysuria, Denies hematuria Musculoskeletal: Denies myalgias Integumentary: Denies pruritus, Denies rash Past Medical History Past Medical History: Cancer, Diabetes Mellitus, GERD/Reflux, Hyperlipidemia, Hypertension, Osteoarthritis (OA), Thyroid Disorder Additional Past Medical History / Comment(s): Covid 09/23/21. Heart murmur. Hx right breast cancer in 2004, 2020. Gout. Alcoholic ascites History of Any Multi-Drug Resistant Organisms: None Reported Past Surgical History: Bariatric Surgery, Breast Surgery, Section, Joint Replacement, Tubal Ligation Additional Past Surgical History / Comment(s): Right breast lumpectomy 2004 with chemo and radiation, lymph nodes removed, R mastectomy 2020, bilateral knee replacements, Lap Band/removal. Paracentesis Past Anesthesia/Blood Transfusion Reactions: No Reported Reaction Past Psychological History: Anxiety Smoking Status: Never smoker Past Alcohol Use History: Heavy, Occasional Past Drug Use History: None Reported - Past Family History Mother Family Medical History: Cancer Additional Family Medical History / Comment(s): Breast cancer. Medications and Allergies Home Medications Medication Instructions Recorded Confirmed Type Levothyroxine Sodium [Synthroid] 100 mcg PO DAILY 07/06/15 05/03/23 History ALPRAZolam [Xanax] 1 mg PO TID PRN 11/05/17 05/03/23 History Anastrozole [Arimidex] 1 mg PO DAILY 01/04/22 05/03/23 History Cholecalciferol [Vitamin D3 (25 50 mcg PO DAILY 01/04/22 05/03/23 History Mcg = 1000 Iu)] Dulaglutide [Trulicity] 4.5 mg SQ MO 01/04/22 05/03/23 History Amitriptyline HCl [Elavil] 25 mg PO BID 12/06/22 05/03/23 History Furosemide [Lasix] 40 mg PO BID 12/06/22 05/03/23 History Pantoprazole [Protonix] 40 mg PO DAILY 12/06/22 05/03/23 History Colchicine 0.6 mg PO BID 01/26/23 05/03/23 History HYDROcodone/APAP 10-325MG [Solomon 1 tab PO Q6H PRN 01/26/23 05/03/23 History 10-325] allopurinoL [Zyloprim] 300 mg PO DAILY 01/26/23 05/03/23 History captopriL [Capoten] 50 mg PO BID 01/26/23 05/03/23 History metFORMIN HCL [Glucophage] 500 mg PO BID 01/26/23 05/03/23 History Empagliflozin [Jardiance] 25 mg PO DAILY 02/05/23 05/03/23 History Montelukast [Singulair] 10 mg PO DAILY 02/05/23 05/03/23 History Albuterol Inhaler [Ventolin Hfa 2 puff INHALATION RT-Q6H PRN 05/03/23 05/03/23 History Inhaler] Verapamil [Isoptin] 80 mg PO TID 05/03/23 05/03/23 History Allergies Allergy/AdvReac Type Severity Reaction Status Date / Time pineapple Allergy Rash on Verified 05/03/23 13:27 mouth Physical Exam Vitals: Vital Signs Temp Pulse Resp BP Pulse Ox 05/04/23 13:44 97.9 F 87 17 89/55 100 05/04/23 07:10 97.4 F L 90 16 107/67 99 05/04/23 01:44 97.8 F 83 16 110/71 96 05/03/23 19:37 97.6 F 87 16 107/65 96 05/03/23 16:30 97.8 F 78 16 103/72 98 Intake and Output 05/03/23 05/04/23 05/04/23 22:59 06:59 14:59 Intake Total 680 Balance 680 Intake: Intake, IV Titration 200 Amount Magnesium Sulfate-D5w Pmx 200 1 gm In Dextrose/Water 1 100ml.bag @ 100 mls/hr IVPB Q1H AYAKA Rx#: [id number] Oral 480 Other: Voiding Method Bedside Commode Toilet # Voids 0 3 1 Weight 138.346 kg - Constitutional General appearance: morbidly obese - EENT Eyes: EOMI - Neck Neck: no lymphadenopathy - Respiratory Respiratory: bilateral: diminished - Cardiovascular Heart sounds: normal: S1, S2 Abnormal Heart Sounds: systolic murmur - Gastrointestinal General gastrointestinal: distended, soft, no tenderness - Integumentary Integumentary: cellulitis - Musculoskeletal Musculoskeletal: generalized weakness - Psychiatric Psychiatric: A&O x's 3, no intact judgment & insight Results CBC & Chem 7: 05/03/23 13:13 05/03/23 13:13 Labs: Abnormal Lab Results - Last 24 Hours (Table) 05/03/23 05/03/23 05/03/23 Range/Units 13:13 13:13 16:40 Plt Count 94 L (150-450) k/uL Sodium 133 L (137-145) mmol/L Carbon Dioxide 21 L (22-30) mmol/L BUN 21 H (7-17) mg/dL Creatinine 1.99 H (0.52-1.04) mg/dL Glucose 113 H (74-99) mg/dL POC Glucose (mg/dL) 116 H (70-110) mg/dL Calcium 7.6 L (8.4-10.2) mg/dL Magnesium 1.1 L (1.6-2.3) mg/dL Total Bilirubin 1.7 H (0.2-1.3) mg/dL AST 113 H (14-36) U/L ALT 37 H (4-34) U/L Alkaline Phosphatase 151 H (38-126) U/L Albumin 2.9 L (3.5-5.0) g/dL 05/03/23 05/04/23 Range/Units 20:14 11:05 Plt Count (150-450) k/uL Sodium (137-145) mmol/L Carbon Dioxide (22-30) mmol/L BUN (7-17) mg/dL Creatinine (0.52-1.04) mg/dL Glucose (74-99) mg/dL POC Glucose (mg/dL) 223 H 117 H (70-110) mg/dL Calcium (8.4-10.2) mg/dL Magnesium (1.6-2.3) mg/dL Total Bilirubin (0.2-1.3) mg/dL AST (14-36) U/L ALT (4-34) U/L Alkaline Phosphatase (38-126) U/L Albumin (3.5-5.0) g/dL Thrombosis Risk Factor Assmnt - Choose All That Apply Any of the Below Risk Factors Present?: Yes Each Factor Represents 1 point: Obesity (BMI >25), or , Swollen legs (current) Each Risk Factor Represents 2 Points: Age 61-74 years Thrombosis Risk Factor Assessment Total Risk Factor Score: 5 Thrombosis Risk Factor Assessment Level: High Risk Assessment and Plan (1) Alcoholic encephalopathy Current Visit: Yes Status: Acute Code(s): G31.2 - DEGENERATION OF NERVOUS SYSTEM DUE TO ALCOHOL SNOMED Code(s): 395607899 (2) Hypomagnesemia Current Visit: Yes Status: Acute Code(s): E83.42 - HYPOMAGNESEMIA SNOMED Code(s): 802275426 (3) Ascites Current Visit: No Status: Acute Code(s): R18.8 - OTHER ASCITES SNOMED Code(s): 733124095 (4) Diabetes Current Visit: No Status: Acute Code(s): E11.9 - TYPE 2 DIABETES MELLITUS WITHOUT COMPLICATIONS SNOMED Code(s): 97615100 (5) GERD (gastroesophageal reflux disease) Current Visit: No Status: Acute Code(s): K21.9 - GASTRO-ESOPHAGEAL REFLUX DISEASE WITHOUT ESOPHAGITIS SNOMED Code(s): 045883933 (6) History of alcohol abuse Current Visit: No Status: Acute Code(s): F10.11 - ALCOHOL ABUSE, IN REMISSION SNOMED Code(s): 480324841 (7) Hyperlipidemia Current Visit: No Status: Acute Code(s): E78.5 - HYPERLIPIDEMIA, UNSPECIFIED SNOMED Code(s): 56808030 (8) Hypertension Current Visit: No Status: Acute Code(s): I10 - ESSENTIAL (PRIMARY) HYPERTENSION SNOMED Code(s): 22997987 (9) Morbid obesity due to excess calories Current Visit: No Status: Acute Code(s): E66.01 - MORBID (SEVERE) OBESITY DUE TO EXCESS CALORIES SNOMED Code(s): 642867513 Plan: Continue support. Appreciate neurology input. Restart magnesium and spironolactone. Reconcile home medications. I don't suspect that she needs any type of paracentesis as of yet. She is quite soft and doesn't have tenderness and has no significant respiratory distress but we will follow this closely. [facility] will be covering for the weekend. Check CBC CMP and magnesium in the a.m. Prognosis is guarded secondary to multiple comorbidities. Time with Patient: Greater than 30
[2023-05-04] MEDS: SPIRONOLACTONE 25 MG TAB PO SCH (14:57)
[2023-05-04] MEDS: MAGNESIUM SULFATE-D5W PMX 1 GM in DEXTROSE/WATER 1 100ML.BAG IVPB SCH ×2 (14:58→16:37)
[2023-05-04 15:00] LABS: INR 1.2 (<1.2); Prothrombin Time 12.4 sec (9.0-12.0)
[2023-05-04 16:22] LABS: Glucose,Whole Blood 95 mg/dL (70-110)
[2023-05-04 21:44] LABS: Glucose,Whole Blood 110 mg/dL (70-110)
[2023-05-05] MEDS: INSULIN ASPART (NovoLOG) 100 UNIT/ML VIAL SQ SCH ×5 (00:06→20:36)
[2023-05-05] MEDS: HYDROcodone/APAP 10-325MG 1 EACH TAB PO PRN ×3 (02:16→20:26)
[2023-05-05] MEDS: metFORMIN 500 MG TAB PO SCH ×2 (06:07→16:48)
[2023-05-05] MEDS: LEVOTHYROXINE 100 MCG TAB PO SCH (06:07)
[2023-05-05] MEDS: PANTOPRAZOLE 40 MG TABLET PO SCH (06:07)
[2023-05-05 06:17] LABS: Glucose,Whole Blood 69 mg/dL (70-110)
[2023-05-05 06:58] LABS: Glucose,Whole Blood 90 mg/dL (70-110)
[2023-05-05] MEDS: CHOLECALCIFEROL 25 MCG (1000 IU) TABLET PO SCH (08:59)
[2023-05-05] MEDS: DAPAGLIFLOZIN PROPANEDIOL 10 MG TABLET PO SCH (08:59)
[2023-05-05] MEDS: COLCHICINE 0.6 MG EACH PO SCH ×2 (09:02→20:30)
[2023-05-05] MEDS: MONTELUKAST 10 MG TAB PO SCH (09:02)
[2023-05-05] MEDS: ANASTROZOLE 1 MG TAB PO SCH (09:02)
[2023-05-05] MEDS: AMITRIPTYLINE HCL 25 MG TAB PO SCH ×2 (09:05→20:30)
[2023-05-05 09:36] LABS: Blood Urea Nitrogen 18.9 mg/dL (9.0-27.0); Chloride 98 mmol/L (96-109); Glucose 70 mg/dL (70-110); Magnesium 1.3 mg/dL (1.5-2.4); Potassium 4.3 mmol/L (3.5-5.5); Sodium 134 mmol/L (135-145)
[2023-05-05 09:37] LABS: ALT 35 U/L (8-44); AST 69 U/L (13-35); Albumin 2.2 d/dL (3.8-4.9); Albumin/Globulin Ratio 0.49 Ratio (1.60-3.17); Alkaline Phosphatase 144 U/L (41-126); Carbon Dioxide 19.3 mmol/L (21.6-31.8); Globulin 4.5 d/dL (1.6-3.3); Total Bilirubin 1.1 mg/dL (0.3-1.2); Total Protein 6.7 d/dL (6.2-8.2)
[2023-05-05 09:59] LABS: HCT 28.9 % (37.2-46.3); HGB 9.6 d/dL (12.0-15.0); MCH 31.3 pg (27.0-32.0); MCHC 33.2 d/dL (32.0-37.0); MCV 94.1 FL (80.0-97.0); Mean Platelet Volume 11.3 FL (9.5-12.2); NRBC Per 100 WBC 0.02 X 10*3/uL (0.00-0.01); Platelet Count 98 X 10*3/uL (140-440); RBC 3.07 X 10*6/uL (4.10-5.20)
[2023-05-05] MEDS: VERAPAMIL 80 MG TAB PO SCH ×3 (09:59→23:15)
[2023-05-05] MEDS: SPIRONOLACTONE 25 MG TAB PO SCH (09:59)
[2023-05-05] MEDS: allopurinoL 300 MG TAB PO SCH (09:59)
[2023-05-05] MEDS: FUROSEMIDE 40 MG TAB PO SCH ×2 (09:59→15:59)
[2023-05-05] MEDS ORDERED: Magnesium Replacement Protocol 1 EACH MISC MISCELLANE PRN (11:22)
[2023-05-05 11:37] LABS: Glucose,Whole Blood 78 mg/dL (70-110)
[2023-05-05] MEDS: MAGNESIUM SULFATE-D5W PMX 1 GM in DEXTROSE/WATER 1 100ML.BAG IVPB SCH ×4 (12:20→16:47)
[2023-05-05] MEDS: MIDODRINE 5 MG TAB PO SCH ×2 (12:21→16:48)
--- NOTE | 2023-05-05 12:58 | P.PN ---
Subjective Progress Note Date: 05/04/23 Patient was seen for a follow-up. Patient is sitting on the side of the bed. Patient is fully alert and awake. Patient still complains of bloating stomach. She is undergoing tapping of the ascites later today. Objective - Vital Signs Vital signs: Vital Signs Temp 97.9 F 05/04/23 13:44 Pulse 83 05/04/23 18:06 Resp 17 05/04/23 18:06 BP 102/64 05/04/23 18:06 Pulse Ox 95 05/04/23 18:06 FiO2 Intake & Output 05/03/23 05/04/23 05/04/23 18:59 06:59 18:59 Intake Total 680 Balance 680 Weight 138.346 kg Intake: Intake, IV Titration 200 Amount Magnesium Sulfate-D5w Pmx 200 1 gm In Dextrose/Water 1 100ml.bag @ 100 mls/hr IVPB Q1H AYAKA Rx#: [id number] Oral 480 Other: Voiding Method Bedside Commode Toilet # Voids 0 3 2 - Exam Patient is alert and awake, fully oriented. Patient knows it is April 2023 and that she is in [facility] in [place]. Speech and language functions are normal, cranial nerves are normal, visual perez are full, face is symmetric. On muscle strength testing there is no pronator drift and the strength is normal in arms and legs. No obvious asterixis. Patient has significant ascites. Patient has peripheral edema. - Labs CBC & Chem 7: 05/06/23 05:50 05/06/23 05:50 Labs: Abnormal Lab Results - Last 24 Hours (Table) 05/03/23 05/04/23 05/04/23 Range/Units 20:14 11:05 14:07 PT 12.4 H (9.0-12.0) sec INR 1.2 H (<1.2) POC Glucose (mg/dL) 223 H 117 H (70-110) mg/dL Ammonia (<30) umol/L 05/04/23 Range/Units 15:03 PT (9.0-12.0) sec INR (<1.2) POC Glucose (mg/dL) (70-110) mg/dL Ammonia 55 H (<30) umol/L Assessment and Plan Assessment: * Altered mental status, likely due to hepatic encephalopathy * History of cirrhosis due to alcoholism * History of alcoholism, quit 5 years ago * History of breast cancer, in remission * Ascites * Obesity * Anasarca * Hypertension * Hyperlipidemia Plan: * Patient's encephalopathy has resolved. Her mentation is normal, examination nonfocal. * Ammonia level 55, which is elevated. Suggest lactulose. * Hemoglobin A1c 5.4 * Management of ascites and hepatic encephalopathy as per IM. * B12 484, folate 3.40, TSH 1.84. For folate deficiency, we will start folic acid 1 mg daily. * Hemoglobin A1c 5.1 on 05/03/2023. * Neurologically clear.
--- NOTE | 2023-05-05 13:57 | P.PN ---
Subjective Progress Note Date: 05/05/23 63-year-old female with known history of alcoholic cirrhosis with ascites.. The patient started hallucinating yesterday as far as the daughters were concerned. She has not had issues with this in the past. She's been quite lucid. She states that she was witnessing maggots in her apartment. She tried showman image on her cell phone and I do not see any obvious infestation. She ended up pouring hot water and vinegar and her carpet which made the daughters quite concerned. She supposedly has been compliant with her medication but magnesium level has been quite low. She's been sober for about 5 years but drank heavily in her 30s and 40s. No fever or chills. No chest pain. No other voiding difficulties. She is alert in the bed when discussing. 05/05. Patient seen and examined. Patient complained of abdominal distention, blood pressure is on the lower side. Added midodrine REVIEW OF SYSTEMS: CONSTITUTIONAL: No fever, no malaise,. CARDIOVASCULAR: No chest pain, no palpitations, no syncope. PULMONARY: No shortness of breath, no cough, GASTROINTESTINAL: No diarrhea, no nausea, complaining of abdominal distention NEUROLOGICAL: No headaches, no weakness, PHYSICAL EXAMINATION: GENERAL: The patient is alert and oriented x3, not in any acute distress. Well developed, well nourished. HEENT: Pupils are round and equally reacting to light. EOMI. No scleral icterus. No conjunctival pallor. Normocephalic, atraumatic. No pharyngeal erythema. No thyromegaly. CARDIOVASCULAR: S1 and S2 present. No murmurs, rubs, or gallops. PULMONARY: Chest is clear to auscultation, no wheezing or crackles. ABDOMEN: Distended, fluid thrill noticeable MUSCULOSKELETAL: No joint swelling or deformity. EXTREMITIES: 2+ pitting edema lower extremities bilaterally NEUROLOGICAL: Gross neurological examination did not reveal any focal deficits. SKIN: No rashes. Assessment and plan Hepatic encephalopathy Hypomagnesemia Ascites Diabetes GERD Monitor vital signs Monitor CBC Monitor CMP Strict I's and O, daily weights Continue Lasix Continue Aldactone Magnesium level was low, replacement ordered Added midodrine Consult neurology Labs and medication were reviewed.. Continue same treatment. Continue with symptomatic treatment. Resume home medication. Monitor labs and vitals. DVT and GI prophylaxis. Further recommendations as per clinical course of the patient Objective - Vital Signs Vital signs: Vital Signs Temp 97.3 F L 05/05/23 07:16 Pulse 82 05/05/23 07:16 Resp 17 05/05/23 07:16 BP 100/57 05/05/23 08:57 Pulse Ox 98 05/05/23 07:16 FiO2 Intake & Output 05/04/23 05/05/23 05/05/23 18:59 06:59 18:59 Intake Total 360 Balance 360 Intake: Oral 360 Other: Voiding Method Toilet Toilet # Voids 2 2 # Bowel Movements 1 - Labs CBC & Chem 7: 05/05/23 06:23 05/05/23 06:23 Labs: Abnormal Lab Results - Last 24 Hours (Table) 05/04/23 05/04/23 05/05/23 Range/Units 14:07 15:03 06:12 RBC (4.10-5.20) X 10*6/uL Hgb (12.0-15.0) d/dL Hct (37.2-46.3) % RDW (11.5-14.5) % Plt Count (140-440) X 10*3/uL NRBC/100 WBC Diff (0.00-0.01) X 10*3/uL PT 12.4 H (9.0-12.0) sec INR 1.2 H (<1.2) Sodium (135-145) mmol/L Carbon Dioxide (21.6-31.8) mmol/L Anion Gap (4.00-12.00) mmol/L Creatinine (0.6-1.5) mg/dL Est GFR (CKD-EPI) (>=60) BUN/Creatinine Ratio (12.00-20.00) Ratio POC Glucose (mg/dL) 69 L (70-110) mg/dL Calcium (8.7-10.3) mg/dL Magnesium (1.5-2.4) mg/dL AST (13-35) U/L Alkaline Phosphatase (41-126) U/L Ammonia 55 H (<30) umol/L Albumin (3.8-4.9) d/dL Globulin (1.6-3.3) d/dL Albumin/Globulin Ratio (1.60-3.17) Ratio 05/05/23 05/05/23 Range/Units 06:23 06:23 RBC 3.07 L (4.10-5.20) X 10*6/uL Hgb 9.6 L (12.0-15.0) d/dL Hct 28.9 L (37.2-46.3) % RDW 17.0 H (11.5-14.5) % Plt Count 98 L (140-440) X 10*3/uL NRBC/100 WBC Diff 0.02 H (0.00-0.01) X 10*3/uL PT (9.0-12.0) sec INR (<1.2) Sodium 134 L (135-145) mmol/L Carbon Dioxide 19.3 L (21.6-31.8) mmol/L Anion Gap 16.70 H (4.00-12.00) mmol/L Creatinine 1.8 H (0.6-1.5) mg/dL Est GFR (CKD-EPI) 31 L (>=60) BUN/Creatinine Ratio 10.50 L (12.00-20.00) Ratio POC Glucose (mg/dL) (70-110) mg/dL Calcium 8.0 L (8.7-10.3) mg/dL Magnesium 1.3 L (1.5-2.4) mg/dL AST 69 H (13-35) U/L Alkaline Phosphatase 144 H (41-126) U/L Ammonia (<30) umol/L Albumin 2.2 L (3.8-4.9) d/dL Globulin 4.5 H (1.6-3.3) d/dL Albumin/Globulin Ratio 0.49 L (1.60-3.17) Ratio
[2023-05-05 16:43] LABS: Glucose,Whole Blood 134 mg/dL (70-110)
[2023-05-05 20:37] LABS: Glucose,Whole Blood 112 mg/dL (70-110)
[2023-05-06 06:12] LABS: Glucose,Whole Blood 76 mg/dL (70-110)
[2023-05-06] MEDS: MIDODRINE 5 MG TAB PO SCH ×3 (06:19→16:57)
[2023-05-06] MEDS: metFORMIN 500 MG TAB PO SCH (06:19)
[2023-05-06] MEDS: LEVOTHYROXINE 100 MCG TAB PO SCH (06:19)
[2023-05-06] MEDS: PANTOPRAZOLE 40 MG TABLET PO SCH (06:19)
[2023-05-06] MEDS: INSULIN ASPART (NovoLOG) 100 UNIT/ML VIAL SQ SCH ×4 (06:34→21:36)
[2023-05-06] MEDS: SPIRONOLACTONE 25 MG TAB PO SCH (08:51)
[2023-05-06] MEDS: DAPAGLIFLOZIN PROPANEDIOL 10 MG TABLET PO SCH (08:51)
[2023-05-06] MEDS: AMITRIPTYLINE HCL 25 MG TAB PO SCH ×2 (08:52→21:37)
[2023-05-06] MEDS: MONTELUKAST 10 MG TAB PO SCH (08:52)
[2023-05-06] MEDS: allopurinoL 300 MG TAB PO SCH (08:52)
[2023-05-06] MEDS: FUROSEMIDE 40 MG TAB PO SCH ×2 (08:52→15:22)
[2023-05-06] MEDS: COLCHICINE 0.6 MG EACH PO SCH ×2 (08:52→21:37)
[2023-05-06] MEDS: CHOLECALCIFEROL 25 MCG (1000 IU) TABLET PO SCH (08:52)
[2023-05-06] MEDS: ANASTROZOLE 1 MG TAB PO SCH (08:53)
[2023-05-06 09:53] LABS: HCT 29.1 % (37.2-46.3); HGB 9.4 d/dL (12.0-15.0); MCH 31.1 pg (27.0-32.0); MCHC 32.3 d/dL (32.0-37.0); MCV 96.4 FL (80.0-97.0); Mean Platelet Volume 12.6 FL (9.5-12.2); NRBC Per 100 WBC 0.03 X 10*3/uL (0.00-0.01); Platelet Count 117 X 10*3/uL (140-440); RBC 3.02 X 10*6/uL (4.10-5.20); WBC 8.34 X 10*3/uL (4.50-10.00)
[2023-05-06 10:28] LABS: ALT 36 U/L (8-44); AST 68 U/L (13-35); Albumin 2.3 d/dL (3.8-4.9); Albumin/Globulin Ratio 0.49 Ratio (1.60-3.17); Alkaline Phosphatase 147 U/L (41-126); BUN/Creat Ratio 9.77 Ratio (12.00-20.00); Blood Urea Nitrogen 21.5 mg/dL (9.0-27.0); Calcium 8.3 mg/dL (8.7-10.3); Carbon Dioxide 18.3 mmol/L (21.6-31.8); Chloride 96 mmol/L (96-109); Globulin 4.7 d/dL (1.6-3.3); Glucose 76 mg/dL (70-110); Magnesium 1.8 mg/dL (1.5-2.4); Potassium 4.2 mmol/L (3.5-5.5); Sodium 131 mmol/L (135-145); Total Bilirubin 1.2 mg/dL (0.3-1.2)
[2023-05-06 11:47] LABS: Glucose,Whole Blood 92 mg/dL (70-110)
--- NOTE | 2023-05-06 13:37 | P.PN ---
Subjective Progress Note Date: 05/06/23 63-year-old female with known history of alcoholic cirrhosis with ascites.. The patient started hallucinating yesterday as far as the daughters were concerned. She has not had issues with this in the past. She's been quite lucid. She states that she was witnessing maggots in her apartment. She tried showman image on her cell phone and I do not see any obvious infestation. She ended up pouring hot water and vinegar and her carpet which made the daughters quite concerned. She supposedly has been compliant with her medication but magnesium level has been quite low. She's been sober for about 5 years but drank heavily in her 30s and 40s. No fever or chills. No chest pain. No other voiding difficulties. She is alert in the bed when discussing. 05/05. Patient seen and examined. Patient complained of abdominal distention, blood pressure is on the lower side. Added midodrine 05/06. Patient seen and examined. Complaining of abdominal distention, still has swelling of lower extremities. REVIEW OF SYSTEMS: CONSTITUTIONAL: No fever, no malaise,. CARDIOVASCULAR: No chest pain, no palpitations, no syncope. PULMONARY: No shortness of breath, no cough, GASTROINTESTINAL: No diarrhea, no nausea, complaining of abdominal distention NEUROLOGICAL: No headaches, no weakness, PHYSICAL EXAMINATION: GENERAL: The patient is alert and oriented x3, not in any acute distress. Well developed, well nourished. HEENT: Pupils are round and equally reacting to light. EOMI. No scleral icterus. No conjunctival pallor. Normocephalic, atraumatic. No pharyngeal erythema. No thyromegaly. CARDIOVASCULAR: S1 and S2 present. No murmurs, rubs, or gallops. PULMONARY: Chest is clear to auscultation, no wheezing or crackles. ABDOMEN: Distended, fluid thrill noticeable MUSCULOSKELETAL: No joint swelling or deformity. EXTREMITIES: 2+ pitting edema lower extremities bilaterally NEUROLOGICAL: Gross neurological examination did not reveal any focal deficits. SKIN: No rashes. Assessment and plan Hepatic encephalopathy Hypomagnesemia Ascites Diabetes GERD Monitor vital signs Monitor CBC Monitor CMP Strict I's and O, daily weights Continue Lasix Continue Aldactone Consulted IR for paracentesis Continue midodrine Follow-up on neurology recommendations Labs and medication were reviewed.. Continue same treatment. Continue with symptomatic treatment. Resume home medication. Monitor labs and vitals. DVT and GI prophylaxis. Further recommendations as per clinical course of the patient Objective - Vital Signs Vital signs: Vital Signs Temp 97.8 F 05/06/23 06:58 Pulse 96 05/06/23 06:58 Resp 18 05/06/23 06:58 BP 118/71 05/06/23 06:58 Pulse Ox 95 05/06/23 06:58 FiO2 Intake & Output 05/05/23 05/06/23 05/06/23 18:59 06:59 18:59 Other: Voiding Method Toilet # Voids 2 3 # Bowel Movements 1 - Labs CBC & Chem 7: 05/06/23 05:50 05/06/23 05:50 Labs: Abnormal Lab Results - Last 24 Hours (Table) 05/05/23 05/05/23 05/05/23 Range/Units 06:23 16:41 20:36 RBC (4.10-5.20) X 10*6/uL Hgb (12.0-15.0) d/dL Hct (37.2-46.3) % RDW (11.5-14.5) % Plt Count (140-440) X 10*3/uL MPV (9.5-12.2) FL NRBC/100 WBC Diff (0.00-0.01) X 10*3/uL Sodium (135-145) mmol/L Carbon Dioxide (21.6-31.8) mmol/L Anion Gap (4.00-12.00) mmol/L Creatinine (0.6-1.5) mg/dL Est GFR (CKD-EPI) (>=60) BUN/Creatinine Ratio (12.00-20.00) Ratio POC Glucose (mg/dL) 134 H 112 H (70-110) mg/dL Calcium (8.7-10.3) mg/dL AST (13-35) U/L Alkaline Phosphatase (41-126) U/L Albumin (3.8-4.9) d/dL Globulin (1.6-3.3) d/dL Albumin/Globulin Ratio (1.60-3.17) Ratio Folate 3.40 L (4.40-31.00) ng/mL 07/16/23 07/16/23 Range/Units 05:50 05:50 RBC 3.02 L (4.10-5.20) X 10*6/uL Hgb 9.4 L (12.0-15.0) d/dL Hct 29.1 L (37.2-46.3) % RDW 17.0 H (11.5-14.5) % Plt Count 117 L (140-440) X 10*3/uL MPV 12.6 H (9.5-12.2) FL NRBC/100 WBC Diff 0.03 H (0.00-0.01) X 10*3/uL Sodium 131 L (135-145) mmol/L Carbon Dioxide 18.3 L (21.6-31.8) mmol/L Anion Gap 16.70 H (4.00-12.00) mmol/L Creatinine 2.2 H (0.6-1.5) mg/dL Est GFR (CKD-EPI) 24 L (>=60) BUN/Creatinine Ratio 9.77 L (12.00-20.00) Ratio POC Glucose (mg/dL) (70-110) mg/dL Calcium 8.3 L (8.7-10.3) mg/dL AST 68 H (13-35) U/L Alkaline Phosphatase 147 H (41-126) U/L Albumin 2.3 L (3.8-4.9) d/dL Globulin 4.7 H (1.6-3.3) d/dL Albumin/Globulin Ratio 0.49 L (1.60-3.17) Ratio Folate (4.40-31.00) ng/mL
[2023-05-06 16:41] LABS: Glucose,Whole Blood 76 mg/dL (70-110)
[2023-05-06 20:47] LABS: Glucose,Whole Blood 82 mg/dL (70-110)
[2023-05-07 05:47] LABS: Glucose,Whole Blood 79 mg/dL (70-110)
[2023-05-07] MEDS: PANTOPRAZOLE 40 MG TABLET PO SCH (06:07)
[2023-05-07] MEDS: LEVOTHYROXINE 100 MCG TAB PO SCH (06:07)
[2023-05-07] MEDS: MIDODRINE 5 MG TAB PO SCH ×3 (06:07→17:09)
[2023-05-07] MEDS: INSULIN ASPART (NovoLOG) 100 UNIT/ML VIAL SQ SCH ×4 (08:00→20:07)
[2023-05-07] MEDS ORDERED: DULAGLUTIDE 4.5 MG/0.5 ML SQ SCH (09:00)
--- NOTE | 2023-05-07 09:06 | P.PN ---
Subjective Progress Note Date: 05/07/23 Principal diagnosis: Altered mental status This is a 63-year-old female with a known history of alcoholic cirrhosis with ascites who presented to the emergency room after her daughters were concerned she was hallucinating. She's been sober for about 5 years been drinking heavily and her 30s and 40s. Question of medication compliance at home. She is seen this morning sitting on the side of the bed, is alert and oriented. Abdomen is quite distended today, plan is for paracentesis. Objective - Vital Signs Vital signs: Vital Signs Temp 97.9 F 05/07/23 08:24 Pulse 100 05/07/23 08:24 Resp 18 05/07/23 08:24 BP 118/75 05/07/23 08:24 Pulse Ox 96 05/07/23 01:47 FiO2 Intake & Output 05/06/23 05/07/23 05/07/23 18:59 06:59 18:59 Other: Voiding Method Toilet # Voids 3 4 # Bowel Movements 1 1 - Constitutional General appearance: Present: cooperative, no acute distress - EENT Eyes: Present: PERRLA - Neck Neck: Present: normal ROM. Absent: lymphadenopathy, rigidity - Respiratory Respiratory: bilateral: diminished - Cardiovascular Rhythm: regular Heart sounds: normal: S1, S2 - Gastrointestinal General gastrointestinal: Present: distended, soft. Absent: tenderness - Integumentary Integumentary: Present: normal, normal turgor - Musculoskeletal Musculoskeletal: Present: generalized weakness - Psychiatric Psychiatric: Present: A&O x's 3 - Labs CBC & Chem 7: 05/06/23 05:50 05/06/23 05:50 Labs: Abnormal Lab Results - Last 24 Hours (Table) 05/06/23 05/06/23 Range/Units 05:50 05:50 RBC 3.02 L (4.10-5.20) X 10*6/uL Hgb 9.4 L (12.0-15.0) d/dL Hct 29.1 L (37.2-46.3) % RDW 17.0 H (11.5-14.5) % Plt Count 117 L (140-440) X 10*3/uL MPV 12.6 H (9.5-12.2) FL NRBC/100 WBC Diff 0.03 H (0.00-0.01) X 10*3/uL Sodium 131 L (135-145) mmol/L Carbon Dioxide 18.3 L (21.6-31.8) mmol/L Anion Gap 16.70 H (4.00-12.00) mmol/L Creatinine 2.2 H (0.6-1.5) mg/dL Est GFR (CKD-EPI) 24 L (>=60) BUN/Creatinine Ratio 9.77 L (12.00-20.00) Ratio Calcium 8.3 L (8.7-10.3) mg/dL AST 68 H (13-35) U/L Alkaline Phosphatase 147 H (41-126) U/L Albumin 2.3 L (3.8-4.9) d/dL Globulin 4.7 H (1.6-3.3) d/dL Albumin/Globulin Ratio 0.49 L (1.60-3.17) Ratio Assessment and Plan (1) Alcoholic encephalopathy Current Visit: Yes Status: Acute Code(s): G31.2 - DEGENERATION OF NERVOUS SYSTEM DUE TO ALCOHOL SNOMED Code(s): 280187594 (2) Hypomagnesemia Current Visit: Yes Status: Acute Code(s): E83.42 - HYPOMAGNESEMIA SNOMED Code(s): 313355491 (3) Ascites Current Visit: No Status: Acute Code(s): R18.8 - OTHER ASCITES SNOMED Code(s): 198234713 (4) Diabetes Current Visit: No Status: Acute Code(s): E11.9 - TYPE 2 DIABETES MELLITUS WITHOUT COMPLICATIONS SNOMED Code(s): 72062151 (5) GERD (gastroesophageal reflux disease) Current Visit: No Status: Acute Code(s): K21.9 - GASTRO-ESOPHAGEAL REFLUX DISEASE WITHOUT ESOPHAGITIS SNOMED Code(s): 716097737 (6) History of alcohol abuse Current Visit: No Status: Acute Code(s): F10.11 - ALCOHOL ABUSE, IN REMISSION SNOMED Code(s): 439730079 (7) Hyperlipidemia Current Visit: No Status: Acute Code(s): E78.5 - HYPERLIPIDEMIA, UNSPECIFIED SNOMED Code(s): 81702315 (8) Hypertension Current Visit: No Status: Acute Code(s): I10 - ESSENTIAL (PRIMARY) HYPERTENSION SNOMED Code(s): 55289250 (9) Morbid obesity due to excess calories Current Visit: No Status: Acute Code(s): E66.01 - MORBID (SEVERE) OBESITY DUE TO EXCESS CALORIES SNOMED Code(s): 900006553 Plan: Plan for paracentesis today. Check labs in the morning. Patient seen and evaluated by nurse practitioner, physician in agreement with keshia donnelly
[2023-05-07] MEDS: allopurinoL 300 MG TAB PO SCH (09:30)
[2023-05-07] MEDS: COLCHICINE 0.6 MG EACH PO SCH ×2 (09:30→20:12)
[2023-05-07] MEDS: MONTELUKAST 10 MG TAB PO SCH (09:31)
[2023-05-07] MEDS: DAPAGLIFLOZIN PROPANEDIOL 10 MG TABLET PO SCH (09:31)
[2023-05-07] MEDS: AMITRIPTYLINE HCL 25 MG TAB PO SCH ×2 (09:31→20:12)
[2023-05-07] MEDS: CHOLECALCIFEROL 25 MCG (1000 IU) TABLET PO SCH (09:31)
[2023-05-07] MEDS: FUROSEMIDE 40 MG TAB PO SCH ×2 (09:31→15:56)
[2023-05-07] MEDS: ANASTROZOLE 1 MG TAB PO SCH (09:32)
[2023-05-07] MEDS: SPIRONOLACTONE 25 MG TAB PO SCH (09:32)
[2023-05-07 11:23] LABS: Glucose,Whole Blood 99 mg/dL (70-110)
[2023-05-07] MEDS: FOLIC ACID 1 MG TAB PO SCH (12:06)
[2023-05-07] MEDS: HYDROcodone/APAP 10-325MG 1 EACH TAB PO PRN (15:56)
[2023-05-07 17:01] LABS: Glucose,Whole Blood 97 mg/dL (70-110)
--- NOTE | 2023-05-07 19:33 | CDI ---
Documentation Clarification Form Date: 05/07/2023 07:17:02 PM From: Farzana Graves RN, CCDS Admit Date: 05/03/2023 02:46:00 PM Patient Name: Usha Multani Visit Number: [id number] Discharge Date: ATTENTION: The Clinical Documentation Specialists (CDI) and [facility] Coding Staff appreciate your assistance in clarifying documentation. Please respond to the clarification below the line at the bottom and electronically sign. The CDI & [facility] Coding staff will review the response and follow-up if needed. Please note: Queries are made part of the Legal Health Record. If you have any questions, please contact the author of this message via ITS. Dr. Bart Monge Your patient has acute kidney injury documented in the ED medical making. . Based on this information and the findings below, is there an additional diagnosis that is clinically appropriate for this patient? ED: metabolic panel shows new acute kidney injury, Side effect of treatment? Patient history/risk factors: Alcoholic cirrhosis with ascites, Clinical Indicators: 63-year-old female with known history of alcoholic cirrhosis with ascites who presented with daughter concerned she was hallucinating. 05/03 BUN 21 Cr 1.99 GFR 30 7/15 BUN 18.9 Cr 1.8 GFR 31 7/16 BUN 21.5 Cr 2.2 GFR 24 Treatment: Is there an additional diagnosis that is clinically appropriate for this patient? [ ] Acute Kidney Injury [ ] Acute Renal Failure [ x ] Acute on Chronic Renal Failure (please stage) [ ] Unable to determine [ ] Other, please specify Reference: KDIGO ALINE Criteria An increase in serum creatinine by greater than or equal to 0.3 mg/dL within 48 hours; An increase in serum creatinine by greater than or equal to 1.5 times baseline, which is known or presumed to have occurred within the prior 7 days; A urine volume less than 0.5 ml/kg/h for 6 hours. When the baseline is unknown the lowest creatinine during admission assumed to be baseline (Template Last Revised: November 2022) MTDD
--- NOTE | 2023-05-07 19:59 | CDI ---
Documentation Clarification Form Date: 05/07/2023 07:58:16 PM From: Farzana Graves RN, CCDS Admit Date: 05/03/2023 02:46:00 PM Patient Name: Usha Multani Visit Number: [id number] Discharge Date: ATTENTION: The Clinical Documentation Specialists (CDI) and [facility] Coding Staff appreciate your assistance in clarifying documentation. Please respond to the clarification below the line at the bottom and electronically sign. The CDI & [facility] Coding staff will review the response and follow-up if needed. Please note: Queries are made part of the Legal Health Record. If you have any questions, please contact the author of this message via ITS. Dr. Bart Monge The patients principal diagnosis the diagnosis that was chiefly responsible for the admission - has not been clearly identified and clarification is requested. The patient presented with the following: Weakness, fluid retention, hallucinating per family reports. History/Risk factors: Alcoholic cirrhosis with ascites, Diabetes Mellitus, Hypertension, Thyroid Disorder, Gerd, Cancer right breast Clinical Indicators: 63-year-old female with known history of alcoholic cirrhosis with ascites who presented with daughter concerned she was hallucinating. 05/03 Lab findings: Na 133 K= 4.9 BUN 21, Cr 1.l99 Ca+ 7.6 AST 113, and ALT 377 05/04 Labs: Ammonia 55 ECHO: Normal left ventricular size and systolic function with EF of 55-60% CT Head: age-related atrophy and chronic small vessel ischemic change without acute intracranial process. Hepatic UL: (02/06/2023) Liver heterogeneously hyperechoic with coarse contour consistent with hepatocellular disease. Ascites present 05/03 Vital Signs: 113/70 88 16 98.2 05/03 Neurology consult: Altered mental status, likely due to hepatic encephalopathy. History of cirrhosis due to alcoholism quit 5 years ago. Ascites. Treatment: Monitor Neuro checks per protocol. Lasix 40 MG PO BID 05/03-05/07, Aldactone 100 MG PO Daily Management of ascites and hepatic encephalopathy as per IM. Strict I's and O, Daily weights In your professional opinion, can you please clarify which diagnosis, after study, was the reason chiefly responsible for the admission? [x ] Hepatic encephalopathy due to alcoholic cirrhosis of liver with ascites. [ ] Other, please specify [ ] Unable to determine (Template Last Revised: December 2020) MTDD
[2023-05-07 20:08] LABS: Glucose,Whole Blood 111 mg/dL (70-110)
[2023-05-08] MEDS: HYDROcodone/APAP 10-325MG 1 EACH TAB PO PRN (04:58)
[2023-05-08] MEDS: LEVOTHYROXINE 100 MCG TAB PO SCH (05:27)
[2023-05-08 05:39] LABS: Anisocytosis Slight; HCT 27.5 % (34.0-46.0); HGB 10.8 gm/dL (11.4-16.0); Hypochromasia Slight; MCH 38.5 pg (25.0-35.0); MCV 97.9 fL (80.0-100.0); Macrocytosis Slight; Mean Platelet Volume 16.6; Platelet Count 78 k/uL (150-450); RBC 2.81 m/uL (3.80-5.40); RDW 17.5 % (11.5-15.5); WBC 6.8 k/uL (3.8-10.6)
[2023-05-08 05:52] LABS: MCHC 39.3 g/dL (31.0-37.0)
[2023-05-08 06:00] LABS: Glucose,Whole Blood 93 mg/dL (70-110)
[2023-05-08] MEDS: INSULIN ASPART (NovoLOG) 100 UNIT/ML VIAL SQ SCH (06:43)
[2023-05-08] MEDS: PANTOPRAZOLE 40 MG TABLET PO SCH (06:46)
[2023-05-08] MEDS: MIDODRINE 5 MG TAB PO SCH (06:46)
[2023-05-08 07:12] VITALS: BP 111/71; PULSE 110; RESP 17; TEMP 98.4
--- NOTE | 2023-05-08 08:35 | US ---
Ultrasound-guided paracentesis. DATE OF EXAM: 05/07/2023 CLINICAL HISTORY: Ascites The procedure was discussed with the patient. The risks, complications, benefits, and alternatives we re discussed and any questions were answered. Informed consent was obtained. The patient was placed s upine on the ultrasound table and prepped and draped in the usual sterile fashion. All elements of maximal barrier technique were utilized. Under ultrasound guidance, access into the right lower quadrant was obtained, via the paracentesis catheter system and direct ultrasound guidanc e. Approximately 8 liters of straw-colored fluid was removed. The patient was stable throughout the proc edure and remained stable upon discharge from Department of Radiology. IMPRESSION: Successful paracentesis under ultrasound guidance.
[2023-05-08] MEDS: SPIRONOLACTONE 25 MG TAB PO SCH (08:51)
[2023-05-08] MEDS: FUROSEMIDE 40 MG TAB PO SCH (08:51)
[2023-05-08] MEDS: DAPAGLIFLOZIN PROPANEDIOL 10 MG TABLET PO SCH (08:52)
[2023-05-08] MEDS: MONTELUKAST 10 MG TAB PO SCH (08:52)
[2023-05-08] MEDS: AMITRIPTYLINE HCL 25 MG TAB PO SCH (08:53)
[2023-05-08] MEDS: COLCHICINE 0.6 MG EACH PO SCH (08:53)
[2023-05-08] MEDS: ANASTROZOLE 1 MG TAB PO SCH (08:53)
[2023-05-08] MEDS: allopurinoL 300 MG TAB PO SCH (08:57)
[2023-05-08] MEDS: CHOLECALCIFEROL 25 MCG (1000 IU) TABLET PO SCH (08:57)
[2023-05-08] MEDS: FOLIC ACID 1 MG TAB PO SCH (08:57)
--- NOTE | 2023-05-08 08:57 | P.DS ---
Providers Date of admission: 05/03/23 14:46 Attending physician: Bart Monge Consults: 05/03/23 14:44 Consult Physician Routine Consulting Provider: Atiya Alcazar Consult Reason/Comments: ams Do you want consulting provider notified?: Yes Primary care physician: Bart Monge - Discharge Diagnosis(es) (1) Alcoholic encephalopathy Current Visit: Yes Status: Acute (2) Hypomagnesemia Current Visit: Yes Status: Acute (3) Ascites Current Visit: No Status: Acute (4) Diabetes Current Visit: No Status: Acute (5) GERD (gastroesophageal reflux disease) Current Visit: No Status: Acute (6) History of alcohol abuse Current Visit: No Status: Acute (7) Hyperlipidemia Current Visit: No Status: Acute (8) Hypertension Current Visit: No Status: Acute (9) Morbid obesity due to excess calories Current Visit: No Status: Acute Hospital Course: This is a 63-year-old female with a known history of alcoholic cirrhosis with ascites who was admitted after family had noted she was hallucinating at home. Patient has a history of drinking heavily in her 30s and 40s. Unsure of medication compliance at home. Patient underwent paracentesis yesterday with 8 L of straw-colored fluid removed. Patient reports they have now planned paracentesis scheduled every 3 weeks. Patient is alert and feeling much better today. She will be discharged with new prescriptions for folic acid and aldac tone. Reviewed importance of taking all medications as prescribed. Recheck labs in 1 week a follow-up appointment in office. Patient seen and evaluated by nurse practitioner, physician in agreement with plan Plan - Discharge Summary Discharge Rx Participant: Yes New Discharge Prescriptions: New Spironolactone [Aldactone] 100 mg PO DAILY #30 tab Folic Acid 1 mg PO DAILY #30 tab Continue Levothyroxine Sodium [Synthroid] 100 mcg PO DAILY ALPRAZolam [Xanax] 1 mg PO TID PRN PRN Reason: Anxiety Cholecalciferol [Vitamin D3 (25 Mcg = 1000 Iu)] 50 mcg PO DAILY Amitriptyline HCl [Elavil] 25 mg PO BID Furosemide [Lasix] 40 mg PO BID metFORMIN HCL [Glucophage] 500 mg PO BID HYDROcodone/APAP 10-325MG [[place] 10-325] 1 tab PO Q6H PRN PRN Reason: Pain Colchicine 0.6 mg PO BID captopriL [Capoten] 50 mg PO BID allopurinoL [Zyloprim] 300 mg PO DAILY Montelukast [Singulair] 10 mg PO DAILY Empagliflozin [Jardiance] 25 mg PO DAILY Anastrozole [Arimidex] 1 mg PO DAILY Dulaglutide [Trulicity] 4.5 mg SQ MO Pantoprazole [Protonix] 40 mg PO DAILY Verapamil [Isoptin] 80 mg PO TID Albuterol Inhaler [Ventolin Hfa Inhaler] 2 puff INHALATION RT-Q6H PRN PRN Reason: Shortness Of Breath Discharge Medication List Levothyroxine Sodium [Synthroid] 100 mcg PO DAILY 07/06/15 [History] ALPRAZolam [Xanax] 1 mg PO TID PRN 11/05/17 [History] Anastrozole [Arimidex] 1 mg PO DAILY 01/04/22 [History] Cholecalciferol [Vitamin D3 (25 Mcg = 1000 Iu)] 50 mcg PO DAILY 01/04/22 [History] Dulaglutide [Trulicity] 4.5 mg SQ MO 01/04/22 [History] Amitriptyline HCl [Elavil] 25 mg PO BID 12/06/22 [History] Furosemide [Lasix] 40 mg PO BID 12/06/22 [History] Pantoprazole [Protonix] 40 mg PO DAILY 12/06/22 [History] Colchicine 0.6 mg PO BID 01/26/23 [History] HYDROcodone/APAP 10-325MG [[place] 10-325] 1 tab PO Q6H PRN 01/26/23 [History] allopurinoL [Zyloprim] 300 mg PO DAILY 01/26/23 [History] captopriL [Capoten] 50 mg PO BID 01/26/23 [History] metFORMIN HCL [Glucophage] 500 mg PO BID 01/26/23 [History] Empagliflozin [Jardiance] 25 mg PO DAILY 02/05/23 [History] Montelukast [Singulair] 10 mg PO DAILY 02/05/23 [History] Albuterol Inhaler [Ventolin Hfa Inhaler] 2 puff INHALATION RT-Q6H PRN 05/03/23 [History] Verapamil [Isoptin] 80 mg PO TID 05/03/23 [History] Folic Acid 1 mg PO DAILY #30 tab 05/08/23 [Rx] Spironolactone [Aldactone] 100 mg PO DAILY #30 tab 05/08/23 [Rx] Follow up Appointment(s)/Referral(s): Bart Monge MD [Primary Care Provider] - 1 Week Activity/Diet/Wound Care/Special Instructions: recheck cmp and magnesium at follow up appointment in 1 week Discharge Disposition: HOME SELF-CARE
[2023-05-08 11:37] LABS: Magnesium 1.4 mg/dL (1.5-2.4)
[2023-05-08 11:38] LABS: ALT 36 U/L (8-44); AST 74 U/L (13-35); Albumin 2.4 d/dL (3.8-4.9); Albumin/Globulin Ratio 0.47 Ratio (1.60-3.17); Alkaline Phosphatase 161 U/L (41-126); BUN/Creat Ratio 13.27 Ratio (12.00-20.00); Blood Urea Nitrogen 19.9 mg/dL (9.0-27.0); Calcium 8.9 mg/dL (8.7-10.3); Carbon Dioxide 24.8 mmol/L (21.6-31.8); Chloride 96 mmol/L (96-109); Globulin 5.1 d/dL (1.6-3.3); Glucose 81 mg/dL (70-110); Potassium 4.2 mmol/L (3.5-5.5); Sodium 133 mmol/L (135-145); Total Bilirubin 1.8 mg/dL (0.3-1.2); Total Protein 7.5 d/dL (6.2-8.2)
== END 2023-05-08 11:19 | disposition home or self-care (01) | DRG 442 ==
LOC: EC 12:03 → 4SSUR 14:46
PROVIDERS: ADMIT Family Medicine; ATTEND Family Medicine
PROC: 0W9G3ZZ Drainage of Peritoneal Cavity, Percutaneous Approach (ICD-10-PCS; principal; 2023-05-07)
DX: K76.82 Hepatic encephalopathy (principal); N17.9 Acute kidney failure, unspecified; Z68.42 Body mass index [BMI] 45.0-49.9, adult; K70.31 Alcoholic cirrhosis of liver with ascites; F10.21 Alcohol dependence, in remission; E66.01 Morbid (severe) obesity due to excess calories; E78.5 Hyperlipidemia, unspecified; E83.42 Hypomagnesemia; F41.9 Anxiety disorder, unspecified; G31.2 Degeneration of nervous system due to alcohol; I10 Essential (primary) hypertension; R47.81 Slurred speech; M10.9 Gout, unspecified; K21.00 Gastro-esophageal reflux disease with esophagitis, without bleeding; Z79.84 Long term (current) use of oral hypoglycemic drugs; Z79.890 Hormone replacement therapy; Z79.899 Other long term (current) drug therapy; Z80.3 Family history of malignant neoplasm of breast; Z85.3 Personal history of malignant neoplasm of breast; Z90.11 Acquired absence of right breast and nipple; Z92.21 Personal history of antineoplastic chemotherapy; Z92.3 Personal history of irradiation; Z96.653 Presence of artificial knee joint, bilateral; Z91.81 History of falling; Z63.5 Disruption of family by separation and divorce; Z60.2 Problems related to living alone; Z86.16 Personal history of COVID-19; Z98.84 Bariatric surgery status
CPT/HCPCS: 36415; 49083; 70450; 80053; 82140; 82607; 82746; 83036; 83735; 84443; 85025; 85027; 85610; 85730; 93005; 94640; 96365; 96366; 99285

== ENCOUNTER 2023-05-11 07:42 | Inpatient (IN) | payer MEDICARE, OTHER ==
--- NOTE | 2023-05-11 08:26 | ED ---
General Adult HPI - General Chief complaint: Psychiatric Symptoms Stated complaint: mental health Time Seen by Provider: 05/11/23 07:42 Source: patient, family, police, EMS, RN notes reviewed, old records reviewed Mode of arrival: EMS Limitations: altered mental status - History of Present Illness Initial comments: This is a 63 year old female who has a history of alcohol abuse and liver cirrhosis. Patient called police because she thought someone was breaking into her house. Police thought she was delusional and brought her to the ED for evaluation. Patient states she has been drinking. Patient states she drinks wine daily. Patient has no physical complaints today. Patient denies chest pain difficulty breathing shortest breath per patient denies any fever chills or cough per patient's abdominal pain patient has nausea vomiting. Patient states she's here because she called the police because they're breaking into her house and they decided to bring her in for evaluation. - Related Data Home Medications Medication Instructions Recorded Confirmed Levothyroxine Sodium [Synthroid] 100 mcg PO DAILY 07/06/15 05/03/23 ALPRAZolam [Xanax] 1 mg PO TID PRN 11/05/17 05/03/23 Anastrozole [Arimidex] 1 mg PO DAILY 01/04/22 05/03/23 Cholecalciferol [Vitamin D3 (25 50 mcg PO DAILY 01/04/22 05/03/23 Mcg = 1000 Iu)] Dulaglutide [Trulicity] 4.5 mg SQ MO 01/04/22 05/03/23 Amitriptyline HCl [Elavil] 25 mg PO BID 12/06/22 05/03/23 Furosemide [Lasix] 40 mg PO BID 12/06/22 05/03/23 Pantoprazole [Protonix] 40 mg PO DAILY 12/06/22 05/03/23 Colchicine 0.6 mg PO BID 01/26/23 05/03/23 HYDROcodone/APAP 10-325MG [[place] 1 tab PO Q6H PRN 01/26/23 05/03/23 10-325] allopurinoL [Zyloprim] 300 mg PO DAILY 01/26/23 05/03/23 captopriL [Capoten] 50 mg PO BID 01/26/23 05/03/23 metFORMIN HCL [Glucophage] 500 mg PO BID 01/26/23 05/03/23 Empagliflozin [Jardiance] 25 mg PO DAILY 02/05/23 05/03/23 Montelukast [Singulair] 10 mg PO DAILY 02/05/23 05/03/23 Albuterol Inhaler [Ventolin Hfa 2 puff INHALATION RT-Q6H PRN 05/03/23 05/03/23 Inhaler] Verapamil [Isoptin] 80 mg PO TID 05/03/23 05/03/23 Previous Rx's Medication Instructions Recorded Folic Acid 1 mg PO DAILY #30 tab 05/08/23 Spironolactone [Aldactone] 100 mg PO DAILY #30 tab 05/08/23 Allergies Allergy/AdvReac Type Severity Reaction Status Date / Time pineapple Allergy Rash on Verified 05/11/23 08:07 mouth Review of Systems ROS Statement: Those systems with pertinent positive or pertinent negative responses have been documented in the HPI. ROS Other: All systems not noted in ROS Statement are negative. Past Medical History Past Medical History: Cancer, Diabetes Mellitus, GERD/Reflux, Hyperlipidemia, Hypertension, Osteoarthritis (OA), Thyroid Disorder Additional Past Medical History / Comment(s): Covid 09/23/21. Heart murmur. Hx right breast cancer in 2004, 2020. Gout. History of Any Multi-Drug Resistant Organisms: None Reported Past Surgical History: Bariatric Surgery, Breast Surgery, Section, Joint Replacement, Tubal Ligation Additional Past Surgical History / Comment(s): Right breast lumpectomy 2004 with chemo and radiation, lymph nodes removed, R mastectomy 2020, bilateral knee replacements, Lap Band/removal. Paracentesis Past Anesthesia/Blood Transfusion Reactions: No Reported Reaction Past Psychological History: Anxiety Smoking Status: Never smoker Past Alcohol Use History: Occasional Past Drug Use History: None Reported - Past Family History Mother Family Medical History: Cancer Additional Family Medical History / Comment(s): Breast cancer. General Exam - General Exam Comments Initial Comments: GENERAL: Patient is well-developed and well-nourished. Patient is nontoxic and well- hydrated and is in no acute distress. ENT: Neck is soft and supple. No significant lymphadenopathy is noted. Oropharynx is clear. Moist mucous membranes. Neck has full range of motion without eliciting any pain. EYES: The sclera were anicteric and conjunctiva were pink and moist. Extraocular movements were intact and pupils were equal round and reactive to light. Eyelids were unremarkable. PULMONARY: Unlabored respirations. Good breath sounds bilaterally. No audible rales rhonchi or wheezing was noted. CARDIOVASCULAR: There is a regular rate and rhythm without any murmurs gallops or rubs. ABDOMEN: Soft and nontender with normal bowel sounds. No palpable organomegaly was noted. There is no palpable pulsatile mass. SKIN: Skin is clear with no lesions or rashes and otherwise unremarkable. NEUROLOGIC: Patient is alert and oriented x3. Cranial nerves II through XII are grossly intact. Motor and sensory are also intact. Normal speech, volume and content. Symmetrical smile. MUSCULOSKELETAL: Normal extremities with adequate strength and full range of motion. No lower extremity swelling or edema. No calf tenderness. LYMPHATICS: No significant lymphadenopathy is noted PSYCHIATRIC: Patient still believes someone started to break into her house the police are confident no one was there or attempting to break into her house Limitations: altered mental status Course Vital Signs 05/11/23 07:50 Temperature 97.5 F L Pulse Rate 90 Respiratory 18 Rate Blood Pressure 92/58 O2 Sat by Pulse 100 Oximetry Medical Decision Making - Medical Decision Making Was pt. sent in by a medical professional or institution (, PA, CAPABILITY LEAD, urgent care, hospital, or [place] health [place] facility...) When possible be specific @ -Patient was brought in by the police Did you speak to anyone other than the patient for history (EMS, parent, family, police, friend...)? What history was obtained from this source @ -Police petitioned the patient and gave a lot of the history Did you review nursing and triage notes (agree or disagree)? Why? @ -I reviewed and agree with nursing and triage notes Were old charts reviewed (outside hosp., previous admission, EMS record, old EKG, old radiological studies, urgent care reports/EKG's, [place] health care facility records)? Report findings @ -I reviewed old charts and old lab work Differential Diagnosis (chest pain, altered mental status, abdominal pain women, abdominal pain men, vaginal bleeding, weakness, fever, dyspnea, syncope, headache, dizziness, GI bleed, back pain, seizure, CVA, palpatations, mental health, musculoskeletal)? @ -Differential Mental Health Depression, anxiety, bipolar, psychosis, schizophrenia, borderline personality, situational depression, adjustment disorder, behavioral disorder, brain tumor, malingering, substance abuse, encephalopathy, medication reaction, dementia, hypothyroidism, degenerative neurologic disorder, lupus.... This is not meant to be all-inclusive list EKG interpreted by me (3pts min.). @ -As above X-rays interpreted by me (1pt min.). @ -None done CT interpreted by me (1pt min.). @ -None done U/S interpreted by me (1pt. min.). @ -None done What testing was considered but not performed or refused? (CT, X-rays, U/S, labs)? Why? @ -None What meds were considered but not given or refused? Why? @ -None Did you discuss the management of the patient with other professionals (professionals i.e. DrFran, PA, CAPABILITY LEAD, lab, RT, psych nurse, case management social worker, assistant womens volleyball coach, teacher, hotel security officer, window caser)? Give summary @ -I spoke with Dr. Monge and he agreed to admit the patient Was smoking cessation discussed for >3mins.? @ -No Was critical care preformed (if so, how long)? @ -No Were there social determinants of health that impacted care today? How? (Homelessness, low income, unemployed, alcoholism, drug addiction, transportation, low edu. Level, literacy, decrease access to med. care, shelter, rehab)? @ -No Was there de-escalation of care discussed even if they declined (Discuss DNR or withdrawal of care, Hospice)? DNR status @ -No What co-morbidities impacted this encounter? (DM, HTN, Smoking, COPD, CAD, Cancer, CVA, ARF, Chemo, Hep., AIDS, mental health diagnosis, sleep apnea, mor bid obesity)? @ -None Was patient admitted / discharged? Hospital course, mention meds given and route, prescriptions, significant lab abnormalities, going to OR and other pertinent info. @ -Patient had acute renal failure and was delusional still patient will be admitted Dr. Monge who agreed to take the patient. I will consult nephrology and psychiatry Undiagnosed new problem with uncertain prognosis? @ -No Drug Therapy requiring intensive monitoring for toxicity (Heparin, Nitro, Insulin, Cardizem)? @ -No Were any procedures done? @ -No Diagnosis/symptom? @ -Acute renal failure Acute, or Chronic, or Acute on Chronic? @ -Acute Uncomplicated (without systemic symptoms) or Complicated (systemic symptoms)? @ -Complicated Side effects of treatment? @ -No Exacerbation, Progression, or Severe Exacerbation? @ -No Poses a threat to life or bodily function? How? (Chest pain, USA, AL, pneumonia, PE, COPD, DKA, ARF, appy, cholecystitis, CVA, Diverticulitis, Homicidal, Suicidal, threat to staff... and all critical care pts) @ -Yes this could lead to electrolyte abnormality and Diagnosis/symptom? @ -Delusional Acute, or Chronic, or Acute on Chronic? @ -Acute Uncomplicated (without systemic symptoms) or Complicated (systemic symptoms)? @ -Complicated Side effects of treatment? @ -none Exacerbation, Progression, or Severe Exacerbation] @ -no Poses a threat to life or bodily function? @ -no - Lab Data Result diagrams: 05/11/23 08:37 05/11/23 08:37 Lab Results 05/11/23 05/11/23 05/11/23 Range/Units 08:37 08:37 08:37 WBC 10.3 (3.8-10.6) k/uL RBC 3.15 L (3.80-5.40) m/uL Hgb 10.6 L (11.4-16.0) gm/dL Hct 32.1 L (34.0-46.0) % MCV 101.9 H (80.0-100.0) fL MCH 33.6 (25.0-35.0) pg MCHC 33.0 (31.0-37.0) g/dL RDW 17.3 H (11.5-15.5) % Plt Count 106 L (150-450) k/uL MPV 9.4 Neutrophils % 68 % Lymphocytes % 22 % Monocytes % 7 % Eosinophils % 1 % Basophils % 0 % Neutrophils # 7.0 (1.3-7.7) k/uL Lymphocytes # 2.2 (1.0-4.8) k/uL Monocytes # 0.8 (0-1.0) k/uL Eosinophils # 0.1 (0-0.7) k/uL Basophils # 0.0 (0-0.2) k/uL Hypochromasia Slight Anisocytosis Slight Macrocytosis Moderate Sodium 132 L (137-145) mmol/L Potassium 4.0 (3.5-5.1) mmol/L Chloride 97 L (98-107) mmol/L Carbon Dioxide 19 L (22-30) mmol/L Anion Gap 16 mmol/L BUN 29 H (7-17) mg/dL Creatinine 3.01 H (0.52-1.04) mg/dL Est GFR (CKD-EPI)AfAm 18 (>60 ml/min/1.73 sqM) Est GFR (CKD-EPI)NonAf 16 (>60 ml/min/1.73 sqM) Glucose 85 (74-99) mg/dL Calcium 8.1 L (8.4-10.2) mg/dL Total Bilirubin 2.0 H (0.2-1.3) mg/dL AST 78 H (14-36) U/L ALT 51 H (4-34) U/L Alkaline Phosphatase 157 H (38-126) U/L Ammonia (<30) umol/L Total Protein 7.7 (6.3-8.2) g/dL Albumin 2.7 L (3.5-5.0) g/dL Urine Opiates Screen Detected H (NotDetected) Ur Oxycodone Screen Not Detected (NotDetected) Urine Methadone Screen Not Detected (NotDetected) Ur Propoxyphene Screen Not Detected (NotDetected) Ur Barbiturates Screen Not Detected (NotDetected) U Tricyclic Antidepress Detected H (NotDetected) Ur Phencyclidine Scrn Not Detected (NotDetected) Ur Amphetamines Screen Not Detected (NotDetected) U Methamphetamines Scrn Not Detected (NotDetected) U Benzodiazepines Scrn Detected H (NotDetected) Urine Cocaine Screen Not Detected (NotDetected) U Marijuana (THC) Screen Not Detected (NotDetected) Serum Alcohol <10 mg/dL 05/11/23 Range/Units 08:37 WBC (3.8-10.6) k/uL RBC (3.80-5.40) m/uL Hgb (11.4-16.0) gm/dL Hct (34.0-46.0) % MCV (80.0-100.0) fL MCH (25.0-35.0) pg MCHC (31.0-37.0) g/dL RDW (11.5-15.5) % Plt Count (150-450) k/uL MPV Neutrophils % % Lymphocytes % % Monocytes % % Eosinophils % % Basophils % % Neutrophils # (1.3-7.7) k/uL Lymphocytes # (1.0-4.8) k/uL Monocytes # (0-1.0) k/uL Eosinophils # (0-0.7) k/uL Basophils # (0-0.2) k/uL Hypochromasia Anisocytosis Macrocytosis Sodium (137-145) mmol/L Potassium (3.5-5.1) mmol/L Chloride (98-107) mmol/L Carbon Dioxide (22-30) mmol/L Anion Gap mmol/L BUN (7-17) mg/dL Creatinine (0.52-1.04) mg/dL Est GFR (CKD-EPI)AfAm (>60 ml/min/1.73 sqM) Est GFR (CKD-EPI)NonAf (>60 ml/min/1.73 sqM) Glucose (74-99) mg/dL Calcium (8.4-10.2) mg/dL Total Bilirubin (0.2-1.3) mg/dL AST (14-36) U/L ALT (4-34) U/L Alkaline Phosphatase (38-126) U/L Ammonia 36 H (<30) umol/L Total Protein (6.3-8.2) g/dL Albumin (3.5-5.0) g/dL Urine Opiates Screen (NotDetected) Ur Oxycodone Screen (NotDetected) Urine Methadone Screen (NotDetected) Ur Propoxyphene Screen (NotDetected) Ur Barbiturates Screen (NotDetected) U Tricyclic Antidepress (NotDetected) Ur Phencyclidine Scrn (NotDetected) Ur Amphetamines Screen (NotDetected) U Methamphetamines Scrn (NotDetected) U Benzodiazepines Scrn (NotDetected) Urine Cocaine Screen (NotDetected) U Marijuana (THC) Screen (NotDetected) Serum Alcohol mg/dL Disposition Clinical Impression: Delusional disorder, Alcohol abuse, Acute renal failure Disposition: ADMITTED IP TO THIS [facility] Referrals: Bart Monge MD [Primary Care Provider] - 1-2 days Time of Disposition: 12:10
[2023-05-11 08:58] LABS: Anisocytosis Slight; Basophils % (A) 0 %; Eosinophils # (A) 0.1 k/uL (0-0.7); Eosinophils % (A) 1 %; HCT 32.1 % (34.0-46.0); HGB 10.6 gm/dL (11.4-16.0); Hypochromasia Slight; Lymphocytes # (A) 2.2 k/uL (1.0-4.8); Lymphocytes % (A) 22 %; MCH 33.6 pg (25.0-35.0); MCV 101.9 fL (80.0-100.0); Macrocytosis Moderate; Mean Platelet Volume 9.4; Monocytes # (A) 0.8 k/uL (0-1.0); Monocytes % (A) 7 %; Neutrophils % (A) 68 %; Platelet Count 106 k/uL (150-450); RBC 3.15 m/uL (3.80-5.40); RDW 17.3 % (11.5-15.5); WBC 10.3 k/uL (3.8-10.6)
[2023-05-11 09:00] LABS: AST 78 U/L (14-36); African American GFR (CKD) 18 (>60 ml/min/1.73 sqM); Albumin 2.7 g/dL (3.5-5.0); Alcohol <10 mg/dL; Alkaline Phosphatase 157 U/L (38-126); Anion Gap 16 mmol/L; Blood Urea Nitrogen 29 mg/dL (7-17); Calcium 8.1 mg/dL (8.4-10.2); Carbon Dioxide 19 mmol/L (22-30); Chloride 97 mmol/L (98-107); Glucose 85 mg/dL (74-99); Non-African American GFR(CKD) 16 (>60 ml/min/1.73 sqM); Sodium 132 mmol/L (137-145); Total Protein 7.7 g/dL (6.3-8.2)
[2023-05-11 09:01] LABS: Amphetamine Screen,Urine Not Detected (NotDetected); Barbiturate Screen,Urine Not Detected (NotDetected); Benzodiazepines Screen,Urine Detected (NotDetected); Cocaine Screen,Urine Not Detected (NotDetected); Methadone Screen, Urine Not Detected (NotDetected); Opiate Screen,Urine Detected (NotDetected); Oxycodone Screen, Urine Not Detected (NotDetected); Phencyclidine Screen,Urine Not Detected (NotDetected); Tricyclic Antidepressant,Urine Detected (NotDetected); Urn Cannabinoid Scrn Not Detected (NotDetected)
[2023-05-11 09:07] LABS: ALT 51 U/L (4-34)
[2023-05-11] MEDS ORDERED: SODIUM CHLORIDE 0.9% 1,000 ML IV ONE ×2 (09:23→12:11)
[2023-05-11] MEDS ORDERED: THIAMINE 100 MG/ML 2 ML VIAL IM STA (12:14)
[2023-05-11] MEDS ORDERED: LORazepam 1 MG TAB PO PRN (12:14)
[2023-05-11] MEDS ORDERED: ALBUTEROL NEBULIZED 2.5 MG/3 ML INHALATION PRN (20:16)
[2023-05-11] MEDS: VERAPAMIL 80 MG TAB PO SCH (23:42)
[2023-05-12] MEDS: COLCHICINE 0.6 MG EACH PO SCH ×2 (00:14→08:35)
[2023-05-12] MEDS: AMITRIPTYLINE HCL 25 MG TAB PO SCH ×2 (00:14→08:35)
[2023-05-12] MEDS: FUROSEMIDE 40 MG TAB PO SCH ×2 (00:20→08:35)
[2023-05-12] MEDS: metFORMIN 500 MG TAB PO SCH ×2 (02:56→08:40)
[2023-05-12] MEDS: LEVOTHYROXINE 100 MCG TAB PO SCH (06:54)
[2023-05-12 08:01] LABS: Glucose,Whole Blood 164 mg/dL (70-110)
[2023-05-12] MEDS: VERAPAMIL 80 MG TAB PO SCH (08:34)
[2023-05-12] MEDS: FOLIC ACID 1 MG TAB PO SCH (08:35)
[2023-05-12] MEDS: ANASTROZOLE 1 MG TAB PO SCH (08:35)
[2023-05-12] MEDS: CHOLECALCIFEROL 25 MCG (1000 IU) TABLET PO SCH (08:35)
[2023-05-12] MEDS: PANTOPRAZOLE 40 MG TABLET PO SCH (08:35)
[2023-05-12] MEDS: MONTELUKAST 10 MG TAB PO SCH (08:35)
[2023-05-12] MEDS: allopurinoL 300 MG TAB PO SCH (08:35)
[2023-05-12] MEDS: DAPAGLIFLOZIN PROPANEDIOL 10 MG TABLET PO SCH (08:35)
[2023-05-12] MEDS: THIAMINE 100 MG TAB PO SCH (08:40)
[2023-05-12] MEDS ORDERED: SPIRONOLACTONE 25 MG TAB PO SCH (09:00)
[2023-05-12] MEDS ORDERED: DEXTROSE 50% SYRINGE 50 ML IVP PRN ×2 (10:59)
[2023-05-12] MEDS: SODIUM CHLORIDE 0.9% 1,000 ML IV SCH (11:10)
--- NOTE | 2023-05-12 12:11 | US ---
EXAMINATION TYPE: US kidneys/renal and bladder DATE OF EXAM: 05/12/2023 COMPARISON: Paracentesis 05/07/2023 CLINICAL INDICATION: Female, 63 years old with history of Mamie; MAMIE EXAM MEASUREMENTS: Right Kidney: 10.6 x 4.6 x 5.1 cm Left Kidney: unable to visualize Extreme technical limitations due to patient's body habitus (morbidly obese), overlying bowel dheeraj nt and patient's limited mobility Right Kidney: lower pole obscured by overlying bowel content, no evidence of hydronephrosis Left Kidney: unable to visualize due to overlying bowel gas Bladder: appears wnl Bilateral Jets seen: no Free fluid is seen throughout the abdomen. IMPRESSION: 1. Extremely limited exam secondary to patient body habitus. Right lower pole not visualized. The le ft kidney was not visualized. 2. Trace free fluid noted.
[2023-05-12 12:37] LABS: Glucose,Whole Blood 107 mg/dL (70-110)
[2023-05-12] MEDS ORDERED: QUEtiapine 25 MG TAB PO PRN (13:31)
[2023-05-12] MEDS: INSULIN ASPART (NovoLOG) 100 UNIT/ML VIAL SQ SCH ×3 (13:32→21:08)
--- NOTE | 2023-05-12 14:05 | P.CN ---
Psychiatric Consult - . Consult date: 05/12/23 Consult:: 05/12/23 13:08 IDENTIFYING DATA: This patient is a 63-year-old -Maldivian female, currently lives with her granddaughter, she has 2 daughters, they live in a house. REASON FOR REFERRAL: Psychiatry was consulted for "delusional" HISTORY OF PRESENT ILLNESS: The patient presented to the hospital on 05/11 and was brought in by police to the hospital for believing that someone was breaking into her house. Patient has a history of alcohol abuse and also liver cirrhosis. Patient's ammonia was 36 mildly elevated, urine drug screen was positive for opiates TCAs and also benzodiazepines. Patient was seen today sitting at the side of her bed and agreeable to com writer. She appeared to be very nonchalant and disinterested in conversation. Was threatening to eat while speaking with proposal lead writer. She was able to fully correctly identify her name and knew the correct month and day, knows her location. She claims that she fell at her home, she states that she tripped over a rug. States that her sister came over and decided to call the ambulance to bring her to the hospital. Patient was fairly concrete, and fairly guarded about what also occurred. When asked about the feeling that somebody broke and she states that "I saw their face" and believed that someone was coming in to the hospital to their house. She states that this is the first time this happened. He claims that she is not having visual hallucinations since then. She admits that it possibly was a hallucination. States that he does get some episodes of confusion. Claims that she has a long history of drinking alcohol however claims that she stopped drinking about 2 weeks ago, denying any other recreational drug use at this time. States that she is not having any withdrawal symptoms from the alcohol at this time as well. Claims to have fair sleep and her appetite. Denying any paranoia at this time. At this time patient denies any suicidal or homical ideations, intent or plan. Patient denies any auditory, visual hallucinations and denies any paranoia or delusions. Patients admits to using alcohol however states that she stopped about 2 weeks ago, has a long history of drinking, liver cirrhosis, denying any current withdrawal symptoms, states that she drank wine and several shots however's fairly vague about this. PAST PSYCHIATRIC HISTORY: Patient has a a history of depression and anxiety. Claims that she takes Xanax as needed, currently taking Elavil however does not know why. Patient denies any previous psychiatric hospitalizations. Patient denies any psychiatric outpatient follow-up. Patient denies any history of suicide attempts in the past. Past Medical History: Cancer, Diabetes Mellitus, GERD/Reflux, Hyperlipidemia, Hypertension, Osteoarthritis (OA), Thyroid Disorder Additional Past Medical History / Comment(s): Covid 09/23/21. Heart murmur. Hx right breast cancer in 2004, 2020. Gout. History of Any Multi-Drug Resistant Organisms: None Reported Past Surgical History: Bariatric Surgery, Breast Surgery, Section, Joint Replacement, Tubal Ligation Additional Past Surgical History / Comment(s): Right breast lumpectomy 2004 with chemo and radiation, lymph nodes removed, R mastectomy 2020, bilateral knee replacements, Lap Band/removal. Paracentesis Past Anesthesia/Blood Transfusion Reactions: No Reported Reaction Past Psychological History: Anxiety Smoking Status: Never smoker Past Alcohol Use History: Occasional Past Drug Use History: None Reported ALLERGIES: as per EMR. CHEMICAL DEPENDENCY HISTORY: as per HPI. FAMILY PSYCHIATRIC/SUBSTANCE USE HISTORY: denies SOCIAL HISTORY: Patient was born and raised in [facility]. She claims that she completed high school, worked as a acute care certified nursing assistant, states that she does not have any legal history. She has 2 daughters, several grandkids, currently lives with one of her granddaughters in the house.. MENTAL STATUS EXAM: General Appearance: Patient appears to be stated age is obese, short hair, wearing glasses, nonchalant, alert, guarded and vague. Patient appears to have fair hygiene and grooming wearing hospital gown with poor eye contact. Behavior: Patient is calmly lying in bed without any agitated behavior. Attending to eat while talking the proposal lead writer. Appears to be disinterested. Speech: Patient's speech is fluent and nonpressured. [place] Mood/Affect: Patient reports their mood is "ok now", affect is congruent and co nstricted Suicidality/Homicidality: Patient denies having any suicidal or homicidal ideation intent or plan. Perceptions: Patient denies any current visual hallucinations and denies any auditory hallucinations Though content/process: There is no evidence of any delusional thought content. [place], poverty of content. Memory and concentration: AOX3, grossly intact for the purposes of this session Judgment and insight: poor, limited IMPRESSIONS: Delirium, likely secondary to multiple etiologies including withdrawal etoh, medications, toxic metabolic history of depression and anxiety Alcohol use disorder PLAN: -At this time patient DOES NOT meet criteria for inpatient psychiatric admission. -Delirium precautions recommended with patient including - avoiding use of narcotics and SOCIOLOGY TEACHER sedatives, limit anticholinergic medications when possible, frequent re-orientation, minimize use of restraints, open window shades during the day and close them at night -Would recommend the following medication changes/additions: We'll attempt to reduce patient's anticholinergic burden by discontinuing Elavil and replacing with lexapro 10 mg daily for mood/anxiety. seroquel 12.5 mg qhs for inso mnia/psychosis/mood adjunct and BID prn for agitation/psychosis -CIWA protocol with PRN Ativan for alcohol withdrawal. Continue to monitor vital signs. -heating and ventilating worker to provide patient with outpatient mental health/psychiatry resources for appropriate follow up upon discharge -Chairman Of The Board spoke with patient about substance abuse and the harmful effects on medical and mental health, patient verbally understood and agreed. -heating and ventilating worker to provide patient substance use treatment resources including AA/NA meetings in the community. -anthony was also interested and wanted to see if he mother would qualify for rehab, Sw to follow up with this -Communicated plan to patient's nurse -Psychiatry will sign off at this time -Please contact with any questions.
--- NOTE | 2023-05-12 14:09 | P.HPIM ---
History of Present Illness H&P Date: 05/12/23 History of present illness; patient is a 63-year-old lady with past medical sign ificant for alcohol abuse and liver cirrhosis in the ER for psychiatric evaluation. Patient has been drinking at home and called police stating that someone is breaking into her house. Police came to check on her and found her to be delusional. Patient denied any complaint of auditory hallucinations. Denies any homicidal hospital course. Patient admits to drinking wine daily. Initial lab work done in the ER showed WBC 10.3, hemoglobin 10.6, platelet count 106, sodium 132, potassium 4, BUN/creatinine, creatinine 3.01 bilirubin 2, AST 78, ALT 51, urine drug screen positive for opioids and tricyclic antidepressants patient was admitted to medicines REVIEW OF SYSTEMS: CONSTITUTIONAL: No fever, no malaise, no fatigue. HEENT: No recent visual problems or hearing problems. Denied any sore throat. CARDIOVASCULAR: No chest pain, orthopnea, PND, no palpitations, no syncope. PULMONARY: No shortness of breath, no cough, no hemoptysis. GASTROINTESTINAL: No diarrhea, no nausea, no vomiting, no abdominal pain. NEUROLOGICAL: No headaches, no weakness, no numbness. HEMATOLOGICAL: Denies any bleeding or petechiae. GENITOURINARY: Denies any burning micturition, frequency, or urgency. MUSCULOSKELETAL/RHEUMATOLOGICAL: Denies any joint pain, swelling, or any muscle pain. ENDOCRINE: Denies any polyuria or polydipsia. The rest of the 14-point review of systems is negative. PHYSICAL EXAMINATION: GENERAL: The patient is alert and oriented x3, not in any acute distress. Well developed, well nourished. HEENT: Pupils are round and equally reacting to light. EOMI. No scleral icterus. No conjunctival pallor. Normocephalic, atraumatic. No pharyngeal erythema. No thyromegaly. CARDIOVASCULAR: S1 and S2 present. No murmurs, rubs, or gallops. PULMONARY: Chest is clear to auscultation, no wheezing or crackles. ABDOMEN: Soft, nontender, nondistended, normoactive bowel sounds. No palpable organomegaly. MUSCULOSKELETAL: No joint swelling or deformity. EXTREMITIES: No cyanosis, clubbing, or pedal edema. NEUROLOGICAL: Gross neurological examination did not reveal any focal deficits. SKIN: No rashes. Assessment and plan Acute delirium ALINE Alcohol abuse Hypertension [id number] diabetes mellitus Monitor vital signs Monitor CBC Monitor CMP Avoid nephrotoxic agents Order urine electrolytes Ordered ultrasound of kidneys Continue IV fluids Manager Reading nephrology Consult psychiatry Labs and medication were reviewed.. Continue same treatment. Continue with sym ptomatic treatment. Resume home medication. Monitor labs and vitals. DVT and GI prophylaxis. Further recommendations as per clinical course of the patient Dictation was produced using [employer] dictation software. please excuse any grammatical, word or spelling errors. Past Medical History Past Medical History: Cancer, Diabetes Mellitus, GERD/Reflux, Hyperlipidemia, Hypertension, Osteoarthritis (OA), Thyroid Disorder Additional Past Medical History / Comment(s): Covid 09/23/21. Heart murmur. Hx right breast cancer in 2004, 2020. Gout. History of Any Multi-Drug Resistant Organisms: None Reported Past Surgical History: Bariatric Surgery, Breast Surgery, Section, Joint Replacement, Tubal Ligation Additional Past Surgical History / Comment(s): Right breast lumpectomy 2004 with chemo and radiation, lymph nodes removed, R mastectomy 2020, bilateral knee replacements, Lap Band/removal. Paracentesis Past Anesthesia/Blood Transfusion Reactions: No Reported Reaction Past Psychological History: Anxiety Additional Psychological History / Comment(s): . Smoking Status: Never smoker Past Alcohol Use History: Occasional Past Drug Use History: None Reported - Past Family History Mother Family Medical History: Cancer Additional Family Medical History / Comment(s): Breast cancer. Medications and Allergies Home Medications Medication Instructions Recorded Confirmed Type Levothyroxine Sodium [Synthroid] 100 mcg PO DAILY 07/06/15 05/11/23 History ALPRAZolam [Xanax] 1 mg PO TID PRN 11/05/17 05/11/23 History Anastrozole [Arimidex] 1 mg PO DAILY 01/04/22 05/11/23 History Cholecalciferol [Vitamin D3 (25 50 mcg PO DAILY 01/04/22 05/11/23 History Mcg = 1000 Iu)] Dulaglutide [Trulicity] 4.5 mg SQ MO 01/04/22 05/11/23 History Amitriptyline HCl [Elavil] 25 mg PO BID 12/06/22 05/11/23 History Furosemide [Lasix] 40 mg PO BID 12/06/22 05/11/23 History Pantoprazole [Protonix] 40 mg PO DAILY 12/06/22 05/11/23 History Colchicine 0.6 mg PO BID 01/26/23 05/11/23 History HYDROcodone/APAP 10-325MG [[place] 1 tab PO Q6H PRN 01/26/23 05/11/23 History 10-325] allopurinoL [Zyloprim] 300 mg PO DAILY 01/26/23 05/11/23 History captopriL [Capoten] 50 mg PO BID 01/26/23 05/11/23 History metFORMIN HCL [Glucophage] 500 mg PO BID 01/26/23 05/11/23 History Empagliflozin [Jardiance] 25 mg PO DAILY 02/05/23 05/11/23 History Montelukast [Singulair] 10 mg PO DAILY 02/05/23 05/11/23 History Albuterol Inhaler [Ventolin Hfa 2 puff INHALATION RT-Q6H PRN 05/03/23 05/11/23 History Inhaler] Verapamil [Isoptin] 80 mg PO TID 05/03/23 05/11/23 History Folic Acid 1 mg PO DAILY #30 tab 05/08/23 05/11/23 Rx Spironolactone [Aldactone] 100 mg PO DAILY #30 tab 05/08/23 05/11/23 Rx Allergies Allergy/AdvReac Type Severity Reaction Status Date / Time pineapple Allergy Rash on Verified 05/11/23 13:16 mouth Physical Exam Vitals: Vital Signs Temp Pulse Pulse Resp BP BP Pulse Ox 05/12/23 09:25 70 05/12/23 09:15 70 05/12/23 07:58 97.4 F L 90 16 118/75 96 05/12/23 02:00 97.6 F 97 22 119/79 96 05/12/23 01:01 100 18 05/11/23 20:00 97.4 F L 100 18 108/65 98 05/11/23 16:05 97.6 F 96 18 112/72 96 05/11/23 15:57 70 18 111/60 96 05/11/23 11:37 97.7 F 97 18 114/70 98 Intake and Output 05/11/23 05/12/23 05/12/23 22:59 06:59 14:59 Other: # Voids 1 Weight 154.221 kg Results CBC & Chem 7: 05/11/23 08:37 05/11/23 08:37 Labs: Abnormal Lab Results - Last 24 Hours (Table) 05/12/23 Range/Units 07:59 POC Glucose (mg/dL) 164 H (70-110) mg/dL Thrombosis Risk Factor Assmnt - Choose All That Apply Any of the Below Risk Factors Present?: No Other Risk Factors: Yes Each Risk Factor Represents 2 Points: Age 61-74 years Thrombosis Risk Factor Assessment Total Risk Factor Score: 2 Thrombosis Risk Factor Assessment Level: Low Risk
--- NOTE | 2023-05-12 14:43 | P.NPCON ---
History of Present Illness - Reason for Consult acute renal failure - History of Present Illness Patient is a 63-year-old female with history of EtOH abuse and liver cirrhosis, type 2 diabetes, hypertension, gastroesophageal reflux disease. She is admitted to the hospital with altered mentation. Patient apparently called the police stating that someone was breaking into her house. The police found her delusional and she was brought into the hospital. Patient has been evaluated by psychiatric. No previous history of kidney diseases. Serum creatinine was 3.0 on 05/11/2023 and previous creatinine 1.5 on 05/08/2023. It appears that patient had an episode of acute kidney injury during her recent hospitalization from 713 2 05/08/2023 Patient has been voiding. Blood pressure was low with systolic 92 mmHg on initial admission. Patient was maintained on BURTON inhibitor's right admission along with metformin. Currently maintained on IV fluids. Review of Systems As per HPI Past Medical History Past Medical History: Cancer, Diabetes Mellitus, GERD/Reflux, Hyperlipidemia, Hypertension, Osteoarthritis (OA), Thyroid Disorder Additional Past Medical History / Comment(s): Covid 09/23/21. Heart murmur. Hx right breast cancer in 2004, 2020. Gout. History of Any Multi-Drug Resistant Organisms: None Reported Past Surgical History: Bariatric Surgery, Breast Surgery, Section, Joint Replacement, Tubal Ligation Additional Past Surgical History / Comment(s): Right breast lumpectomy 2004 with chemo and radiation, lymph nodes removed, R mastectomy 2020, bilateral knee replacements, Lap Band/removal. Paracentesis Past Anesthesia/Blood Transfusion Reactions: No Reported Reaction Past Psychological History: Anxiety Additional Psychological History / Comment(s): . Smoking Status: Never smoker Past Alcohol Use History: Occasional Past Drug Use History: None Reported - Past Family History Mother Family Medical History: Cancer Additional Family Medical History / Comment(s): Breast cancer. Medications and Allergies Home Medications Medication Instructions Recorded Confirmed Type Levothyroxine Sodium [Synthroid] 100 mcg PO DAILY 07/06/15 05/11/23 History ALPRAZolam [Xanax] 1 mg PO TID PRN 11/05/17 05/11/23 History Anastrozole [Arimidex] 1 mg PO DAILY 01/04/22 05/11/23 History Cholecalciferol [Vitamin D3 (25 50 mcg PO DAILY 01/04/22 05/11/23 History Mcg = 1000 Iu)] Dulaglutide [Trulicity] 4.5 mg SQ MO 01/04/22 05/11/23 History Amitriptyline HCl [Elavil] 25 mg PO BID 12/06/22 05/11/23 History Furosemide [Lasix] 40 mg PO BID 12/06/22 05/11/23 History Pantoprazole [Protonix] 40 mg PO DAILY 12/06/22 05/11/23 History Colchicine 0.6 mg PO BID 01/26/23 05/11/23 History HYDROcodone/APAP 10-325MG [[place] 1 tab PO Q6H PRN 01/26/23 05/11/23 History 10-325] allopurinoL [Zyloprim] 300 mg PO DAILY 01/26/23 05/11/23 History captopriL [Capoten] 50 mg PO BID 01/26/23 05/11/23 History metFORMIN HCL [Glucophage] 500 mg PO BID 01/26/23 05/11/23 History Empagliflozin [Jardiance] 25 mg PO DAILY 02/05/23 05/11/23 History Montelukast [Singulair] 10 mg PO DAILY 02/05/23 05/11/23 History Albuterol Inhaler [Ventolin Hfa 2 puff INHALATION RT-Q6H PRN 05/03/23 05/11/23 History Inhaler] Verapamil [Isoptin] 80 mg PO TID 05/03/23 05/11/23 History Folic Acid 1 mg PO DAILY #30 tab 05/08/23 05/11/23 Rx Spironolactone [Aldactone] 100 mg PO DAILY #30 tab 05/08/23 05/11/23 Rx Allergies Allergy/AdvReac Type Severity Reaction Status Date / Time pineapple Allergy Rash on Verified 05/11/23 13:16 mouth Physical Exam Vitals: Vital Signs Temp Pulse Pulse Resp BP BP Pulse Ox 05/12/23 09:25 70 05/12/23 09:15 70 05/12/23 07:58 97.4 F L 90 16 118/75 96 05/12/23 02:00 97.6 F 97 22 119/79 96 05/12/23 01:01 100 18 05/11/23 20:00 97.4 F L 100 18 108/65 98 05/11/23 16:05 97.6 F 96 18 112/72 96 05/11/23 15:57 70 18 111/60 96 Intake and Output 05/11/23 05/12/23 05/12/23 22:59 06:59 14:59 Other: # Voids 1 1 Weight 154.221 kg Patient is awake comfortable. She does not communicate much. Examination of the heart S1 and S2 Examination of the lungs bilateral breath sounds are heard Abdomen is soft nontender obese Examination lower extremity shows no significant edema LEADING FIREFIGHTER exam shows patient is moving all 4 extremities. No focal motor deficits noted. Results - Lab Results Most recent lab results Calcium 8.1 mg/dL (8.4-10.2) L 05/11/23 08:37 05/11/23 08:37 05/11/23 08:37 Assessment and Plan Assessment: 1. Acute kidney injury secondary to hemodynamic ATN with low blood pressure. Currently nonoliguric. Maintained on IV fluids. Check UA. Ultrasound did not show any gross hydronephrosis however it was a limited study secondary to patient's large body habitus. Bladder appeared normal. 2. Mental status changes with delirium being followed by psychiatric 3. EtOH abuse with serum alcohol less than 10 on admission 4. Hypertension with current blood pressure on the lower side. I will decrease Isoptin 5. Non-gap metabolic acidosis secondary to acute kidney injury 6. Drug screen positive for opiates tricyclic antidepressants and benzodiazepines Plan: Continue IV fluids Hold metformin if GFR remains below 25 Decrease verapamil as blood pressure is low Repeat labs in a.m. Thank you for the consultation. We will continue to follow the patient with you during her hospitalization
[2023-05-12] MEDS: VERAPAMIL 40 MG TAB PO SCH ×2 (15:34→21:08)
[2023-05-12] MEDS: ESCITALOPRAM 10 MG TAB PO SCH (15:34)
[2023-05-12 16:07] LABS: African American GFR (CKD) 28 (>60 ml/min/1.73 sqM); Anion Gap 7 mmol/L; Blood Urea Nitrogen 30 mg/dL (7-17); Calcium 7.9 mg/dL (8.4-10.2); Carbon Dioxide 26 mmol/L (22-30); Chloride 100 mmol/L (98-107); Glucose 98 mg/dL (74-99); Non-African American GFR(CKD) 25 (>60 ml/min/1.73 sqM); Potassium 3.9 mmol/L (3.5-5.1); Sodium 133 mmol/L (137-145)
[2023-05-12 17:39] LABS: Glucose,Whole Blood 94 mg/dL (70-110)
[2023-05-12 18:21] LABS: Appearance,Urine Clear (Clear); Bilirubin,Urine Negative (Negative); Blood,Urine Negative (Negative); Color,Urine Yellow; Glucose,Urine (UA) Trace (Negative); Ketones,Urine Negative (Negative); Leukocyte Esterase,Urine Negative (Negative); Nitrite,Urine Negative (Negative); PH, Urine 5.5 (5.0-8.0); Protein,Urine Negative (Negative); Specific Gravity,Urine 1.008 (1.001-1.035)
[2023-05-12 20:56] LABS: Glucose,Whole Blood 183 mg/dL (70-110)
[2023-05-12] MEDS: QUEtiapine 25 MG TAB PO SCH (21:08)
[2023-05-13] MEDS: SODIUM CHLORIDE 0.9% 1,000 ML IV SCH ×2 (02:58→13:00)
[2023-05-13] MEDS: LEVOTHYROXINE 100 MCG TAB PO SCH (06:07)
[2023-05-13 07:09] LABS: Glucose,Whole Blood 96 mg/dL (70-110)
[2023-05-13] MEDS: THIAMINE 100 MG TAB PO SCH (09:04)
[2023-05-13] MEDS: PANTOPRAZOLE 40 MG TABLET PO SCH (09:04)
[2023-05-13] MEDS: allopurinoL 300 MG TAB PO SCH (09:04)
[2023-05-13] MEDS: CHOLECALCIFEROL 25 MCG (1000 IU) TABLET PO SCH (09:04)
[2023-05-13] MEDS: DAPAGLIFLOZIN PROPANEDIOL 10 MG TABLET PO SCH (09:04)
[2023-05-13] MEDS: ANASTROZOLE 1 MG TAB PO SCH (09:04)
[2023-05-13] MEDS: ESCITALOPRAM 10 MG TAB PO SCH (09:04)
[2023-05-13] MEDS: MONTELUKAST 10 MG TAB PO SCH (09:04)
[2023-05-13] MEDS: VERAPAMIL 40 MG TAB PO SCH (09:05)
[2023-05-13] MEDS: FOLIC ACID 1 MG TAB PO SCH (09:05)
[2023-05-13] MEDS: INSULIN ASPART (NovoLOG) 100 UNIT/ML VIAL SQ SCH ×4 (09:06→22:19)
--- NOTE | 2023-05-13 11:37 | P.PN ---
Subjective Patient is seen for follow-up for acute kidney injury. She is admitted to the hospital with history of mental status changes and patient was found to be delusional. Blood pressure was low with systolic noted at 92 mmHg on initial admission. BURTON inhibitor's on hold Currently maintained on IV fluids. Patient has been voiding. Objective - Vital Signs Vital signs: Vital Signs Temp 97.5 F L 05/13/23 07:10 Pulse 81 05/13/23 07:10 Resp 18 05/13/23 07:10 BP 103/66 05/13/23 07:10 Pulse Ox 94 L 05/13/23 07:10 FiO2 Intake & Output 05/12/23 05/13/23 05/13/23 18:59 06:59 18:59 Output Total 100 Balance -100 Output: Urine 100 Straight 100 Other: Voiding Method Toilet # Voids 1 4 1 # Bowel Movements 1 2 - Exam Patient is awake comfortable. She does not communicate much. Examination of the heart S1 and S2 Examination of the lungs bilateral breath sounds are heard Abdomen is soft nontender obese Examination lower extremity shows 1+ edema FILM PRODUCER exam shows patient is moving all 4 extremities. No focal motor deficits noted. - Labs CBC & Chem 7: 05/11/23 08:37 05/12/23 15:25 Labs: Abnormal Lab Results - Last 24 Hours (Table) 05/12/23 05/12/23 05/12/23 Range/Units 15:25 18:13 18:13 Sodium 133 L (137-145) mmol/L BUN 30 H (7-17) mg/dL Creatinine 2.07 H (0.52-1.04) mg/dL POC Glucose (mg/dL) (70-110) mg/dL Calcium 7.9 L (8.4-10.2) mg/dL Urine Glucose (UA) Trace H (Negative) Ur Random Sodium 39 L (40-220) mmol/L 05/12/23 Range/Units 20:45 Sodium (137-145) mmol/L BUN (7-17) mg/dL Creatinine (0.52-1.04) mg/dL POC Glucose (mg/dL) 183 H (70-110) mg/dL Calcium (8.4-10.2) mg/dL Urine Glucose (UA) (Negative) Ur Random Sodium (40-220) mmol/L Assessment and Plan Assessment: 1. Acute kidney injury secondary to hemodynamic ATN with low blood pressure. Currently nonoliguric. Maintained on IV fluids. Check UA. Ultrasound did not show any gross hydronephrosis however it was a limited study secondary to patient's large body habitus. Bladder appeared normal. 2. Mental status changes with delirium being followed by psychiatry 3. EtOH abuse with serum alcohol less than 10 on admission 4. Hypertension with current blood pressure on the lower side. I will decrease Isoptin 5. Non-gap metabolic acidosis secondary to acute kidney injury 6. Drug screen positive for opiates tricyclic antidepressants and benzodiazepines Plan: Continue IV fluids, decrease rate Continue off of metformin and BURTON inhibitor's DC Isoptin as blood pressure remains low Check labs today and in a.m.
[2023-05-13 11:51] LABS: Glucose,Whole Blood 86 mg/dL (70-110)
[2023-05-13 15:50] LABS: African American GFR (CKD) 35 (>60 ml/min/1.73 sqM); Anion Gap 9 mmol/L; Blood Urea Nitrogen 29 mg/dL (7-17); Calcium 7.9 mg/dL (8.4-10.2); Carbon Dioxide 24 mmol/L (22-30); Chloride 100 mmol/L (98-107); Glucose 104 mg/dL (74-99); Non-African American GFR(CKD) 30 (>60 ml/min/1.73 sqM); Potassium 4.3 mmol/L (3.5-5.1); Sodium 133 mmol/L (137-145)
--- NOTE | 2023-05-13 15:52 | P.PN ---
Subjective Progress Note Date: 05/13/23 patient is a 63-year-old lady with past medical significant for alcohol abuse and liver cirrhosis in the ER for psychiatric evaluation. Patient has been drinking at home and called police stating that someone is breaking into her house. Police came to check on her and found her to be delusional. Patient denied any complaint of auditory hallucinations. Denies any homicidal hospital course. Patient admits to drinking wine daily. Initial lab work done in the ER showed WBC 10.3, hemoglobin 10.6, platelet count 106, sodium 132, potassium 4, BUN/creatinine, creatinine 3.01 bilirubin 2, AST 78, ALT 51, urine drug screen positive for opioids and tricyclic antidepressants patient was admitted to [facility] 05/13. Patient seen and examined. States she feels better. Vital signs stable REVIEW OF SYSTEMS: CONSTITUTIONAL: No fever, no malaise,. CARDIOVASCULAR: No chest pain, no palpitations, no syncope. PULMONARY: No shortness of breath, no cough, GASTROINTESTINAL: No diarrhea, no nausea, no vomiting, no abdominal pain. NEUROLOGICAL: No headaches, no weakness, PHYSICAL EXAMINATION: GENERAL: The patient is alert and oriented x3, not in any acute distress. Well developed, well nourished. HEENT: Pupils are round and equally reacting to light. EOMI. No scleral icterus. No conjunctival pallor. Normocephalic, atraumatic. No pharyngeal erythema. No thyromegaly. CARDIOVASCULAR: S1 and S2 present. No murmurs, rubs, or gallops. PULMONARY: Chest is clear to auscultation, no wheezing or crackles. ABDOMEN: Soft, nontender, nondistended, normoactive bowel sounds. No palpable organomegaly. MUSCULOSKELETAL: No joint swelling or deformity. EXTREMITIES: No cyanosis, clubbing, or pedal edema. NEUROLOGICAL: Gross neurological examination did not reveal any focal deficits. SKIN: No rashes. Assessment and plan Acute delirium ALINE Alcohol abuse Hypertension [id number] diabetes mellitus Monitor vital signs Monitor CBC Monitor CMP Avoid nephrotoxic agents Hold Chance inhibitors and metformin Isoptin discontinued it causes of low blood pressure Continue IV fluids Follow-up in nephrology recommended Follow-up in psychiatry recommendations Labs and medication were reviewed.. Continue same treatment. Continue with symptomatic treatment. Resume home medication. Monitor labs and vitals. DVT and GI prophylaxis. Further recommendations as per clinical course of the patient Dictation was produced using [employer] dictation software. please excuse any grammatical, word or spelling errors. Objective - Vital Signs Vital signs: Vital Signs Temp 97.5 F L 05/13/23 07:10 Pulse 81 05/13/23 07:10 Resp 18 05/13/23 07:10 BP 103/66 05/13/23 07:10 Pulse Ox 94 L 05/13/23 07:10 FiO2 Intake & Output 05/12/23 05/13/23 05/13/23 18:59 06:59 18:59 Output Total 100 Balance -100 Output: Urine 100 Straight 100 Other: Voiding Method Toilet # Voids 1 4 1 # Bowel Movements 1 2 - Labs CBC & Chem 7: 05/11/23 08:37 05/13/23 15:22 Labs: Abnormal Lab Results - Last 24 Hours (Table) 05/12/23 05/12/23 05/12/23 Range/Units 15:25 18:13 18:13 Sodium 133 L (137-145) mmol/L BUN 30 H (7-17) mg/dL Creatinine 2.07 H (0.52-1.04) mg/dL POC Glucose (mg/dL) (70-110) mg/dL Calcium 7.9 L (8.4-10.2) mg/dL Urine Glucose (UA) Trace H (Negative) Ur Random Sodium 39 L (40-220) mmol/L 05/12/23 Range/Units 20:45 Sodium (137-145) mmol/L BUN (7-17) mg/dL Creatinine (0.52-1.04) mg/dL POC Glucose (mg/dL) 183 H (70-110) mg/dL Calcium (8.4-10.2) mg/dL Urine Glucose (UA) (Negative) Ur Random Sodium (40-220) mmol/L
[2023-05-13 17:09] LABS: Glucose,Whole Blood 99 mg/dL (70-110)
[2023-05-13 20:10] LABS: Glucose,Whole Blood 94 mg/dL (70-110)
[2023-05-13] MEDS: QUEtiapine 25 MG TAB PO SCH (22:19)
[2023-05-14] MEDS: LEVOTHYROXINE 100 MCG TAB PO SCH (06:12)
[2023-05-14 07:18] LABS: Glucose,Whole Blood 72 mg/dL (70-110)
[2023-05-14] MEDS: SODIUM CHLORIDE 0.9% 1,000 ML IV SCH (08:37)
[2023-05-14] MEDS: ESCITALOPRAM 10 MG TAB PO SCH (08:38)
[2023-05-14] MEDS: CHOLECALCIFEROL 25 MCG (1000 IU) TABLET PO SCH (08:38)
[2023-05-14] MEDS: FOLIC ACID 1 MG TAB PO SCH (08:38)
[2023-05-14] MEDS: THIAMINE 100 MG TAB PO SCH (08:38)
[2023-05-14] MEDS: allopurinoL 300 MG TAB PO SCH (08:38)
[2023-05-14] MEDS: MONTELUKAST 10 MG TAB PO SCH (08:38)
[2023-05-14] MEDS: ANASTROZOLE 1 MG TAB PO SCH (08:39)
[2023-05-14] MEDS: INSULIN ASPART (NovoLOG) 100 UNIT/ML VIAL SQ SCH ×4 (08:39→21:13)
[2023-05-14] MEDS: PANTOPRAZOLE 40 MG TABLET PO SCH (08:39)
[2023-05-14] MEDS: DAPAGLIFLOZIN PROPANEDIOL 10 MG TABLET PO SCH (08:39)
[2023-05-14 09:28] LABS: ALT 44 U/L (8-44); AST 70 U/L (13-35); Albumin 2.1 d/dL (3.8-4.9); Albumin/Globulin Ratio 0.47 Ratio (1.60-3.17); Alkaline Phosphatase 142 U/L (41-126); BUN/Creat Ratio 15.75 Ratio (12.00-20.00); Blood Urea Nitrogen 25.2 mg/dL (9.0-27.0); Calcium 7.9 mg/dL (8.7-10.3); Carbon Dioxide 23.2 mmol/L (21.6-31.8); Chloride 100 mmol/L (96-109); Globulin 4.5 d/dL (1.6-3.3); Glucose 75 mg/dL (70-110); Sodium 135 mmol/L (135-145); Total Bilirubin 1.6 mg/dL (0.3-1.2); Total Protein 6.6 d/dL (6.2-8.2)
[2023-05-14 10:47] LABS: Basophils # (M) 0 X 10*3/uL (0.00-0.10); Eosinophils # (M) 0 X 10*3/uL (0.04-0.35); HCT 28.5 % (37.2-46.3); HGB 9.8 d/dL (12.0-15.0); Lymphocytes # (M) 0.88 X 10*3/uL (0.90-5.00); MCH 31.8 pg (27.0-32.0); MCHC 34.4 d/dL (32.0-37.0); MCV 92.5 FL (80.0-97.0); Mean Platelet Volume 11.4 FL (9.5-12.2); Monocytes # (M) 0.29 X 10*3/uL (0.20-1.00); NRBC Per 100 WBC 0.05 X 10*3/uL (0.00-0.01); Neutrophils # (M) 6.16 X 10*3/uL (1.80-7.70); Neutrophils % (M) 84 %; Nucleated Red Blood Cells 2 /100 WBCS; Platelet Count 91 X 10*3/uL (140-440); RBC 3.08 X 10*6/uL (4.10-5.20); RDW 17.2 % (11.5-14.5); Target Cells 2+; WBC 7.33 X 10*3/uL (4.50-10.00)
[2023-05-14] MEDS ORDERED: FUROSEMIDE 10 MG/ML 4 ML VIAL IV STA (10:56)
--- NOTE | 2023-05-14 11:01 | P.PN ---
Subjective Patient is seen in follow-up for acute kidney injury. Renal function improving. Receiving IV fluids. Denies vomiting or diarrhea. Has been voiding. Vital signs are stable. General: No acute distress. HEENT: Head exam is unremarkable. LUNGS: No audible rhonchi or wheezes. HEART: Rate and Rhythm are regular. ABDOMEN: Soft, nontender. EXTREMITITES: 1+ edema. Objective - Vital Signs Vital signs: Vital Signs Temp 97.4 F L 05/14/23 07:13 Pulse 95 05/14/23 07:13 Resp 16 05/14/23 07:13 BP 102/68 05/14/23 07:13 Pulse Ox 98 05/14/23 07:13 FiO2 Intake & Output 05/13/23 05/14/23 05/14/23 18:59 06:59 18:59 Intake Total 590 Balance 590 Intake: Oral 590 Other: Voiding Method Bedside Commode # Voids 1 1 # Bowel Movements 1 - Labs CBC & Chem 7: 05/14/23 04:48 05/14/23 04:48 Labs: Abnormal Lab Results - Last 24 Hours (Table) 05/13/23 05/14/23 05/14/23 Range/Units 15:22 04:48 04:48 RBC 3.08 L (4.10-5.20) X 10*6/uL Hgb 9.8 L (12.0-15.0) d/dL Hct 28.5 L (37.2-46.3) % RDW 17.2 H (11.5-14.5) % Plt Count 91 L (140-440) X 10*3/uL Lymphocytes # (Manual) 0.88 L (0.90-5.00) X 10*3/uL Eosinophils # (Manual) 0 L (0.04-0.35) X 10*3/uL NRBC/100 WBC Diff 0.05 H (0.00-0.01) X 10*3/uL Target Cells 2+ A Sodium 133 L (137-145) mmol/L BUN 29 H (7-17) mg/dL Creatinine 1.75 H 1.6 H (0.52-1.04) mg/dL Est GFR (CKD-EPI) 36 L (>=60) Glucose 104 H (74-99) mg/dL Calcium 7.9 L 7.9 L (8.4-10.2) mg/dL Total Bilirubin 1.6 H (0.3-1.2) mg/dL AST 70 H (13-35) U/L Alkaline Phosphatase 142 H (41-126) U/L Albumin 2.1 L (3.8-4.9) d/dL Globulin 4.5 H (1.6-3.3) d/dL Albumin/Globulin Ratio 0.47 L (1.60-3.17) Ratio Assessment and Plan Plan: Assessment: 1. Acute kidney injury mostly prerenal improving with IV hydration. Creatinine 3.02 on admission and is 1.6 today. UA benign. No hydronephrosis noted on kidney ultrasound but it was a limited study. 2. History of alcohol abuse. 3. Hypovolemic hyponatremia improved with IV hydration. 4. Thrombocytopenia. Possibly medication and alcohol induced. Consider hematology eval. 5. Diabetes mellitus. 6. Chronic diastolic CHF. Underwent paracentesis 05/07/2023 with 8 L removed. 7. Acute delirium being followed by psychiatry. 8. Anemia. Rule out iron deficiency. 9. Edema. Plan: Hep-Lock IV fluids. Lasix 40 mg IV once today. Low-salt diet. 1500 mL fluid restriction. Check iron studies. Avoid nephrotoxins. Continue to monitor renal function and urine output.
[2023-05-14 12:18] LABS: Glucose,Whole Blood 76 mg/dL (70-110)
--- NOTE | 2023-05-14 16:55 | P.PN ---
Subjective Progress Note Date: 05/14/23 Patient is evaluated today sitting up in the chair. Continues to be slow to respond with mild confusion. Patient is alert x3. Has significant abdominal distention with lower extremity edema. Received a dose of IV lasix today. Nephrology following. Creatinine has improved down to 1.6. S/P paracentesis on 05/07 with 8 Liters of straw colored fluid off. Review of Systems Constitutional: Denied any fatigue denied any fever. Cardio vascular: denied any chest pain, palpitations Gastrointestinal: denied any nausea, vomiting, diarrhea Pulmonary: Denied any shortness of breath cough Neurologic denied any new focal deficits All inpatient medications were reviewed and appropriate changes in these medications as dictated in the interval history and assessment and plan. PHYSICAL EXAMINATION: GENERAL: The patient is alert and oriented x2-3 with periods of acute confusion, slow to respond, not in any acute distress. Well developed, well nourished. HEENT: Pupils are round and equally reacting to light. EOMI. No scleral icterus. No conjunctival pallor. Normocephalic, atraumatic. No pharyngeal erythema. No thyromegaly. CARDIOVASCULAR: S1 and S2 present. No murmurs, rubs, or gallops. PULMONARY: Chest is clear to auscultation, no wheezing or crackles. ABDOMEN: Soft, nontender, distended, normoactive bowel sounds. No palpable organomegaly. MUSCULOSKELETAL: No joint swelling or deformity. EXTREMITIES: No cyanosis, clubbing. Bilateral lower extremity edema. NEUROLOGICAL: Gross neurological examination did not reveal any focal deficits. Diffuse generalized weakness and confusion. SKIN: No rashes. Assessment Altered mental status due to acute hepatic encephalopathy with elevated ammonia on admission Acute kidney injury prerenal Alcoholic hepatitis and abdominal ascites s/p paracentesis on 05/07 with 8L of fluid removed Chronic alcohol abuse recently quit 2 weeks ago Chronic diastolic dysfunction Alcohol Hypertension Diabetes Mellitus type 2 Hx of breast cancer with right mastectomy maintained on hormone therapy Hypothyroidism Hx hyperlipidemia Gastroesophageal reflux disease Morbid obesity BMI 54.9 GI prophylaxis Plan Avoid nephrotoxic agents, lisinopril being held Lasix x 1 given today by nephrology Continue low sodium diet and 1500 mL fluid restriction Follow up ammonia level Repeat abdominal ultrasound evaluation of abdominal ascites PT/OT recommending home with homecare adn 04/05 supervision Repeat labs in AM The impression and plan of care has been dictated by Sandrita Naidu, Nurse Practitioner as directed. Dr. Wiley MD I have performed a history and physical examination and medical decision making of this patient, discussed the same with the dictator, and agree with the dictators assessment and plan as written, documented as a scribe. Based on total visit time, I have performed more than 50% of this visit. Objective - Vital Signs Vital signs: Vital Signs Temp 97.4 F L 05/14/23 12:12 Pulse 66 05/14/23 12:12 Resp 18 05/14/23 12:12 BP 111/74 05/14/23 12:12 Pulse Ox 96 05/14/23 12:12 FiO2 Intake & Output 05/13/23 05/14/23 05/14/23 18:59 06:59 18:59 Intake Total 590 Balance 590 Intake: Oral 590 Other: Voiding Method Bedside Commode # Voids 1 1 # Bowel Movements 1 - Labs CBC & Chem 7: 05/14/23 04:48 05/14/23 04:48 Labs: Abnormal Lab Results - Last 24 Hours (Table) 05/14/23 05/14/23 Range/Units 04:48 04:48 RBC 3.08 L (4.10-5.20) X 10*6/uL Hgb 9.8 L (12.0-15.0) d/dL Hct 28.5 L (37.2-46.3) % RDW 17.2 H (11.5-14.5) % Plt Count 91 L (140-440) X 10*3/uL Lymphocytes # (Manual) 0.88 L (0.90-5.00) X 10*3/uL Eosinophils # (Manual) 0 L (0.04-0.35) X 10*3/uL NRBC/100 WBC Diff 0.05 H (0.00-0.01) X 10*3/uL Target Cells 2+ A Creatinine 1.6 H (0.6-1.5) mg/dL Est GFR (CKD-EPI) 36 L (>=60) Calcium 7.9 L (8.7-10.3) mg/dL Total Bilirubin 1.6 H (0.3-1.2) mg/dL AST 70 H (13-35) U/L Alkaline Phosphatase 142 H (41-126) U/L Albumin 2.1 L (3.8-4.9) d/dL Globulin 4.5 H (1.6-3.3) d/dL Albumin/Globulin Ratio 0.47 L (1.60-3.17) Ratio Assessment and Plan Time with Patient: Less than 30
--- NOTE | 2023-05-14 16:55 | CDI ---
Documentation Clarification Form Date: 05/14/2023 04:15:37 PM From: Farzana Graves RN Admit Date: 05/11/2023 12:11:00 PM Patient Name: Usha Multani Visit Number: [id number] Discharge Date: ATTENTION: The Clinical Documentation Specialists (CDI) and [facility] Coding Staff appreciate your assistance in clarifying documentation. Please respond to the clarification below the line at the bottom and electronically sign. The CDI & [facility] Coding staff will review the response and follow-up if needed. Please note: Queries are made part of the Legal Health Record. If you have any questions, please contact the author of this message via ITS. Dr. Bart Monge Your patient has the documented symptom of Altered Mental Status likely secondary to multiple etiologies including withdrawal etoh, medications, toxic metabolic Additional clarification regarding the etiology/cause of this symptom is requested. History/Risk Factors: alcohol abuse and liver cirrhosis. Cancer, Diabetes Mellitus, GERD/Reflux, Hyperlipidemia, Hypertension, Osteoarthritis (OA), Thyroid Disorder Clinical Indicators: 63-year-old female present with complaints of someone is breaking into her house. Police check found her to be delusional. 05/11 VS: 92/58 90 18 97.5 100 % RA Urine drug screen positive for opioids, tricyclic antidepressants and Benzodiazepines Labs: Na 132, Cl 97 CO2 19 bun 29 Cr 3.01 Total Bilirubin 2.0 Alkaline Phosphatase 157, Ammonia 36 CT Abd/Bladder Limited secondary to patient body habitus. Right lower pole not visualized Let kidney was not visualized. Treatment: Neuro checks per protocol. Avoiding use of narcotics and [employer]CK[employer] sedatives, limit anticholinergic medications when possible frequent re-orientation transplant worker to provide patient substance use treatment resources including AA/NA meetings in the community. Outpatient mental health/psychiatry resources Please clarify the etiology of the symptom of Altered Mental Status: [ ] Toxic metabolic encephalopathy due to medications, [ x] Other condition (please specify) hepatic encephalopathy [ ] Unable to determine (Template Last Revised: November 2020) MTDD
[2023-05-14 17:22] LABS: Glucose,Whole Blood 75 mg/dL (70-110)
--- NOTE | 2023-05-14 17:25 | CDI ---
Documentation Clarification Form Date: 05/14/2023 05:08:00 PM From: Farzana Graves RN, CCDS Admit Date: 05/11/2023 12:11:00 PM Patient Name: Usha Multani Visit Number: [id number] Discharge Date: ATTENTION: The Clinical Documentation Specialists (CDI) and [facility] Coding Staff appreciate your assistance in clarifying documentation. Please respond to the clarification below the line at the bottom and electronically sign. The CDI & [facility] Coding staff will review the response and follow-up if needed. Please note: Queries are made part of the Legal Health Record. If you have any questions, please contact the author of this message via ITS. Dr. Bart Monge Your patient has a BMI of 54.9. Based on this information and the findings below, is there an additional diagnosis that is clinically appropriate for this patient? Patient history/risk factors: alcohol abuse and liver cirrhosis. Cancer, Diabetes Mellitus, GERD/Reflux, Hyperlipidemia, Hypertension, Osteoarthritis (OA), Thyroid Disorder 92/58 90 18 97.5 Clinical Indicators: 63-year-old female with fall and delusion. She lives alone. She has difficulty with transfer per OT/PT assessment. BMI 54.9 Vs: 92/58 90 18 97.5 Treatment: OT/PT Evaluation Assist with ADL Is there an additional diagnosis that is clinically appropriate for this patient? [ x ] Morbid Obesity BMI 54.9 [ ] Unable to determine [ ] Other, please specify (Template Last Reviewed: November 2022) MTDD
[2023-05-14 20:11] LABS: Glucose,Whole Blood 74 mg/dL (70-110)
[2023-05-14] MEDS ORDERED: NON FORMULARY DRUG (Dulaglutide [Trulicity] 4.5 MG/0.5 ML Each) SQ SCH (20:16)
[2023-05-14] MEDS: QUEtiapine 25 MG TAB PO SCH (21:37)
[2023-05-14] MEDS: LACTULOSE 20 GM/30 ML CUP PO SCH ×2 (21:37→21:40)
--- NOTE | 2023-05-14 21:43 | US ---
EXAMINATION TYPE: US abdomen limited DATE OF EXAM: 05/14/2023 COMPARISON: EXAMINATION TYPE: US abdomen limited DATE OF EXAM: 05/14/2023 COMPARISON: 02/06/23 CLINICAL INDICATION: Female, 63 years old with history of ascites; Hx of sterling. Ascites check There is fluid seen in the RLQ, LLQ, and LUQ quadrants. Trace amount of fluid seen in RUQ. Pt was khanh mushtaq a little to the left side. IMPRESSION: Abdominal ascites throughout the abdomen.
[2023-05-15 01:52] LABS: Glucose,Whole Blood 86 mg/dL (70-110)
[2023-05-15] MEDS: LEVOTHYROXINE 100 MCG TAB PO SCH (05:29)
[2023-05-15 07:23] LABS: Glucose,Whole Blood 70 mg/dL (70-110)
[2023-05-15] MEDS: INSULIN ASPART (NovoLOG) 100 UNIT/ML VIAL SQ SCH ×4 (08:52→20:24)
[2023-05-15] MEDS: MONTELUKAST 10 MG TAB PO SCH (08:57)
[2023-05-15] MEDS: ESCITALOPRAM 10 MG TAB PO SCH (08:57)
[2023-05-15] MEDS: PANTOPRAZOLE 40 MG TABLET PO SCH (08:57)
[2023-05-15] MEDS: CHOLECALCIFEROL 25 MCG (1000 IU) TABLET PO SCH (08:57)
[2023-05-15] MEDS: allopurinoL 300 MG TAB PO SCH (08:57)
[2023-05-15] MEDS: ANASTROZOLE 1 MG TAB PO SCH (08:57)
[2023-05-15] MEDS: DAPAGLIFLOZIN PROPANEDIOL 10 MG TABLET PO SCH (08:57)
[2023-05-15] MEDS: THIAMINE 100 MG TAB PO SCH (08:57)
[2023-05-15] MEDS: FOLIC ACID 1 MG TAB PO SCH (08:57)
[2023-05-15] MEDS: LACTULOSE 20 GM/30 ML CUP PO SCH ×3 (08:57→22:23)
[2023-05-15 11:16] LABS: BUN/Creat Ratio 16.53 Ratio (12.00-20.00); Blood Urea Nitrogen 24.8 mg/dL (9.0-27.0); Calcium 8.1 mg/dL (8.7-10.3); Carbon Dioxide 23.8 mmol/L (21.6-31.8); Chloride 100 mmol/L (96-109); Glucose 71 mg/dL (70-110); Magnesium 1.1 mg/dL (1.5-2.4); Sodium 134 mmol/L (135-145)
[2023-05-15] MEDS: HYDROcodone/APAP 10-325MG 1 EACH TAB PO PRN (11:18)
--- NOTE | 2023-05-15 12:19 | P.PN ---
Subjective Patient is seen in follow-up for acute kidney injury. Renal function stable. Off IV fluids. Denies vomiting or diarrhea. Has been voiding. Oral intake fair. Vital signs are stable. General: No acute distress. HEENT: Head exam is unremarkable. LUNGS: No audible rhonchi or wheezes. HEART: Rate and Rhythm are regular. ABDOMEN: Soft, nontender. EXTREMITITES: 1+ edema. Objective - Vital Signs Vital signs: Vital Signs Temp 97.4 F L 05/15/23 07:19 Pulse 99 05/15/23 07:19 Resp 18 05/15/23 07:19 BP 116/77 05/15/23 07:19 Pulse Ox 98 05/15/23 07:19 FiO2 Intake & Output 05/14/23 05/15/23 05/15/23 18:59 06:59 18:59 Intake Total 100 Output Total 0 Balance 100 Intake: Oral 100 Output: Gastric Drainage 0 Other: Voiding Method Bedside Commode Bedside Commode # Voids 1 2 # Bowel Movements 1 1 - Labs CBC & Chem 7: 05/14/23 04:48 05/15/23 06:45 Labs: Abnormal Lab Results - Last 24 Hours (Table) 05/14/23 05/15/23 Range/Units 17:44 06:45 Sodium 134 L (135-145) mmol/L Est GFR (CKD-EPI) 38 L (>=60) Calcium 8.1 L (8.7-10.3) mg/dL Magnesium 1.1 L (1.5-2.4) mg/dL Ammonia 67 H (<30) umol/L Assessment and Plan Plan: Assessment: 1. Acute kidney injury mostly prerenal improving with IV hydration. Creatinine 3.02 on admission and is 1.5 today. UA benign. No hydronephrosis noted on kidney ultrasound but it was a limited study. 2. History of alcohol abuse. 3. Hypovolemic hyponatremia improved with IV hydration. Stable. 4. Thrombocytopenia. Possibly medication and alcohol induced. Consider hematology eval. 5. Diabetes mellitus. 6. Chronic diastolic CHF. Underwent paracentesis 05/07/2023 with 8 L removed. 7. Acute delirium being followed by psychiatry. 8. Anemia. Rule out iron deficiency. 9. Edema. Status post IV Lasix 05/14/2023. 10. Hypomagnesemia from poor intake and diuretics. Plan: Low-salt diet. 1500 mL fluid restriction. Follow-up iron studies. Avoid nephrotoxins. Continue to monitor renal function and urine output. Replace magnesium.
[2023-05-15 12:22] LABS: Glucose,Whole Blood 73 mg/dL (70-110)
[2023-05-15] MEDS: MAGNESIUM SULFATE-D5W PMX 1 GM in DEXTROSE/WATER 1 100ML.BAG IVPB SCH ×3 (13:12→17:50)
[2023-05-15 13:36] LABS: INR 1.5 (<1.2); Prothrombin Time 14.7 sec (9.0-12.0)
[2023-05-15 17:32] LABS: Glucose,Whole Blood 98 mg/dL (70-110)
--- NOTE | 2023-05-15 19:32 | P.PN ---
Subjective Progress Note Date: 05/15/23 Patient is evaluated today sitting up in the chair. Continues to be slow to respond with mild confusion. Patient is alert x3. Has significant abdominal distention with lower extremity edema. Received a dose of IV lasix today. Nephrology following. Creatinine has improved down to 1.6. S/P paracentesis on 05/07 with 8 Liters of straw colored fluid off. 05/15/2023 Patient is evaluated today sitting up in chair. Mentation improved from yesterday able to converse easier. Ammonia level came back elevated at 67 and patient was started on lactulose TID overnight. Goal of 2 to 3 loose bowel movements a day which patient did have 3 bowel movements documented in the last 24 hours. Patient underwent abdominal ultrasound revealing ascites. IR is consulted for ultrasound guided paracentesis. Magnesium 1.1 today and creatinine improved further to 1.5. Review of Systems Constitutional: Denied any fatigue denied any fever. Cardio vascular: denied any chest pain, palpitations Gastrointestinal: denied any nausea, vomiting, diarrhea Pulmonary: Denied any shortness of breath cough Neurologic denied any new focal deficits All inpatient medications were reviewed and appropriate changes in these medications as dictated in the interval history and assessment and plan. PHYSICAL EXAMINATION: GENERAL: The patient is alert and oriented x2-3 with periods of acute confusion, slow to respond, not in any acute distress. Well developed, well nourished. HEENT: Pupils are round and equally reacting to light. EOMI. No scleral icterus. No conjunctival pallor. Normocephalic, atraumatic. No pharyngeal erythema. No thyromegaly. CARDIOVASCULAR: S1 and S2 present. No murmurs, rubs, or gallops. PULMONARY: Chest is clear to auscultation, no wheezing or crackles. ABDOMEN: Soft, nontender, distended, normoactive bowel sounds. No palpable organomegaly. MUSCULOSKELETAL: No joint swelling or deformity. EXTREMITIES: No cyanosis, clubbing. Bilateral lower extremity edema. NEUROLOGICAL: Gross neurological examination did not reveal any focal deficits. Diffuse generalized weakness and confusion. SKIN: No rashes. Assessment Altered mental status due to acute hepatic encephalopathy with elevated ammonia on admission improving. Acute kidney injury prerenal Alcoholic hepatitis and abdominal ascites s/p paracentesis on 05/07 with 8L of fluid removed Chronic alcohol abuse recently quit 2 weeks ago Chronic diastolic dysfunction Alcohol Hypertension Diabetes Mellitus type 2 Hx of breast cancer with right mastectomy maintained on hormone therapy Hypothyroidism Hx hyperlipidemia Gastroesophageal reflux disease Morbid obesity BMI 54.9 GI prophylaxis Plan Avoid nephrotoxic agents, lisinopril being held Continue low sodium diet and 1500 mL fluid restriction Continue on lactulose TID with goal of 2 to 3 loose bowel movements a day Repeat abdominal ultrasound evaluation of abdominal ascites and IR has been consulted for US guided paracentesis PT/OT recommending home with homecare adn 04/05 supervision Repeat labs in AM The impression and plan of care has been dictated by Sandrita Naidu, Nurse Practitioner as directed. Dr. Wiley MD I have performed a history and physical examination and medical decision making of this patient, discussed the same with the dictator, and agree with the dictators assessment and plan as written, documented as a scribe. Based on total visit time, I have performed more than 50% of this visit. Objective - Vital Signs Vital signs: Vital Signs Temp 97.5 F L 05/15/23 12:17 Pulse 67 05/15/23 12:17 Resp 18 05/15/23 12:17 BP 104/69 05/15/23 12:17 Pulse Ox 98 05/15/23 12:17 FiO2 Intake & Output 05/15/23 05/15/23 05/16/23 06:59 18:59 06:59 Intake Total 100 Output Total 0 Balance 100 Intake: Oral 100 Output: Gastric Drainage 0 Other: Voiding Method Bedside Commode Bedside Commode # Voids 2 1 # Bowel Movements 1 1 - Labs CBC & Chem 7: 05/14/23 04:48 05/15/23 06:45 Labs: Abnormal Lab Results - Last 24 Hours (Table) 05/15/23 05/15/23 Range/Units 06:45 12:37 PT 14.7 H (9.0-12.0) sec INR 1.5 H (<1.2) Sodium 134 L (135-145) mmol/L Est GFR (CKD-EPI) 38 L (>=60) Calcium 8.1 L (8.7-10.3) mg/dL Magnesium 1.1 L (1.5-2.4) mg/dL Assessment and Plan Time with Patient: Less than 30
[2023-05-15 20:12] LABS: Glucose,Whole Blood 127 mg/dL (70-110)
[2023-05-15] MEDS: QUEtiapine 25 MG TAB PO SCH (20:23)
[2023-05-16 01:15] LABS: % Iron Saturation 51.9 (12.00-45.00)
[2023-05-16 02:00] LABS: Glucose,Whole Blood 83 mg/dL (70-110)
[2023-05-16] MEDS: LEVOTHYROXINE 100 MCG TAB PO SCH (05:45)
[2023-05-16 07:00] LABS: Glucose,Whole Blood 87 mg/dL (70-110)
[2023-05-16] MEDS: INSULIN ASPART (NovoLOG) 100 UNIT/ML VIAL SQ SCH ×4 (07:19→20:50)
[2023-05-16 11:18] LABS: BUN/Creat Ratio 15.62 Ratio (12.00-20.00); Calcium 8.2 mg/dL (8.7-10.3); Carbon Dioxide 23.5 mmol/L (21.6-31.8); Chloride 100 mmol/L (96-109); Glucose 72 mg/dL (70-110); Magnesium 1.6 mg/dL (1.5-2.4); Sodium 135 mmol/L (135-145)
[2023-05-16] MEDS: ALBUMIN HUMAN 25% 50 ML in EMPTY BAG 1 BAG IVPB SCH ×2 (11:20→14:37)
[2023-05-16 11:50] LABS: Glucose,Whole Blood 83 mg/dL (70-110)
--- NOTE | 2023-05-16 12:42 | P.PN ---
Subjective Patient is seen in follow-up for acute kidney injury. Renal function stable. Off IV fluids. Denies vomiting or diarrhea. Has been voiding. Oral intake fair. Scheduled for paracentesis today. Vital signs are stable. General: No acute distress. HEENT: Head exam is unremarkable. LUNGS: No audible rhonchi or wheezes. HEART: Rate and Rhythm are regular. ABDOMEN: Soft, nontender. Distention noted. EXTREMITITES: 1+ edema. Objective - Vital Signs Vital signs: Vital Signs Temp 97.8 F 05/16/23 07:01 Pulse 104 H 05/16/23 07:01 Resp 16 05/16/23 07:01 BP 130/82 05/16/23 07:01 Pulse Ox 95 05/16/23 07:01 FiO2 Intake & Output 05/15/23 05/16/23 05/16/23 18:59 06:59 18:59 Intake Total 100 Balance 100 Intake: Oral 100 Other: Voiding Method Bedside Commode Bedside Commode Bedside Commode # Voids 1 3 # Bowel Movements 1 - Labs CBC & Chem 7: 05/14/23 04:48 05/16/23 06:14 Labs: Abnormal Lab Results - Last 24 Hours (Table) 05/15/23 05/15/23 05/15/23 Range/Units 06:45 12:37 20:09 PT 14.7 H (9.0-12.0) sec INR 1.5 H (<1.2) Creatinine (0.6-1.5) mg/dL Est GFR (CKD-EPI) (>=60) POC Glucose (mg/dL) 127 H (70-110) mg/dL Calcium (8.7-10.3) mg/dL TIBC 158 L (228-460) UG/DL % Saturation 51.90 H (12.00-45.00) Transferrin 113.0 L (204.0-354.0) mg/dL Ferritin 419.0 H (10.0-291.0) ng/mL Ammonia (<30) umol/L 05/16/23 05/16/23 Range/Units 06:14 06:14 PT (9.0-12.0) sec INR (<1.2) Creatinine 1.6 H (0.6-1.5) mg/dL Est GFR (CKD-EPI) 36 L (>=60) POC Glucose (mg/dL) (70-110) mg/dL Calcium 8.2 L (8.7-10.3) mg/dL TIBC (228-460) UG/DL % Saturation (12.00-45.00) Transferrin (204.0-354.0) mg/dL Ferritin (10.0-291.0) ng/mL Ammonia 35 H (<30) umol/L Assessment and Plan Plan: Assessment: 1. Acute kidney injury mostly prerenal improving with IV hydration. Creatinine 3.02 on admission and is stable at 1.6 today. UA benign. No hydronephrosis noted on kidney ultrasound but it was a limited study. 2. History of alcohol abuse. 3. Hypovolemic hyponatremia improved with IV hydration. Stable. No hypervolemic. 4. Thrombocytopenia. Possibly medication and alcohol induced. Consider hematology eval. 5. Diabetes mellitus. 6. Chronic diastolic CHF. Underwent paracentesis 05/07/2023 with 8 L removed. Scheduled for another paracentesis today. 7. Acute delirium being followed by psychiatry. 8. Anemia. Iron replete. 9. Volume overload. Status post IV Lasix 05/14/2023. 10. Hypomagnesemia from poor intake and diuretics. Replace. Better. Plan: Low-salt diet. 1500 mL fluid restriction. Avoid nephrotoxins. Continue to monitor renal function and urine output. 25 g IV albumin before and 25 g IV albumin post-paracentesis. Add spironolactone 25 mg twice daily. Add Lasix 20 mg once daily. Add oral magnesium oxide. Advised patient to follow-up with GI.
[2023-05-16] MEDS: MAGNESIUM OXIDE 400 MG TAB PO SCH ×2 (14:38→20:57)
[2023-05-16] MEDS: PANTOPRAZOLE 40 MG TABLET PO SCH (14:38)
[2023-05-16] MEDS: FOLIC ACID 1 MG TAB PO SCH (14:38)
[2023-05-16] MEDS: SPIRONOLACTONE 25 MG TAB PO SCH ×2 (14:38→20:57)
[2023-05-16] MEDS: MONTELUKAST 10 MG TAB PO SCH (14:38)
[2023-05-16] MEDS: THIAMINE 100 MG TAB PO SCH (14:38)
[2023-05-16] MEDS: LACTULOSE 20 GM/30 ML CUP PO SCH ×3 (14:38→20:57)
[2023-05-16] MEDS: FUROSEMIDE 20 MG TAB PO SCH (14:38)
[2023-05-16] MEDS: CHOLECALCIFEROL 25 MCG (1000 IU) TABLET PO SCH (14:39)
[2023-05-16] MEDS: allopurinoL 300 MG TAB PO SCH (14:39)
[2023-05-16] MEDS: ESCITALOPRAM 10 MG TAB PO SCH (14:47)
[2023-05-16] MEDS: DAPAGLIFLOZIN PROPANEDIOL 10 MG TABLET PO SCH (14:48)
[2023-05-16] MEDS: ANASTROZOLE 1 MG TAB PO SCH (14:48)
--- NOTE | 2023-05-16 15:32 | US ---
EXAMINATION TYPE: US paracentesis abd w/image DATE OF EXAM: 05/16/2023 CLINICAL HISTORY: 63-year-old female with recurrent ascites The procedure was discussed with the patient. The risks, complications, benefits, and alternatives we re discussed and any questions were answered. Informed consent was obtained. The patient was placed s upine on the ultrasound table and prepped and draped in the usual sterile fashion. All elements of maximal barrier technique were utilized. Ultrasound was utilized to determine the precise skin entry site along the right lower quadrant. 6 Fr takokat safety Barreesis catheter system was utilized to obtain access into the ascites collection. Local anesthesia with 1% lidocaine was utilized prior to catheter insertion. Approximately 7.3 liters of straw-colored fluid was removed. The patient was stable throughout the pr ocedure and remained stable upon discharge from Department of Radiology. Catheter was removed, hemostasis obtained, and a bandage placed. IMPRESSION: Successful therapeutic paracentesis under ultrasound guidance. 7.3 L of ascites fluid removed.
[2023-05-16 16:59] LABS: Glucose,Whole Blood 83 mg/dL (70-110)
[2023-05-16] MEDS: HYDROcodone/APAP 10-325MG 1 EACH TAB PO PRN (18:42)
[2023-05-16 20:26] LABS: Glucose,Whole Blood 86 mg/dL (70-110)
[2023-05-16] MEDS: QUEtiapine 25 MG TAB PO SCH (20:58)
[2023-05-17 01:52] LABS: Glucose,Whole Blood 80 mg/dL (70-110)
[2023-05-17] MEDS: HYDROcodone/APAP 10-325MG 1 EACH TAB PO PRN (04:19)
[2023-05-17 04:30] LABS: African American GFR (CKD) 47 (>60 ml/min/1.73 sqM); Anion Gap 8 mmol/L; Blood Urea Nitrogen 24 mg/dL (7-17); Calcium 8.1 mg/dL (8.4-10.2); Carbon Dioxide 25 mmol/L (22-30); Chloride 101 mmol/L (98-107); Glucose 78 mg/dL (74-99); Magnesium 1.5 mg/dL (1.6-2.3); Non-African American GFR(CKD) 41 (>60 ml/min/1.73 sqM); Potassium 3.7 mmol/L (3.5-5.1); Sodium 134 mmol/L (137-145)
[2023-05-17] MEDS: LEVOTHYROXINE 100 MCG TAB PO SCH (06:15)
[2023-05-17 07:04] LABS: Glucose,Whole Blood 80 mg/dL (70-110)
[2023-05-17] MEDS: INSULIN ASPART (NovoLOG) 100 UNIT/ML VIAL SQ SCH ×2 (07:09→12:03)
[2023-05-17] MEDS: MAGNESIUM OXIDE 400 MG TAB PO SCH (09:52)
[2023-05-17] MEDS: allopurinoL 300 MG TAB PO SCH (09:52)
[2023-05-17] MEDS: ESCITALOPRAM 10 MG TAB PO SCH (09:52)
[2023-05-17] MEDS: FUROSEMIDE 20 MG TAB PO SCH (09:52)
[2023-05-17] MEDS: DAPAGLIFLOZIN PROPANEDIOL 10 MG TABLET PO SCH (09:52)
[2023-05-17] MEDS: CHOLECALCIFEROL 25 MCG (1000 IU) TABLET PO SCH (09:52)
[2023-05-17] MEDS: LACTULOSE 20 GM/30 ML CUP PO SCH (09:52)
[2023-05-17] MEDS: SPIRONOLACTONE 25 MG TAB PO SCH (09:52)
[2023-05-17] MEDS: MONTELUKAST 10 MG TAB PO SCH (09:52)
[2023-05-17] MEDS: PANTOPRAZOLE 40 MG TABLET PO SCH (09:52)
[2023-05-17] MEDS: FOLIC ACID 1 MG TAB PO SCH (09:52)
[2023-05-17] MEDS: THIAMINE 100 MG TAB PO SCH (09:52)
[2023-05-17] MEDS: ANASTROZOLE 1 MG TAB PO SCH (09:52)
--- NOTE | 2023-05-17 10:21 | P.PN ---
Subjective Patient is seen in follow-up for acute kidney injury. Renal function better. Diuretics. Denies vomiting or diarrhea. Has been voiding. Oral intake fair. Hemodynamically stable. Vital signs are stable. General: No acute distress. HEENT: Head exam is unremarkable. LUNGS: No audible rhonchi or wheezes. HEART: Rate and Rhythm are regular. ABDOMEN: Soft, nontender. Obese. EXTREMITITES: 1+ edema. Objective - Vital Signs Vital signs: Vital Signs Temp 97.6 F 05/17/23 07:14 Pulse 102 H 05/17/23 07:14 Resp 16 05/17/23 07:14 BP 127/78 05/17/23 07:14 Pulse Ox 95 05/17/23 07:14 FiO2 Intake & Output 05/16/23 05/17/23 05/17/23 18:59 06:59 18:59 Intake Total 1080 Balance 1080 Intake: Oral 1080 Other: Voiding Method Bedside Commode Bedside Commode Bedside Commode # Voids 1 3 1 # Bowel Movements 1 2 - Labs CBC & Chem 7: 05/14/23 04:48 05/17/23 03:34 Labs: Abnormal Lab Results - Last 24 Hours (Table) 05/16/23 05/17/23 Range/Units 06:14 03:34 Sodium 134 L (137-145) mmol/L BUN 24 H (7-17) mg/dL Creatinine 1.6 H 1.36 H (0.6-1.5) mg/dL Est GFR (CKD-EPI) 36 L (>=60) Calcium 8.2 L 8.1 L (8.7-10.3) mg/dL Magnesium 1.5 L (1.6-2.3) mg/dL Assessment and Plan Plan: Assessment: 1. Acute kidney injury mostly prerenal improving with IV hydration. Creatinine 3.02 on admission and is improved to 1.36 today. UA benign. No hydronephrosis noted on kidney ultrasound but it was a limited study. 2. History of alcohol abuse. 3. Hypovolemic hyponatremia improved with IV hydration. Stable. Now hypervolemic. 4. Thrombocytopenia. Possibly medication and alcohol induced. Consider hematology eval. 5. Diabetes mellitus. 6. Chronic diastolic CHF. Underwent paracentesis 05/07/2023 with 8 L removed. Status post paracentesis 05/16/2023 to 7.3 L drained. 7. Acute delirium being followed by psychiatry. 8. Anemia. Iron replete. 9. Volume overload. Better with diuretics and paracentesis. 10. Hypomagnesemia from poor intake and diuretics. On oral magnesium oxide. Plan: Low-salt diet. 1500 mL fluid restriction. Avoid nephrotoxins. Continue to monitor renal function and urine output. Increase spironolactone dose to 50 mg twice daily. Advised patient to follow-up with GI. 2 g IV magnesium sulfate today.
[2023-05-17 12:00] LABS: Glucose,Whole Blood 93 mg/dL (70-110)
[2023-05-17] MEDS ORDERED: VERAPAMIL 40 MG TAB PO SCH (12:30)
[2023-05-17] MEDS: MAGNESIUM SULFATE-D5W PMX 1 GM in DEXTROSE/WATER 1 100ML.BAG IVPB SCH ×2 (12:49→14:27)
[2023-05-17 13:37] VITALS: BP 115/78; PULSE 110; RESP 18; TEMP 98.3
[2023-05-17] MEDS ORDERED: SPIRONOLACTONE 25 MG TAB PO SCH (21:00)
--- NOTE | 2023-05-18 23:08 | P.DS ---
Providers Date of admission: 05/11/23 12:11 Attending physician: Bart Monge Consults: 05/11/23 12:11 Consult Physician Urgent Consulting Provider: Hank Cosme Consult Reason/Comments: Delusional Do you want consulting provider notified?: Yes Consult Physician Urgent Consulting Provider: Sherie Frias Consult Reason/Comments: acute renal failure Do you want consulting provider notified?: Yes Primary care physician: Bart Monge Hospital Course: Final Diagnosis Altered mental status due to acute hepatic encephalopathy with elevated ammonia on admission improving. Acute kidney injury prerenal Alcoholic hepatitis and abdominal ascites s/p paracentesis on 05/07 with 8L of fluid removed Chronic alcohol abuse recently quit 2 weeks ago Chronic diastolic dysfunction Alcohol Hypertension Diabetes Mellitus type 2 Hx of breast cancer with right mastectomy maintained on hormone therapy Hypothyroidism Hx hyperlipidemia Gastroesophageal reflux disease Morbid obesity BMI 54.9 Discharge Disposition Patient is stable for discharge home refusing subacute rehab. Avoid NSAIDs, recommending to continue holding metformin and hold captopril on discharge. Continue oral magnesium. Continue on oral lactulose 20 mg three times a day, goal is to have 2 to 3 loose bowel movements a day to keep ammonia level down. Continue on low sodium 2000 mg daily diet and 1500 mL fluid restriction per 24 hours. Patient to follow up with nephrology in 1 week on discharge. Patient has been set up to see Dr Millie pack on discharge. Recommending repeat labs in 2 to 3 days including CBC, BMP, magnesium and ammonia level. Counseled extensively on total alcohol cessation. Hospital Course This is a pleasant 63 year old female with past medical significant for alcohol abuse and liver cirrhosis in the ER for psychiatric evaluation. Patient has been drinking at home and called police stating that someone is breaking into her house. Police came to check on her and found her to be delusional. Patient denied any complaint of auditory hallucinations. Denies any homicidal hospital course. Patient admits to drinking wine daily.Initial lab work done in the ER showed WBC 10.3, hemoglobin 10.6, platelet count 106, sodium 132, potassium 4, BUN/creatinine, creatinine 3.01 bilirubin 2, AST 78, ALT 51, urine drug screen positive for opioids and tricyclic antidepressants. Patient was admitted to the hospital with consult placed to nephrology. Patient was hydrated for the ALINE. Had evidence of large volume ascities and underwent paracentesis with 8L of fluid off. Noted that patient had paracentesis recently on the as well. Patient had elevated ammonia level and received lactulose, mentation did improve. Nephrology recommending fluid restriction and low sodium diet. Patient refusing subacute rehab and would like to return home with care services. Counseled extensively on total alcohol cessation. Creatinine has improved to 1.36. Patient did received a dose of IV lasix. Diuretics decreased on discharge. Currently denying shortness of breath, no chest pain. Reports improvement in abdominal tightness. Having bowel movements 2 to 3 per day as recommended. Confusion improved. Lungs are clear S1 S2 auscultated abdomen is soft and nontender focal neurological exam is negative. Patient cleared by consultations for discharge. Above mentioned recommendations discussed with Patient and daughter she may need more frequent paracentesis. Please see medication reconciliation for a list of current medication. Thank you for allowing us to participate in the care of this patient. The impression and plan of care has been dictated by Sandrita Naidu, Nurse Practitioner as directed. Dr. Wiley MD I have performed a history and physical examination and medical decision making of this patient, discussed the same with the dictator, and agree with the dictators assessment and plan as written, documented as a scribe. Based on total visit time, I have performed more than 50% of this visit. Patient Condition at Discharge: Fair Plan - Discharge Summary New Discharge Prescriptions: New Furosemide [Lasix] 20 mg PO DAILY #30 tab Lactulose [Cephulac] 20 gm PO TID #200 ml Escitalopram [Lexapro] 10 mg PO DAILY #30 tab Magnesium Oxide [Mag-Ox] 400 mg PO DAILY #30 tab QUEtiapine [SEROquel] 12.5 mg PO HS #30 tab Thiamine [Vitamin B-1] 100 mg PO DAILY #30 tab Spironolactone [Aldactone] 50 mg PO BID #60 tab Continue Levothyroxine Sodium [Synthroid] 100 mcg PO DAILY Cholecalciferol [Vitamin D3 (25 Mcg = 1000 Iu)] 50 mcg PO DAILY HYDROcodone/APAP 10-325MG [[place] 10-325] 1 tab PO Q6H PRN PRN Reason: Pain allopurinoL [Zyloprim] 300 mg PO DAILY Montelukast [Singulair] 10 mg PO DAILY Empagliflozin [Jardiance] 25 mg PO DAILY Anastrozole [Arimidex] 1 mg PO DAILY Dulaglutide [Trulicity] 4.5 mg SQ MO Pantoprazole [Protonix] 40 mg PO DAILY Albuterol Inhaler [Ventolin Hfa Inhaler] 2 puff INHALATION RT-Q6H PRN PRN Reason: Shortness Of Breath Folic Acid 1 mg PO DAILY #30 tab Discontinued ALPRAZolam [Xanax] 1 mg PO TID PRN PRN Reason: Anxiety Amitriptyline HCl [Elavil] 25 mg PO BID Furosemide [Lasix] 40 mg PO BID metFORMIN HCL [Glucophage] 500 mg PO BID Colchicine 0.6 mg PO BID captopriL [Capoten] 50 mg PO BID Spironolactone [Aldactone] 100 mg PO DAILY #30 tab Verapamil [Isoptin] 80 mg PO TID Discharge Medication List Levothyroxine Sodium [Synthroid] 100 mcg PO DAILY 07/06/15 [History] Anastrozole [Arimidex] 1 mg PO DAILY 01/04/22 [History] Cholecalciferol [Vitamin D3 (25 Mcg = 1000 Iu)] 50 mcg PO DAILY 01/04/22 [History] Dulaglutide [Trulicity] 4.5 mg SQ MO 01/04/22 [History] Pantoprazole [Protonix] 40 mg PO DAILY 12/06/22 [History] HYDROcodone/APAP 10-325MG [[place] 10-325] 1 tab PO Q6H PRN 01/26/23 [History] allopurinoL [Zyloprim] 300 mg PO DAILY 01/26/23 [History] Empagliflozin [Jardiance] 25 mg PO DAILY 02/05/23 [History] Montelukast [Singulair] 10 mg PO DAILY 02/05/23 [History] Albuterol Inhaler [Ventolin Hfa Inhaler] 2 puff INHALATION RT-Q6H PRN 05/03/23 [History] Folic Acid 1 mg PO DAILY #30 tab 05/08/23 [Rx] Escitalopram [Lexapro] 10 mg PO DAILY #30 tab 05/17/23 [Rx] Furosemide [Lasix] 20 mg PO DAILY #30 tab 05/17/23 [Rx] Lactulose [Cephulac] 20 gm PO TID #200 ml 05/17/23 [Rx] Magnesium Oxide [Mag-Ox] 400 mg PO DAILY #30 tab 05/17/23 [Rx] QUEtiapine [SEROquel] 12.5 mg PO HS #30 tab 05/17/23 [Rx] Spironolactone [Aldactone] 50 mg PO BID #60 tab 05/17/23 [Rx] Thiamine [Vitamin B-1] 100 mg PO DAILY #30 tab 05/17/23 [Rx] Follow up Appointment(s)/Referral(s): [facility], [NON-STAFF] - 1 Week Bart Monge MD [Primary Care Provider] - 05/21/23 1:30 pm Keri Pack MD [STAFF PHYSICIAN] - 05/22/23 8:45 am John Segovia DO [STAFF PHYSICIAN] - 1 Week (Patient needs to call to make an appointment with Dr. Segovia for a follow up appointment.) Ambulatory/Diagnostic Orders: Complete Blood Count w/diff [LAB.AMB] Time Frame: 3 Days, Location: None Shayy cted Comprehensive Metabolic Panel [LAB.AMB] Time Frame: 3 Days, Location: None Selected Magnesium [LAB.AMB] Time Frame: 3 Days, Location: None Selected Miscellaneous Lab Order [LAB.AMB] Time Frame: 3 Days, Location: None Selected Patient Instructions/Handouts: Acute Kidney Injury (DC), Abuse of Alcohol (DC) Activity/Diet/Wound Care/Special Instructions: Follow up with GI services on discharge, Dr. Millie Pack's information has been provided Follow up with nephrology in 1 week Avoid NSAIDs, recommending to continue holding metformin and hold captopril on discharge Continue on oral magnesium daily Recommend total alcohol cessation Repeat ammonia level in 2 to 3 days Continue on oral lactulose 20 mg three times a day, goal is to have 2 to 3 loose bowel movements a day to keep ammonia level down [facility] on discharge Continue on low sodium 2000 mg daily diet and 1500 mL fluid restriction per 24 hours Discharge Disposition: HOME WITH HOME HEALTH SERVICES
--- NOTE | 2023-05-18 23:10 | P.PN ---
Subjective Progress Note Date: 05/16/23 Patient is evaluated today sitting up in the chair. Continues to be slow to respond with mild confusion. Patient is alert x3. Has significant abdominal distention with lower extremity edema. Received a dose of IV lasix today. Nephrology following. Creatinine has improved down to 1.6. S/P paracentesis on 05/07 with 8 Liters of straw colored fluid off. 05/15/2023 Patient is evaluated today sitting up in chair. Mentation improved from yesterday able to converse easier. Ammonia level came back elevated at 67 and patient was started on lactulose TID overnight. Goal of 2 to 3 loose bowel movements a day which patient did have 3 bowel movements documented in the last 24 hours. Patient underwent abdominal ultrasound revealing ascites. IR is consulted for ultrasound guided paracentesis. Magnesium 1.1 today and creatinine improved further to 1.5. 05/16/2023 Patient is evaluated today resting in bed. Mentation improved since yesterday and ammonia is improving. Pending paracentesis and awaiting for patients daughters to give consent. Creatinine down to 1.6 today. Review of Systems Constitutional: Denied any fatigue denied any fever. Cardio vascular: denied any chest pain, palpitations Gastrointestinal: denied any nausea, vomiting, diarrhea Pulmonary: Denied any shortness of breath cough Neurologic denied any new focal deficits All inpatient medications were reviewed and appropriate changes in these medications as dictated in the interval history and assessment and plan. PHYSICAL EXAMINATION: GENERAL: The patient is alert and oriented x2-3 with periods of acute confusion, slow to respond, not in any acute distress. Well developed, well nourished. HEENT: Pupils are round and equally reacting to light. EOMI. No scleral icterus. No conjunctival pallor. Normocephalic, atraumatic. No pharyngeal erythema. No thyromegaly. CARDIOVASCULAR: S1 and S2 present. No murmurs, rubs, or gallops. PULMONARY: Chest is clear to auscultation, no wheezing or crackles. ABDOMEN: Soft, nontender, distended, normoactive bowel sounds. No palpable organomegaly. MUSCULOSKELETAL: No joint swelling or deformity. EXTREMITIES: No cyanosis, clubbing. Bilateral lower extremity edema. NEUROLOGICAL: Gross neurological examination did not reveal any focal deficits. Diffuse generalized weakness and confusion. SKIN: No rashes. Assessment Altered mental status due to acute hepatic encephalopathy with elevated ammonia on admission improving. Acute kidney injury prerenal Alcoholic hepatitis and abdominal ascites s/p paracentesis on 05/07 with 8L of fluid removed Chronic alcohol abuse recently quit 2 weeks ago Chronic diastolic dysfunction Alcohol Hypertension Diabetes Mellitus type 2 Hx of breast cancer with right mastectomy maintained on hormone therapy Hypothyroidism Hx hyperlipidemia Gastroesophageal reflux disease Morbid obesity BMI 54.9 GI prophylaxis Plan Avoid nephrotoxic agents, lisinopril being held Continue low sodium diet and 1500 mL fluid restriction Continue on lactulose TID with goal of 2 to 3 loose bowel movements a day Repeat abdominal ultrasound evaluation of abdominal ascites and IR has been consulted for US guided paracentesis PT/OT recommending home with homecare adn 04/05 supervision Repeat labs in AM The impression and plan of care has been dictated by Sandrita Naidu Nurse Practitioner as directed. Dr. Wiley MD I have performed a history and physical examination and medical decision making of this patient, discussed the same with the dictator, and agree with the dictators assessment and plan as written, documented as a scribe. Based on total visit time, I have performed more than 50% of this visit. Objective - Vital Signs Vital signs: Vital Signs Temp 98.3 F 05/17/23 13:18 Pulse 110 H 05/17/23 13:18 Resp 18 05/17/23 13:18 BP 115/78 05/17/23 13:18 Pulse Ox 96 05/17/23 13:18 FiO2 - Labs CBC & Chem 7: 05/14/23 04:48 05/17/23 03:34 Assessment and Plan Time with Patient: Less than 30
== END 2023-05-17 16:20 | disposition home health service (06) | DRG 441 ==
LOC: EC 07:42 → 5NMEDONC 12:11
PROVIDERS: ADMIT Family Medicine; ATTEND Family Medicine
PROC: 0W9G3ZZ Drainage of Peritoneal Cavity, Percutaneous Approach (ICD-10-PCS; principal; 2023-05-16)
DX: K76.82 Hepatic encephalopathy (principal); N17.0 Acute kidney failure with tubular necrosis; E87.1 Hypo-osmolality and hyponatremia; Z68.43 Body mass index [BMI] 50.0-59.9, adult; I50.32 Chronic diastolic (congestive) heart failure; F10.131 Alcohol abuse with withdrawal delirium; E87.20 Acidosis, unspecified; E66.01 Morbid (severe) obesity due to excess calories; F41.9 Anxiety disorder, unspecified; K21.9 Gastro-esophageal reflux disease without esophagitis; K70.11 Alcoholic hepatitis with ascites; F11.90 Opioid use, unspecified, uncomplicated; F15.90 Other stimulant use, unspecified, uncomplicated; I11.0 Hypertensive heart disease with heart failure; K74.60 Unspecified cirrhosis of liver; M10.9 Gout, unspecified; E86.1 Hypovolemia; M19.90 Unspecified osteoarthritis, unspecified site; E83.42 Hypomagnesemia; E78.5 Hyperlipidemia, unspecified; E03.9 Hypothyroidism, unspecified; D69.59 Other secondary thrombocytopenia; D64.9 Anemia, unspecified; Z96.653 Presence of artificial knee joint, bilateral; Z90.11 Acquired absence of right breast and nipple; Z85.3 Personal history of malignant neoplasm of breast; Z79.899 Other long term (current) drug therapy; Z79.890 Hormone replacement therapy; Z79.84 Long term (current) use of oral hypoglycemic drugs; Z86.16 Personal history of COVID-19; Z92.21 Personal history of antineoplastic chemotherapy; Z92.3 Personal history of irradiation
CPT/HCPCS: 36415; 49083; 76705; 76770; 80048; 80053; 80306; 80320; 81003; 82075; 82140; 82728; 83036; 83540; 83550; 83735; 83935; 84300; 85025; 85610; 87205; 94640; 96360; 96361; 96372; 99285

== ENCOUNTER 2023-05-19 10:59 | Inpatient (IN) | payer MEDICARE, OTHER ==
[2023-05-19] MEDS ORDERED: SODIUM CHLORIDE 0.9% 1,000 ML IV STA (11:08)
[2023-05-19 11:50] LABS: Anisocytosis Slight; Basophils # (A) 0.1 k/uL (0-0.2); Basophils % (A) 1 %; Eosinophils # (A) 0.1 k/uL (0-0.7); Eosinophils % (A) 1 %; HCT 31.4 % (34.0-46.0); HGB 9.8 gm/dL (11.4-16.0); Hypochromasia Slight; Lymphocytes # (A) 2.5 k/uL (1.0-4.8); Lymphocytes % (A) 24 %; MCH 32.1 pg (25.0-35.0); MCHC 31.1 g/dL (31.0-37.0); MCV 103.1 fL (80.0-100.0); Macrocytosis Moderate; Mean Platelet Volume 9.6; Monocytes # (A) 0.5 k/uL (0-1.0); Monocytes % (A) 4 %; Neutrophils # (A) 7.2 k/uL (1.3-7.7); Neutrophils % (A) 68 %; RBC 3.04 m/uL (3.80-5.40); RDW 17.7 % (11.5-15.5); WBC 10.6 k/uL (3.8-10.6)
[2023-05-19 12:06] LABS: ALT 43 U/L (4-34); AST 88 U/L (14-36); African American GFR (CKD) 33 (>60 ml/min/1.73 sqM); Albumin 2.4 g/dL (3.5-5.0); Alcohol <10 mg/dL; Alkaline Phosphatase 152 U/L (38-126); Anion Gap 12 mmol/L; Blood Urea Nitrogen 20 mg/dL (7-17); Calcium 8.5 mg/dL (8.4-10.2); Carbon Dioxide 20 mmol/L (22-30); Chloride 101 mmol/L (98-107); Creatine Kinase 145 U/L (30-135); Glucose 85 mg/dL (74-99); Lipase 116 U/L (23-300); Magnesium 1.9 mg/dL (1.6-2.3); Non-African American GFR(CKD) 28 (>60 ml/min/1.73 sqM); Potassium 4.1 mmol/L (3.5-5.1); Sodium 133 mmol/L (137-145); Total Protein 7.2 g/dL (6.3-8.2)
[2023-05-19 12:09] LABS: Lactic Acid, Venous 5.6 mmol/L (0.7-2.0)
[2023-05-19] MEDS ORDERED: SODIUM CHLORIDE 0.9% 1,000 ML IV ONE (12:11)
[2023-05-19] MEDS: SODIUM CHLORIDE 0.9% 1,000 ML IV SCH ×2 (12:24→20:37)
[2023-05-19 13:13] LABS: Platelet Count 81 k/uL (150-450)
--- NOTE | 2023-05-19 14:03 | CT ---
EXAMINATION TYPE: CT brain wo con CT DLP: 1098.4 mGycm, Automated exposure control for dose reduction was used. DATE OF EXAM: 05/19/2023 1:57 PM COMPARISON: CT brain 05/03/2023 CLINICAL INDICATION:Female, 63 years old with history of Altered mental status, ams TECHNIQUE: Brain: Multiple axial CT images of the brain were obtained without IV contrast. Coronal and sagittal reformats reviewed. FINDINGS: Brain: Extra-axial spaces: No abnormal extra-axial fluid collections. Ventricular system: Within normal limits Cerebral parenchyma: No acute intraparenchymal hemorrhage or mass effect. The harrison-white junction is well differentiated. Scattered hypoattenuating areas are seen within the white matter. Nonspecific bilateral basal ganglia calcifications. Cerebellum: Unremarkable. Mass effect: No evidence of midline shift. Intracranial vasculature: Atherosclerotic calcifications of the intracranial vessels. Soft tissues: Normal. Calvarium/osseous structures: No depressed skull fracture. Benign hyperostosis frontalis noted. Paranasal sinuses and mastoid air cells: Clear Visualized orbits: Orbital contents are intact. IMPRESSION: 1. No acute intracranial process. 2. Nonspecific white matter changes, likely secondary to chronic small vessel ischemic disease.
--- NOTE | 2023-05-19 14:04 | XR ---
EXAMINATION TYPE: XR chest 2V DATE OF EXAM: 05/19/2023 2:00 PM COMPARISON: Chest radiograph 02/05/2023 TECHNIQUE: XR chest 2V Frontal and lateral views of the chest. CLINICAL INDICATION:Female, 63 years old with history of Lethargy; FINDINGS: Lungs/Pleura: Blunting of the left costophrenic angle. Elevation of the left hemidiaphragm again demo nstrated. No focal consolidation or pneumothorax. Pulmonary vascularity: Unremarkable. Heart/mediastinum: Cardiomediastinal silhouette is unremarkable. Musculoskeletal: No acute osseous pathology. IMPRESSION: Small left pleural effusion with associated atelectasis.
--- NOTE | 2023-05-19 14:40 | ED ---
Altered Mental Status HPI - General Chief Complaint: Altered Mental Status Stated Complaint: Hypotension Time Seen by Provider: 05/19/23 11:00 Source: patient, EMS, RN notes reviewed, old records reviewed Mode of arrival: EMS Limitations: altered mental status - History of Present Illness Initial Comments: 63-year-old female history of cirrhosis secondary to alcohol use was brought in from her residence for evaluation of altered mental status and decreased responsiveness. She was just discharged 2 days ago from this facility no trauma is reported. No fevers chills or sweats no other current complaints patient is a poor historian MD Complaint: altered mental status, confusion, decreased responsiveness - Related Data Home Medications Medication Instructions Recorded Confirmed Levothyroxine Sodium [Synthroid] 100 mcg PO DAILY 07/06/15 05/11/23 Anastrozole [Arimidex] 1 mg PO DAILY 01/04/22 05/11/23 Cholecalciferol [Vitamin D3 (25 50 mcg PO DAILY 01/04/22 05/11/23 Mcg = 1000 Iu)] Dulaglutide [Trulicity] 4.5 mg SQ MO 01/04/22 05/11/23 Pantoprazole [Protonix] 40 mg PO DAILY 12/06/22 05/11/23 HYDROcodone/APAP 10-325MG [[place] 1 tab PO Q6H PRN 01/26/23 05/11/23 10-325] allopurinoL [Zyloprim] 300 mg PO DAILY 01/26/23 05/11/23 Empagliflozin [Jardiance] 25 mg PO DAILY 02/05/23 05/11/23 Montelukast [Singulair] 10 mg PO DAILY 02/05/23 05/11/23 Albuterol Inhaler [Ventolin Hfa 2 puff INHALATION RT-Q6H PRN 05/03/23 05/11/23 Inhaler] Previous Rx's Medication Instructions Recorded Folic Acid 1 mg PO DAILY #30 tab 05/08/23 Escitalopram [Lexapro] 10 mg PO DAILY #30 tab 05/17/23 Furosemide [Lasix] 20 mg PO DAILY #30 tab 05/17/23 Lactulose [Cephulac] 20 gm PO TID #200 ml 05/17/23 Magnesium Oxide [Mag-Ox] 400 mg PO DAILY #30 tab 05/17/23 QUEtiapine [SEROquel] 12.5 mg PO HS #30 tab 05/17/23 Spironolactone [Aldactone] 50 mg PO BID #60 tab 05/17/23 Thiamine [Vitamin B-1] 100 mg PO DAILY #30 tab 05/17/23 Allergies Allergy/AdvReac Type Severity Reaction Status Date / Time pineapple Allergy Rash on Verified 05/19/23 11:17 mouth Review of Systems ROS Statement: Those systems with pertinent positive or pertinent negative responses have been documented in the HPI. ROS Other: All systems not noted in ROS Statement are negative. Past Medical History Past Medical History: Cancer, Diabetes Mellitus, GERD/Reflux, Hyperlipidemia, Hypertension, Liver Disease, Osteoarthritis (OA), Thyroid Disorder Additional Past Medical History / Comment(s): Covid 09/23/21. Heart murmur. Hx right breast cancer in 2004, 2020. Gout. History of Any Multi-Drug Resistant Organisms: None Reported Past Surgical History: Bariatric Surgery, Breast Surgery, Section, Joint Replacement, Tubal Ligation Additional Past Surgical History / Comment(s): Right breast lumpectomy 2004 with chemo and radiation, lymph nodes removed, R mastectomy 2020, bilateral knee replacements, Lap Band/removal. Paracentesis Past Anesthesia/Blood Transfusion Reactions: No Reported Reaction Past Psychological History: Anxiety Smoking Status: Never smoker Past Alcohol Use History: Daily Past Drug Use History: None Reported - Past Family History Mother Family Medical History: Cancer Additional Family Medical History / Comment(s): Breast cancer. General Exam - General Exam Comments Initial Comments: This is a well-developed well-nourished lethargic appearing female who doesn't respond to verbal and physical stimulus Limitations: altered mental status General appearance: alert, in no apparent distress Head exam: Present: atraumatic, normocephalic, normal inspection Eye exam: Present: normal appearance, PERRL, EOMI. Absent: scleral icterus, conjunctival injection, periorbital swelling ENT exam: Present: mucous membranes dry Neck exam: Present: normal inspection, full ROM, other (surgery or bruits). Absent: tenderness, meningismus, lymphadenopathy Respiratory exam: Present: normal lung sounds bilaterally. Absent: respiratory distress, wheezes, rales, rhonchi, stridor Cardiovascular Exam: Present: regular rate, normal rhythm, normal heart sounds. Absent: systolic murmur, diastolic murmur, rubs, gallop, clicks GI/Abdominal exam: Present: soft, normal bowel sounds. Absent: distended, tenderness, guarding, rebound, rigid Extremities exam: Present: normal inspection, full ROM, normal capillary refill. Absent: tenderness, pedal edema, joint swelling, calf tenderness Back exam: Present: normal inspection Neurological exam: Present: alert, altered, CN II-XII intact. Absent: motor sensory deficit Psychiatric exam: Present: normal mood, flat affect Skin exam: Present: warm, dry, intact, normal color. Absent: rash Course Vital Signs 05/19/23 05/19/23 05/19/23 11:04 11:21 11:45 Temperature 98.7 F Pulse Rate 96 98 Respiratory 16 16 Rate Blood Pressure 98/49 101/57 80/60 O2 Sat by Pulse 97 Oximetry 05/19/23 05/19/23 05/19/23 12:00 12:30 13:00 Temperature Pulse Rate 100 102 H 101 H Respiratory 16 16 16 Rate Blood Pressure 109/68 107/66 113/71 O2 Sat by Pulse 96 96 96 Oximetry Procedures - [place] Protocol (Time Out) Nurse: Shanell Henson Medical Decision Making - Medical Decision Making I did discuss the findings with the patient family was present also with Dr. Lai who did see the patient in the emergency department the patient will be admitted for IV fluids and treatment with lactulose as she demonstrates evidence of hepatic encephalopathy also.Was pt. sent in by a medical professional or institution (TIMO Jorge, INTERMEDIATE FRAME TENDER, urgent care, hospital, or group home...) When possible be specific @ -No Did you speak to anyone other than the patient for history (EMS, parent, family, police, friend...)? What history was obtained from this source @ -Paramedics upon arrival Did you review nursing and triage notes (agree or disagree)? Why? @ -I reviewed and agree with nursing and triage notes Were old charts reviewed (outside hosp., previous admission, EMS record, old EKG, old radiological studies, urgent care reports/EKG's, group home records)? Report findings @ -Previous old charts were reviewed Differential Diagnosis (chest pain, altered mental status, abdominal pain women, abdominal pain men, vaginal bleeding, weakness, fever, dyspnea, syncope, headache, dizziness, GI bleed, back pain, seizure, CVA, palpatations, mental hea lth, musculoskeletal)? @ -Mental status, encephalopathy, dehydration EKG interpreted by me (3pts min.). @ -As above EKG shows sinus tachycardia it was interpreted by me rate 101. Interval 205 QRS duration 102 QT since QTC 340/398 nonspecific T-wave configuration no acute ST-T wave changes X-rays interpreted by me (1pt min.). @ -X-ray interpreted by me chest x-ray shows small left pleural effusion CT interpreted by me (1pt min.). @ -DT brain interpreted by me white matter changes no acute processes U/S interpreted by me (1pt. min.). @ -None done What testing was considered but not performed or refused? (CT, X-rays, U/S, labs)? Why? @ -None What meds were considered but not given or refused? Why? @ -None Did you discuss the management of the patient with other professionals (professionals i.e. , PA, INTERMEDIATE FRAME TENDER, lab, RT, psych nurse, high school social science teacher, drilling supervisor, teacher, administrative services officer, block and case maker)? Give summary @ -Family members as well as with Dr. Lai who did see the patient in the emergency department Was smoking cessation discussed for >3mins.? @ -No Was critical care preformed (if so, how long)? @ -No Were there social determinants of health that impacted care today? How? (Homelessness, low income, unemployed, alcoholism, drug addiction, transportation, low edu. Level, literacy, decrease access to med. care, custodial, rehab)? @ -No Was there de-escalation of care discussed even if they declined (Discuss DNR or withdrawal of care, Hospice)? DNR status @ -No What co-morbidities impacted this encounter? (DM, HTN, Smoking, COPD, CAD, Cancer, CVA, ARF, Chemo, Hep., AIDS, mental health diagnosis, sleep apnea, morbid obesity)? @ -History of cirrhosis Was patient admitted / discharged? Hospital course, mention meds given and route, prescriptions, significant lab abnormalities, going to OR and other pertinent info. @ -hospital course patient was admitted to the hospital for inpatient treatment Undiagnosed new problem with uncertain prognosis? @ -No Drug Therapy requiring intensive monitoring for toxicity (Heparin, Nitro, Insulin, Cardizem)? @ -No Were any procedures done? @ -No Diagnosis/symptom? @ -Altered mental status, hepatic encephalopathy, dehydration, left pleural effusion Acute, or Chronic, or Acute on Chronic? @ -Acute Uncomplicated (without systemic symptoms) or Complicated (systemic symptoms)? @ -Complicated Side effects of treatment? @ -No Exacerbation, Progression, or Severe Exacerbation? @ -No Poses a threat to life or bodily function? How? (Chest pain, USA, CT, pneumonia, PE, COPD, DKA, ARF, appy, cholecystitis, CVA, Diverticulitis, Homicidal, Suicidal, threat to staff... and all critical care pts) @ -No, elevated lactic acid felt to be secondary to poor perfusion secondary to viral depletion has no infectious processes identified - Lab Data Result diagrams: 05/19/23 11:30 05/19/23 11:30 Lab Results 05/19/23 05/19/23 05/19/23 Range/Units 11:30 11:30 11:30 WBC 10.6 (3.8-10.6) k/uL RBC 3.04 L (3.80-5.40) m/uL Hgb 9.8 L (11.4-16.0) gm/dL Hct 31.4 L (34.0-46.0) % MCV 103.1 H (80.0-100.0) fL MCH 32.1 (25.0-35.0) pg MCHC 31.1 (31.0-37.0) g/dL RDW 17.7 H (11.5-15.5) % Plt Count 81 L (150-450) k/uL MPV 9.6 Neutrophils % 68 % Lymphocytes % 24 % Monocytes % 4 % Eosinophils % 1 % Basophils % 1 % Neutrophils # 7.2 (1.3-7.7) k/uL Lymphocytes # 2.5 (1.0-4.8) k/uL Monocytes # 0.5 (0-1.0) k/uL Eosinophils # 0.1 (0-0.7) k/uL Basophils # 0.1 (0-0.2) k/uL Manual Slide Review Performed Hypochromasia Slight Anisocytosis Slight Macrocytosis Moderate Sodium 133 L (137-145) mmol/L Potassium 4.1 (3.5-5.1) mmol/L Chloride 101 (98-107) mmol/L Carbon Dioxide 20 L (22-30) mmol/L Anion Gap 12 mmol/L BUN 20 H (7-17) mg/dL Creatinine 1.85 H (0.52-1.04) mg/dL Est GFR (CKD-EPI)AfAm 33 (>60 ml/min/1.73 sqM) Est GFR (CKD-EPI)NonAf 28 (>60 ml/min/1.73 sqM) Glucose 85 (74-99) mg/dL Lactic Ac Sepsis Rflx Plasma Lactic Acid Nghia 5.6 H* (0.7-2.0) mmol/L Calcium 8.5 (8.4-10.2) mg/dL Magnesium 1.9 (1.6-2.3) mg/dL Total Bilirubin 2.0 H (0.2-1.3) mg/dL AST 88 H (14-36) U/L ALT 43 H (4-34) U/L Alkaline Phosphatase 152 H (38-126) U/L Ammonia 53 H (<30) umol/L Creatine Kinase 145 H (30-135) U/L Troponin I (0.000-0.034) ng/mL Total Protein 7.2 (6.3-8.2) g/dL Albumin 2.4 L (3.5-5.0) g/dL Lipase 116 (23-300) U/L Serum Alcohol <10 mg/dL 05/19/23 05/19/23 Range/Units 11:30 12:09 WBC (3.8-10.6) k/uL RBC (3.80-5.40) m/uL Hgb (11.4-16.0) gm/dL Hct (34.0-46.0) % MCV (80.0-100.0) fL MCH (25.0-35.0) pg MCHC (31.0-37.0) g/dL RDW (11.5-15.5) % Plt Count (150-450) k/uL MPV Neutrophils % % Lymphocytes % % Monocytes % % Eosinophils % % Basophils % % Neutrophils # (1.3-7.7) k/uL Lymphocytes # (1.0-4.8) k/uL Monocytes # (0-1.0) k/uL Eosinophils # (0-0.7) k/uL Basophils # (0-0.2) k/uL Manual Slide Review Hypochromasia Anisocytosis Macrocytosis Sodium (137-145) mmol/L Potassium (3.5-5.1) mmol/L Chloride (98-107) mmol/L Carbon Dioxide (22-30) mmol/L Anion Gap mmol/L BUN (7-17) mg/dL Creatinine (0.52-1.04) mg/dL Est GFR (CKD-EPI)AfAm (>60 ml/min/1.73 sqM) Est GFR (CKD-EPI)NonAf (>60 ml/min/1.73 sqM) Glucose (74-99) mg/dL Lactic Ac Sepsis Rflx Y Plasma Lactic Acid Nghia (0.7-2.0) mmol/L Calcium (8.4-10.2) mg/dL Magnesium (1.6-2.3) mg/dL Total Bilirubin (0.2-1.3) mg/dL AST (14-36) U/L ALT (4-34) U/L Alkaline Phosphatase (38-126) U/L Ammonia (<30) umol/L Creatine Kinase (30-135) U/L Troponin I <0.012 (0.000-0.034) ng/mL Total Protein (6.3-8.2) g/dL Albumin (3.5-5.0) g/dL Lipase (23-300) U/L Serum Alcohol mg/dL - EKG Data -: EKG Interpreted by Me EKG Comments: EKG interpreted by me sinus tachycardia 101. Interval 205 QRS duration 102 QT since QTC 340/398 nonspecific T-wave configuration no acute ST-T wave changes - Radiology Data Interpreted by me: Imaging interpreted by me CT shows white matter changes no acute process x-ray Disposition Clinical Impression: Delirium due to general medical condition, Altered mental status, Hepatic encephalopathy, Dehydration Disposition: ADMITTED IP TO THIS HOSP Condition: Fair Referrals: Bart Monge MD [Primary Care Provider] - 1-2 days Decision Date: 05/19/23 Decision Time: 14:00
[2023-05-19] MEDS ORDERED: NALOXONE 0.4 MG/ML 1 ML VIAL IV PRN (14:42)
[2023-05-19] MEDS ORDERED: ALBUTEROL NEBULIZED 2.5 MG/3 ML INHALATION PRN (14:43)
[2023-05-19] MEDS ORDERED: LACTULOSE 20 GM/30 ML CUP PO ONE (14:45)
[2023-05-19] MEDS: LACTULOSE 20 GM/30 ML CUP PO SCH ×2 (15:45→20:35)
[2023-05-19 17:43] LABS: Glucose,Whole Blood 92 mg/dL (70-110)
[2023-05-19 19:55] LABS: Glucose,Whole Blood 121 mg/dL (70-110)
[2023-05-19] MEDS: SPIRONOLACTONE 25 MG TAB PO SCH (20:36)
[2023-05-19] MEDS: QUEtiapine 25 MG TAB PO SCH (20:36)
--- NOTE | 2023-05-19 22:27 | P.CONS ---
History of Present Illness - Reason for Consult Consult date: 05/19/23 - History of Present Illness Patient is a 63-year-old -Mex[place] female with a past medical history significant for alcoholic cirrhosis of the liver with recent discharge from the hospital about 2 days ago patient has been brought back in the hospital concerning for altered mental status and decreased responsiveness apparently symptom has been going on since the morning patient however was aware that she was at [facility] when asked at the time of evaluation patient denies having any headache or URI symptoms no chest pain or shortness of the patient or cough no sputum production denies any nausea or vomiting no abdominal pain did have some diarrhea no urinary symptoms, patient denied drinking however family member at the bedside mention patient continued to drink alcohol on presentation to the hospital patient was afebrile no fever has been recorded subsequently patient did have tachycardia mild hypertension but no need for pressor support patient was not hypoxic serum alcohol level was less than 10 white count was 10.6 BUN/creatinine mildly elevated did have elevated lactic acid elevated liver enzymes chest x-ray small left effusion with associated atelectasis patient was started on Rocephin infectious disease was consulted for further management concerning for possible sepsis Past Medical History Past Medical History: Cancer, Diabetes Mellitus, GERD/Reflux, Hyperlipidemia, Hypertension, Liver Disease, Osteoarthritis (OA), Thyroid Disorder Additional Past Medical History / Comment(s): Covid 09/23/21. Heart murmur. Hx right breast cancer in 2004, 2020. Gout. History of Any Multi-Drug Resistant Organisms: None Reported Past Surgical History: Bariatric Surgery, Breast Surgery, Section, Joint Replacement, Tubal Ligation Additional Past Surgical History / Comment(s): Right breast lumpectomy 2004 with chemo and radiation, lymph nodes removed, R mastectomy 2020, bilateral knee replacements, Lap Band/removal. Paracentesis Past Anesthesia/Blood Transfusion Reactions: No Reported Reaction Past Psychological History: Anxiety Smoking Status: Never smoker Past Alcohol Use History: Daily Past Drug Use History: None Reported - Past Family History Mother Family Medical History: Cancer Additional Family Medical History / Comment(s): Breast cancer. Medications and Allergies Home Medications Medication Instructions Recorded Confirmed Type Levothyroxine Sodium [Synthroid] 100 mcg PO DAILY 07/06/15 05/19/23 History Anastrozole [Arimidex] 1 mg PO DAILY 01/04/22 05/19/23 History Cholecalciferol [Vitamin D3 (25 50 mcg PO DAILY 01/04/22 05/19/23 History Mcg = 1000 Iu)] Dulaglutide [Trulicity] 4.5 mg SQ MO 01/04/22 05/19/23 History Pantoprazole [Protonix] 40 mg PO DAILY 12/06/22 05/19/23 History HYDROcodone/APAP 10-325MG [[place] 1 tab PO Q6H PRN 01/26/23 05/19/23 History 10-325] allopurinoL [Zyloprim] 300 mg PO DAILY 01/26/23 05/19/23 History Empagliflozin [Jardiance] 25 mg PO DAILY 02/05/23 05/19/23 History Montelukast [Singulair] 10 mg PO DAILY 02/05/23 05/19/23 History Albuterol Inhaler [Ventolin Hfa 2 puff INHALATION RT-Q6H PRN 05/03/23 05/19/23 History Inhaler] Folic Acid 1 mg PO DAILY #30 tab 05/08/23 05/19/23 Rx Escitalopram [Lexapro] 10 mg PO DAILY #30 tab 05/17/23 05/19/23 Rx Furosemide [Lasix] 20 mg PO DAILY #30 tab 05/17/23 05/19/23 Rx Lactulose [Cephulac] 20 gm PO TID #200 ml 05/17/23 05/19/23 Rx Magnesium Oxide [Mag-Ox] 400 mg PO DAILY #30 tab 05/17/23 05/19/23 Rx QUEtiapine [SEROquel] 12.5 mg PO HS #30 tab 05/17/23 05/19/23 Rx Spironolactone [Aldactone] 50 mg PO BID #60 tab 05/17/23 05/19/23 Rx Thiamine [Vitamin B-1] 100 mg PO DAILY #30 tab 05/17/23 05/19/23 Rx Allergies Allergy/AdvReac Type Severity Reaction Status Date / Time pineapple Allergy Rash on Verified 05/19/23 16:34 mouth Physical Exam Vitals: Vital Signs Temp Pulse Resp BP Pulse Ox 05/19/23 14:41 97.2 F L 106 H 16 114/71 05/19/23 13:00 101 H 16 113/71 96 05/19/23 12:30 102 H 16 107/66 96 07/29/23 12:00 100 16 109/68 96 05/19/23 11:45 98 16 80/60 05/19/23 11:21 101/57 97 05/19/23 11:04 98.7 F 96 16 98/49 Intake and Output 05/19/23 05/19/23 05/19/23 06:59 14:59 22:59 Other: Weight 131.542 kg Results CBC & Chem 7: 05/19/23 11:30 05/19/23 11:30 Labs: Abnormal Lab Results - Last 24 Hours (Table) 05/19/23 05/19/23 05/19/23 Range/Units 11:30 11:30 11:30 RBC 3.04 L (3.80-5.40) m/uL Hgb 9.8 L (11.4-16.0) gm/dL Hct 31.4 L (34.0-46.0) % MCV 103.1 H (80.0-100.0) fL RDW 17.7 H (11.5-15.5) % Plt Count 81 L (150-450) k/uL Sodium 133 L (137-145) mmol/L Carbon Dioxide 20 L (22-30) mmol/L BUN 20 H (7-17) mg/dL Creatinine 1.85 H (0.52-1.04) mg/dL Plasma Lactic Acid Nghia 5.6 H* (0.7-2.0) mmol/L Total Bilirubin 2.0 H (0.2-1.3) mg/dL AST 88 H (14-36) U/L ALT 43 H (4-34) U/L Alkaline Phosphatase 152 H (38-126) U/L Ammonia 53 H (<30) umol/L Creatine Kinase 145 H (30-135) U/L Albumin 2.4 L (3.5-5.0) g/dL Assessment and Plan Plan: 1patient presented hospital with mental status changes possible related to hepatic cephalopathy in this patient who did have history of alcoholic liver dis ease and the patient continued to be drinking patient did have mild tachycardia however no fever or elevated white count with concern for possible infection etiology less likely but not entirely excluded 2-blood pressure has been up and we will check a CRP and a procalcitonin and also check a urine culture to complete the work-up 3-May continue empiric Rocephin while waiting for the work-up to be completed We will follow on clinical condition and cultures to further adjust medication if needed Thank you for this consultation we will follow the patient along with you Dictation was produced using [employer] dictation software. please excuse any grammatical, word or spelling errors. Time with Patient: Greater than 30
--- NOTE | 2023-05-20 00:09 | HP ---
HISTORY AND PHYSICAL CHIEF COMPLAINT: Change in mental status. HISTORY OF PRESENT ILLNESS: This is a 63-year-old woman with a past medical history of liver cirrhosis secondary to alcohol, was confused. The patient recently had an admission. Ammonia level was elevated. There is no history of any fever, rigors, or chills at this time. The patient is found to be dehydrated. Lactic acid also elevated. The patient also had elevated bilirubin and features of hepatitis also. The patient is unable to give a coherent history. Most of the history taken by discussion with the family at bedside and as well as ER physician, and review of the chart. PAST MEDICAL HISTORY: Reviewed include cirrhosis of the liver secondary to alcohol. Rest of the history and rest of the chart is also reviewed. HOME MEDICATIONS: Reviewed include zyloprim. Doses and rest of medications reviewed and not confirmed yet. ALLERGIES: Pineapple. FAMILY HISTORY: Could not be taken. SOCIAL HISTORY: Could not be taken. REVIEW OF SYSTEMS: Could not be taken. PHYSICAL EXAMINATION: GENERAL: The patient is conscious, confused. VITAL SIGNS: Pulse 106, blood pressure 114/70, respirations 16. HEENT: Conjunctivae normal. NECK: No JVD. CARDIOVASCULAR: S1, S2. RESPIRATIONS: Breath sounds diminished at the bases. A few scattered rhonchi. ABDOMEN: Soft, obese. LEGS: Bilateral leg edema. NERVOUS SYSTEM: Diffusely weak. SKIN: No ulcer, rash, or bleeding. JOINTS: Hepatic flap present. LABORATORY DATA: Reviewed. ASSESSMENT: 1. Change in mental status, acute hepatic encephalopathy. 2. Cirrhosis secondary to EtOH. 3. Elevated creatinine, possible acute on chronic kidney disease and dehydration. 4. Elevated plasma lactic acid, rule out sepsis. 5. Elevated LFTs. 6. Multiple medical issues. RECOMMENDATIONS AND DISCUSSION: This is a 63-year-old woman, who presented with multiple complex medical issues, we will monitor the patient closely. Continue with current management and symptomatic treatment. Otherwise, at this time, I would recommend empiric antibiotics, cultures. Infectious Disease evaluation, lactulose, monitor ammonia closely. Prognosis guarded because of multiple complex medical issues. Further recommendations to follow. See orders for further details. MMODL / IJN: [id number] /
[2023-05-20] MEDS: CALCIUM CARBONATE 500 MG CHEWABLE PO PRN ×2 (04:55→20:16)
[2023-05-20] MEDS: HYDROcodone/APAP 10-325MG 1 EACH TAB PO PRN ×2 (04:57→13:24)
[2023-05-20] MEDS: LEVOTHYROXINE 100 MCG TAB PO SCH (04:58)
[2023-05-20] MEDS: PANTOPRAZOLE 40 MG TABLET PO SCH (04:58)
[2023-05-20 05:55] LABS: ALT 42 U/L (4-34); AST 75 U/L (14-36); African American GFR (CKD) 40 (>60 ml/min/1.73 sqM); Albumin 2.3 g/dL (3.5-5.0); Alkaline Phosphatase 138 U/L (38-126); Anion Gap 7 mmol/L; Blood Urea Nitrogen 21 mg/dL (7-17); Calcium 8.3 mg/dL (8.4-10.2); Carbon Dioxide 21 mmol/L (22-30); Chloride 104 mmol/L (98-107); Glucose 106 mg/dL (74-99); Non-African American GFR(CKD) 35 (>60 ml/min/1.73 sqM); Sodium 132 mmol/L (137-145); Total Bilirubin 1.9 mg/dL (0.2-1.3); Total Protein 6.7 g/dL (6.3-8.2)
[2023-05-20 06:11] LABS: Glucose,Whole Blood 95 mg/dL (70-110)
[2023-05-20 07:02] LABS: Anisocytosis Slight; HCT 30.2 % (34.0-46.0); HGB 9.6 gm/dL (11.4-16.0); Hypochromasia Marked; MCHC 31.8 g/dL (31.0-37.0); MCV 103.9 fL (80.0-100.0); Macrocytosis Moderate; Mean Platelet Volume 9.7; Platelet Count 74 k/uL (150-450); RDW 17.6 % (11.5-15.5); WBC 8.5 k/uL (3.8-10.6)
[2023-05-20 07:21] LABS: Anisocytosis (M) Present; Band Neutrophils % 2 %; Eosinophils # (M) 0.34 k/uL (0-0.7); Lymphocytes # (M) 1.79 k/uL (1.0-4.8); Neutrophils % (M) 66 %; Nucleated Red Blood Cells 0 /100 WBC (0-0); Poikilocytosis (M) Present; Target Cells Present; Total Cells Counted 100
[2023-05-20] MEDS: SPIRONOLACTONE 25 MG TAB PO SCH ×2 (08:07→20:10)
[2023-05-20] MEDS: MONTELUKAST 10 MG TAB PO SCH (08:07)
[2023-05-20] MEDS: FUROSEMIDE 20 MG TAB PO SCH (08:08)
[2023-05-20] MEDS: ANASTROZOLE 1 MG TAB PO SCH (08:08)
[2023-05-20] MEDS: allopurinoL 300 MG TAB PO SCH (08:08)
[2023-05-20] MEDS: MAGNESIUM OXIDE 400 MG TAB PO SCH (08:08)
[2023-05-20] MEDS: DAPAGLIFLOZIN PROPANEDIOL 10 MG TABLET PO SCH (08:08)
[2023-05-20] MEDS: FOLIC ACID 1 MG TAB PO SCH (08:08)
[2023-05-20] MEDS: CHOLECALCIFEROL 25 MCG (1000 IU) TABLET PO SCH (08:08)
[2023-05-20] MEDS: THIAMINE 100 MG TAB PO SCH (08:08)
[2023-05-20] MEDS: ESCITALOPRAM 10 MG TAB PO SCH (08:08)
[2023-05-20] MEDS: LACTULOSE 20 GM/30 ML CUP PO SCH ×3 (08:09→20:10)
[2023-05-20 11:37] LABS: Glucose,Whole Blood 121 mg/dL (70-110)
[2023-05-20] MEDS: SODIUM CHLORIDE 0.9% 1,000 ML IV SCH (13:18)
--- NOTE | 2023-05-20 15:39 | PN ---
PROGRESS NOTE DATE OF SERVICE: 05/20/2023 SUBJECTIVE: This is a 63-year-old woman, who was admitted with change in mental status, possible acute hepatic encephalopathy. The patient is improving significantly. Today, the lactic acid is still elevated. The patient is started on empiric antibiotics. Cultures are pending at this time. Creatinine is 1.56. PAST MEDICAL HISTORY: Reviewed. REVIEW OF SYSTEMS: A 14-point review is negative except as mentioned earlier. CURRENT MEDICATIONS: Reviewed, include Zyloprim. Dose and rest of medications noted. PHYSICAL EXAMINATION: VITAL SIGNS: Pulse is 97, blood pressure 104/55, respirations 18. HEENT: Conjunctivae normal. NECK: No jugular vein distention. CARDIOVASCULAR: S1, S2. ABDOMEN: Soft, obese. LEGS: No edema. No swelling. NERVOUS SYSTEM: No focal deficits. LABORATORY DATA: Reviewed. Total bilirubin is 1.9, AST and ALT noted. Ammonia was 53, but today it is 14. ASSESSMENT: 1. Change in mental status, acute hepatic encephalopathy. 2. Cirrhosis of liver secondary to EtOH. 3. Elevated creatinine, possible acute on chronic kidney disease and dehydration. 4. Elevated plasma lactic acid secondary to dehydration and possible sepsis. 5. Elevated LFTs. 6. Multiple medical issues. RECOMMENDATIONS AND DISCUSSION: I recommend to continue current antibiotics. Follow the cultures. Repeat labs. Closely monitor. Avoid sedatives. Further recommendations to follow. MMODL / IJN: [id number] / MTDD
[2023-05-20 16:28] LABS: Glucose,Whole Blood 121 mg/dL (70-110)
[2023-05-20 18:43] LABS: Appearance,Urine Clear (Clear); Bilirubin,Urine Negative (Negative); Blood,Urine Moderate (Negative); Color,Urine Yellow; Glucose,Urine (UA) 3+ (Negative); Ketones,Urine Negative (Negative); Nitrite,Urine Negative (Negative); Protein,Urine Negative (Negative); Urobilinogen,Urine <2.0 mg/dL (<2.0)
[2023-05-20 18:44] LABS: Leukocyte Esterase,Urine Small (Negative); RBC,Urine 4 /hpf (0-5); WBC,Urine 4 /hpf (0-5)
[2023-05-20 20:07] LABS: Glucose,Whole Blood 124 mg/dL (70-110)
[2023-05-20] MEDS: QUEtiapine 25 MG TAB PO SCH (20:10)
[2023-05-21] MEDS: SODIUM CHLORIDE 0.9% 1,000 ML IV SCH ×2 (01:34→18:09)
[2023-05-21] MEDS: HYDROcodone/APAP 10-325MG 1 EACH TAB PO PRN ×3 (04:22→18:14)
[2023-05-21] MEDS: CALCIUM CARBONATE 500 MG CHEWABLE PO PRN (04:23)
[2023-05-21 05:55] LABS: Glucose,Whole Blood 90 mg/dL (70-110)
[2023-05-21] MEDS: PANTOPRAZOLE 40 MG TABLET PO SCH (06:06)
[2023-05-21] MEDS: LEVOTHYROXINE 100 MCG TAB PO SCH (06:06)
--- NOTE | 2023-05-21 08:52 | P.PN ---
Subjective Progress Note Date: 05/21/23 Principal diagnosis: Altered Mental status This is a 63-year-old female with a known history of cirrhosis of the liver due to alcohol use who was brought in to the ER for altered mental status and decreased responsiveness per family. She was recently discharged 2 days prior to this. Lactic acid elevated on admission, infectious disease is consulted and recommending Rocephin. Cultures are pending. Patient reports paracentesis was done last week. Today patient is seen sitting in chair eating breakfast. She is somewhat more alert with slight confusion. Objective - Vital Signs Vital signs: Vital Signs Temp 98.2 F 05/21/23 04:00 Pulse 104 H 05/21/23 04:00 Resp 18 05/21/23 04:00 BP 115/74 05/21/23 04:00 Pulse Ox 100 05/21/23 04:00 FiO2 Intake & Output 05/20/23 05/21/23 05/21/23 18:59 06:59 18:59 Intake Total 700 Output Total 350 Balance 350 Intake: Oral 700 Output: Urine 350 Other: Voiding Method Bedside Commode Bedside Commode # Voids 1 # Bowel Movements 1 - Constitutional General appearance: Present: cooperative, no acute distress - EENT Eyes: Present: PERRLA - Neck Neck: Present: normal ROM. Absent: lymphadenopathy, rigidity - Respiratory Respiratory: bilateral: CTA - Cardiovascular Rhythm: regular Heart sounds: normal: S1, S2 - Gastrointestinal General gastrointestinal: Present: distended. Absent: tenderness - Integumentary Integumentary: Present: normal, normal turgor - Musculoskeletal Musculoskeletal: Present: generalized weakness - Psychiatric Psychiatric Comment(s): Alert to person and place - Labs CBC & Chem 7: 05/20/23 05:13 05/20/23 05:13 Labs: Abnormal Lab Results - Last 24 Hours (Table) 05/20/23 05/20/23 05/20/23 Range/Units 08:02 11:35 16:26 POC Glucose (mg/dL) 121 H 121 H (70-110) mg/dL Plasma Lactic Acid Nghia 3.0 H* (0.7-2.0) mmol/L 05/20/23 Range/Units 20:03 POC Glucose (mg/dL) 124 H (70-110) mg/dL Plasma Lactic Acid Nghia (0.7-2.0) mmol/L Microbiology - Last 24 Hours (Table) 05/19/23 15:40 Blood Culture - Preliminary Blood Assessment and Plan (1) Alcoholic cirrhosis Current Visit: Yes Status: Acute Code(s): K70.30 - ALCOHOLIC CIRRHOSIS OF LIVER WITHOUT ASCITES SNOMED Code(s): 857447141 (2) Altered mental status Current Visit: Yes Status: Acute Code(s): R41.82 - ALTERED MENTAL STATUS, UNSPECIFIED SNOMED Code(s): 525796068 (3) Dehydration Current Visit: Yes Status: Acute Code(s): E86.0 - DEHYDRATION SNOMED Code(s): 88218280 (4) Hepatic encephalopathy Current Visit: Yes Status: Acute Code(s): K76.82 - HEPATIC ENCEPHALOPATHY SNOMED Code(s): 14836795 (5) Alcohol abuse Current Visit: No Status: Acute Code(s): F10.10 - ALCOHOL ABUSE, UNCOMPLICATED SNOMED Code(s): 76694044 (6) Diabetes Current Visit: No Status: Acute Code(s): E11.9 - TYPE 2 DIABETES MELLITUS WITHOUT COMPLICATIONS SNOMED Code(s): 16634507 (7) Hypertension Current Visit: No Status: Acute Code(s): I10 - ESSENTIAL (PRIMARY) HYPERTENSION SNOMED Code(s): 61730110 Plan: Check CBC and CMP in the morning. Await results of cultures. Patient seen and evaluated by nurse practitioner, physician in agreement with plan
[2023-05-21] MEDS ORDERED: NON FORMULARY DRUG (Dulaglutide [Trulicity] 4.5 MG/0.5 ML Each) SQ SCH (09:00)
[2023-05-21] MEDS: CHOLECALCIFEROL 25 MCG (1000 IU) TABLET PO SCH (09:58)
[2023-05-21] MEDS: ESCITALOPRAM 10 MG TAB PO SCH (09:58)
[2023-05-21] MEDS: FUROSEMIDE 20 MG TAB PO SCH (09:58)
[2023-05-21] MEDS: MAGNESIUM OXIDE 400 MG TAB PO SCH (09:58)
[2023-05-21] MEDS: MONTELUKAST 10 MG TAB PO SCH (09:58)
[2023-05-21] MEDS: THIAMINE 100 MG TAB PO SCH (09:58)
[2023-05-21] MEDS: LACTULOSE 20 GM/30 ML CUP PO SCH ×3 (09:58→22:38)
[2023-05-21] MEDS: SPIRONOLACTONE 25 MG TAB PO SCH ×2 (09:58→19:55)
[2023-05-21] MEDS: allopurinoL 300 MG TAB PO SCH (09:58)
[2023-05-21] MEDS: FOLIC ACID 1 MG TAB PO SCH (09:58)
[2023-05-21] MEDS: ANASTROZOLE 1 MG TAB PO SCH (09:59)
[2023-05-21] MEDS: DAPAGLIFLOZIN PROPANEDIOL 10 MG TABLET PO SCH (09:59)
[2023-05-21 11:29] LABS: Glucose,Whole Blood 168 mg/dL (70-110)
[2023-05-21 12:15] LABS: ALT 46 U/L (4-34); AST 77 U/L (14-36); African American GFR (CKD) 51 (>60 ml/min/1.73 sqM); Albumin 2.5 g/dL (3.5-5.0); Alkaline Phosphatase 172 U/L (38-126); Anion Gap 7 mmol/L; Blood Urea Nitrogen 17 mg/dL (7-17); Calcium 8.7 mg/dL (8.4-10.2); Carbon Dioxide 25 mmol/L (22-30); Chloride 102 mmol/L (98-107); Glucose 112 mg/dL (74-99); Non-African American GFR(CKD) 44 (>60 ml/min/1.73 sqM); Potassium 4.3 mmol/L (3.5-5.1); Sodium 134 mmol/L (137-145); Total Bilirubin 2.2 mg/dL (0.2-1.3); Total Protein 7.4 g/dL (6.3-8.2)
--- NOTE | 2023-05-21 12:26 | P.PN ---
Subjective Progress Note Date: 05/20/23 Principal diagnosis: SIRS/ hepatic encephalopathy Patient is a 63-year-old -[place] female with a past medical history significant for alcoholic cirrhosis of the liver with recent discharge from the hospital about 2 days ago patient has been brought back in the hospital c oncerning for altered mental status and decreased responsiveness, patient was mildly tachycardic and concern for possible sepsis prompting this infection disease consultation On today's evaluation and that is 05/21/2023, the patient is afebrile patient is breathing comfortably on room air. Denies having any chest pain or shortness breath occasional cough she did have some abdominal distention and discomfort nausea but no vomiting or any worsening diarrhea Objective - Vital Signs Vital signs: Vital Signs Temp 97.7 F 05/20/23 08:03 Pulse 97 05/20/23 08:03 Resp 18 05/20/23 08:03 BP 104/55 05/20/23 08:03 Pulse Ox 97 05/20/23 08:03 FiO2 Intake & Output 05/19/23 05/20/23 05/20/23 18:59 06:59 18:59 Intake Total 240 340 Balance 240 340 Weight 131.542 kg Intake: Oral 240 340 Other: Voiding Method Bedside Commode Bedside Commode Bedside Commode # Voids 1 # Bowel Movements 1 - Exam GENERAL DESCRIPTION: An elderly female lying in bed in no distress RESPIRATORY SYSTEM: Unlabored breathing , decreased breath sounds at bases HEART: S1 S2 regular rate and rhythm , ABDOMEN: Soft , abdominal distention but no tenderness EXTREMITIES: No edema feet - Labs CBC & Chem 7: 05/20/23 05:13 05/21/23 11:07 Labs: Abnormal Lab Results - Last 24 Hours (Table) 05/19/23 05/19/23 05/19/23 Range/Units 11:30 11:30 11:30 RBC 3.04 L (3.80-5.40) m/uL Hgb 9.8 L (11.4-16.0) gm/dL Hct 31.4 L (34.0-46.0) % MCV 103.1 H (80.0-100.0) fL RDW 17.7 H (11.5-15.5) % Plt Count 81 L (150-450) k/uL Sodium 133 L (137-145) mmol/L Carbon Dioxide 20 L (22-30) mmol/L BUN 20 H (7-17) mg/dL Creatinine 1.85 H (0.52-1.04) mg/dL Glucose (74-99) mg/dL POC Glucose (mg/dL) (70-110) mg/dL Plasma Lactic Acid Nghia 5.6 H* (0.7-2.0) mmol/L Calcium (8.4-10.2) mg/dL Total Bilirubin 2.0 H (0.2-1.3) mg/dL AST 88 H (14-36) U/L ALT 43 H (4-34) U/L Alkaline Phosphatase 152 H (38-126) U/L Ammonia 53 H (<30) umol/L Creatine Kinase 145 H (30-135) U/L C-Reactive Protein (<1.0) mg/dL Albumin 2.4 L (3.5-5.0) g/dL Procalcitonin (0.02-0.09) ng/mL 05/19/23 05/19/23 05/19/23 Range/Units 11:30 11:30 15:40 RBC (3.80-5.40) m/uL Hgb (11.4-16.0) gm/dL Hct (34.0-46.0) % MCV (80.0-100.0) fL RDW (11.5-15.5) % Plt Count (150-450) k/uL Sodium (137-145) mmol/L Carbon Dioxide (22-30) mmol/L BUN (7-17) mg/dL Creatinine (0.52-1.04) mg/dL Glucose (74-99) mg/dL POC Glucose (mg/dL) (70-110) mg/dL Plasma Lactic Acid Nghia 4.1 H* (0.7-2.0) mmol/L Calcium (8.4-10.2) mg/dL Total Bilirubin (0.2-1.3) mg/dL AST (14-36) U/L ALT (4-34) U/L Alkaline Phosphatase (38-126) U/L Ammonia (<30) umol/L Creatine Kinase (30-135) U/L C-Reactive Protein 3.2 H (<1.0) mg/dL Albumin (3.5-5.0) g/dL Procalcitonin 0.58 H (0.02-0.09) ng/mL 05/19/23 05/19/23 05/19/23 Range/Units 18:38 19:54 22:19 RBC (3.80-5.40) m/uL Hgb (11.4-16.0) gm/dL Hct (34.0-46.0) % MCV (80.0-100.0) fL RDW (11.5-15.5) % Plt Count (150-450) k/uL Sodium (137-145) mmol/L Carbon Dioxide (22-30) mmol/L BUN (7-17) mg/dL Creatinine (0.52-1.04) mg/dL Glucose (74-99) mg/dL POC Glucose (mg/dL) 121 H (70-110) mg/dL Plasma Lactic Acid Nghia 4.1 H* 4.1 H* (0.7-2.0) mmol/L Calcium (8.4-10.2) mg/dL Total Bilirubin (0.2-1.3) mg/dL AST (14-36) U/L ALT (4-34) U/L Alkaline Phosphatase (38-126) U/L Ammonia (<30) umol/L Creatine Kinase (30-135) U/L C-Reactive Protein (<1.0) mg/dL Albumin (3.5-5.0) g/dL Procalcitonin (0.02-0.09) ng/mL 05/20/23 05/20/23 05/20/23 Range/Units 01:27 05:13 05:13 RBC 2.90 L (3.80-5.40) m/uL Hgb 9.6 L (11.4-16.0) gm/dL Hct 30.2 L (34.0-46.0) % MCV 103.9 H (80.0-100.0) fL RDW 17.6 H (11.5-15.5) % Plt Count 74 L (150-450) k/uL Sodium 132 L (137-145) mmol/L Carbon Dioxide 21 L (22-30) mmol/L BUN 21 H (7-17) mg/dL Creatinine 1.56 H (0.52-1.04) mg/dL Glucose 106 H (74-99) mg/dL POC Glucose (mg/dL) (70-110) mg/dL Plasma Lactic Acid Nghia 3.3 H* (0.7-2.0) mmol/L Calcium 8.3 L (8.4-10.2) mg/dL Total Bilirubin 1.9 H (0.2-1.3) mg/dL AST 75 H (14-36) U/L ALT 42 H (4-34) U/L Alkaline Phosphatase 138 H (38-126) U/L Ammonia (<30) umol/L Creatine Kinase (30-135) U/L C-Reactive Protein (<1.0) mg/dL Albumin 2.3 L (3.5-5.0) g/dL Procalcitonin (0.02-0.09) ng/mL 05/20/23 05/20/23 Range/Units 05:13 08:02 RBC (3.80-5.40) m/uL Hgb (11.4-16.0) gm/dL Hct (34.0-46.0) % MCV (80.0-100.0) fL RDW (11.5-15.5) % Plt Count (150-450) k/uL Sodium (137-145) mmol/L Carbon Dioxide (22-30) mmol/L BUN (7-17) mg/dL Creatinine (0.52-1.04) mg/dL Glucose (74-99) mg/dL POC Glucose (mg/dL) (70-110) mg/dL Plasma Lactic Acid Nghia 3.5 H* 3.0 H* (0.7-2.0) mmol/L Calcium (8.4-10.2) mg/dL Total Bilirubin (0.2-1.3) mg/dL AST (14-36) U/L ALT (4-34) U/L Alkaline Phosphatase (38-126) U/L Ammonia (<30) umol/L Creatine Kinase (30-135) U/L C-Reactive Protein (<1.0) mg/dL Albumin (3.5-5.0) g/dL Procalcitonin (0.02-0.09) ng/mL Assessment and Plan (1) SIRS (systemic inflammatory response syndrome) Current Visit: Yes Status: Acute Code(s): R65.10 - SIRS OF NON-INFECTIOUS ORIGIN W/O ACUTE ORGAN DYSFUNCTION SNOMED Code(s): 667477295 (2) Hepatic encephalopathy Current Visit: Yes Status: Acute Code(s): K76.82 - HEPATIC ENCEPHALOPATHY SNOMED Code(s): 71126452 Plan: 1patient presented hospital with mental status changes possible related to hepatic cephalopathy in this patient who did have history of alcoholic liver disease and the patient continued to be drinking patient did have mild tachycardia however no fever or elevated white count with concern for possible infection etiology less likely but not entirely excluded 2-blood culture has been done and currently pending, CRP is 3.2 and a procalcitonin is mildly elevated at 0.58, UA is negative Patient to continue empiric Rocephin while waiting for the cultures to be finalized Dictation was produced using [employer] dictation software. please excuse any grammatical, word or spelling errors. Time with Patient: Less than 30
--- NOTE | 2023-05-21 12:27 | P.PN ---
Subjective Progress Note Date: 05/21/23 Principal diagnosis: SIRS/ hepatic encephalopathy Patient is a 63-year-old -Stateless female with a past medical history significant for alcoholic cirrhosis of the liver with recent discharge from the hospital about 2 days ago patient has been brought back in the hospital c oncerning for altered mental status and decreased responsiveness, patient was mildly tachycardic and concern for possible sepsis prompting this infection disease consultation On today's evaluation and that is 05/21/2023, the patient remains to befebrile patient is breathing comfortably on room air. the patient deniesaving any chest pain or shortness breath occasional cough she did have some abdominal distention and discomfort nausea but no vomiting or diarrhea Objective - Vital Signs Vital signs: Vital Signs Temp 98.0 F 05/21/23 08:00 Pulse 120 H 05/21/23 08:00 Resp 18 05/21/23 08:00 BP 107/65 05/21/23 08:00 Pulse Ox 100 05/21/23 04:00 FiO2 Intake & Output 05/20/23 05/21/23 05/21/23 18:59 06:59 18:59 Intake Total 700 Output Total 350 Balance 350 Intake: Oral 700 Output: Urine 350 Other: Voiding Method Bedside Commode Bedside Commode Bedside Commode # Voids 1 2 # Bowel Movements 1 - Exam GENERAL DESCRIPTION: An elderly female lying in bed in no distress RESPIRATORY SYSTEM: Unlabored breathing , decreased breath sounds at bases HEART: S1 S2 regular rate and rhythm , ABDOMEN: Soft , abdominal distention but no tenderness EXTREMITIES: No edema feet - Labs CBC & Chem 7: 05/20/23 05:13 05/21/23 11:07 Labs: Abnormal Lab Results - Last 24 Hours (Table) 05/20/23 05/20/23 05/21/23 Range/Units 16:26 20:03 11:07 Sodium 134 L (137-145) mmol/L Creatinine 1.28 H (0.52-1.04) mg/dL Glucose 112 H (74-99) mg/dL POC Glucose (mg/dL) 121 H 124 H (70-110) mg/dL Total Bilirubin 2.2 H (0.2-1.3) mg/dL AST 77 H (14-36) U/L ALT 46 H (4-34) U/L Alkaline Phosphatase 172 H (38-126) U/L Albumin 2.5 L (3.5-5.0) g/dL 05/21/23 Range/Units 11:27 Sodium (137-145) mmol/L Creatinine (0.52-1.04) mg/dL Glucose (74-99) mg/dL POC Glucose (mg/dL) 168 H (70-110) mg/dL Total Bilirubin (0.2-1.3) mg/dL AST (14-36) U/L ALT (4-34) U/L Alkaline Phosphatase (38-126) U/L Albumin (3.5-5.0) g/dL Microbiology - Last 24 Hours (Table) 05/19/23 15:40 Blood Culture - Preliminary Blood Assessment and Plan (1) SIRS (systemic inflammatory response syndrome) Current Visit: Yes Status: Acute Code(s): R65.10 - SIRS OF NON-INFECTIOUS ORIGIN W/O ACUTE ORGAN DYSFUNCTION SNOMED Code(s): 495827173 (2) Hepatic encephalopathy Current Visit: Yes Status: Acute Code(s): K76.82 - HEPATIC ENCEPHALOPATHY SNOMED Code(s): 85373799 Plan: 1patient presented hospital with mental status changes possible related to he patic cephalopathy in this patient who did have history of alcoholic liver disease and the patient continued to be drinking patient did have mild tachycardia however no fever or elevated white count with concern for possible infection etiology less likely but not entirely excluded 2-blood culture has been done and currently pending, CRP is 3.2 and a procalcitonin is mildly elevated at 0.58, UA is negative 3Patient seemed to have improvement and well continue Rocephin while waiting for the cultures to be finalized Dictation was produced using [employer] dictation software. please excuse any gra mmatical, word or spelling errors. Time with Patient: Less than 30
[2023-05-21 12:32] LABS: Anisocytosis Slight; Basophils # (A) 0.1 k/uL (0-0.2); Basophils % (A) 1 %; Eosinophils # (A) 0.1 k/uL (0-0.7); Eosinophils % (A) 1 %; HGB 10.3 gm/dL (11.4-16.0); Hypochromasia Moderate; Lymphocytes # (A) 2.4 k/uL (1.0-4.8); Lymphocytes % (A) 31 %; MCH 33.9 pg (25.0-35.0); MCHC 33.1 g/dL (31.0-37.0); MCV 102.4 fL (80.0-100.0); Macrocytosis Moderate; Mean Platelet Volume 9.6; Monocytes # (A) 0.3 k/uL (0-1.0); Monocytes % (A) 4 %; Neutrophils # (A) 4.8 k/uL (1.3-7.7); Neutrophils % (A) 62 %; RBC 3.03 m/uL (3.80-5.40); RDW 17.7 % (11.5-15.5); WBC 7.9 k/uL (3.8-10.6)
[2023-05-21 12:34] LABS: Platelet Count 85 k/uL (150-450)
[2023-05-21 16:39] LABS: Glucose,Whole Blood 97 mg/dL (70-110)
[2023-05-21] MEDS: QUEtiapine 25 MG TAB PO SCH (19:56)
[2023-05-21 20:26] LABS: Glucose,Whole Blood 95 mg/dL (70-110)
[2023-05-22] MEDS: LEVOTHYROXINE 100 MCG TAB PO SCH (05:48)
[2023-05-22] MEDS: SODIUM CHLORIDE 0.9% 1,000 ML IV SCH (05:49)
[2023-05-22 06:12] LABS: Glucose,Whole Blood 127 mg/dL (70-110)
[2023-05-22] MEDS: PANTOPRAZOLE 40 MG TABLET PO SCH (06:15)
[2023-05-22 07:59] LABS: Anisocytosis Slight; HGB 9.2 gm/dL (11.4-16.0); Hypochromasia Moderate; MCH 32.9 pg (25.0-35.0); MCHC 31.8 g/dL (31.0-37.0); MCV 103.6 fL (80.0-100.0); Macrocytosis Moderate; RDW 17.9 % (11.5-15.5); WBC 6.8 k/uL (3.8-10.6)
[2023-05-22 08:04] LABS: Platelet Count 73 k/uL (150-450)
[2023-05-22 08:09] LABS: ALT 41 U/L (4-34); AST 70 U/L (14-36); African American GFR (CKD) 58 (>60 ml/min/1.73 sqM); Albumin 2.2 g/dL (3.5-5.0); Alkaline Phosphatase 141 U/L (38-126); Anion Gap 5 mmol/L; Blood Urea Nitrogen 15 mg/dL (7-17); Calcium 8.5 mg/dL (8.4-10.2); Carbon Dioxide 27 mmol/L (22-30); Chloride 102 mmol/L (98-107); Glucose 108 mg/dL (74-99); Non-African American GFR(CKD) 50 (>60 ml/min/1.73 sqM); Potassium 4.1 mmol/L (3.5-5.1); Sodium 134 mmol/L (137-145); Total Bilirubin 1.9 mg/dL (0.2-1.3); Total Protein 6.6 g/dL (6.3-8.2)
[2023-05-22] MEDS: HYDROcodone/APAP 10-325MG 1 EACH TAB PO PRN (08:33)
[2023-05-22] MEDS: LACTULOSE 20 GM/30 ML CUP PO SCH (08:33)
[2023-05-22] MEDS: MONTELUKAST 10 MG TAB PO SCH (08:34)
[2023-05-22] MEDS: THIAMINE 100 MG TAB PO SCH (08:34)
[2023-05-22] MEDS: MAGNESIUM OXIDE 400 MG TAB PO SCH (08:34)
[2023-05-22] MEDS: ESCITALOPRAM 10 MG TAB PO SCH (08:34)
[2023-05-22] MEDS: SPIRONOLACTONE 25 MG TAB PO SCH (08:34)
[2023-05-22] MEDS: DAPAGLIFLOZIN PROPANEDIOL 10 MG TABLET PO SCH (08:34)
[2023-05-22] MEDS: FOLIC ACID 1 MG TAB PO SCH (08:34)
[2023-05-22] MEDS: FUROSEMIDE 20 MG TAB PO SCH (08:35)
[2023-05-22] MEDS: CHOLECALCIFEROL 25 MCG (1000 IU) TABLET PO SCH (08:38)
[2023-05-22] MEDS: allopurinoL 300 MG TAB PO SCH (08:38)
--- NOTE | 2023-05-22 09:12 | P.DS ---
Providers Date of admission: 05/19/23 14:42 Attending physician: Bart Monge Consults: 05/19/23 14:51 Consult Physician Routine Consulting Provider: Varsha Griffith Consult Reason/Comments: sepsis Do you want consulting provider notified?: Yes Primary care physician: Bart Monge - Discharge Diagnosis(es) (1) Alcoholic cirrhosis Current Visit: Yes Status: Acute (2) Altered mental status Current Visit: Yes Status: Acute (3) Dehydration Current Visit: Yes Status: Acute (4) Hepatic encephalopathy Current Visit: Yes Status: Acute (5) Alcohol abuse Current Visit: No Status: Acute (6) Diabetes Current Visit: No Status: Acute (7) Hypertension Current Visit: No Status: Acute Hospital Course: This is a 63-year-old female with a known history of cirrhosis of the liver due to alcohol use. She was brought to the ER for altered mental status and decreased responsiveness per her family. She has had recent admissions for this issue in the past. Lactic acid was elevated on admission however cultures have been negative. Patient gets scheduled paracentesis. She has good family support at home. Her daughters at bedside today and will be helping her with her medications at home. Patient stable for discharge. Discussion on importance of taking all medications as prescribed especially Lasix and Aldactone. Patient Condition at Discharge: Fair Plan - Discharge Summary Discharge Rx Participant: No New Discharge Prescriptions: Continue Levothyroxine Sodium [Synthroid] 100 mcg PO DAILY Cholecalciferol [Vitamin D3 (25 Mcg = 1000 Iu)] 50 mcg PO DAILY HYDROcodone/APAP 10-325MG [Donora 10-325] 1 tab PO Q6H PRN PRN Reason: Pain allopurinoL [Zyloprim] 300 mg PO DAILY Montelukast [Singulair] 10 mg PO DAILY Empagliflozin [Jardiance] 25 mg PO DAILY Furosemide [Lasix] 20 mg PO DAILY #30 tab Anastrozole [Arimidex] 1 mg PO DAILY Dulaglutide [Trulicity] 4.5 mg SQ MO Pantoprazole [Protonix] 40 mg PO DAILY Albuterol Inhaler [Ventolin Hfa Inhaler] 2 puff INHALATION RT-Q6H PRN PRN Reason: Shortness Of Breath Folic Acid 1 mg PO DAILY #30 tab Lactulose [Cephulac] 20 gm PO TID #200 ml Escitalopram [Lexapro] 10 mg PO DAILY #30 tab Magnesium Oxide [Mag-Ox] 400 mg PO DAILY #30 tab QUEtiapine [SEROquel] 12.5 mg PO HS #30 tab Thiamine [Vitamin B-1] 100 mg PO DAILY #30 tab Spironolactone [Aldactone] 50 mg PO BID #60 tab Discharge Medication List Levothyroxine Sodium [Synthroid] 100 mcg PO DAILY 07/06/15 [History] Anastrozole [Arimidex] 1 mg PO DAILY 01/04/22 [History] Cholecalciferol [Vitamin D3 (25 Mcg = 1000 Iu)] 50 mcg PO DAILY 01/04/22 [History] Dulaglutide [Trulicity] 4.5 mg SQ MO 01/04/22 [History] Pantoprazole [Protonix] 40 mg PO DAILY 12/06/22 [History] HYDROcodone/APAP 10-325MG [Donora 10-325] 1 tab PO Q6H PRN 01/26/23 [History] allopurinoL [Zyloprim] 300 mg PO DAILY 01/26/23 [History] Empagliflozin [Jardiance] 25 mg PO DAILY 02/05/23 [History] Montelukast [Singulair] 10 mg PO DAILY 02/05/23 [History] Albuterol Inhaler [Ventolin Hfa Inhaler] 2 puff INHALATION RT-Q6H PRN 05/03/23 [History] Folic Acid 1 mg PO DAILY #30 tab 05/08/23 [Rx] Escitalopram [Lexapro] 10 mg PO DAILY #30 tab 05/17/23 [Rx] Furosemide [Lasix] 20 mg PO DAILY #30 tab 05/17/23 [Rx] Lactulose [Cephulac] 20 gm PO TID #200 ml 05/17/23 [Rx] Magnesium Oxide [Mag-Ox] 400 mg PO DAILY #30 tab 05/17/23 [Rx] QUEtiapine [SEROquel] 12.5 mg PO HS #30 tab 05/17/23 [Rx] Spironolactone [Aldactone] 50 mg PO BID #60 tab 05/17/23 [Rx] Thiamine [Vitamin B-1] 100 mg PO DAILY #30 tab 05/17/23 [Rx] Follow up Appointment(s)/Referral(s): [facility], [NON-STAFF] - Bart Monge MD [Primary Care Provider] - 3 Days Discharge Disposition: HOME WITH HOME HEALTH SERVICES
[2023-05-22 09:21] VITALS: BP 107/68; PULSE 102; RESP 16; TEMP 98
== END 2023-05-22 10:09 | disposition home health service (06) | DRG 433 ==
LOC: EC 10:59 → 3SCARD 14:42
PROVIDERS: ADMIT Family Medicine; ATTEND Family Medicine
DX: K70.30 Alcoholic cirrhosis of liver without ascites (principal); F05 Delirium due to known physiological condition; N17.9 Acute kidney failure, unspecified; K76.82 Hepatic encephalopathy; E78.5 Hyperlipidemia, unspecified; E11.9 Type 2 diabetes mellitus without complications; K21.9 Gastro-esophageal reflux disease without esophagitis; I12.9 Hypertensive chronic kidney disease with stage 1 through stage 4 chronic kidney disease, or unspecified chronic kidney disease; N18.9 Chronic kidney disease, unspecified; M19.90 Unspecified osteoarthritis, unspecified site; M10.9 Gout, unspecified; E86.0 Dehydration; F10.20 Alcohol dependence, uncomplicated; R00.0 Tachycardia, unspecified; Z79.84 Long term (current) use of oral hypoglycemic drugs; Z79.890 Hormone replacement therapy; Z79.899 Other long term (current) drug therapy; Z86.16 Personal history of COVID-19; Z90.11 Acquired absence of right breast and nipple; Z85.3 Personal history of malignant neoplasm of breast; Z96.653 Presence of artificial knee joint, bilateral; Z92.21 Personal history of antineoplastic chemotherapy; Z92.3 Personal history of irradiation; Z91.018 Allergy to other foods; Z98.51 Tubal ligation status
CPT/HCPCS: 36415; 70450; 71046; 80053; 80320; 81001; 82140; 82550; 83605; 83690; 83735; 84145; 84484; 85025; 85027; 86140; 87040; 93005; 96361; 96365; 99285